=== PATIENT | female | born 1950 | race Caucasian/White ===

== ENCOUNTER → 2016-06-30 | Outpatient (CLI) | payer MEDICARE, BC ==
--- NOTE | 2016-06-30 09:07 | CT ---
EXAMINATION TYPE: CT sinus wo con DATE OF EXAM: 06/30/2016 8:16 AM COMPARISON: NONE HISTORY: 66-year-old female chronic sinusitis, sinus surgery 5 months ago, complaining of unusual sen sation and air passage. CT DLP: 536 mGycm Automated exposure control for dose reduction was used. TECHNIQUE: Noncontrast axial views of the paranasal sinuses were obtained. Coronal reconstructions pe rformed. FINDINGS: Moderate lobulated mucosal thickening along the floors of the maxillary sinuses. There is reactive ne o osteogenesis of the maxillary sinus pal compatible with long-standing sinusitis. Interval FESS with medial maxillary antrectomies and resection extending up into the ethmoid air cell s. Mild mucosal thickening left sphenoid sinus. Frontal sinuses are clear. No air-fluid levels or osseous destruction of the sinus pal. Similar mild right-sided nasal septal deviation. The osteomeatal complexes are widely patent. The hard palate appears intact. Mild degenerative changes at the TMJs. Prior cataract surgery on the right. Otherwise, the imaged brain and orbits are normal in appearance. Mastoid air cells and middle ear cavities are well pneumatized. Cerumen within the left external wendy tory canal. IMPRESSION: 1. Interval FESS. Bony thickening of the maxillary sinus pal compatible with long-standing sinusiti s. 2. Currently, there is moderate lobulated mucosal thickening along the floors of both maxillary sinus es and minimal mucosal thickening in the left sphenoid sinus.
== END | disposition home or self-care (01) ==
LOC: RADCTMAIN 07:58
PROVIDERS: ATTEND Otolaryngology
DX: J32.0 Chronic maxillary sinusitis (principal); J32.3 Chronic sphenoidal sinusitis
CPT/HCPCS: 70486

== ENCOUNTER → 2017-09-22 | Outpatient (CLI) | payer MEDICARE ==
[2017-09-22 10:47] LABS: HCT 42.6 % (34.0-46.0); HGB 13.7 gm/dL (11.4-16.0); MCH 28.7 pg (25.0-35.0); MCHC 32.2 g/dL (31.0-37.0); MCV 89.1 fL (80.0-100.0); Mean Platelet Volume 6.6; Platelet Count 286 k/uL (150-450); RBC 4.78 m/uL (3.80-5.40); RDW 14.2 % (11.5-15.5); WBC 5.3 k/uL (3.8-10.6)
[2017-09-22 11:06] LABS: Potassium 4.6 mmol/L (3.5-5.1)
== END ==
LOC: LABPAT 09:28
PROVIDERS: ATTEND Internal Medicine Interventional Cardiology
DX: Z01.812 Encounter for preprocedural laboratory examination (principal); R07.9 Chest pain, unspecified
CPT/HCPCS: 36415; 80051; 82565; 84520; 85027

== ENCOUNTER 2017-09-28 06:11 | Day surgery (SDC) | payer MEDICARE ==
[2017-09-28] MEDS ORDERED: ATORVASTATIN 80 MG TAB PO STA (06:31)
[2017-09-28] MEDS ORDERED: SODIUM CHLORIDE 0.9% 1,000 ML in EMPTY BAG 1 BAG IV ONE (06:31)
[2017-09-28] MEDS ORDERED: ASPIRIN 325 MG TAB PO STA (06:31)
[2017-09-28] MEDS ORDERED: ALPRAZolam 0.25 MG TAB PO PRN (06:31)
[2017-09-28] MEDS ORDERED: NITROGLYCERIN SL TABS 0.4 MG TAB SUBLINGUAL PRN ×2 (06:31→09:44)
[2017-09-28] MEDS ORDERED: ALPRAZolam 0.5 MG TAB PO PRN (06:31)
[2017-09-28] MEDS ORDERED: LIDOCAINE 2% INJ 20 MG/ML (20 ML MDV) ONE (07:20)
[2017-09-28] MEDS ORDERED: VERAPAMIL 2.5 MG/ML 2 ML AMP ONE (07:21)
[2017-09-28] MEDS ORDERED: MIDAZOLAM 2 MG/2 ML VIAL ONE ×2 (07:47→09:20)
[2017-09-28] MEDS: MIDAZOLAM 2 MG/2 ML VIAL IV ONE ×2 (07:55→08:05)
[2017-09-28] MEDS ORDERED: LIDOCAINE 2% INJ 20 MG/ML SQ ONE (07:56)
[2017-09-28] MEDS: VERAPAMIL SYRINGE (5 MG/10 ML) IVP ONE ×2 (07:57→09:34)
[2017-09-28] MEDS ORDERED: HEPARIN SODIUM 1,000 UN/ML (10ML VL) ONE (07:58)
[2017-09-28] MEDS ORDERED: HEPARIN SODIUM 1,000 UN/ML (10ML VL) IV ONE (07:59)
[2017-09-28] MEDS ORDERED: niCARdipine 25 MG/10 ML VIAL ONE (08:16)
[2017-09-28] MEDS ORDERED: BIVALIRUDIN BOLUS 250 MG/50 ML IV ONE (08:20)
[2017-09-28] MEDS ORDERED: NITROGLYCERIN 1000MCG/10ML SYRINGE INTRACORON ONE ×2 (08:21→09:29)
[2017-09-28] MEDS ORDERED: BIVALIRUDIN 250 MG in SODIUM CHLORIDE 0.9% 50 ML IV ONE ×2 (08:22→08:56)
[2017-09-28] MEDS ORDERED: fentaNYL (PF) 50 MCG/ML 2 ML AMP ONE (08:24)
[2017-09-28] MEDS: fentaNYL (PF) 50 MCG/ML 2 ML AMP IVP ONE ×2 (08:26→08:38)
[2017-09-28] MEDS ORDERED: IOPAMIDOL-370 125ML BTL INJ ONE (08:45)
[2017-09-28] MEDS: NITROGLYCERIN 1000MCG/10ML SYRINGE INTRACORON ONE ×3 (08:57→09:15)
[2017-09-28] MEDS ORDERED: MIDAZOLAM 2 MG/2 ML VIAL IVP ONE (09:24)
[2017-09-28] MEDS ORDERED: CLOPIDOGREL 75 MG TAB ONE (09:28)
[2017-09-28] MEDS ORDERED: CLOPIDOGREL 75 MG TAB PO ONE (09:34)
[2017-09-28] MEDS ORDERED: IOPAMIDOL-300 100ML BTL INJ ONE (09:40)
[2017-09-28] MEDS ORDERED: MAG HYDROX/AL HYDROX/SIMETH 30 ML CUP PO PRN (09:44)
[2017-09-28] MEDS ORDERED: IBUPROFEN 200 MG TAB PO PRN (09:44)
[2017-09-28] MEDS ORDERED: ALBUTEROL NEBULIZED 2.5 MG/3 ML INHALATION PRN (09:44)
[2017-09-28] MEDS ORDERED: RX INFO: IV CONTRAST WAS GIVEN 1 EACH MISC MISCELLANE PRN (09:44)
[2017-09-28] MEDS ORDERED: ATROPINE SULFATE 0.1 MG/ML 10ML SYRINGE IV PRN (09:44)
[2017-09-28] MEDS ORDERED: ZOLPIDEM 5 MG TAB PO PRN (09:44)
[2017-09-28] MEDS ORDERED: SODIUM CHLORIDE 0.9% 1,000 ML IV SCH (09:45)
--- NOTE | 2017-09-28 10:52 | CC ---
CARDIAC CATHETERIZATION REPORT DATE OF SERVICE: 09/28/2017 PERFORMING PHYSICIAN: Adi Toussaint MD, soil field technician. PROCEDURE PERFORMED: 1. Selective right and left coronary angiogram. 2. Left heart catheterization. 3. x 16 and 2.25 x 12 mm Promus Premier drug-eluting stent with good angiographic results. 4. Successful stenting of the mid RCA using 3.0 x 12 mm Xience MADELIN with good angiographic results. INDICATION: This is a very pleasant 67-year-old female patient with dyslipidemia and obesity, was experiencing exertional dyspnea concerning for angina. She was seen by elevator attendant, Dr. Jara, who ruled out any lung etiology for her shortness of breath. The EKG showed sinus rhythm with poor R-wave progression and left anterior fascicular block. The patient was concerned about severe underlying coronary artery disease. I recommended proceeding with a stress test, but she would like to proceed with a heart catheterization and for that reason, she was brought today to undergo the procedure. APPROACH: Right radial artery. COMPLICATION: None. LEVEL OF SEDATION: Moderate with sedation length of 95 minutes. PROCEDURE DESCRIPTION: After obtaining an informed consent, the patient was brought to cardiac oil field laborer. The right radial artery was cannulated using micropuncture technique, and the micropuncture wire passed easily then I placed a 6-Nigerien sheath in the right radial artery and gave the patient 2 mg of verapamil IA and 10,000 units of heparin IV. I did selective right and left coronary angiogram using JR4 and JL3.5 catheters. Left heart catheterization was performed using the JR4 catheter which flipped into the LV then I did pullback across aortic valve. The procedure was completed without any complication. I did after that intervene on the RCA, please see a separate paragraph for that. SELECTIVE CORONARY ANGIOGRAM: 1. The right coronary artery is a large caliber vessel and it is a dominant vessel. It is a heavily calcified vessel as well. The distal RCA has eccentric lesion appeared to be in the range of 80% to 90%. It bifurcates into PDA and PLV branches both are angiographically normal. 2. The left main is angiographically normal. It bifurcates into left circumflex and left anterior descending artery. 3. The left circumflex is a large caliber vessel. It is a nondominant vessel. The proximal circ has mild disease only. The mid circ has mild disease only and gives rise into an OM branch which seems to be angiographically normal. The mid circ also gives rise into a second OM branch which is a medium caliber vessel with intermediate disease in the proximal portion. The circumflex continues after that as a small caliber vessel in the AV groove. 4. The LAD; the LAD is a medium caliber vessel and it is a heavily calcified and tortuous vessel. It does have mild disease only. It gives rise into the first and second diagonal branches both are angiographically normal. HEMODYNAMICS: The left ventricular end-diastolic pressure was 12 mmHg and no gradient was identified across the aortic valve. PCI OF THE RCA: Anticoagulation was initiated using Angiomax because I checked ACT before I started and it was subtherapeutic. After that, I started anticoagulation with Angiomax. I engaged the RCA using a JR4 guiding catheter. I wired the RCA using a whisper wire. I attempted advancing 2.0 x 12 mm balloon over the whisper, but the balloon will not cross the lesion in the distal RCA and at that point, I did advance 1.5 mm x 12 mm balloon and I did PTCA ballooning of the distal RCA. After that I was able to advance the 2.0 x 12 mm balloon. After balloon angioplasty using 2.0 x 12 mm balloon, I did double wire the RCA using a miky wire with a run-through wire because I knew that advancing the stent will be challenging and crossing the proximal and mid RCA will be challenging in view of the tortuosity and calcifications. I did wire the RCA using a run-through wire. I attempted advancing the stent but the stent will not cross. At this point, I did pull the miky wire out and I tried using adjunctive Godzilla and in spite of that, I was unable to advance the stent. At that point, I decided to wire the RCA with a miky wire and this time using a Mailman wire. With that, I was able to stent the RCA distally using 2 stents, 2.5 x 16 and 2.25 x 12 mm. Both the stents were positioned under fluoroscopy guidance and both were deployed under their nominal pressure for 20 seconds. After I pulled the balloon stent out, I took a picture and there was a lesion in the mid RCA. It seems to be hazy and quite concerning for dissection, so I decided to cover that lesion as well, so I did deploy 3.0 x 12 mm Xience MADELIN as well. The third stent was positioned under fluoroscopy guidance and deployed under its nominal pressure as well. The following angiogram showed good angiographic results and the procedure was completed without any complication. CONCLUSION: 1. Exertional dyspnea and exertional chest discomfort in this 67-year-old female patient. 2. Heavily calcified right and left coronary system. 3. Critical disease involving the distal right coronary artery which was stented as described above. 4. Intermediate disease involving the left circumflex. 5. Mild disease involving the left anterior descending artery. POSTPROCEDURE MANAGEMENT: Maximize medical treatment and follow up with the patient. MMODL / IJN: [id number] /
[2017-09-28] MEDS ORDERED: ACETAMINOPHEN TAB 325 MG TAB ONE (13:55)
[2017-09-28 15:59] VITALS: BMI 48.0
[2017-09-28] MEDS: METOPROLOL TARTRATE 25 MG TAB PO SCH (20:39)
[2017-09-28] MEDS ORDERED: ATORVASTATIN 80 MG TAB PO SCH (21:00)
[2017-09-28] MEDS: BRIMONIDINE TARTRATE 0.2% DROPS 5 ML BTL LEFT EYE SCH (21:28)
[2017-09-28] MEDS: DORZOLAMIDE HCL 2% DROPS 10 ML BTL LEFT EYE SCH (21:28)
[2017-09-28] MEDS: ALBUTEROL NEBULIZED 2.5 MG/3 ML INHALATION PRN (21:43)
[2017-09-28] MEDS: BUDESONIDE 1 MG/2 ML NEBU INHALATION SCH (21:43)
[2017-09-29 00:42] VITALS: RESP 16
[2017-09-29 06:30] LABS: Basophils % (A) 0 %; Eosinophils # (A) 0.2 k/uL (0-0.7); Eosinophils % (A) 3 %; HCT 39.3 % (34.0-46.0); HGB 12.9 gm/dL (11.4-16.0); Lymphocytes # (A) 1.2 k/uL (1.0-4.8); Lymphocytes % (A) 25 %; MCHC 32.7 g/dL (31.0-37.0); MCV 88.6 fL (80.0-100.0); Mean Platelet Volume 6.4; Monocytes # (A) 0.4 k/uL (0-1.0); Monocytes % (A) 9 %; Neutrophils # (A) 2.9 k/uL (1.3-7.7); Neutrophils % (A) 61 %; Platelet Count 303 k/uL (150-450); RBC 4.44 m/uL (3.80-5.40); RDW 14.2 % (11.5-15.5); WBC 4.8 k/uL (3.8-10.6)
[2017-09-29 06:40] LABS: Calcium 9.1 mg/dL (8.4-10.2); Potassium 4.4 mmol/L (3.5-5.1)
[2017-09-29] MEDS: ALBUTEROL NEBULIZED 2.5 MG/3 ML INHALATION PRN (07:23)
[2017-09-29] MEDS: BUDESONIDE 1 MG/2 ML NEBU INHALATION SCH (07:23)
[2017-09-29 07:58] VITALS: BP 125/74; TEMP 98
[2017-09-29] MEDS: DORZOLAMIDE HCL 2% DROPS 10 ML BTL LEFT EYE SCH (08:01)
[2017-09-29] MEDS: BRIMONIDINE TARTRATE 0.2% DROPS 5 ML BTL LEFT EYE SCH (08:01)
[2017-09-29] MEDS: METOPROLOL TARTRATE 25 MG TAB PO SCH (08:02)
[2017-09-29 08:03] VITALS: PULSE 77
[2017-09-29] MEDS ORDERED: ASPIRIN 325 MG TAB PO SCH (09:00)
[2017-09-29] MEDS ORDERED: CLOPIDOGREL 75 MG TAB PO SCH (09:00)
--- NOTE | 2017-09-30 06:41 | DS ---
DISCHARGE SUMMARY ADMISSION DATE: 09/28/2017. DISCHARGE DATE: 09/29/2017 BRIEF HISTORY: This is a pleasant 67-year-old female patient who was experiencing exertional dyspnea concerning for angina. She underwent heart catheterization and stenting of distal RCA with good angiographic results. The patient is going to be discharged home today on dual anti-platelet therapy and I will follow up with the patient in the office as an outpatient. MMCASSIE / WILMERN: [id number] /
== END 2017-09-29 08:40 | disposition home or self-care (01) ==
LOC: CATHCVL 06:11 → 6SEL 09:20 → CATHCVL 09-29 08:40
PROVIDERS: ATTEND Internal Medicine Interventional Cardiology
DX: I25.110 Atherosclerotic heart disease of native coronary artery with unstable angina pectoris (principal); I25.84 Coronary atherosclerosis due to calcified coronary lesion; I10 Essential (primary) hypertension; Z87.891 Personal history of nicotine dependence; I77.1 Stricture of artery; E78.00 Pure hypercholesterolemia, unspecified; E78.5 Hyperlipidemia, unspecified; Z79.51 Long term (current) use of inhaled steroids; Z79.899 Other long term (current) drug therapy; Z88.2 Allergy status to sulfonamides
CPT/HCPCS: 94640 ×2; 93458; 80048; 85025; C9600; C1769 ×5; C1887 ×2; C1725 ×3; C1874 ×2; C1894; J2001; J2250; J3010; J1644; J0583; Q9967 ×2

== ENCOUNTER → 2017-11-17 | Outpatient (CLI) | payer MEDICARE, BC ==
--- NOTE | 2017-11-18 07:41 | CT ---
EXAMINATION TYPE: CT brain wo con DATE OF EXAM: 11/17/2017 HISTORY: Headaches for 1-[address] DLP: 1054.2 mGycm. Automated Exposure Control for Dose Reduction was Utilized. TECHNIQUE: CT scan of the head is performed without contrast. COMPARISON: None. FINDINGS: There is no acute intracranial hemorrhage or midline shift identified. There is diffuse v entricular and sulcal prominence consistent with diffuse age-related cerebral atrophy. Marc-white mat ter differentiation is preserved. Vascular calcification distal internal carotid arteries bilaterally is present. There is evidence of prior surgery at level of ostiomeatal complexes with mild to modera te right greater than left mucosal thickening involving maxillary sinuses and mild mucosal thickening involving the left sphenoid sinus. There is asymmetric thinning of right lens. IMPRESSION: No acute intracranial hemorrhage or midline shift. There is mild diffuse age-related ce rebral atrophy noted.
== END ==
LOC: RADCTMAIN 16:29
PROVIDERS: ATTEND Family Medicine
DX: G31.1 Senile degeneration of brain, not elsewhere classified (principal)
CPT/HCPCS: 70450

== ENCOUNTER → 2017-12-09 | Outpatient (CLI) | payer MEDICARE, BC ==
[2017-12-09 08:02] LABS: Cholesterol 189 mg/dL (<200); HDL Cholesterol 53 mg/dL (40-60); LDL Cholesterol,Calculated 118 mg/dL (0-99); Triglycerides 91 mg/dL (<150)
== END | disposition home or self-care (01) ==
LOC: LABWHC1 07:29
PROVIDERS: ATTEND Nurse Practitioner Adult Health
DX: E78.5 Hyperlipidemia, unspecified (principal)
CPT/HCPCS: 36415; 80061

== ENCOUNTER 2018-05-04 10:52 | Emergency (ER) | payer MEDICARE, BC ==
[2018-05-04 11:10] VITALS: RESP 18
[2018-05-04] MEDS ORDERED: SODIUM CHLORIDE 0.9% 1,000 ML IV STA ×2 (11:29)
[2018-05-04] MEDS ORDERED: MORPHINE SULFATE 4 MG/ML SYRINGE IV STA (11:29)
--- NOTE | 2018-05-04 11:41 | ED ---
Abdominal Pain HPI - General Chief Complaint: Abdominal Pain Stated Complaint: POSS KIDNEY STONE Time Seen by Provider: 05/04/18 11:28 Source: patient, RN notes reviewed, old records reviewed Mode of arrival: wheelchair Limitations: no limitations - History of Present Illness Initial Comments: This is a 60-year-old female the ER for evaluation. Presents today for evaluation regarding to abdominal pain flank pain. Patient is recent travel history no known sick contacts. No recent fevers. No nausea vomiting, no significant diarrhea no blood in the vomit or stool. No prior history of similar complaint. Recently treated for urinary tract infection to resolution MD Complaint: abdominal pain, flank pain (Back pain) -: days(s) Location: R flank Radiation: none Migration to: no migration Severity: mild Severity scale (1-10): 3 Quality: aching Improves With: nothing Worsens With: nothing Associated Symptoms: denies other symptoms - Related Data Home Medications Medication Instructions Recorded Confirmed Albuterol Inhaler [Ventolin Hfa 2 puff INHALATION RT-Q6H PRN 02/11/16 05/04/18 Inhaler] Beclomethasone Dip 80 Mcg/Puff 2 puff INHALATION RT-BID 02/11/16 05/04/18 [Qvar 80 mcg] Albuterol Nebulized [Ventolin 2.5 mg INHALATION RT-Q6H PRN 05/04/18 05/04/18 Nebulized] Aspirin EC [Ecotrin Low Dose] 81 mg PO DAILY 05/04/18 05/04/18 Atorvastatin [Lipitor] 80 mg PO DAILY 05/04/18 05/04/18 Cholecalciferol [Vitamin D3] 1,000 unit PO HS 05/04/18 05/04/18 Magnesium 200 mg PO HS 05/04/18 05/04/18 Multivitamins, Thera [Multivitamin 1 tab PO HS 05/04/18 05/04/18 (formulary)] Potassium Gluconate 99 mg PO HS 05/04/18 05/04/18 Previous Rx's Medication Instructions Recorded Clopidogrel [Plavix] 75 mg PO DAILY #90 tab 09/29/17 Metoprolol Tartrate [Lopressor] 12.5 mg PO BID #60 dose 09/29/17 Ciprofloxacin HCl [Cipro] 500 mg PO Q12HR #14 tablet 05/04/18 Ondansetron Odt [Zofran ODT] 4 mg PO Q8HR PRN #10 tab 05/04/18 metroNIDAZOLE [Flagyl] 500 mg PO TID #21 tab 05/04/18 Allergies Allergy/AdvReac Type Severity Reaction Status Date / Time Sulfa (Sulfonamide Allergy Nausea & Verified 05/04/18 11:24 Antibiotics) Vomiting Review of Systems ROS Statement: Those systems with pertinent positive or pertinent negative responses have been documented in the HPI. ROS Other: All systems not noted in ROS Statement are negative. Past Medical History Past Medical History: Asthma, GERD/Reflux, Osteoarthritis (OA) Additional Past Medical History / Comment(s): lupus History of Any Multi-Drug Resistant Organisms: None Reported Past Surgical History: Breast Surgery, Heart Catheterization With Stent, Hysterectomy Additional Past Surgical History / Comment(s): NASAL SURGERY,TUMOR IN NECK, LEFT EYE SURGERY, CARPAL TUNNEL RIGHT WRIST, Lumpectomy right breast Past Anesthesia/Blood Transfusion Reactions: No Reported Reaction Past Psychological History: No Psychological Hx Reported Smoking Status: Former smoker Past Alcohol Use History: None Reported Past Drug Use History: None Reported - Past Family History Mother Family Medical History: Cancer Additional Family Medical History / Comment(s): OVARIAN CANCER General Exam Limitations: no limitations General appearance: alert, in no apparent distress Head exam: Present: atraumatic, normocephalic, normal inspection Eye exam: Present: normal appearance, PERRL, EOMI. Absent: scleral icterus, conjunctival injection, periorbital swelling ENT exam: Present: normal exam, mucous membranes moist Neck exam: Present: normal inspection. Absent: tenderness, meningismus, lymphadenopathy Respiratory exam: Present: normal lung sounds bilaterally. Absent: respiratory distress, wheezes, rales, rhonchi, stridor Cardiovascular Exam: Present: regular rate, normal rhythm, normal heart sounds. Absent: systolic murmur, diastolic murmur, rubs, gallop, clicks GI/Abdominal exam: Present: soft, normal bowel sounds. Absent: distended, tenderness, guarding, rebound, rigid Extremities exam: Present: normal inspection, full ROM, normal capillary refill. Absent: tenderness, pedal edema, joint swelling, calf tenderness Back exam: Present: normal inspection Neurological exam: Present: alert, oriented X3, CN II-XII intact Psychiatric exam: Present: normal affect, normal mood Skin exam: Present: warm, dry, intact, normal color. Absent: rash Course Vital Signs 05/04/18 05/04/18 11:08 13:17 Temperature 97.8 F 98.7 F Pulse Rate 85 87 Respiratory 18 18 Rate Blood Pressure 115/69 125/87 O2 Sat by Pulse 96 98 Oximetry - Reevaluation(s) Reevaluation #1: discussed with patient options findings, patient will try on outpatient treatment Medical Decision Making - Medical Decision Making 60 female the ER for evaluation. She presents today for evaluation of abdominal pain. Patient has positive colitis, patient will be discharged home on antibiotics and dietary changes. - Lab Data Result diagrams: 05/04/18 11:47 05/04/18 11:47 Lab Results 05/04/18 05/04/18 05/04/18 Range/Units 11:20 11:47 11:47 WBC 6.0 (3.8-10.6) k/uL RBC 4.66 (3.80-5.40) m/uL Hgb 12.6 (11.4-16.0) gm/dL Hct 40.2 (34.0-46.0) % MCV 86.3 (80.0-100.0) fL MCH 27.0 (25.0-35.0) pg MCHC 31.3 (31.0-37.0) g/dL RDW 15.7 H (11.5-15.5) % Plt Count 295 (150-450) k/uL Neutrophils % 65 % Lymphocytes % 24 % Monocytes % 6 % Eosinophils % 2 % Basophils % 0 % Neutrophils # 3.9 (1.3-7.7) k/uL Lymphocytes # 1.5 (1.0-4.8) k/uL Monocytes # 0.4 (0-1.0) k/uL Eosinophils # 0.1 (0-0.7) k/uL Basophils # 0.0 (0-0.2) k/uL Sodium 138 (137-145) mmol/L Potassium 5.0 (3.5-5.1) mmol/L Chloride 111 H (98-107) mmol/L Carbon Dioxide 22 (22-30) mmol/L Anion Gap 5 mmol/L BUN 21 H (7-17) mg/dL Creatinine 0.77 (0.52-1.04) mg/dL Est GFR (CKD-EPI)AfAm >90 (>60 ml/min/1.73 sqM) Est GFR (CKD-EPI)NonAf 80 (>60 ml/min/1.73 sqM) Glucose 95 (74-99) mg/dL Calcium 9.3 (8.4-10.2) mg/dL Total Bilirubin 0.8 (0.2-1.3) mg/dL AST 54 H (14-36) U/L ALT 45 (9-52) U/L Alkaline Phosphatase 84 (38-126) U/L Total Protein 7.3 (6.3-8.2) g/dL Albumin 3.6 (3.5-5.0) g/dL Amylase 66 (30-110) U/L Lipase 230 (23-300) U/L Urine Color Light Yellow Urine Appearance Cloudy H (Clear) Urine pH 7.0 (5.0-8.0) Ur Specific Arnold 1.006 (1.001-1.035) Urine Protein Negative (Negative) Urine Glucose (UA) Negative (Negative) Urine Ketones Negative (Negative) Urine Blood Small H (Negative) Urine Nitrite Negative (Negative) Urine Bilirubin Negative (Negative) Urine Urobilinogen <2.0 (<2.0) mg/dL Ur Leukocyte Esterase Large H (Negative) Urine RBC 22 H (0-5) /hpf Urine WBC 29 H (0-5) /hpf Ur Squamous Epith Cells 4 (0-4) /hpf Urine Bacteria Occasional H (None) /hpf Urine Mucus Rare H (None) /hpf - Radiology Data Radiology results: report reviewed (CT of pelvis positive for diverticulitis), image reviewed Disposition Clinical Impression: Abdominal pain, Diverticulitis Disposition: HOME SELF-CARE Condition: Good Instructions: Diverticulitis (ED), Diverticulitis Diet (ED) Prescriptions: Ciprofloxacin HCl [Cipro] 500 mg PO Q12HR #14 tablet metroNIDAZOLE [Flagyl] 500 mg PO TID #21 tab Ondansetron Odt [Zofran ODT] 4 mg PO Q8HR PRN #10 tab PRN Reason: nausea/vomiting Is patient prescribed a controlled substance at d/c from ED?: No Referrals: John Moss MD [Primary Care Provider] - 1-2 days
[2018-05-04 11:55] LABS: Appearance,Urine Cloudy (Clear); Bacteria,Urine Occasional /hpf; Bilirubin,Urine Negative (Negative); Blood,Urine Small (Negative); Color,Urine Light Yellow; Glucose,Urine (UA) Negative (Negative); Ketones,Urine Negative (Negative); Leukocyte Esterase,Urine Large (Negative); Mucus,Urine Rare /hpf; Nitrite,Urine Negative (Negative); Protein,Urine Negative (Negative); RBC,Urine 22 /hpf (0-5); Specific Gravity,Urine 1.006 (1.001-1.035); Squamous Epithelial Cell,Urine 4 /hpf (0-4); Urobilinogen,Urine <2.0 mg/dL (<2.0); WBC,Urine 29 /hpf (0-5)
[2018-05-04 12:08] LABS: Basophils % (A) 0 %; Eosinophils # (A) 0.1 k/uL (0-0.7); Eosinophils % (A) 2 %; HCT 40.2 % (34.0-46.0); HGB 12.6 gm/dL (11.4-16.0); Lymphocytes # (A) 1.5 k/uL (1.0-4.8); Lymphocytes % (A) 24 %; MCHC 31.3 g/dL (31.0-37.0); MCV 86.3 fL (80.0-100.0); Mean Platelet Volume 6.3; Monocytes # (A) 0.4 k/uL (0-1.0); Monocytes % (A) 6 %; Neutrophils # (A) 3.9 k/uL (1.3-7.7); Neutrophils % (A) 65 %; Platelet Count 295 k/uL (150-450); RBC 4.66 m/uL (3.80-5.40); RDW 15.7 % (11.5-15.5)
--- NOTE | 2018-05-04 12:17 | CT ---
EXAMINATION TYPE: CT abdomen pelvis wo con DATE OF EXAM: 05/04/2018 COMPARISON: None HISTORY: Right sided flank pain CT DLP: 1281 mGycm Examination of the solid and hollow viscera is limited given the lack of contrast. FINDINGS: LUNG BASES: No evidence for nodule. No evidence for infiltrate. LIVER/GB: There is evidence of calcified cholelithiasis. No space-occupying hepatic lesion. PANCREAS: No pancreatic mass identified. No inflammatory process seen. SPLEEN: No evidence for splenomegaly. No intrasplenic lesions seen. ADRENALS: No adrenal nodules identified. No evidence for thickening. KIDNEYS: No evidence for renal mass. Renal vascular calcifications noted bilaterally. No nephrolithia sis. No hydronephrosis. BOWEL: Appendix has a normal appearance. No evidence of bowel obstruction. There is minimal stranding noted adjacent to the proximal sigmoid colon at the site of diverticulosis which may reflect mild di verticulitis. No perforation or abscess seen. Lymph nodes: No evidence for adenopathy greater than 1 cm. Abdominal aorta: Atheromatous changes seen. No evidence for aneurysm. Genital organs: No significant abnormality. Other: No significant abnormality. IMPRESSION: 1. Correlate for mild uncomplicated sigmoid diverticulitis. 2. Renal vascular calcifications. No hydronephrosis or nephrolithiasis appreciated.
[2018-05-04 12:23] LABS: Albumin 3.6 g/dL (3.5-5.0); Amylase 66 U/L (30-110); Anion Gap 5 mmol/L; Blood Urea Nitrogen 21 mg/dL (7-17); Calcium 9.3 mg/dL (8.4-10.2); Carbon Dioxide 22 mmol/L (22-30); Chloride 111 mmol/L (98-107); Glucose 95 mg/dL (74-99); Lipase 230 U/L (23-300); Sodium 138 mmol/L (137-145); Total Bilirubin 0.8 mg/dL (0.2-1.3); Total Protein 7.3 g/dL (6.3-8.2)
[2018-05-04 12:35] LABS: ALT 45 U/L (9-52); AST 54 U/L (14-36)
[2018-05-04 12:36] LABS: Alkaline Phosphatase 84 U/L (38-126)
[2018-05-04] MEDS ORDERED: CIPROFLOXACIN HCL 500 MG TAB PO STA (12:55)
[2018-05-04] MEDS ORDERED: metroNIDAZOLE 500 MG TAB PO STA (12:55)
[2018-05-04] MEDS ORDERED: ONDANSETRON 4 MG/2 ML VIAL IVP STA (12:55)
[2018-05-04 13:20] VITALS: BP 125/87; PULSE 87; TEMP 98.7
== END 2018-05-04 13:20 | disposition home or self-care (01) ==
LOC: EC 10:52
DX: K57.32 Diverticulitis of large intestine without perforation or abscess without bleeding (principal); K52.9 Noninfective gastroenteritis and colitis, unspecified; J45.909 Unspecified asthma, uncomplicated; M19.90 Unspecified osteoarthritis, unspecified site; Z87.891 Personal history of nicotine dependence; Z88.2 Allergy status to sulfonamides; Z79.51 Long term (current) use of inhaled steroids; Z79.82 Long term (current) use of aspirin; Z79.899 Other long term (current) drug therapy
CPT/HCPCS: 99284; 96374; 96375; 96361 ×2; 36415; 80053; 82150; 83690; 85025; 81001; 87086; 87077; 87186; 74176; J2270; J2405

== ENCOUNTER → 2018-07-07 | Outpatient (CLI) | payer MEDICARE, BC ==
--- NOTE | 2018-07-07 19:37 | CONS ---
CONSULTATION DATE OF SERVICE: 07/07/2018 This patient is a 68-year-old lady who has been evaluated in [facility] for possible obstructive sleep apnea-hypopnea syndrome. HISTORY OF PRESENT ILLNESS/SLEEP-WAKE EVALUATION: Patient's usual sleep schedule is from around 10 p.m. until 5 a.m. Usually no problems with falling asleep. No TV in bedroom. Patient sleeps on the side position only with snoring and awakenings from sleep multiple times, around 8 times, usually without nocturia. She has episodes of awakenings from sleep with choking, grinding teeth, panic attacks, palpitations, heartburn, gasping for air, episodes of restless legs. In the morning the patient wakes up tired, falling asleep during the day, having episodes of irritability, depression, anxiety, claustrophobia. [place] Sleepiness Scale is increased to 11. PAST MEDICAL HISTORY: Positive for: 1. Coronary artery disease. 2. Hyperlipidemia. 3. Asthma. 4. Sinus problems. PAST SURGICAL HISTORY: 1. Right breast 2 surgeries with benign diagnoses. 2. Status post left eye surgery. 3. Status post nasal surgery. MEDICATIONS: 1. Metoprolol. 2. Baby aspirin. 3. Clopidogrel. 4. Atorvastatin. 5. Vitamins. 6. Magnesium. 7. Ventolin, Qvar and albuterol inhalers. SOCIAL HISTORY: Positive for smoking about 25 pack/years; quit about 14 years ago. Alcohol consumption very rarely. REVIEW OF SYSTEMS: Multiple awakenings from sleep, sleepiness during the day, swelling of the legs. FAMILY HISTORY: Heart problems, hyperlipidemia, arthritis, asthma, sinus problems, snoring, cancer, headaches, acid reflux, nasal polyps, restless legs. PHYSICAL EXAMINATION: GENERAL: A pleasant lady without distress. VITAL SIGNS: BP 118/42, HR around 110, RR 24, height 4 feet 10 inches, weight 250 pounds. Body mass index 52.2, temperature 97.6. Oxygen saturation on room air 94%. HEENT: PERRLA, EOMI. Evaluation of oropharynx showed tongue protrudes midline. Low position of soft palate. Mallampati III. NECK: Supple. No JVD. Thyroid is not palpable. Wide pillars. Wide neck: 19 inches in circumference. LUNGS: Clear to percussion and to auscultation. Good air exchange. No wheezing or rhonchi. HEART: Tachycardia. ABDOMEN: Obese. EXTREMITIES: One plus bilateral ankle edema. IMPRESSION: 1. Snoring, multiple awakenings from sleep, including episodes of awakenings with gasping for air, small oropharyngeal air space, wide neck, sleepiness; obstructive sleep apnea-hypopnea syndrome. 2. Obesity; body mass index 52.2. 3. Asthma. 4. History of 25 pack/years of smoking. 5. Coronary artery disease, status post 2 stent insertions. 6. Hyperlipidemia. 7. Status post 2 right breast surgeries; not any tumor. 8. Status post partial hysterectomy. 9. Status post left eye surgery. 10.Status post nasal surgery for sinus problems. 11.History of sinusitis. PLAN: 1. Polysomnography for evaluation of patient's breathing during sleep. 2. CPAP/BiPAP titration if sleep study confirms obstructive sleep apnea-hypopnea syndrome. 3. Preferable position during sleep on the side. 4. No driving if patient feels any sleepiness. 5. I will see patient for follow up visit to explain results of testing and following plan. Thank you very much for referring this patient for consultation. Sincerely, Chino Banks MD, PhD, FAASM Diplomat of [employer]ur[employer] Assistant of [facility] [place] MMODL / IJN: [id number] /
== END ==
LOC: SLEEP 13:23
PROVIDERS: ATTEND Internal Medicine
DX: G47.33 Obstructive sleep apnea (adult) (pediatric) (principal); E66.9 Obesity, unspecified; J45.909 Unspecified asthma, uncomplicated; I25.10 Atherosclerotic heart disease of native coronary artery without angina pectoris; J32.9 Chronic sinusitis, unspecified; E78.5 Hyperlipidemia, unspecified; Z68.43 Body mass index [BMI] 50.0-59.9, adult; Z87.891 Personal history of nicotine dependence; Z90.711 Acquired absence of uterus with remaining cervical stump; Z98.890 Other specified postprocedural states; Z99.89 Dependence on other enabling machines and devices; Z95.5 Presence of coronary angioplasty implant and graft; Z79.899 Other long term (current) drug therapy; Z79.82 Long term (current) use of aspirin
CPT/HCPCS: 99211

== ENCOUNTER 2018-09-07 08:27 | Emergency (ER) | payer MEDICARE, BC ==
[2018-09-07 08:34] VITALS: RESP 18; TEMP 98.2
[2018-09-07] MEDS ORDERED: SODIUM CHLORIDE 0.9% 500 ML 500 ML IV STA (08:56)
--- NOTE | 2018-09-07 08:59 | ED ---
General Adult HPI - General Chief complaint: Shortness of Breath Stated complaint: SOB, strange feeling in arms Time Seen by Provider: 09/07/18 08:27 Source: patient, RN notes reviewed Mode of arrival: wheelchair Limitations: no limitations - History of Present Illness Initial comments: This is a 68-year-old female has past medical history significant for coronary artery stent placement. Patient states she also has history of asthma. Patient states every morning she gets up she has a little bit of shortness of breath secondary to asthma she got up this morning and had the same symptoms as normal. Patient states she then started getting a cold chill in her back and down both arms. Patient states there was no pain there was no chest pain there's no palpitations in her shortness of breath resolved as it normally does. Patient states this lasted for a couple of hours and on her way to the emergency department with a cold chill was gone. Patient denies any fever patient denies any cough. Patient denies any symptoms at all currently. Patient denies any abdominal pain patient denies nausea vomiting diarrhea. Recent denies any numbness or weakness. Patient denies any headache patient denies any lightheadedness dizziness or near-syncopal episode. - Related Data Home Medications Medication Instructions Recorded Confirmed Aspirin EC [Ecotrin Low Dose] 81 mg PO DAILY 05/04/18 09/07/18 Cholecalciferol [Vitamin D3] 1,000 unit PO HS 05/04/18 09/07/18 Magnesium 400 mg PO HS 05/04/18 09/07/18 Multivitamins, Thera [Multivitamin 1 tab PO HS 05/04/18 09/07/18 (formulary)] Potassium Gluconate 99 mg PO HS 05/04/18 09/07/18 Atorvastatin [Lipitor] 40 mg PO DAILY 09/07/18 09/07/18 Furosemide [Lasix] 20 mg PO DAILY 09/07/18 09/07/18 Metoprolol Tartrate [Lopressor] 25 mg PO BID 09/07/18 09/07/18 [place]-3 Fatty Acids [[place]-3] 1,000 mg PO DAILY 09/07/18 09/07/18 Previous Rx's Medication Instructions Recorded Clopidogrel [Plavix] 75 mg PO DAILY #90 tab 09/29/17 Allergies Allergy/AdvReac Type Severity Reaction Status Date / Time Sulfa (Sulfonamide Allergy Nausea & Verified 09/07/18 09:11 Antibiotics) Vomiting Review of Systems ROS Statement: Those systems with pertinent positive or pertinent negative responses have been documented in the HPI. ROS Other: All systems not noted in ROS Statement are negative. Past Medical History Past Medical History: Asthma, Coronary Artery Disease (CAD), GERD/Reflux, Osteoarthritis (OA) Additional Past Medical History / Comment(s): lupus History of Any Multi-Drug Resistant Organisms: None Reported Past Surgical History: Breast Surgery, Heart Catheterization With Stent, Hysterectomy Additional Past Surgical History / Comment(s): NASAL SURGERY,TUMOR IN NECK, LEFT EYE SURGERY, CARPAL TUNNEL RIGHT WRIST, Lumpectomy right breast Past Anesthesia/Blood Transfusion Reactions: No Reported Reaction Past Psychological History: No Psychological Hx Reported Smoking Status: Former smoker Past Alcohol Use History: None Reported Past Drug Use History: None Reported - Past Family History Mother Family Medical History: Cancer Additional Family Medical History / Comment(s): OVARIAN CANCER General Exam - General Exam Comments Initial Comments: GENERAL: Patient is well-developed and well-nourished. Patient is nontoxic and well- hydrated and is in no acute distress. ENT: Neck is soft and supple. No significant lymphadenopathy is noted. Oropharynx is clear. Moist mucous membranes. Neck has full range of motion without eliciting any pain. EYES: The sclera were anicteric and conjunctiva were pink and moist. Extraocular movements were intact and pupils were equal round and reactive to light. Eyelids were unremarkable. PULMONARY: Unlabored respirations. Good breath sounds bilaterally. No audible rales rhonchi or wheezing was noted. CARDIOVASCULAR: There is a regular rate and rhythm without any murmurs gallops or rubs. ABDOMEN: Soft and nontender with normal bowel sounds. No palpable organomegaly was noted. There is no palpable pulsatile mass. SKIN: Skin is clear with no lesions or rashes and otherwise unremarkable. NEUROLOGIC: Patient is alert and oriented x3. Cranial nerves II through XII are grossly intact. Motor and sensory are also intact. Normal speech, volume and content. Symmetrical smile. MUSCULOSKELETAL: Normal extremities with adequate strength and full range of motion. No lower extremity swelling or edema. No calf tenderness. LYMPHATICS: No significant lymphadenopathy is noted PSYCHIATRIC: Normal psychiatric evaluation. Limitations: no limitations Course Vital Signs 09/07/18 08:30 Temperature 98.2 F Pulse Rate 83 Respiratory 18 Rate Blood Pressure 129/69 O2 Sat by Pulse 98 Oximetry Medical Decision Making - Medical Decision Making EKG shows normal sinus rhythm at 84 bpm NE interval 280 QRS is 96 QT interval 384 QTC is 453 per patient's EKG shows no ST segment elevation or depression or T wave abnormalities are noted. Initial chest x-ray shows no acute abnormality. Patient's had no symptoms while in the emergency department. At no time was the patient short of breath or having any chest pain. - Lab Data Result diagrams: 09/07/18 08:52 09/07/18 08:52 Lab Results 09/07/18 09/07/18 09/07/18 Range/Units 08:52 08:52 08:52 WBC 4.9 (3.8-10.6) k/uL RBC 4.40 (3.80-5.40) m/uL Hgb 11.0 L (11.4-16.0) gm/dL Hct 35.4 (34.0-46.0) % MCV 80.6 (80.0-100.0) fL MCH 25.1 (25.0-35.0) pg MCHC 31.2 (31.0-37.0) g/dL RDW 15.9 H (11.5-15.5) % Plt Count 358 (150-450) k/uL Neutrophils % 64 % Lymphocytes % 24 % Monocytes % 7 % Eosinophils % 2 % Basophils % 0 % Neutrophils # 3.1 (1.3-7.7) k/uL Lymphocytes # 1.1 (1.0-4.8) k/uL Monocytes # 0.3 (0-1.0) k/uL Eosinophils # 0.1 (0-0.7) k/uL Basophils # 0.0 (0-0.2) k/uL Hypochromasia Marked Poikilocytosis Slight PT 10.1 (9.0-12.0) sec INR 0.9 (<1.2) APTT 21.2 L (22.0-30.0) sec Sodium 141 (137-145) mmol/L Potassium 4.1 (3.5-5.1) mmol/L Chloride 107 (98-107) mmol/L Carbon Dioxide 25 (22-30) mmol/L Anion Gap 9 mmol/L BUN 20 H (7-17) mg/dL Creatinine 0.72 (0.52-1.04) mg/dL Est GFR (CKD-EPI)AfAm >90 (>60 ml/min/1.73 sqM) Est GFR (CKD-EPI)NonAf 87 (>60 ml/min/1.73 sqM) Glucose 135 H (74-99) mg/dL Calcium 9.1 (8.4-10.2) mg/dL Magnesium 1.9 (1.6-2.3) mg/dL Total Bilirubin 0.7 (0.2-1.3) mg/dL AST 54 H (14-36) U/L ALT 46 (9-52) U/L Alkaline Phosphatase 110 (38-126) U/L Troponin I (0.000-0.034) ng/mL Total Protein 7.3 (6.3-8.2) g/dL Albumin 3.7 (3.5-5.0) g/dL 09/07/18 Range/Units 08:52 WBC (3.8-10.6) k/uL RBC (3.80-5.40) m/uL Hgb (11.4-16.0) gm/dL Hct (34.0-46.0) % MCV (80.0-100.0) fL MCH (25.0-35.0) pg MCHC (31.0-37.0) g/dL RDW (11.5-15.5) % Plt Count (150-450) k/uL Neutrophils % % Lymphocytes % % Monocytes % % Eosinophils % % Basophils % % Neutrophils # (1.3-7.7) k/uL Lymphocytes # (1.0-4.8) k/uL Monocytes # (0-1.0) k/uL Eosinophils # (0-0.7) k/uL Basophils # (0-0.2) k/uL Hypochromasia Poikilocytosis PT (9.0-12.0) sec INR (<1.2) APTT (22.0-30.0) sec Sodium (137-145) mmol/L Potassium (3.5-5.1) mmol/L Chloride (98-107) mmol/L Carbon Dioxide (22-30) mmol/L Anion Gap mmol/L BUN (7-17) mg/dL Creatinine (0.52-1.04) mg/dL Est GFR (CKD-EPI)AfAm (>60 ml/min/1.73 sqM) Est GFR (CKD-EPI)NonAf (>60 ml/min/1.73 sqM) Glucose (74-99) mg/dL Calcium (8.4-10.2) mg/dL Magnesium (1.6-2.3) mg/dL Total Bilirubin (0.2-1.3) mg/dL AST (14-36) U/L ALT (9-52) U/L Alkaline Phosphatase (38-126) U/L Troponin I <0.012 (0.000-0.034) ng/mL Total Protein (6.3-8.2) g/dL Albumin (3.5-5.0) g/dL Disposition Clinical Impression: Paresthesia Disposition: HOME SELF-CARE Condition: Good Instructions (If sedation given, give patient instructions): Paresthesia (ED) Is patient prescribed a controlled substance at d/c from ED?: No Referrals: John Moss MD [Primary Care Provider] - 1-2 days Time of Disposition: 10:04
--- NOTE | 2018-09-07 09:09 | XR ---
EXAMINATION TYPE: XR chest 2V DATE OF EXAM: 09/07/2018 COMPARISON: NONE HISTORY: Shortness of breath TECHNIQUE: Frontal and lateral views of the chest are obtained. FINDINGS: Scattered senescent parenchymal changes noted. Hyperinflation compatible with COPD. No evidence for infiltrate. No evidence for atelectasis. Heart size is stable. Mediastinal structures are stable and grossly unremarkable. No evidence for hilar prominence. Degenerative changes dorsal spine. IMPRESSION: 1. No evidence for acute pulmonary disease.
[2018-09-07 09:19] LABS: Basophils % (A) 0 %; Eosinophils # (A) 0.1 k/uL (0-0.7); Eosinophils % (A) 2 %; HCT 35.4 % (34.0-46.0); Hypochromasia Marked; Lymphocytes # (A) 1.1 k/uL (1.0-4.8); Lymphocytes % (A) 24 %; MCH 25.1 pg (25.0-35.0); MCHC 31.2 g/dL (31.0-37.0); MCV 80.6 fL (80.0-100.0); Mean Platelet Volume 7.2; Monocytes # (A) 0.3 k/uL (0-1.0); Monocytes % (A) 7 %; Neutrophils # (A) 3.1 k/uL (1.3-7.7); Neutrophils % (A) 64 %; Platelet Count 358 k/uL (150-450); Poikilocytosis Slight; RDW 15.9 % (11.5-15.5); WBC 4.9 k/uL (3.8-10.6)
[2018-09-07 09:26] LABS: ALT 46 U/L (9-52); AST 54 U/L (14-36); Albumin 3.7 g/dL (3.5-5.0); Alkaline Phosphatase 110 U/L (38-126); Anion Gap 9 mmol/L; Blood Urea Nitrogen 20 mg/dL (7-17); Calcium 9.1 mg/dL (8.4-10.2); Carbon Dioxide 25 mmol/L (22-30); Chloride 107 mmol/L (98-107); Glucose 135 mg/dL (74-99); Magnesium 1.9 mg/dL (1.6-2.3); Potassium 4.1 mmol/L (3.5-5.1); Sodium 141 mmol/L (137-145); Total Bilirubin 0.7 mg/dL (0.2-1.3); Total Protein 7.3 g/dL (6.3-8.2)
[2018-09-07 09:31] LABS: INR 0.9 (<1.2); Partial Thromboplastin Time 21.2 sec (22.0-30.0); Prothrombin Time 10.1 sec (9.0-12.0)
[2018-09-07 10:35] VITALS: BP 129/61; PULSE 87
== END 2018-09-07 10:35 | disposition home or self-care (01) ==
LOC: EC 08:27
DX: R20.2 Paresthesia of skin (principal); J45.909 Unspecified asthma, uncomplicated; I25.10 Atherosclerotic heart disease of native coronary artery without angina pectoris; M19.90 Unspecified osteoarthritis, unspecified site; Z87.891 Personal history of nicotine dependence; Z88.2 Allergy status to sulfonamides; Z79.82 Long term (current) use of aspirin; Z79.899 Other long term (current) drug therapy; Z95.5 Presence of coronary angioplasty implant and graft
CPT/HCPCS: 36415; 71046; 80053; 83735; 84484; 85025; 85610; 85730; 93005; 99285

== ENCOUNTER → 2018-09-27 | Outpatient (CLI) | payer MEDICARE, BC ==
--- NOTE | 2018-09-27 15:55 | XR ---
EXAMINATION TYPE: XR chest 2V DATE OF EXAM: 09/27/2018 COMPARISON: 09/07/2018 HISTORY: Difficulty breathing TECHNIQUE: Frontal and lateral views of the chest are obtained. FINDINGS: There is minimal left basilar subsegmental atelectasis, chronic as seen on the prior of 09/07/2018. There is no focal air space opacity, pleural effusion, or pneumothorax seen. The cardiac yang houette size is within normal limits. Flattening of the diaphragms on the lateral view suggests under lying COPD. The osseous structures are intact. IMPRESSION: Minimal chronic left basilar subsegmental atelectasis otherwise no acute cardiopulmonary process. Findings suggesting underlying COPD.
== END ==
LOC: RADXRMAIN 15:18
PROVIDERS: ATTEND Family Medicine
DX: R06.02 Shortness of breath (principal)
CPT/HCPCS: 71046

== ENCOUNTER 2018-10-04 15:49 | Observation (INO) | payer MEDICARE, BC ==
[2018-10-04 17:24] LABS: Albumin 3.9 g/dL (3.5-5.0); Calcium 9.4 mg/dL (8.4-10.2); Total Bilirubin 0.5 mg/dL (0.2-1.3); Total Protein 7.3 g/dL (6.3-8.2)
[2018-10-04 17:32] LABS: Anisocytosis Slight; Basophils % (A) 0 %; Eosinophils # (A) 0.1 k/uL (0-0.7); Eosinophils % (A) 1 %; HGB 11.8 gm/dL (11.4-16.0); Hypochromasia Marked; Lymphocytes # (A) 1.1 k/uL (1.0-4.8); Lymphocytes % (A) 18 %; MCH 24.7 pg (25.0-35.0); MCHC 31.2 g/dL (31.0-37.0); MCV 79.2 fL (80.0-100.0); Mean Platelet Volume 6.8; Microcytosis Slight; Monocytes # (A) 0.4 k/uL (0-1.0); Monocytes % (A) 7 %; Neutrophils # (A) 4.6 k/uL (1.3-7.7); Neutrophils % (A) 73 %; Platelet Count 348 k/uL (150-450); RDW 17.2 % (11.5-15.5); WBC 6.3 k/uL (3.8-10.6)
[2018-10-04] MEDS ORDERED: cefTRIAXone IN SWFI 1,000 MG/10 ML SYRINGE IVP STA (20:17)
[2018-10-04] MEDS ORDERED: AZITHROMYCIN 500 MG in SODIUM CHLORIDE 0.9% 250 ML IVPB STA (20:17)
[2018-10-04] MEDS ORDERED: IPRATROPIUM-ALBUTEROL 3 ML NEB INHALATION STA (20:17)
[2018-10-04] MEDS ORDERED: ALBUTEROL NEBULIZED 2.5 MG/3 ML INHALATION STA (20:17)
[2018-10-04] MEDS ORDERED: DEXAMETHASONE SOD PHOSPHATE 10 MG/ML 1 ML VIAL IV STA (20:17)
--- NOTE | 2018-10-04 20:47 | XR ---
EXAMINATION: XR chest 2V DATE AND TIME: 10/04/2018 7:28 PM CLINICAL INDICATION: PHH; shortness of breath TECHNIQUE: Departmental protocol COMPARISON: 09/27/2018 FINDINGS: The lungs are clear. The pleural spaces are negative. The cardiac silhouette is not enlarged. The remainder of the mediastinal silhouette is unremarkable. The skeletal structures and soft tissues are negative for acute findings. IMPRESSION: NO ACUTE PROCESS.
[2018-10-04] MEDS ORDERED: IPRATROPIUM-ALBUTEROL 3 ML NEB INHALATION PRN (21:05)
[2018-10-04] MEDS ORDERED: ALBUTEROL NEBULIZED 2.5 MG/3 ML INHALATION PRN (21:09)
--- NOTE | 2018-10-04 21:13 | ED ---
General Adult HPI - General Chief complaint: Shortness of Breath Stated complaint: Sob Time Seen by Provider: 10/04/18 19:58 Source: patient, RN notes reviewed, old records reviewed Mode of arrival: wheelchair Limitations: no limitations - History of Present Illness Initial comments: 68 -year-old female presenting with cough and dyspnea. Cough is nonproductive. She has had symptoms for approximately one week. She was seen by her primary care physician, prescribed antibiotics, steroids and albuterol. She's had minimal improvement in symptoms. She continues to have cough and dyspnea. No central chest pain. She does report lower extremity edema however she states this is chronic. She denies fever or chills. Denies abdominal pain nausea vom iting. - Related Data Home Medications Medication Instructions Recorded Confirmed Aspirin EC [Ecotrin Low Dose] 81 mg PO DAILY 05/04/18 10/04/18 Cholecalciferol [Vitamin D3] 1,000 unit PO HS 05/04/18 10/04/18 Magnesium 400 mg PO HS 05/04/18 10/04/18 Multivitamins, Thera [Multivitamin 1 tab PO HS 05/04/18 10/04/18 (formulary)] Potassium Gluconate 99 mg PO HS 05/04/18 10/04/18 Atorvastatin [Lipitor] 40 mg PO DAILY 09/07/18 10/04/18 Furosemide [Lasix] 20 mg PO DAILY 09/07/18 10/04/18 Metoprolol Tartrate [Lopressor] 25 mg PO BID 09/07/18 10/04/18 [place]-3 Fatty Acids [[place]-3] 1,000 mg PO DAILY 09/07/18 10/04/18 Albuterol Inhaler [Ventolin Hfa 1 puff INHALATION RT-Q6H PRN 10/04/18 10/04/18 Inhaler] Albuterol Nebulized [Ventolin 2.5 mg INHALATION RT-Q6H PRN 10/04/18 10/04/18 Nebulized] Budesonide [Pulmicort] 0.5 mg INHALATION RT-BID 10/04/18 10/04/18 Clindamycin HCl 300 mg PO TID 10/04/18 10/04/18 methylPREDNISolone [Medrol Dose See Taper PO DIRECTED 10/04/18 10/04/18 Pack] Previous Rx's Medication Instructions Recorded Clopidogrel [Plavix] 75 mg PO DAILY #90 tab 09/29/17 Allergies Allergy/AdvReac Type Severity Reaction Status Date / Time Sulfa (Sulfonamide Allergy Nausea & Verified 10/04/18 20:22 Antibiotics) Vomiting Review of Systems ROS Statement: Those systems with pertinent positive or pertinent negative responses have been documented in the HPI. ROS Other: All systems not noted in ROS Statement are negative. Past Medical History Past Medical History: Asthma, Coronary Artery Disease (CAD), COPD, GERD/Reflux, Osteoarthritis (OA) Additional Past Medical History / Comment(s): lupus History of Any Multi-Drug Resistant Organisms: None Reported Past Surgical History: Breast Surgery, Heart Catheterization With Stent, Hysterectomy Additional Past Surgical History / Comment(s): NASAL SURGERY,TUMOR IN NECK, LEFT EYE SURGERY, CARPAL TUNNEL RIGHT WRIST, Lumpectomy right breast Past Anesthesia/Blood Transfusion Reactions: No Reported Reaction Past Psychological History: No Psychological Hx Reported Smoking Status: Former smoker Past Alcohol Use History: None Reported Past Drug Use History: None Reported - Past Family History Mother Family Medical History: Cancer Additional Family Medical History / Comment(s): OVARIAN CANCER General Exam Limitations: no limitations General appearance: alert, in no apparent distress Head exam: Present: atraumatic, normocephalic Eye exam: Present: normal appearance, PERRL ENT exam: Present: normal exam Neck exam: Present: normal inspection. Absent: tenderness, meningismus Respiratory exam: Present: wheezes, decreased breath sounds, prolonged expiratory Cardiovascular Exam: Present: regular rate, normal rhythm GI/Abdominal exam: Present: soft. Absent: distended, tenderness Extremities exam: Present: normal capillary refill, pedal edema Neurological exam: Present: alert, oriented X3, CN II-XII intact. Absent: motor sensory deficit Psychiatric exam: Present: normal affect, normal mood Skin exam: Present: warm, dry, intact. Absent: cyanosis, diaphoretic Course Vital Signs 10/04/18 10/04/18 16:45 20:41 Temperature 97.8 F 98.0 F Pulse Rate 85 87 Respiratory 18 18 Rate Blood Pressure 117/72 124/64 O2 Sat by Pulse 95 96 Oximetry EKG Findings - EKG Comments: EKG Findings:: EKG: Normal sinus rhythm, rate of 78, DC interval 172, QRS duration 94, QTC 446, no ST segment elevation. Medical Decision Making - Medical Decision Making 68-year-old female with cough and dyspnea. Chest x-ray negative for focal pneumonia. She has normal white blood cell count, stable hemoglobin, negative d-dimer, negative troponin, negative BNP. EKG is sinus rhythm with no ischemic changes. She has been on antibiotics and steroids with minimal improvement. She will be admitted for further treatment of COPD exacerbation. Case is discussed with the admitting physician Dr. Moss. - Lab Data Result diagrams: 10/04/18 17:05 10/04/18 17:05 Lab Results 10/04/18 10/04/18 10/04/18 Range/Units 17:05 17:05 17:05 WBC 6.3 (3.8-10.6) k/uL RBC 4.80 (3.80-5.40) m/uL Hgb 11.8 (11.4-16.0) gm/dL Hct 38.0 (34.0-46.0) % MCV 79.2 L (80.0-100.0) fL MCH 24.7 L (25.0-35.0) pg MCHC 31.2 (31.0-37.0) g/dL RDW 17.2 H (11.5-15.5) % Plt Count 348 (150-450) k/uL Neutrophils % 73 % Lymphocytes % 18 % Monocytes % 7 % Eosinophils % 1 % Basophils % 0 % Neutrophils # 4.6 (1.3-7.7) k/uL Lymphocytes # 1.1 (1.0-4.8) k/uL Monocytes # 0.4 (0-1.0) k/uL Eosinophils # 0.1 (0-0.7) k/uL Basophils # 0.0 (0-0.2) k/uL Hypochromasia Marked Anisocytosis Slight Microcytosis Slight D-Dimer (<0.60) mg/L FEU Sodium 139 (137-145) mmol/L Potassium 4.0 (3.5-5.1) mmol/L Chloride 106 (98-107) mmol/L Carbon Dioxide 25 (22-30) mmol/L Anion Gap 8 mmol/L BUN 20 H (7-17) mg/dL Creatinine 0.86 (0.52-1.04) mg/dL Est GFR (CKD-EPI)AfAm 81 (>60 ml/min/1.73 sqM) Est GFR (CKD-EPI)NonAf 70 (>60 ml/min/1.73 sqM) Glucose 106 H (74-99) mg/dL Plasma Lactic Acid Henry 1.2 (0.7-2.0) mmol/L Calcium 9.4 (8.4-10.2) mg/dL Total Bilirubin 0.5 (0.2-1.3) mg/dL AST 65 H (14-36) U/L ALT 56 H (9-52) U/L Alkaline Phosphatase 95 (38-126) U/L Troponin I (0.000-0.034) ng/mL NT-Pro-B Natriuret Pep pg/mL Total Protein 7.3 (6.3-8.2) g/dL Albumin 3.9 (3.5-5.0) g/dL 10/04/18 10/04/18 10/04/18 Range/Units 17:05 17:50 17:50 WBC (3.8-10.6) k/uL RBC (3.80-5.40) m/uL Hgb (11.4-16.0) gm/dL Hct (34.0-46.0) % MCV (80.0-100.0) fL MCH (25.0-35.0) pg MCHC (31.0-37.0) g/dL RDW (11.5-15.5) % Plt Count (150-450) k/uL Neutrophils % % Lymphocytes % % Monocytes % % Eosinophils % % Basophils % % Neutrophils # (1.3-7.7) k/uL Lymphocytes # (1.0-4.8) k/uL Monocytes # (0-1.0) k/uL Eosinophils # (0-0.7) k/uL Basophils # (0-0.2) k/uL Hypochromasia Anisocytosis Microcytosis D-Dimer 0.57 (<0.60) mg/L FEU Sodium (137-145) mmol/L Potassium (3.5-5.1) mmol/L Chloride (98-107) mmol/L Carbon Dioxide (22-30) mmol/L Anion Gap mmol/L BUN (7-17) mg/dL Creatinine (0.52-1.04) mg/dL Est GFR (CKD-EPI)AfAm (>60 ml/min/1.73 sqM) Est GFR (CKD-EPI)NonAf (>60 ml/min/1.73 sqM) Glucose (74-99) mg/dL Plasma Lactic Acid Henry (0.7-2.0) mmol/L Calcium (8.4-10.2) mg/dL Total Bilirubin (0.2-1.3) mg/dL AST (14-36) U/L ALT (9-52) U/L Alkaline Phosphatase (38-126) U/L Troponin I <0.012 (0.000-0.034) ng/mL NT-Pro-B Natriuret Pep 41 pg/mL Total Protein (6.3-8.2) g/dL Albumin (3.5-5.0) g/dL Disposition Clinical Impression: Acute exacerbation of chronic obstructive airways disease Disposition: ADMITTED IP TO THIS HOSP Condition: Stable Is patient prescribed a controlled substance at d/c from ED?: No Referrals: John Moss MD [Primary Care Provider] - 1-2 days Decision to Admit Reason: Admit from EC Decision Date: 10/04/18 Decision Time: 21:13
[2018-10-05] MEDS: methylPREDNISolone SOD SUCCI 125 MG/2 ML VIAL IV SCH ×5 (00:50→23:27)
[2018-10-05] MEDS: ACETAMINOPHEN TAB 325 MG TAB PO PRN (02:39)
[2018-10-05 07:02] LABS: Glucose,Whole Blood 163 mg/dL (75-99)
[2018-10-05] MEDS: METOPROLOL TARTRATE 25 MG TAB PO SCH ×2 (07:31→20:48)
[2018-10-05] MEDS: CLOPIDOGREL 75 MG TAB PO SCH (07:31)
[2018-10-05] MEDS: FUROSEMIDE 20 MG TAB PO SCH (07:31)
--- NOTE | 2018-10-05 07:47 | P.HPIM ---
History of Present Illness H&P Date: 10/05/18 Chief Complaint: Worsening RANDHAWA/SOB this is a history and physical an 60-year-old white female essentially admitted for failure on trach treatment for COPD exacerbation. She is a [id number] smoker. The patient's was given appropriate outpatient treatment with steroids and antibiotic focus. After 3 days she failed outpatient treatment and is now admitted for appropriate exacerbation. No overt anginal chest pain. No voiding difficulties. Significant dyspnea with activity is stated. However, after being treated in the emergency room she feels improvement. No voiding difficulties. Review of Systems Constitutional: Reports fatigue, Reports weakness Eyes: denies blurred vision, denies pain Ears, nose, mouth and throat: Denies headache, Denies sore throat Cardiovascular: Denies chest pain, Denies shortness of breath Respiratory: Reports cough, Reports dyspnea, Reports pleurisy Gastrointestinal: Denies abdominal pain, Denies diarrhea, Denies nausea, Denies vomiting Genitourinary: Denies dysuria, Denies hematuria Musculoskeletal: Denies myalgias Integumentary: Denies pruritus, Denies rash Neurological: Denies numbness, Denies weakness Psychiatric: Denies anxiety, Denies depression Past Medical History Past Medical History: Asthma, Coronary Artery Disease (CAD), COPD, GERD/Reflux, Osteoarthritis (OA) Additional Past Medical History / Comment(s): lupus History of Any Multi-Drug Resistant Organisms: None Reported Past Surgical History: Breast Surgery, Heart Catheterization With Stent, Hysterectomy Additional Past Surgical History / Comment(s): NASAL SURGERY,TUMOR IN NECK, LEFT EYE SURGERY, CARPAL TUNNEL RIGHT WRIST, Lumpectomy right breast x 2. partial hysterectomy Past Anesthesia/Blood Transfusion Reactions: No Reported Reaction Date of Last Stent Placement:: 2015 Past Psychological History: No Psychological Hx Reported Smoking Status: Former smoker Past Alcohol Use History: None Reported Additional Past Alcohol Use History / Comment(s): STARTED SMOKING AT AGE 16 QUIT IN 2006 SMOKED 1PPD Past Drug Use History: None Reported - Past Family History Mother Family Medical History: Cancer Additional Family Medical History / Comment(s): OVARIAN CANCER Medications and Allergies Home Medications Medication Instructions Recorded Confirmed Type Clopidogrel [Plavix] 75 mg PO DAILY #90 tab 09/29/17 10/04/18 Rx Aspirin EC [Ecotrin Low Dose] 81 mg PO DAILY 05/04/18 10/04/18 History Cholecalciferol [Vitamin D3] 1,000 unit PO HS 05/04/18 10/04/18 History Magnesium 400 mg PO HS 05/04/18 10/04/18 History Multivitamins, Thera [Multivitamin 1 tab PO HS 05/04/18 10/04/18 History (formulary)] Potassium Gluconate 99 mg PO HS 05/04/18 10/04/18 History Atorvastatin [Lipitor] 40 mg PO DAILY 09/07/18 10/04/18 History Furosemide [Lasix] 20 mg PO DAILY 09/07/18 10/04/18 History Metoprolol Tartrate [Lopressor] 25 mg PO BID 09/07/18 10/04/18 History [place]-3 Fatty Acids [[place]-3] 1,000 mg PO DAILY 09/07/18 10/04/18 History Albuterol Inhaler [Ventolin Hfa 1 puff INHALATION RT-Q6H PRN 10/04/18 10/05/18 History Inhaler] Albuterol Nebulized [Ventolin 2.5 mg INHALATION RT-Q6H PRN 10/04/18 10/05/18 History Nebulized] Budesonide [Pulmicort] 0.5 mg INHALATION RT-BID 10/04/18 10/04/18 History Clindamycin HCl 300 mg PO TID 10/04/18 10/04/18 History methylPREDNISolone [Medrol Dose See Taper PO DIRECTED 10/04/18 10/04/18 History Pack] Allergies Allergy/AdvReac Type Severity Reaction Status Date / Time Sulfa (Sulfonamide Allergy Nausea & Verified 10/04/18 20:22 Antibiotics) Vomiting Physical Exam Vitals: Vital Signs Temp Pulse Pulse Resp BP BP Pulse Ox 10/05/18 05:48 97.9 F 87 18 121/72 95 10/05/18 00:53 98.1 F 94 18 112/73 92 L 10/05/18 00:02 98 F 77 16 117/73 96 10/04/18 23:21 87 16 119/59 97 10/04/18 22:29 87 16 116/69 94 L 10/04/18 21:33 75 16 116/70 98 10/04/18 21:20 72 10/04/18 20:41 98.0 F 87 18 124/64 96 10/04/18 19:00 16 10/04/18 16:45 97.8 F 85 18 117/72 95 Intake and Output 10/04/18 10/05/18 10/05/18 22:59 06:59 14:59 Intake Total 300 Balance 300 Intake: Oral 300 Other: Voiding Method Toilet Toilet # Voids 2 Weight 102.965 kg - Constitutional General appearance: morbidly obese - EENT Eyes: EOMI - Neck Neck: no lymphadenopathy - Respiratory Respiratory: bilateral: diminished - Cardiovascular Rhythm: regular Heart sounds: normal: S1, S2 Abnormal Heart Sounds: no S3 Gallop - Gastrointestinal General gastrointestinal: soft, no tenderness - Integumentary Integumentary: no cyanotic, no jaundiced - Neurologic Neurologic: CNII-XII intact - Psychiatric Psychiatric: A&O x's 3, appropriate affect, intact judgment & insight Results CBC & Chem 7: 10/04/18 17:05 10/04/18 17:05 Labs: Abnormal Lab Results - Last 24 Hours (Table) 10/04/18 10/04/18 10/05/18 Range/Units 17:05 17:05 06:54 MCV 79.2 L (80.0-100.0) fL MCH 24.7 L (25.0-35.0) pg RDW 17.2 H (11.5-15.5) % BUN 20 H (7-17) mg/dL Glucose 106 H (74-99) mg/dL POC Glucose (mg/dL) 163 H (75-99) mg/dL AST 65 H (14-36) U/L ALT 56 H (9-52) U/L Thrombosis Risk Factor Assmnt - Choose All That Apply Any of the Below Risk Factors Present?: Yes Each Factor Represents 1 point: Abnormal pulmonary function (COPD) Other Risk Factors: Yes Each Risk Factor Represents 2 Points: Age 61-74 years Other congenital or acquired thrombophilia - If yes, enter type in comment: No Thrombosis Risk Factor Assessment Total Risk Factor Score: 3 Thrombosis Risk Factor Assessment Level: Moderate Risk Assessment and Plan (1) Acute exacerbation of chronic obstructive airways disease Current Visit: Yes Status: Acute Code(s): J44.1 - CHRONIC OBSTRUCTIVE PULMONARY DISEASE W (ACUTE) EXACERBATION SNOMED Code(s): 147577893 Plan: appropriate COPD protocol followed. Consult pulmonology. Check CBC and CMP in a.m. DVT and GI prophylaxis as per protocol. Reconcile home medications. Prognosis is somewhat guarded today. Otherwise, the patient is a full code Time with Patient: Greater than 30
[2018-10-05] MEDS ORDERED: ALBUTEROL INHALER 60 PUFF/8 GM INHALER INHALATION PRN (07:48)
[2018-10-05] MEDS: BUDESONIDE 0.5 MG/2 ML NEBU INHALATION SCH ×2 (08:05→20:22)
[2018-10-05] MEDS: IPRATROPIUM-ALBUTEROL 3 ML NEB INHALATION SCH ×4 (08:08→20:22)
[2018-10-05] MEDS: ASPIRIN 81 MG PO SCH (08:16)
[2018-10-05] MEDS: NON-FORMULARY DRUG (Omega-3 Fatty Acids [Omega-3] 1,000 MG) PO SCH (08:16)
[2018-10-05] MEDS: ATORVASTATIN 40 MG TAB PO SCH (08:22)
[2018-10-05] MEDS ORDERED: ASPIRIN 81 MG PO SCH (09:00)
[2018-10-05 12:24] LABS: Glucose,Whole Blood 148 mg/dL (75-99)
[2018-10-05] MEDS ORDERED: RX INFO: IV CONTRAST WAS GIVEN 1 EACH MISC MISCELLANE PRN (15:22)
[2018-10-05] MEDS: PANTOPRAZOLE 40 MG TABLET PO SCH (17:02)
[2018-10-05 17:12] LABS: Glucose,Whole Blood 156 mg/dL (75-99)
--- NOTE | 2018-10-05 17:28 | P.CNPUL ---
History of Present Illness Consult date: 10/05/18 Requesting physician: John Moss Reason for consult: dyspnea, asthma Chief complaint: Shortness of breath History of present illness: With history of mild intermittent asthma, documented and confirmed on previous PFT which showed very minimal degree of obstruction on spirometry with 11% improvement post bronchodilator treatment, history of relatively normal lung volumes, and normal DLCO, clearly consistent with asthma although the patient had a [id number] smoking history. Patient was last seen in my office in January of 2018, and she was mentating mostly on a steroid inhaler, and alb uterol 2 puffs 4 times a day when necessary. However since her last visit her bronchodilators were changed by her primary care physician, and the patient has been doing fairly well. Patient presented this time to the ER with 3 days history of shortness of breath on any exertion. Minimal cough, no wheezing, no fever, no chills, no hemoptysis. Patient was admitted with the impression of acute asthma exacerbation, however she is not improving in spite of being maximized on treatment, her main symptoms seem to be related to shortness of breath with any activity. Again no classic symptoms of asthma exacerbation on this presentation, and her clinical findings were normal with relatively clear breath sounds bilaterally. Patient had a normal d-dimer, normal BNP level, and a relatively normal chest x-ray. Considering her dyspnea on exertion and her profound symptoms I did recommend a CT of the chest with contrast, I also recommended a cardiac evaluation as the patient has been describing intermittent episodes of some vague chest discomfort. She normally sees Dr. Coronel and she had a previous stenting of the RCA. When she saw him last, he was infiltrating the possibility of repeating her cardiac catheterization. But this was never done. CT of the chest is pending. Cardiology consultation is pending, in the meantime I have recommended that we continue the same asthma medications, and from my perspective her symptoms are not explained by her underlying asthma. 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 She does have occasional dysphonia. She has occasional symptoms of GERD, and I recommended adding Protonix. Review of Systems Constitutional: Negative, no weight loss, no fever, no chills. Eyes: No blurred vision, no diplopia. Ears, nose, mouth and throat: No sore throat, no earache, no nasal discharge, does have symptoms of dysphonia intermittently. Cardiovascular: History of underlying coronary artery disease, she does have dyspnea on exertion and occasional episodes of vague chest pain. Respiratory: As noted in HPI. Gastrointestinal: Denies nausea vomiting abdominal pain, but she does have symptoms of GERD. Genitourinary: No dysuria frequency urgency hematuria or incontinence. Musculoskeletal: Denies arthralgia or myalgia. Integumentary: Denies any rashes, denies any itching. Neurological: No headache blurred vision or dizziness. Psychiatric: Denies any symptoms of active depression. Past Medical History Past Medical History: Asthma, Coronary Artery Disease (CAD), COPD, GERD/Reflux, Osteoarthritis (OA) Additional Past Medical History / Comment(s): lupus History of Any Multi-Drug Resistant Organisms: None Reported Past Surgical History: Breast Surgery, Heart Catheterization With Stent, Hysterectomy Additional Past Surgical History / Comment(s): NASAL SURGERY,TUMOR IN NECK, LEFT EYE SURGERY, CARPAL TUNNEL RIGHT WRIST, Lumpectomy right breast x 2. partial hysterectomy Past Anesthesia/Blood Transfusion Reactions: No Reported Reaction Date of Last Stent Placement:: 2015 Past Psychological History: No Psychological Hx Reported Smoking Status: Former smoker Past Alcohol Use History: None Reported Additional Past Alcohol Use History / Comment(s): STARTED SMOKING AT AGE 16 QUIT IN 2006 SMOKED 1PPD Past Drug Use History: None Reported - Past Family History Mother Family Medical History: Cancer Additional Family Medical History / Comment(s): OVARIAN CANCER Medications and Allergies Home Medications Medication Instructions Recorded Confirmed Type Clopidogrel [Plavix] 75 mg PO DAILY #90 tab 09/29/17 10/04/18 Rx Aspirin EC [Ecotrin Low Dose] 81 mg PO DAILY 05/04/18 10/04/18 History Cholecalciferol [Vitamin D3] 1,000 unit PO HS 05/04/18 10/04/18 History Magnesium 400 mg PO HS 05/04/18 10/04/18 History Multivitamins, Thera [Multivitamin 1 tab PO HS 05/04/18 10/04/18 History (formulary)] Potassium Gluconate 99 mg PO HS 05/04/18 10/04/18 History Atorvastatin [Lipitor] 40 mg PO DAILY 09/07/18 10/04/18 History Furosemide [Lasix] 20 mg PO DAILY 09/07/18 10/04/18 History Metoprolol Tartrate [Lopressor] 25 mg PO BID 09/07/18 10/04/18 History [place]-3 Fatty Acids [[place]-3] 1,000 mg PO DAILY 09/07/18 10/04/18 History Albuterol Inhaler [Ventolin Hfa 1 puff INHALATION RT-Q6H PRN 10/04/18 10/05/18 History Inhaler] Albuterol Nebulized [Ventolin 2.5 mg INHALATION RT-Q6H PRN 10/04/18 10/05/18 History Nebulized] Budesonide [Pulmicort] 0.5 mg INHALATION RT-BID 10/04/18 10/04/18 History Clindamycin HCl 300 mg PO TID 10/04/18 10/04/18 History methylPREDNISolone [Medrol Dose See Taper PO DIRECTED 10/04/18 10/04/18 History Pack] Allergies Allergy/AdvReac Type Severity Reaction Status Date / Time Sulfa (Sulfonamide Allergy Nausea & Verified 10/04/18 20:22 Antibiotics) Vomiting Physical Exam Vitals: Vital Signs Temp Pulse Pulse Resp BP BP Pulse Ox 10/05/18 16:18 90 10/05/18 16:09 88 10/05/18 15:01 115 H 24 132/73 97 10/05/18 13:30 84 10/05/18 13:19 88 10/05/18 13:11 98.3 F 89 20 99/62 94 L 10/05/18 08:22 76 10/05/18 08:11 80 10/05/18 05:48 97.9 F 87 18 121/72 95 10/05/18 00:53 98.1 F 94 18 112/73 92 L 10/05/18 00:02 98 F 77 16 117/73 96 10/04/18 23:21 87 16 119/59 97 10/04/18 22:29 87 16 116/69 94 L 10/04/18 21:33 75 16 116/70 98 10/04/18 21:20 72 10/04/18 20:41 98.0 F 87 18 124/64 96 10/04/18 19:00 16 Intake and Output 10/05/18 10/05/18 10/05/18 06:59 14:59 22:59 Intake Total 300 Balance 300 Intake: Oral 300 Other: Voiding Method Toilet Toilet Toilet # Voids 2 2 Physical Exam: Revealed a 68-year-old female in no distress. Slightly anxious. Head: Atraumatic, normocephalic. HEENT:[Neck is supple.] [No neck masses.] [No thyromegaly.] [No JVD.] PERRLA, EOMI, no icterus, moist mucous membranes. Chest: [Clear throughout, no crackles, no rhonchi, no wheezes.] Symmetrical chest expansion, no chest wall tenderness. Cardiac Exam: [Normal S1 and S2, no S3 gallop, no murmur.] Abdomen: Obese, [Soft, nontender, no megaly, no rebound, no guarding, normal bowel sounds.] Extremities: [No clubbing, no edema, no cyanosis.], Good pulses bilaterally. Neurological Exam: Alert and oriented 3, no gross focal neurologic deficit. Psychiatric: Normal mood affect and mental status examination. Lymphatics: No lymphadenopathy. Skin: No rashes. Results - Laboratory Findings CBC and BMP: 10/04/18 17:05 10/04/18 17:05 PT/INR, D-dimer D-Dimer 0.57 mg/L FEU (<0.60) 10/04/18 17:50 Abnormal lab findings: Abnormal Labs 10/04/18 10/04/18 10/05/18 17:05 17:05 06:54 MCV 79.2 L MCH 24.7 L RDW 17.2 H BUN 20 H Glucose 106 H POC Glucose (mg/dL) 163 H AST 65 H ALT 56 H 10/05/18 10/05/18 12:20 17:02 MCV MCH RDW BUN Glucose POC Glucose (mg/dL) 148 H 156 H AST ALT - Diagnostic Findings Chest x-ray: image reviewed (Chest x-ray is normal.) Assessment and Plan Assessment: Impression: Dyspnea on exertion, exact etiology is yet to be determined, Morbid obesity which may be a contributing factor to her shortness of breath, but the patient denies any significant weight gain in the last 6 months. History of coronary artery disease and previous stent placement patient had RCA stenting done by Dr. Coronel. GERD without esophagitis may be contributing to her symptoms of dysphonia and occasional cough. Hence Protonix was added. History of vocal cords polyp, patient did not have further follow-up as recommended by Dr. Reinoso in the past, hence I recommended ENT evaluation . Strongly doubt vocal cord polyp causing shortness of breath. Patient does not have any clinical findings of stridor but she does have dysphonia. Recommendation: Shortness of breath, exact etiology is not clear, clearly not explained by her underlying mild asthma which seems to be relatively stable, and based on her PFT, her asthma has been stable all along, and maintained on proper medications for her mild intermittent asthma. Again her shortness of breath is not explained by the clinical findings hence I recommended CT angiogram of the chest, cardiac evaluation, ENT evaluation, in the meantime continue her asthma meds, added Singulair, continue updrafts, May have to consider further cardiac workup including echocardiography, and possibly cardiac catheterization. Hence I went ahead and consulted Dr. Coronel to evaluate. We'll continue to follow. Time with Patient: Greater than 30
[2018-10-05 20:20] LABS: Glucose,Whole Blood 233 mg/dL (75-99)
[2018-10-05] MEDS: NON-FORMULARY DRUG (Potassium Gluconate [Potassium Gluconate] 99 MG) PO SCH (20:47)
[2018-10-05] MEDS: MAGNESIUM OXIDE 400 MG TAB PO SCH (20:48)
[2018-10-05] MEDS: MULTIVITAMINS, THERA 1 EACH TAB PO SCH (20:48)
[2018-10-05] MEDS: CHOLECALCIFEROL 1,000 UNIT TAB PO SCH (20:48)
[2018-10-05] MEDS: MONTELUKAST 10 MG TAB PO SCH (20:49)
--- NOTE | 2018-10-05 22:59 | CT ---
EXAMINATION TYPE: CT chest w con DATE OF EXAM: 10/05/2018 COMPARISON: None HISTORY: SOB. hx of COPD CT DLP: 855 mGycm Automated exposure control for dose reduction was used. CONTRAST: CT scan of the chest is performed with IV Contrast, patient injected with 100 mL of Isovue 300. FINDINGS: LUNGS: The lungs are grossly clear, there is no concerning parenchymal mass or nodule identified. The re is no pleural effusion or pneumothorax seen. The tracheobronchial tree is patent. MEDIASTINUM: There are no greater than 1 cm hilar or mediastinal lymph nodes.There is no cardiomegaly or pericardial effusion, but prominent left and right coronary calcifications are present. No acute pulmonary arterial or aortic findings. OTHER: Cholelithiasis is noted. IMPRESSION: No acute process.
[2018-10-06] MEDS ORDERED: SODIUM CHLORIDE 0.65% NASAL SPRAY 44 ML BTL NASAL PRN (01:00)
[2018-10-06] MEDS: methylPREDNISolone SOD SUCCI 125 MG/2 ML VIAL IV SCH (05:50)
[2018-10-06 07:08] LABS: Glucose,Whole Blood 169 mg/dL (75-99)
[2018-10-06] MEDS: IPRATROPIUM-ALBUTEROL 3 ML NEB INHALATION SCH ×4 (07:19→19:25)
[2018-10-06] MEDS: BUDESONIDE 0.5 MG/2 ML NEBU INHALATION SCH ×2 (07:19→19:25)
[2018-10-06] MEDS ORDERED: MAGNESIUM HYDROXIDE 2,400 MG/10 ML CUP PO PRN (07:48)
--- NOTE | 2018-10-06 07:48 | P.PN ---
Subjective Principal diagnosis: Dyspnea on exertion This is a 68-year-old white female essentially admitted for dyspnea on exertion. Element of COPD exacerbation. Appreciate pulmonology input. Cardiology is now consulted for dyspnea. She does feel much better today. She states constipation. We will start some milk of magnesia today. No sniffing nausea, vomiting or diarrhea stated. Objective - Vital Signs Vital signs: Vital Signs Temp 97.9 F 10/06/18 05:43 Pulse 92 10/06/18 07:32 Resp 16 10/06/18 05:43 BP 104/61 10/06/18 05:43 Pulse Ox 97 10/06/18 05:43 Intake & Output 10/05/18 10/06/18 10/06/18 18:59 06:59 18:59 Other: Voiding Method Toilet Toilet # Voids 2 1 - EENT Eyes: Absent: abnormal pupil - Neck Neck: Absent: lymphadenopathy - Respiratory Respiratory: bilateral: diminished - Cardiovascular Rhythm: regular Heart sounds: normal: S1, S2 Abnormal Heart Sounds: Absent: S3 Gallop - Gastrointestinal General gastrointestinal: Present: soft. Absent: tenderness - Neurologic Neurologic: Present: CNII-XII intact - Labs CBC & Chem 7: 10/04/18 17:05 10/04/18 17:05 Labs: Abnormal Lab Results - Last 24 Hours (Table) 10/05/18 10/05/18 10/05/18 Range/Units 12:20 17:02 20:19 POC Glucose (mg/dL) 148 H 156 H 233 H (75-99) mg/dL 10/06/18 Range/Units 07:06 POC Glucose (mg/dL) 169 H (75-99) mg/dL Microbiology - Last 24 Hours (Table) 10/04/18 20:40 Blood Culture - Preliminary Blood No Growth after 24 hours Assessment and Plan (1) Acute exacerbation of chronic obstructive airways disease Current Visit: Yes Status: Acute Code(s): J44.1 - CHRONIC OBSTRUCTIVE PULMONARY DISEASE W (ACUTE) EXACERBATION SNOMED Code(s): 092717735 (2) Constipation Current Visit: Yes Status: Acute Code(s): K59.00 - CONSTIPATION, UNSPECIFIED SNOMED Code(s): 86217198 Plan: Milk of magnesia to be given today. Await cardiology input. Despite discharge in next 24-48 hours. Decrease on Medrol dosing today.
[2018-10-06] MEDS: NON-FORMULARY DRUG (Omega-3 Fatty Acids [Omega-3] 1,000 MG) PO SCH (08:05)
[2018-10-06] MEDS: PANTOPRAZOLE 40 MG TABLET PO SCH ×2 (08:06→16:13)
[2018-10-06] MEDS: INSULIN ASPART (NovoLOG) 100 UNIT/ML VIAL SQ SCH ×4 (08:06→21:00)
[2018-10-06] MEDS: FUROSEMIDE 20 MG TAB PO SCH (08:06)
[2018-10-06] MEDS: ASPIRIN 81 MG PO SCH (08:06)
[2018-10-06] MEDS: CLOPIDOGREL 75 MG TAB PO SCH (08:06)
[2018-10-06] MEDS: METOPROLOL TARTRATE 25 MG TAB PO SCH ×2 (08:06→21:00)
[2018-10-06] MEDS: ATORVASTATIN 40 MG TAB PO SCH (08:06)
[2018-10-06 11:13] LABS: Anisocytosis Slight; HCT 36.6 % (34.0-46.0); HGB 11.4 gm/dL (11.4-16.0); Hypochromasia Marked; MCH 24.9 pg (25.0-35.0); MCHC 31.2 g/dL (31.0-37.0); MCV 79.9 fL (80.0-100.0); Mean Platelet Volume 6.7; Platelet Count 374 k/uL (150-450); RBC 4.58 m/uL (3.80-5.40); RDW 16.9 % (11.5-15.5); WBC 6.3 k/uL (3.8-10.6)
[2018-10-06 11:34] LABS: Albumin 3.8 g/dL (3.5-5.0); Calcium 9.4 mg/dL (8.4-10.2); Potassium 4.7 mmol/L (3.5-5.1); Total Bilirubin 0.5 mg/dL (0.2-1.3)
[2018-10-06 12:08] LABS: Glucose,Whole Blood 151 mg/dL (75-99)
--- NOTE | 2018-10-06 12:39 | P.PN ---
Subjective Progress Note Date: 10/06/18 Principal diagnosis: Dyspnea of unclear etiology With history of mild intermittent asthma, documented and confirmed on previous PFT which showed very minimal degree of obstruction on spirometry with 11% improvement post bronchodilator treatment, history of relatively normal lung volumes, and normal DLCO, clearly consistent with asthma although the patient had a [id number] smoking history. Patient was last seen in my office in January of 2018, and she was mentating mostly on a steroid inhaler, and albuterol 2 puffs 4 times a day when necessary. However since her last visit her bronchodilators were changed by her primary care physician, and the patient has been doing fairly well. Patient presented this time to the ER with 3 days history of shortness of breath on any exertion. Minimal cough, no wheezing, no fever, no chills, no hemoptysis. Patient was admitted with the impression of acute asthma exacerbation, however she is not improving in spite of being max imized on treatment, her main symptoms seem to be related to shortness of breath with any activity. Again no classic symptoms of asthma exacerbation on this presentation, and her clinical findings were normal with relatively clear breath sounds bilaterally. Patient had a normal d-dimer, normal BNP level, and a relatively normal chest x-ray. Considering her dyspnea on exertion and her profound symptoms I did recommend a CT of the chest with contrast, I also recommended a cardiac evaluation as the patient has been describing intermittent episodes of some vague chest discomfort. She normally sees Dr. Coronel and she had a previous stenting of the RCA. When she saw him last, he was infiltrating the possibility of repeating her cardiac catheterization. But this was never done. CT of the chest is pending. Cardiology consultation is pending, in the meantime I have recommended that we continue the same asthma medications, and from my perspective her symptoms are not explained by her underlying asthma. 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 She does have occasional dysphonia. She has o ccasional symptoms of GERD, and I recommended adding Protonix. The patient is seen today in 10/06/2018 in follow-up on the regular medical floor. She is awake and alert in no acute distress. Currently sitting up at the bedside. Maintaining good O2 saturations in the 90s on room air. No worsening shortness of breath. No cough or congestion. Computed tomography scan of the chest revealed no acute process. Blood culture reveals no growth. White count 6.3. Hemoglobin 11.4. Creatinine 0.97. Bicarb 19. Currently maintained on DuoNeb inhalations, Pulmicort inhalations, IV Solu-Medrol and Singulair. Objective - Vital Signs Vital signs: Vital Signs Temp 97.9 F 10/06/18 05:43 Pulse 92 10/06/18 11:20 Resp 16 10/06/18 05:43 BP 104/61 10/06/18 05:43 Pulse Ox 97 10/06/18 05:43 Intake & Output 10/05/18 10/06/18 10/06/18 18:59 06:59 18:59 Other: Voiding Method Toilet Toilet # Voids 2 1 - Exam GENERAL EXAM: Morbidly obese. Alert, active, comfortable in no apparent distress. On room air. HEAD: Normocephalic. EYES: Normal reaction of pupils, equal size. NOSE: Clear with pink turbinates. THROAT: No erythema or exudates. NECK: No masses, no JVD. CHEST: No chest wall deformity. LUNGS: Equal air entry with no crackles, wheeze, rhonchi or dullness. CVS: S1 and S2 normal with no audible murmur, regular rhythm. ABDOMEN: No hepatosplenomegaly, normal bowel sounds, no guarding or rigidity. SPINE: No scoliosis or deformity SKIN: No rashes CENTRAL NERVOUS SYSTEM: No focal deficits, tone is normal in all 4 extremities. EXTREMITIES: There is no peripheral edema. No clubbing, no cyanosis. Peripheral pulses are intact. - Labs CBC & Chem 7: 10/06/18 10:34 10/06/18 10:34 Labs: Abnormal Lab Results - Last 24 Hours (Table) 10/05/18 10/05/18 10/06/18 Range/Units 17:02 20:19 07:06 MCV (80.0-100.0) fL MCH (25.0-35.0) pg RDW (11.5-15.5) % Chloride (98-107) mmol/L Carbon Dioxide (22-30) mmol/L BUN (7-17) mg/dL Glucose (74-99) mg/dL POC Glucose (mg/dL) 156 H 233 H 169 H (75-99) mg/dL AST (14-36) U/L 10/06/18 10/06/18 10/06/18 Range/Units 10:34 10:34 12:07 MCV 79.9 L (80.0-100.0) fL MCH 24.9 L (25.0-35.0) pg RDW 16.9 H (11.5-15.5) % Chloride 108 H (98-107) mmol/L Carbon Dioxide 19 L (22-30) mmol/L BUN 24 H (7-17) mg/dL Glucose 183 H (74-99) mg/dL POC Glucose (mg/dL) 151 H (75-99) mg/dL AST 46 H (14-36) U/L Microbiology - Last 24 Hours (Table) 10/04/18 20:40 Blood Culture - Preliminary Blood No Growth after 24 hours Assessment and Plan Assessment: Impression: #1 Dyspnea of unclear etiology. Computed tomography scan of chest reveals no a cute pulmonary process. #2 Morbid obesity possibly contributing factor. #3 History of mild intermittent chronic bronchial asthma. Currently inactive and stable. #4 Coronary artery disease with previous stent placement to the RCA. #5 Gastroesophageal reflux disease. #6 History of vocal cord polyps. Plan: The patient was seen and evaluated by Dr. Jara. No acute pulmonary process. We'll continue with the current treatment plan. Increase her activity as tolerated. Probable discharge in the a.m. I, the cosigning physician, performed a history & physical examination of the patient. Lungs sounds are clear. Maintaining good O2 saturations in the 90s on room air. I discussed the assessment and plan of care with my nurse practitioner, Symone Valenzuela. I attest to the above note as dictated by her.
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
[2018-10-06] MEDS: methylPREDNISolone SOD SUCCI 40 MG/ML 1 ML VIAL IV SCH (16:14)
[2018-10-06 16:57] LABS: Glucose,Whole Blood 140 mg/dL (75-99)
[2018-10-06 20:45] LABS: Glucose,Whole Blood 271 mg/dL (75-99)
[2018-10-06] MEDS: MONTELUKAST 10 MG TAB PO SCH (21:00)
[2018-10-06] MEDS: MAGNESIUM OXIDE 400 MG TAB PO SCH (21:00)
[2018-10-06] MEDS: MULTIVITAMINS, THERA 1 EACH TAB PO SCH (21:00)
[2018-10-06] MEDS: CHOLECALCIFEROL 1,000 UNIT TAB PO SCH (21:00)
[2018-10-06 21:09] VITALS: RESP 18
[2018-10-06] MEDS: NON-FORMULARY DRUG (Potassium Gluconate [Potassium Gluconate] 99 MG) PO SCH (23:14)
[2018-10-07] MEDS: methylPREDNISolone SOD SUCCI 40 MG/ML 1 ML VIAL IV SCH ×2 (00:14→07:33)
[2018-10-07 05:05] VITALS: BP 108/61; TEMP 98.3
[2018-10-07 07:02] LABS: Glucose,Whole Blood 164 mg/dL (75-99)
[2018-10-07] MEDS: BUDESONIDE 0.5 MG/2 ML NEBU INHALATION SCH (07:09)
[2018-10-07] MEDS: IPRATROPIUM-ALBUTEROL 3 ML NEB INHALATION SCH ×2 (07:09→11:00)
[2018-10-07] MEDS: NON-FORMULARY DRUG (Omega-3 Fatty Acids [Omega-3] 1,000 MG) PO SCH (07:25)
[2018-10-07] MEDS: FUROSEMIDE 20 MG TAB PO SCH (07:33)
[2018-10-07] MEDS: METOPROLOL TARTRATE 25 MG TAB PO SCH (07:33)
[2018-10-07] MEDS: ASPIRIN 81 MG PO SCH (07:33)
[2018-10-07] MEDS: CLOPIDOGREL 75 MG TAB PO SCH (07:33)
[2018-10-07] MEDS: PANTOPRAZOLE 40 MG TABLET PO SCH (07:33)
[2018-10-07] MEDS: ATORVASTATIN 40 MG TAB PO SCH (07:33)
[2018-10-07] MEDS: INSULIN ASPART (NovoLOG) 100 UNIT/ML VIAL SQ SCH ×2 (07:34→12:07)
[2018-10-07 11:12] VITALS: PULSE 96
[2018-10-07] MEDS: ACETAMINOPHEN TAB 325 MG TAB PO PRN (12:08)
[2018-10-07 12:15] LABS: Glucose,Whole Blood 118 mg/dL (75-99)
--- NOTE | 2018-10-07 13:45 | ECHOF ---
Referral Reason:sob MEASUREMENTS -------- HEIGHT: 147.3 cm WEIGHT: 103.0 kg BP: 104/61 RVIDd: 3.1 cm (< 3.3) IVSd: 1.3 cm (0.6 - 1.1) LVIDd: 3.9 cm (3.9 - 5.3) LVPWd: 1.1 cm (0.6 - 1.1) IVSs: 1.6 cm LVIDs: 2.6 cm LVPWs: 1.3 cm LA Diam: 3.3 cm (2.7 - 3.8) LAESV Index (A-L): 19.88 ml/m Ao Diam: 3.1 cm (2.0 - 3.7) AV Cusp: 1.3 cm (1.5 - 2.6) MV EXCURSION: 13.991 mm (> 18.000) MV EF SLOPE: 66 mm/s (70 - 150) EPSS: 0.6 cm MV E Maurizio: 1.01 m/s MV DecT: 229 ms MV A Maurizio: 1.12 m/s MV E/A Ratio: 0.90 AV maxP.11 mmHg AV meanP.56 mmHg RAP: 5.00 mmHg RVSP: 24.39 mmHg FINDINGS -------- Sinus rhythm. This was a technically adequate study. The left ventricular size is normal. There is mild concentric left ventricular hypertrophy. Overa ll left ventricular systolic function is normal with, an EF between 60 - 65 %. The right ventricle is normal in size. Normal LA size by volume 22+/-6 ml/m2. The right atrium is normal in size. Interatrial and interventricular septum intact. There is mild to moderate aortic valve sclerosis. There is mild aortic stenosis present. Peak/esteban n gradient across the Aortic Valve is 13.11mmHg / 6.56mmHg. The mitral valve leaflets are mildly thickened. Mild mitral annular calcification present. There is trace to mild mitral regurgitation. Mild tricuspid regurgitation present. Right ventricular systolic pressure is normal at < 35 mmHg. The pulmonic valve was not well visualized. The aortic root size is normal. Normal inferior vena cava with normal inspiratory collapse consistent with estimated right atrial pre ssure of 5 mmHg. There is no pericardial effusion. CONCLUSIONS -------- 1. Sinus rhythm. 2. This was a technically adequate study. 3. The left ventricular size is normal. 4. There is mild concentric left ventricular hypertrophy. 5. Overall left ventricular systolic function is normal with, an EF between 60 - 65 %. 6. The right ventricle is normal in size. 7. Normal LA size by volume 22+/-6 ml/m2. 8. The right atrium is normal in size. 9. Interatrial and interventricular septum intact. 10. There is mild to moderate aortic valve sclerosis. 11. There is mild aortic stenosis present. 12. Peak/mean gradient across the Aortic Valve is 13.11mmHg / 6.56mmHg. 13. The mitral valve leaflets are mildly thickened. 14. Mild mitral annular calcification present. 15. There is trace to mild mitral regurgitation. 16. Mild tricuspid regurgitation present. 17. Right ventricular systolic pressure is normal at < 35 mmHg. 18. The pulmonic valve was not well visualized. 19. The aortic root size is normal. 20. Normal inferior vena cava with normal inspiratory collapse consistent with estimated right atrial pressure of 5 mmHg. 21. There is no pericardial effusion. P[employer] INSURANCE AGENT: Joselin Chacko RDCS
--- NOTE | 2018-10-07 14:44 | P.PN ---
Subjective Progress Note Date: 10/07/18 Principal diagnosis: Dyspnea of unclear etiology With history of mild intermittent asthma, documented and confirmed on previous PFT which showed very minimal degree of obstruction on spirometry with 11% improvement post bronchodilator treatment, history of relatively normal lung volumes, and normal DLCO, clearly consistent with asthma although the patient had a [id number] smoking history. Patient was last seen in my office in January of 2018, and she was mentating mostly on a steroid inhaler, and albuterol 2 puffs 4 times a day when necessary. However since her last visit her bronchodilators were changed by her primary care physician, and the patient has been doing fairly well. Patient presented this time to the ER with 3 days history of shortness of breath on any exertion. Minimal cough, no wheezing, no fever, no chills, no hemoptysis. Patient was admitted with the impression of acute asthma exacerbation, however she is not improving in spite of being max imized on treatment, her main symptoms seem to be related to shortness of breath with any activity. Again no classic symptoms of asthma exacerbation on this presentation, and her clinical findings were normal with relatively clear breath sounds bilaterally. Patient had a normal d-dimer, normal BNP level, and a relatively normal chest x-ray. Considering her dyspnea on exertion and her profound symptoms I did recommend a CT of the chest with contrast, I also recommended a cardiac evaluation as the patient has been describing intermittent episodes of some vague chest discomfort. She normally sees Dr. Coronel and she had a previous stenting of the RCA. When she saw him last, he was infiltrating the possibility of repeating her cardiac catheterization. But this was never done. CT of the chest is pending. Cardiology consultation is pending, in the meantime I have recommended that we continue the same asthma medications, and from my perspective her symptoms are not explained by her underlying asthma. 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 She does have occasional dysphonia. She has o ccasional symptoms of GERD, and I recommended adding Protonix. The patient is seen today in 10/06/2018 in follow-up on the regular medical floor. She is awake and alert in no acute distress. Currently sitting up at the bedside. Maintaining good O2 saturations in the 90s on room air. No worsening shortness of breath. No cough or congestion. Computed tomography scan of the chest revealed no acute process. Blood culture reveals no growth. White count 6.3. Hemoglobin 11.4. Creatinine 0.97. Bicarb 19. Currently maintained on DuoNeb inhalations, Pulmicort inhalations, IV Solu-Medrol and Singulair. Patient is seen today 10/07/2017 in follow-up on the regular medical floor. She is currently sitting up at the bedside. Awake and alert in no acute distress. She denies any worsening shortness of breath, cough or congestion. Maintaining good O2 saturations in the 90s on room air. No chest pain or palpitations. Echocardiogram revealed preserved left ventricular systolic function with ejection fraction 60-65%. Blood culture revealed no growth. Objective - Vital Signs Vital signs: Vital Signs Temp 98.3 F 10/07/18 05:04 Pulse 96 10/07/18 11:12 Resp 18 10/07/18 05:04 BP 108/61 10/07/18 05:04 Pulse Ox 96 10/07/18 07:12 Intake & Output 10/06/18 10/07/18 10/07/18 18:59 06:59 18:59 Other: Voiding Method Toilet # Voids 2 # Bowel Movements 1 - Exam GENERAL EXAM: Morbidly obese. Alert, active, comfortable in no apparent dis tress. On room air. HEAD: Normocephalic. EYES: Normal reaction of pupils, equal size. NOSE: Clear with pink turbinates. THROAT: No erythema or exudates. NECK: No masses, no JVD. CHEST: No chest wall deformity. LUNGS: Equal air entry with no crackles, wheeze, rhonchi or dullness. CVS: S1 and S2 normal with no audible murmur, regular rhythm. ABDOMEN: No hepatosplenomegaly, normal bowel sounds, no guarding or rigidity. SPINE: No scoliosis or deformity SKIN: No rashes CENTRAL NERVOUS SYSTEM: No focal deficits, tone is normal in all 4 extremities. EXTREMITIES: There is no peripheral edema. No clubbing, no cyanosis. Peripheral pulses are intact. - Labs CBC & Chem 7: 10/06/18 10:34 10/06/18 10:34 Labs: Abnormal Lab Results - Last 24 Hours (Table) 10/06/18 10/06/18 10/07/18 Range/Units 16:53 20:44 06:59 POC Glucose (mg/dL) 140 H 271 H 164 H (75-99) mg/dL 10/07/18 Range/Units 12:03 POC Glucose (mg/dL) 118 H (75-99) mg/dL Microbiology - Last 24 Hours (Table) 10/04/18 20:40 Blood Culture - Preliminary Blood No Growth after 48 hours Assessment and Plan Assessment: Impression: #1 Dyspnea of unclear etiology. Computed tomography scan of chest reveals no acute pulmonary process. #2 Morbid obesity possibly contributing factor. #3 History of mild intermittent chronic bronchial asthma. Currently inactive a nd stable. #4 Coronary artery disease with previous stent placement to the RCA. #5 Gastroesophageal reflux disease. #6 History of vocal cord polyps. Plan: The patient was seen and evaluated by Dr. Jara. She is cleared for discharge from the pulmonary standpoint. I, the cosigning physician, performed a history & physical examination of the patient. Lungs sounds are clear. Maintaining good O2 saturations in the 90s on room air. I discussed the assessment and plan of care with my nurse practitioner, Symone Valenzuela. I attest to the above note as dictated by her.
== END 2018-10-07 14:02 | disposition home or self-care (01) ==
LOC: EC 15:49 → 4MS4W 21:05
PROVIDERS: ADMIT Family Medicine; ATTEND Family Medicine
DX: R06.09 Other forms of dyspnea (principal); J45.20 Mild intermittent asthma, uncomplicated; J44.9 Chronic obstructive pulmonary disease, unspecified; K21.9 Gastro-esophageal reflux disease without esophagitis; I25.10 Atherosclerotic heart disease of native coronary artery without angina pectoris; M19.90 Unspecified osteoarthritis, unspecified site; M32.9 Systemic lupus erythematosus, unspecified; E66.01 Morbid (severe) obesity due to excess calories; Z68.42 Body mass index [BMI] 45.0-49.9, adult; J38.1 Polyp of vocal cord and larynx; R49.0 Dysphonia; Z79.899 Other long term (current) drug therapy; K59.00 Constipation, unspecified; I10 Essential (primary) hypertension; E78.5 Hyperlipidemia, unspecified; G47.33 Obstructive sleep apnea (adult) (pediatric); Z99.89 Dependence on other enabling machines and devices; Z79.82 Long term (current) use of aspirin; Z79.51 Long term (current) use of inhaled steroids; Z79.02 Long term (current) use of antithrombotics/antiplatelets; Z79.52 Long term (current) use of systemic steroids; Z88.2 Allergy status to sulfonamides; Z90.711 Acquired absence of uterus with remaining cervical stump; Z95.5 Presence of coronary angioplasty implant and graft; Z80.41 Family history of malignant neoplasm of ovary; Z87.891 Personal history of nicotine dependence
CPT/HCPCS: 96376 ×3; 96375 ×2; 96365; 96366; 99285; 36415; 94640 ×7; 94760; 93005; 93306; 85379; 83880; 80053 ×2; 83605; 84484; 85025; 85027; 87040; 71046; 71260; G0378 ×4; J1100; J2920 ×2; J2930 ×2; J0456; J0696; Q9967

== ENCOUNTER 2018-10-27 06:01 | Day surgery (SDC) | payer MEDICARE, BC ==
[2018-10-24 13:47] VITALS: BMI 47.0
[~2018-10-27 06:01] MED LIST: DEXAMETHASONE SOD PHOSPHATE 10 MG/ML 1 ML VIAL IV ONE; HEPARIN SODIUM,PORCINE 5,000 UNIT/ML 1 ML VIAL SQ ONE; LACTATED RINGERS 1,000 ML IV SCH; LIDOCAINE 1% 20 ML VIAL (10MG/ML) FOR IV START INTRADERMA PRN; MIDAZOLAM 2 MG/2 ML VIAL IV PRN; ONDANSETRON 4 MG/2 ML VIAL IVP ONE; SCOPOLAMINE 1.5MG/72HR PATCH TRANSDERM ONE; ceFAZolin IN SWFI 2 GM/20 ML SYRINGE IVP ONE
[2018-10-27] MEDS ORDERED: GLYCOPYRROLATE 0.2 MG/ML 2 ML VIAL ONE (07:44)
[2018-10-27] MEDS ORDERED: fentaNYL (PF) 50 MCG/ML 2 ML AMP ONE (07:44)
[2018-10-27] MEDS ORDERED: ROCURONIUM BROMIDE 10 MG/ML 10 ML VIAL IV ONE (07:44)
[2018-10-27] MEDS ORDERED: MIDAZOLAM 2 MG/2 ML VIAL ONE (07:44)
[2018-10-27] MEDS ORDERED: LIDOCAINE 1% INJ 10MG/ML (20 ML MDV) ONE (07:44)
[2018-10-27] MEDS ORDERED: PHENYLEPHRINE-0.9% NACL SYG 1 MG/10 ML SYRINGE ONE (07:44)
[2018-10-27] MEDS ORDERED: SUCCINYLCHOLINE CHLORIDE 100 MG/5 ML SYR IV ONE (07:44)
[2018-10-27] MEDS ORDERED: PROPOFOL 10 MG/ML 20 ML VIAL IV ONE (07:44)
[2018-10-27] MEDS ORDERED: NEOSTIGMINE 1 MG/ML 10 ML VIAL ONE (07:44)
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
--- NOTE | 2018-10-27 08:08 | P.OP ---
Date of Procedure: 10/27/18 Preoperative Diagnosis: Screening colonoscopy Postoperative Diagnosis: Mild diverticulosis Procedure(s) Performed: Colonoscopy Anesthesia: MAC Surgeon: Deejay Smith Pathology: none sent Condition: stable Disposition: PACU Description of Procedure: The patient's placed on the endoscopy table in the lateral position. She received IV sedation. Digital rectal exam was performed and this revealed no abnormalities. Flexible colonoscope was then placed patient anus and passed with colon. The colon was quite tortuous. The ileocecal valve was not visualized. Secondary to tortuosity valve. The scope was withdrawn the remainder the ascending colon and transverse colon appeared normal. In the descending and sigmoid colon a few scattered diverticula. There were no polyps seen. The scope was then brought back the rectum and this appeared normal. Scope was withdrawn for patient.
[2018-10-27] MEDS ORDERED: BUPIVACAINE (PF) 0.25% 30 ML VIAL SQ ONE (08:20)
[2018-10-27 09:06] VITALS: TEMP 96.8
--- NOTE | 2018-10-27 09:08 | P.OP ---
Date of Procedure: 10/27/18 Preoperative Diagnosis: Cholecystitis Cholelithiasis Postoperative Diagnosis: Cholecystitis Cholelithiasis Adhesions cirrhosis of liver Procedure(s) Performed: Lap Cholecystectomy Anesthesia: BERNABE Surgeon: Deejay Smith Estimated Blood Loss (ml): 5 Pathology: other (Gallbladder) Condition: stable Disposition: PACU Description of Procedure: Patient's placed the operative table in supine position. She received general anesthesia. Her abdomen was prepped and draped usual sterile fashion. The patient is morbidly obese with BMI 47. The Veress needles placed a left upper quadrant through a small stab incision. The abdomen was insufflated. Next a 5 mm trochars placed in the supraumbilical position. The laparoscope placed into the peritoneal cavity there were adhesions noted. At this point a fibrillar trocar is placed at the Veress needle site and another fibrillar trocar is placed in the left lateral position. The adhesions were lysed using sharp dissection. Following this an 8 mm trochars placed in the epigastric position and then a fibrillar trocar is placed in the right lateral and right midabdomen position. The patient's placed in reverse Trendelenburg right side up position. . The gallbladder was grasped in the fundus and infundibulum. Traction on the gallbladder was placed in the lateral and the cephalad positions. The triangle of Calot was visualized.. The cystic duct was bluntly dissected until the union of the cystic duct and common bile duct was seen. A critical view of safety was achieved. Cystic duct was dissected and then a 2-0 Ethibond placed around the cystic duct. This was secured and tied off device. The cystic duct was then divided and sealed with the Harmonic scissors. The cystic artery divided and sealed with the Harmonic scissors. The gallbladder was then removed from the liver bed using Harmonic scissors. The gallbladder was then extracted through the epigastric port site. Operative field was checked for any bleeding spots and Harmonic scissors was used to coagulate the liver bed. The liver was noted to be cirrhotic. The abdomen was irrigated. The trocars were removed. The skin was closed using interrupted 3-0 Vicryl suture. Dermabond dressing were applied. The patient tolerated the procedure well.
[2018-10-27] MEDS: HYDROmorphone 0.5 MG/0.5 ML SYRINGE IVP PRN ×2 (09:17→09:52)
[2018-10-27 10:31] VITALS: RESP 16
[2018-10-27] MEDS ORDERED: HYDROcodone/APAP 5-325MG 1 EACH TAB PO ONE (10:41)
[2018-10-27 11:53] VITALS: BP 141/79; PULSE 89
== END 2018-10-27 13:28 | disposition home or self-care (01) ==
LOC: OR 06:01
PROVIDERS: ATTEND Surgery
DX: K80.12 Calculus of gallbladder with acute and chronic cholecystitis without obstruction (principal); K74.60 Unspecified cirrhosis of liver; M19.90 Unspecified osteoarthritis, unspecified site; M32.9 Systemic lupus erythematosus, unspecified; Z87.891 Personal history of nicotine dependence; Z88.2 Allergy status to sulfonamides; Z90.49 Acquired absence of other specified parts of digestive tract; Z95.5 Presence of coronary angioplasty implant and graft; E78.5 Hyperlipidemia, unspecified; G47.33 Obstructive sleep apnea (adult) (pediatric); K21.9 Gastro-esophageal reflux disease without esophagitis; Z98.42 Cataract extraction status, left eye; J44.9 Chronic obstructive pulmonary disease, unspecified; I25.2 Old myocardial infarction; Z79.51 Long term (current) use of inhaled steroids; Z79.899 Other long term (current) drug therapy; Z79.82 Long term (current) use of aspirin
CPT/HCPCS: 88304; 47562; J2250; J1644; J1100; J2710; J2405; J2001; J3010; J2370; J0330; J2704; J1170; J0690

== ENCOUNTER → 2019-10-24 | Outpatient (CLI) | payer MEDICARE, BC ==
--- NOTE | 2019-10-24 17:27 | CT ---
CT CHEST FOR PULMONARY EMBOLISM. EXAMINATION TYPE: CT angio chest DATE OF EXAM: 10/24/2019 INDICATION: Elevated d-dimer. Shortness of breath. CT DLP: 632 mGycm, Automated exposure control for dose reduction was used. CONTRAST: Patient injected with 100 mL of Isovue 370. COMPARISON: 10/05/2018 TECHNIQUE: CT of the chest is performed on a spiral scan at 2 mm thick sections. Study is performed with intravenous contrast timed for evaluation for pulmonary embolism. This will limit additional po rtions of the evaluation. 3-D MIP images reconstructed by the technologist are reviewed on the compu ter in the coronal and sagittal planes. FINDINGS: No persistent filling defects are evident to suggest an acute pulmonary embolism. No mediastinal or hilar adenopathy enlarged by CT criteria is evident. The ascending aorta diameter at the level of the main pulmonary artery is 3.0 cm. The main pulmonary artery diameter at the bifur cation is 2.6 cm. Mild compressive atelectasis is at the right lung base. Limited CT section through the upper abdomen are unremarkable. IMPRESSIONS: 1. No acute pulmonary embolism.
== END | disposition home or self-care (01) ==
LOC: RADCTMAIN 16:18
PROVIDERS: ATTEND Family Medicine
DX: R79.9 Abnormal finding of blood chemistry, unspecified (principal)
CPT/HCPCS: 71275; Q9967

== ENCOUNTER → 2021-04-21 | Day surgery (SDC) | payer MEDICARE, BC ==
[2021-04-17 13:24] VITALS: BMI 41.3
[~2021-04-21] MED LIST changes: +ALPRAZolam 0.25 MG TAB PO PRN; +ALPRAZolam 0.5 MG TAB PO PRN; +ASPIRIN 325 MG TAB PO ONE; +ATORVASTATIN 80 MG TAB PO ONE; -DEXAMETHASONE SOD PHOSPHATE 10 MG/ML 1 ML VIAL IV ONE; +HEPARIN SODIUM 1,000 UN/ML (10ML VL) IV ONE; +HEPARIN SODIUM 1,000 UN/ML (10ML VL) ONE; -HEPARIN SODIUM,PORCINE 5,000 UNIT/ML 1 ML VIAL SQ ONE; +IOPAMIDOL-370 125ML BTL INJ ONE; -LACTATED RINGERS 1,000 ML IV SCH; -LIDOCAINE 1% 20 ML VIAL (10MG/ML) FOR IV START INTRADERMA PRN; +LIDOCAINE 1% INJ 10MG/ML (20 ML MDV) ONE; +LIDOCAINE 1% INJ 10MG/ML (20 ML MDV) SQ ONE; +MIDAZOLAM 2 MG/2 ML VIAL IV ONE; -MIDAZOLAM 2 MG/2 ML VIAL IV PRN; +NITROGLYCERIN SL TABS 0.4 MG TAB SUBLINGUAL PRN; -ONDANSETRON 4 MG/2 ML VIAL IVP ONE; +RX INFO: IV CONTRAST WAS GIVEN 1 EACH MISC MISCELLANE PRN; -SCOPOLAMINE 1.5MG/72HR PATCH TRANSDERM ONE; +SODIUM CHLORIDE 0.9% 1,000 ML IV ONE; +SODIUM CHLORIDE 0.9% 1,000 ML IV SCH; +SODIUM CHLORIDE 0.9% 1,000 ML in EMPTY BAG 1 BAG IV SCH; +VERAPAMIL 2.5 MG/ML 2 ML AMP ONE; -ceFAZolin IN SWFI 2 GM/20 ML SYRINGE IVP ONE
[2021-04-21 06:35] VITALS: RESP 16; TEMP 99.4
[2021-04-21 07:03] LABS: Calcium 9.2 mg/dL (8.4-10.2)
[2021-04-21] MEDS: VERAPAMIL SYRINGE (5 MG/10 ML) INTRAARTER ONE ×2 (08:18→08:43)
--- NOTE | 2021-04-21 12:44 | CC ---
CARDIAC CATHETERIZATION REPORT DATE OF SERVICE: April 21, 2021. PERFORMING PHYSICIAN: Adi Toussaint MD. PROCEDURE PERFORMED: 1. Selective right and left coronary angiogram. 2. Left heart catheterization. INDICATION: This is a 71-year-old female patient with coronary artery disease and prior stenting of the RCA who was experiencing symptoms of chest discomfort and she underwent myocardial perfusion imaging stress test that showed reversibility. In light of that, a heart catheterization was advised. APPROACH: Right radial artery. COMPLICATION: None. LEVEL OF SEDATION: Moderate with sedation length of 26 minutes. PROCEDURE DESCRIPTION: After obtaining an informed consent, the patient was brought to the cardiac concrete mixing plant laborer. The right radial artery was cannulated using micropuncture technique, the micropuncture wire passed easily. Then I placed a 6-[place] Citizen sheath at the right radial artery. After that I did give the patient 2 mg of verapamil IA and 8000 units of heparin IV. Selective right and left coronary angiogram performed using JR4 and JL3.5 catheters. Left heart catheterization was performed using the JR4 catheter which crossed the aortic valve, then I did pullback across the valve. The procedure was completed without any complication. SELECTIVE CORONARY ANGIOGRAM: 1. The right coronary artery is a large-caliber vessel and is a dominant vessel. The RCA is extremely calcified. The distal RCA is stented and the stents are patent. 2. The left main is calcified with mild disease only. It bifurcates into LCX and LAD. 3. The LCX is a large caliber vessel. It is a nondominant vessel. The proximal left circumflex after the bifurcation from the left main has a tight lesion appeared to be in the range of 80% to 90% and seems to be eccentric and calcified. Definitely gets worse compared to before. The proximal circ after that gives rise into the first obtuse marginal branch which has mild disease only. The distal circ appeared to have mild disease only. 4. LAD: The proximal LAD appeared to have mild disease only. The mid LAD has also mild disease and distal LAD appeared to have mild disease as well. The LAD gives rise into the first and second diagonal branches. Both appeared to have mild disease only. HEMODYNAMICS: The LVEDP was about 10 to 12 mmHg without significant gradient across aortic valve. CONCLUSION: 1. Extremely calcified right and left coronary system. 2. Patent stent in the distal right coronary artery. 3. Critical disease involving the proximal left circumflex with calcified and eccentric lesion. POSTPROCEDURE MANAGEMENT: Given the support needed to fix the lesion in the left circumflex and given the calcified lesion, I advised going from the groin with extra backup support guide and adjunctive use of atherectomy for the procedure to be done in the next few days. DESIREE / DEE: [id number] /
[2021-04-21 18:54] VITALS: BP 142/78; PULSE 89
== END ==
LOC: CATHCVL 05:44
PROVIDERS: ATTEND Internal Medicine Interventional Cardiology
DX: I25.10 Atherosclerotic heart disease of native coronary artery without angina pectoris (principal); I10 Essential (primary) hypertension; I25.84 Coronary atherosclerosis due to calcified coronary lesion; E66.9 Obesity, unspecified; Z20.822 Contact with and (suspected) exposure to COVID-19; Z68.42 Body mass index [BMI] 45.0-49.9, adult; Z95.5 Presence of coronary angioplasty implant and graft
CPT/HCPCS: 93458; 80048; 87635; C1894; J2250; J2001; J1644; Q9967

== ENCOUNTER 2021-05-06 13:55 | Emergency (ER) | payer MEDICARE, BC ==
[2021-05-06 14:42] VITALS: TEMP 98.6
[2021-05-06] MEDS ORDERED: KETOROLAC 15 MG/ML 1 ML VIAL IM STA (16:29)
[2021-05-06] MEDS ORDERED: MORPHINE SULFATE 4 MG/ML SYRINGE IM STA (16:29)
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
[2021-05-06 17:07] VITALS: BP 140/70; PULSE 80; RESP 18
[2021-05-06 17:31] LABS: Appearance,Urine Clear (Clear); Bacteria,Urine Many /hpf; Bilirubin,Urine Negative (Negative); Blood,Urine Small (Negative); Color,Urine Light Yellow; Glucose,Urine (UA) Negative (Negative); Ketones,Urine Negative (Negative); Leukocyte Esterase,Urine Large (Negative); Nitrite,Urine Positive (Negative); Protein,Urine Negative (Negative); RBC,Urine 4 /hpf (0-5); Specific Gravity,Urine 1.006 (1.001-1.035); Squamous Epithelial Cell,Urine 1 /hpf (0-4); Urobilinogen,Urine <2.0 mg/dL (<2.0); WBC,Urine 24 /hpf (0-5)
--- NOTE | 2021-05-06 17:40 | CT ---
EXAMINATION TYPE: CT pelvis wo con CT DLP: 878.5 mGycm, Automated exposure control for dose reduction was used. DATE OF EXAM: 05/06/2021 5:24 PM COMPARISON: CT pelvis 05/04/2018. CLINICAL INDICATION:Female, 71 years old with history of right hip pain; radiculopathy; TECHNIQUE: Standard CT of the pelvis without IV or oral contrast. Lack of IV or oral contrast limit s evaluation of solid and hollow organ viscera. Coronal and sagittal reformats were performed. FINDINGS: LIVER: Visualized portion is unremarkable. KIDNEYS AND URETERS: Visualized portion is unremarkable. BLADDER: Unremarkable REPRODUCTIVE: uterus is surgically absent or atrophic. ABDOMEN & PELVIS STOMACH AND BOWEL: Scattered diverticula are noted throughout the colon. No evidence of bowel obstruc tion. PERITONEUM: No evidence of pneumoperitoneum or free fluid. VASCULATURE: Mild atherosclerotic calcifications are present throughout the abdominal aorta and its b ranches. MUSCULOSKELETAL: Moderate disc degeneration changes are present throughout the visualized spine. Hip joints demonstrate mild degenerative changes with osteophyte formation. LYMPH NODES: No gross evidence for lymphadenopathy. SOFT TISSUE/ABDOMINAL WALL: Unremarkable IMPRESSION: 1. No evidence for acute process fracture. 2. Mild degenerative changes of the hips and moderate degenerative disc disease changes of the visual ized spine. 3. Colonic diverticulosis.
--- NOTE | 2021-05-06 17:49 | CT ---
EXAMINATION TYPE: CT lumbar spine wo con DATE OF EXAM: 05/06/2021 5:24 PM COMPARISON: CT abdomen and pelvis 05/04/2018 HISTORY: right hip pain; radiculopathy CT DLP: 1388 mGycm Automated exposure control for dose reduction was used. TECHNIQUE: Unenhanced CT of the lumbar spine was performed. Bone and soft tissue window settings are submitted as well as coronal and sagittal reconstructions. FINDINGS: L1-L2: Normal disc space height. No disc herniation protrusion or central stenosis. No facet joint arthropathy. No evidence for foraminal encroachment. L2-L3: Mild spinal canal narrowing secondary to combination facet joint arthropathy and disc bulge. T he neural foramen are grossly patent. L3-L4: Moderate spinal canal narrowing secondary to combination facet joint arthropathy and disc bulg e. The neural foramen are grossly patent. L4-L5: Moderate to severe spinal canal narrowing secondary to combination facet joint arthropathy and disc bulge. The neural foramen are grossly patent. L5-S1: Normal disc space height. No disc herniation protrusion or central stenosis. No facet joint arthropathy. No evidence for foraminal encroachment. Other: Right S1 and S2 perineural cyst. IMPRESSION: Multilevel spinal canal narrowing worst at L4-L5 with moderate to severe spinal canal stenosis second smith to disc bulging and facet joint arthropathy. Findings are grossly similar to 2018. Consider MRI o f the lumbar spine for further evaluation.
[2021-05-06] MEDS ORDERED: NITROFURANTOIN MONOHYD/M-CRYST 100 MG CAP PO STA (18:02)
[2021-05-06] MEDS ORDERED: ACET/COD 300 MG/30 MG STARTER PACK 6 TAB BTL PO STA (18:06)
[2021-05-06] MEDS ORDERED: CYCLOBENZAPRINE 10MG STARTER 3 TAB BTL PO STA (18:06)
== END 2021-05-06 18:20 | disposition home or self-care (01) ==
LOC: EC 13:55
DX: M51.26 Other intervertebral disc displacement, lumbar region (principal); M54.16 Radiculopathy, lumbar region; N39.0 Urinary tract infection, site not specified; J45.909 Unspecified asthma, uncomplicated; I25.10 Atherosclerotic heart disease of native coronary artery without angina pectoris; E78.5 Hyperlipidemia, unspecified; M19.90 Unspecified osteoarthritis, unspecified site; F41.9 Anxiety disorder, unspecified; Z79.82 Long term (current) use of aspirin; Z88.2 Allergy status to sulfonamides; Z90.49 Acquired absence of other specified parts of digestive tract; Z90.710 Acquired absence of both cervix and uterus; Z87.891 Personal history of nicotine dependence
CPT/HCPCS: 99284; 96372 ×2; 81001; 87086; 72192; 72131; J2270; J1885; 87077; 87186

== ENCOUNTER 2021-05-20 09:58 | Day surgery (SDC) | payer MEDICARE, BC ==
[~2021-05-20 09:58] MED LIST changes: -ASPIRIN 325 MG TAB PO ONE; +ASPIRIN 325 MG TAB PO STA; -ATORVASTATIN 80 MG TAB PO ONE; +ATORVASTATIN 80 MG TAB PO STA; -HEPARIN SODIUM 1,000 UN/ML (10ML VL) IV ONE; -HEPARIN SODIUM 1,000 UN/ML (10ML VL) ONE; -IOPAMIDOL-370 125ML BTL INJ ONE; -LIDOCAINE 1% INJ 10MG/ML (20 ML MDV) ONE; -LIDOCAINE 1% INJ 10MG/ML (20 ML MDV) SQ ONE; -MIDAZOLAM 2 MG/2 ML VIAL IV ONE; -RX INFO: IV CONTRAST WAS GIVEN 1 EACH MISC MISCELLANE PRN; -SODIUM CHLORIDE 0.9% 1,000 ML IV ONE; -SODIUM CHLORIDE 0.9% 1,000 ML IV SCH; -SODIUM CHLORIDE 0.9% 1,000 ML in EMPTY BAG 1 BAG IV SCH; -VERAPAMIL 2.5 MG/ML 2 ML AMP ONE
[2021-05-20] MEDS ORDERED: SODIUM CHLORIDE 0.9% 1,000 ML IV ONE (10:08)
[2021-05-20] MEDS: SODIUM CHLORIDE 0.9% 1,000 ML in EMPTY BAG 1 BAG IV SCH ×2 (10:15→17:36)
[2021-05-20 10:49] LABS: Basophils % (A) 0 %; Eosinophils # (A) 0.2 k/uL (0-0.7); Eosinophils % (A) 3 %; HCT 43.6 % (34.0-46.0); HGB 14.1 gm/dL (11.4-16.0); Lymphocytes # (A) 1.4 k/uL (1.0-4.8); Lymphocytes % (A) 21 %; MCH 31.3 pg (25.0-35.0); MCHC 32.4 g/dL (31.0-37.0); MCV 96.7 fL (80.0-100.0); Mean Platelet Volume 6.9; Monocytes # (A) 0.4 k/uL (0-1.0); Monocytes % (A) 5 %; Neutrophils # (A) 4.7 k/uL (1.3-7.7); Neutrophils % (A) 69 %; Platelet Count 288 k/uL (150-450); RBC 4.51 m/uL (3.80-5.40); RDW 14.2 % (11.5-15.5); WBC 6.7 k/uL (3.8-10.6)
[2021-05-20 10:54] LABS: Calcium 9.5 mg/dL (8.4-10.2)
[2021-05-20 11:01] LABS: Potassium 5.4 mmol/L (3.5-5.1)
[2021-05-20] MEDS ORDERED: LIDOCAINE 1% INJ 10MG/ML (20 ML MDV) ONE (12:24)
[2021-05-20] MEDS ORDERED: HEPARIN SODIUM 1,000 UN/ML (10ML VL) ONE (12:24)
[2021-05-20] MEDS ORDERED: MIDAZOLAM 2 MG/2 ML VIAL IVP ONE ×2 (12:31→12:55)
[2021-05-20] MEDS ORDERED: LIDOCAINE 1% INJ 10MG/ML (20 ML MDV) SQ ONE (12:32)
[2021-05-20] MEDS: HEPARIN SODIUM 1,000 UN/ML (10ML VL) IV ONE ×3 (12:41→14:07)
[2021-05-20] MEDS ORDERED: fentaNYL (PF) 50 MCG/ML 2 ML AMP ONE (12:43)
[2021-05-20] MEDS ORDERED: fentaNYL (PF) 50 MCG/ML 2 ML AMP IVP ONE ×2 (12:48)
[2021-05-20] MEDS ORDERED: MORPHINE SULFATE 4 MG/ML SYRINGE ONE (13:15)
[2021-05-20] MEDS ORDERED: MORPHINE SULFATE 4 MG/ML SYRINGE IVP ONE ×2 (13:19)
[2021-05-20] MEDS ORDERED: niCARdipine 25 MG/10 ML VIAL ONE (13:19)
[2021-05-20] MEDS ORDERED: IOPAMIDOL-370 100ML BTL INJ ONE ×2 (13:26→13:52)
[2021-05-20] MEDS ORDERED: MAG HYDROX/AL HYDROX/SIMETH 30 ML CUP PO PRN (13:41)
[2021-05-20] MEDS ORDERED: RX INFO: IV CONTRAST WAS GIVEN 1 EACH MISC MISCELLANE PRN (13:41)
[2021-05-20] MEDS ORDERED: ZOLPIDEM 5 MG TAB PO PRN (13:41)
[2021-05-20] MEDS ORDERED: ATROPINE SULFATE 0.1 MG/ML 10ML SYRINGE IV PRN (13:41)
[2021-05-20] MEDS ORDERED: SODIUM CHLORIDE 0.9% 1,000 ML in EMPTY BAG 1 BAG IV SCH (13:45)
[2021-05-20] MEDS ORDERED: NITROGLYCERIN 1000MCG/10ML SYRINGE INTRACORON ONE (13:50)
[2021-05-20] MEDS ORDERED: niCARdipine Syringe (1,000 mcg/10 mL) INTRACORON ONE (13:50)
[2021-05-20] MEDS ORDERED: TICAGRELOR 90 MG TAB ONE (14:00)
[2021-05-20] MEDS ORDERED: TICAGRELOR 90 MG TAB PO ONE (14:00)
[2021-05-20] MEDS ORDERED: Acetaminophen-Codeine 300-30mg TAB PO PRN (14:10)
[2021-05-20] MEDS ORDERED: ALBUTEROL NEBULIZED 2.5 MG/3 ML INHALATION PRN (14:10)
--- NOTE | 2021-05-20 15:08 | PTCA ---
PERCUTANEOUSTRANS CORORONARY ANGIOGRAPHY DATE OF SERVICE: May 20, 2021. PERFORMING PHYSICIAN: Adi Toussaint MD. PROCEDURE PERFORMED: 1. Successful atherectomy of the left circumflex using the orbital atherectomy device from [facility]. 2. Successful stenting of the proximal left circumflex using 2.75 x 15 mm Xience drug- eluting stent with an excellent angiographic results. INDICATION: This is a 71-year-old female patient with coronary artery disease who was experiencing symptoms of chest discomfort concerning for angina. She underwent a heart catheterization recently and that revealed critical disease involving the proximal left circumflex with extremely calcified and tortuous lesion. She was brought today to undergo an atherectomy. APPROACH: Right common femoral artery. COMPLICATIONS: None. LEVEL OF SEDATION: Moderate, with sedation length of 82 minutes. PROCEDURE DESCRIPTION.: After obtaining an informed consent, the patient was brought to the cardiac labor economics teacher. The right common femoral artery was cannulated using micropuncture technique and a micropuncture wire passed easily then I placed a 6-Italian sheath 11 cm at the right common femoral artery. Subsequently I did engage the left main using an EBU guiding catheter. I did wire the left circumflex using a Whisper wire with the backup support of 90 degree super Cross catheter. Subsequently, I tried to advance the catheter, but I was unable and at that point I used Teleport catheter and with that I was able to advance the catheter over the wire and changed my wire into a ViperWire preparing for atherectomy. Under low speed, I did 2 runs of atherectomy of the proximal left circumflex. Subsequently, I did balloon angioplasty using 2.0 mm balloon and subsequently 2.5 mm balloon. Attempting advancing a 2.75 x 15 mm stent was unsuccessful. Finally, I was able to change my wire into a Mailman and with that I was able to advance the stent to the left circumflex where the stent was positioned under fluoroscopic guidance and deployed under its nominal pressure. The following angiogram showed excellent angiographic results and the procedure was completed without any complication. POSTPROCEDURE MANAGEMENT: 1. Dual anti-platelet therapy. 2. Aggressive cholesterol control. 3. Risk factor modifications. 4. Follow up with the patient. MMODL / IJN: [id number] /
[2021-05-20] MEDS ORDERED: ACETAMINOPHEN TAB 325 MG TAB ONE (16:00)
[2021-05-20] MEDS: CYCLOBENZAPRINE 10 MG TAB PO SCH ×2 (17:35→21:08)
[2021-05-20] MEDS: TICAGRELOR 90 MG TAB PO SCH (21:08)
[2021-05-20] MEDS: METOPROLOL TARTRATE 25 MG TAB PO SCH (21:08)
[2021-05-20] MEDS: BUDESONIDE 0.5 MG/2 ML NEBU INHALATION SCH (21:29)
[2021-05-20 21:42] LABS: Glucose,Whole Blood 92 mg/dL (75-99)
[2021-05-21] MEDS: SODIUM CHLORIDE 0.9% 1,000 ML in EMPTY BAG 1 BAG IV SCH (02:41)
[2021-05-21 06:15] LABS: Basophils % (A) 0 %; Eosinophils # (A) 0.2 k/uL (0-0.7); Eosinophils % (A) 3 %; HCT 40.6 % (34.0-46.0); Lymphocytes # (A) 1.5 k/uL (1.0-4.8); Lymphocytes % (A) 24 %; MCHC 32.1 g/dL (31.0-37.0); MCV 96.5 fL (80.0-100.0); Mean Platelet Volume 7.2; Monocytes # (A) 0.4 k/uL (0-1.0); Monocytes % (A) 7 %; Neutrophils # (A) 3.9 k/uL (1.3-7.7); Neutrophils % (A) 63 %; Platelet Count 256 k/uL (150-450); RBC 4.21 m/uL (3.80-5.40); RDW 13.8 % (11.5-15.5); WBC 6.3 k/uL (3.8-10.6)
[2021-05-21 06:31] LABS: African American GFR (CKD) 69 (>60 ml/min/1.73 sqM); Anion Gap 3 mmol/L; Blood Urea Nitrogen 19 mg/dL (7-17); Calcium 9.1 mg/dL (8.4-10.2); Carbon Dioxide 27 mmol/L (22-30); Chloride 108 mmol/L (98-107); Glucose 100 mg/dL (74-99); Non-African American GFR(CKD) 60 (>60 ml/min/1.73 sqM); Potassium 5.2 mmol/L (3.5-5.1); Sodium 138 mmol/L (137-145)
[2021-05-21 07:33] VITALS: BP 136/77; PULSE 90; RESP 18; TEMP 98.4
[2021-05-21] MEDS: BUDESONIDE 0.5 MG/2 ML NEBU INHALATION SCH (08:04)
[2021-05-21] MEDS: CYCLOBENZAPRINE 10 MG TAB PO SCH (08:22)
[2021-05-21] MEDS: METOPROLOL TARTRATE 25 MG TAB PO SCH (08:22)
[2021-05-21] MEDS: TICAGRELOR 90 MG TAB PO SCH (08:23)
[2021-05-21] MEDS ORDERED: NON FORMULARY DRUG (Aspirin Ec 81 MG Tablet.Dr) PO SCH (09:00)
[2021-05-21] MEDS ORDERED: ATORVASTATIN 40 MG TAB PO SCH (09:00)
[2021-05-21] MEDS ORDERED: FUROSEMIDE 20 MG TAB PO SCH (09:00)
[2021-05-21] MEDS ORDERED: ASPIRIN 81 MG PO SCH (09:00)
[2021-05-21] MEDS ORDERED: LORATADINE 10 MG TAB PO SCH (09:00)
[2021-05-21 14:24] VITALS: BMI 45.8
== END 2021-05-21 11:30 | disposition home or self-care (01) ==
LOC: CATHCVL 09:58 → 6NMEDSUR 13:53 → 1SOBS 13:53 → CATHCVL 05-21 11:30
PROVIDERS: ATTEND Internal Medicine Interventional Cardiology
DX: I25.10 Atherosclerotic heart disease of native coronary artery without angina pectoris (principal); I25.84 Coronary atherosclerosis due to calcified coronary lesion; E66.9 Obesity, unspecified; Z68.42 Body mass index [BMI] 45.0-49.9, adult; I10 Essential (primary) hypertension; Z20.822 Contact with and (suspected) exposure to COVID-19; Z72.0 Tobacco use; Z88.2 Allergy status to sulfonamides; Z79.82 Long term (current) use of aspirin; Z79.51 Long term (current) use of inhaled steroids; Z79.899 Other long term (current) drug therapy
CPT/HCPCS: 80048 ×2; 85025 ×2; 87635; C9602; C1769 ×7; C1887 ×4; C1725 ×2; C1894; C1724; C1874 ×2; J2250; J2270; J2001; J3010; J1644; Q9967

== ENCOUNTER → 2022-01-30 | Outpatient (CLI) | payer MEDICARE, BC ==
--- NOTE | 2022-01-30 11:25 | US ---
EXAMINATION TYPE: US carotid duplex BILAT DATE OF EXAM: 01/30/2022 COMPARISON: NONE CLINICAL HISTORY: R42.0 DIZZINESS. Dizziness TECHNIQUE: Carotid duplex ultrasound examination. Indirect Doppler criteria was utilized. FINDINGS: EXAM MEASUREMENTS: RIGHT: Peak Systolic Velocity (PSV) cm/sec ----- Right CCA: 96.9 ----- Right ICA: 74.2 ----- Right ECA: 145.2 ICA/CCA ratio: 0.8 RIGHT: End Diastole cm/sec ----- Right CCA: 31.5 ----- Right ICA: 27.5 ----- Right ECA: 34.5 LEFT: Peak Systolic Velocity (PSV) cm/sec ----- Left CCA: 95.2 ----- Left ICA: 143.4 ----- Left ECA: 183.4 ICA/CCA ratio: 1.5 LEFT: End Diastole cm/sec ----- Left CCA: 21.8 ----- Left ICA: 30.8 ----- Left ECA: 18.9 VERTEBRALS (direction of flow): Right Vertebral: Antegrade Left Vertebral: Antegrade Rhythm: Normal Elevated velocities - right proximal ECA, left proximal ICA and left proximal ECA No significant stenosis Right neck 2.9 x 1.4 x 2.4cm palpable vascular mass seen during scan . This is well-circumscribed. IMPRESSION: 1. No stenosis of the right internal carotid artery. 2. Less than 50% stenosis of the left internal carotid artery. Next line 3. Mild stenosis of the bilateral external carotid arteries. 4. Indeterminate right neck 2.9 cm vascular mass. Further evaluation with CT neck with IV contrast is recommended. Criteria for Assigning % of Stenosis / Diameter reduction (Estimation based on the indirect measurements of the internal carotid artery velocities (ICA PSV). 1. Normal (no stenosis)=ICA PSV < 125 cm/s: ratio < 2.0: ICA EDV<40 cm/s. 2. Less than 50% stenosis=ICA PSV < 125 cm/s: ratio < 2.0: ICA EDV<40 cm/s. 3. 50 to 69% stenosis=ICA PSV of 125 to 230 cm/s: ration 2.0 ? 4.0: ICA EDV 40-100 cm/s. 4. Greater than 70% stenosis to near occlusion= ICA PSV > 230 cm/s: ratio > 4.0: ICA EDV > 100 cm/s. 5. Near occlusion= ICA PSV velocities may be low or undetectable: variable ratio and ICA EDV. 6. Total occlusion=unable to detect flow.
== END | disposition home or self-care (01) ==
LOC: RADUSWWP 10:40
PROVIDERS: ATTEND Family Medicine
DX: I65.23 Occlusion and stenosis of bilateral carotid arteries (principal)
CPT/HCPCS: 93880

== ENCOUNTER → 2022-02-05 | Outpatient (CLI) | payer MEDICARE, BC ==
--- NOTE | 2022-02-05 15:04 | CT ---
EXAMINATION TYPE: CT brain wo con DATE OF EXAM: 02/05/2022 COMPARISON: 11/17/2017 HISTORY: TIA; DIZZINESS AND GIDDINESS CT DLP: [address] of the brain was performed. The ventricles, basal cisterns and sulci overlying the cerebral convexities demonstrate mild enlargem ent. There is no evidence for intracranial hemorrhage or sulcal effacement. There is decreased attenuation about the periventricular white matter and deep white matter of both c erebral hemispheres, compatible with chronic small vessel ischemia. Differential diagnosis does inclu de demyelination. No mass effects are seen.No midline shift. Osseous calvarium is intact. If symptoms persist consider MRI. IMPRESSION: 1. Age related atrophic and chronic small vessel ischemic change without acute intracranial process s een at this time.
== END | disposition home or self-care (01) ==
LOC: RADCTMAIN 14:29
PROVIDERS: ATTEND Family Medicine
DX: I67.82 Cerebral ischemia (principal); G31.9 Degenerative disease of nervous system, unspecified
CPT/HCPCS: 70450

== ENCOUNTER → 2022-03-04 | Outpatient (CLI) | payer MEDICARE, BC ==
--- NOTE | 2022-03-05 21:41 | CA ---
Transthoracic Echo Report Name: Maritza Vargas Age: 71 Gender: F : 1950 Exam Date: 03/04/2022 14:23 Exam Location: [facility] Ht (in): 52 Wt (lb): 196 Ordering Physician: John Moss MD Attending/Referring Phys: [employer] Sherie Oconnor RDCS Procedure CPT: Indications: R42 dizziness, G45.9 TIA Cardiac Hx: Technical Quality: Contrast 1: Total Dose (mL): Contrast 2: Total Dose (mL): MEASUREMENTS (Male / Female) Normal Values 2D ECHO LV Diastolic Diameter PLAX 4.7 cm 4.2 - 5.9 / 3.9 - 5.3 cm LV Systolic Diameter PLAX 2.4 cm IVS Diastolic Thickness 0.8 cm 0.6 - 1.0 / 0.6 - 0.9 cm LVPW Diastolic Thickness 1.5 cm 0.6 - 1.0 / 0.6 - 0.9 cm LV Relative Wall Thickness 0.5 RV Internal Dim ED PLAX 2.7 cm LA Systolic Diameter LX 3.6 cm 3.0 - 4.0 / 2.7 - 3.8 cm LA Volume 43.5 cm??? 18 - 58 / 22 - 52 cm??? M-MODE Aortic Root Diameter MM 2.9 cm LA Systolic Diameter MM 4.4 cm LA Ao Ratio MM 1.5 MV E Point Septal Separation 0.7 cm AV Cusp Separation MM 1.0 cm DOPPLER AV Peak Velocity 173.1 cm/s AV Peak Gradient 12.0 mmHg MV E' Velocity 5.8 cm/s FINDINGS Left Ventricle Left ventricular ejection fraction is estimated at 50-55 %. Mildly increased left ventricular wall thickness. Right Ventricle The right ventricle is normal in size and function. Right ventricular systolic pressure within normal limits. Right Atrium The right atrium is normal in size. Left Atrium The left atrium is normal in size. Mitral Valve Structurally normal mitral valve without significant stenosis or prolapse. There is mild mitral regurgitation. Aortic Valve Structurally normal aortic valve without significant sclerosis or stenosis. There is no aortic regurgitation. Tricuspid Valve Structurally normal tricuspid valve without significant stenosis. Pulmonary artery systolic pressure is normal. Pulmonic Valve Structurally normal pulmonic valve without significant stenosis. There is no pulmonic regurgitation. Pericardium Normal pericardium without effusion. Aorta Normal aortic root dimension. CONCLUSIONS Normal LV size and systolic function Mild LVH Previewed by: Dr. Ulises Henry MD (Electronically Signed) Final Date: 05 March 2022 21:40
== END | disposition home or self-care (01) ==
LOC: RADECHMAIN 13:57
PROVIDERS: ATTEND Family Medicine
DX: I50.1 Left ventricular failure, unspecified (principal); G45.9 Transient cerebral ischemic attack, unspecified
CPT/HCPCS: 93306

== ENCOUNTER → 2022-09-03 | Outpatient (CLI) | payer MEDICARE, BC ==
--- NOTE | 2022-09-03 18:16 | XR ---
EXAMINATION TYPE: XR chest 2V DATE OF EXAM: 09/03/2022 COMPARISON: 09/26/2018 HISTORY: 72-year-old female R05.9 TECHNIQUE: Frontal and lateral views FINDINGS: The cardiomediastinal silhouette, aorta, and pulmonary vasculature are within normal limits. Lungs an d pleural spaces are clear. IMPRESSION: No acute cardiopulmonary process.
== END | disposition home or self-care (01) ==
LOC: RADXRMAIN 13:45
PROVIDERS: ATTEND Emergency Medicine
DX: R05.9 Cough, unspecified (principal)
CPT/HCPCS: 71046

== ENCOUNTER → 2022-09-23 | Outpatient (CLI) | payer MEDICARE, BC ==
--- NOTE | 2022-09-23 14:17 | XR ---
EXAMINATION TYPE: XR chest 2V DATE OF EXAM: 09/23/2022 1:16 PM COMPARISON: Chest radiographs from 09/03/2022 TECHNIQUE: XR chest 2V Frontal and lateral views of the chest. CLINICAL INDICATION:Female, 72 years old with history of R06.4 Difficulty breathing; FINDINGS: Lungs/Pleura: There is no evidence of pleural effusion, focal consolidation, or pneumothorax. Pulmonary vascularity: Unremarkable. Heart/mediastinum: Cardiomediastinal silhouette is unremarkable. Musculoskeletal: No acute osseous pathology. IMPRESSION: No acute cardiopulmonary disease/process.
== END | disposition home or self-care (01) ==
LOC: RADXRMAIN 13:04
PROVIDERS: ATTEND Family Medicine
DX: R06.4 Hyperventilation (principal)
CPT/HCPCS: 71046

== ENCOUNTER 2022-12-12 14:49 | Emergency (ER) | payer MEDICARE, BC ==
[2022-12-12] MEDS ORDERED: KETOROLAC 15 MG/ML 1 ML VIAL IVP STA (15:38)
[2022-12-12] MEDS ORDERED: SODIUM CHLORIDE 0.9% 1,000 ML IV STA (15:38)
[2022-12-12] MEDS ORDERED: MORPHINE SULFATE 2 MG/ML SYRINGE IVP STA (15:38)
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
[2022-12-12 16:23] LABS: Basophils % (A) 0 %; Eosinophils # (A) 0.1 k/uL (0-0.7); Eosinophils % (A) 3 %; HCT 40.6 % (34.0-46.0); HGB 13.8 gm/dL (11.4-16.0); Lymphocytes # (A) 1.3 k/uL (1.0-4.8); Lymphocytes % (A) 25 %; MCV 94.1 fL (80.0-100.0); Mean Platelet Volume 7.3; Monocytes # (A) 0.3 k/uL (0-1.0); Monocytes % (A) 6 %; Neutrophils # (A) 3.3 k/uL (1.3-7.7); Neutrophils % (A) 64 %; Platelet Count 212 k/uL (150-450); RBC 4.31 m/uL (3.80-5.40); RDW 13.4 % (11.5-15.5); WBC 5.1 k/uL (3.8-10.6)
[2022-12-12 16:33] LABS: ALT 36 U/L (4-34); AST 59 U/L (14-36); African American GFR (CKD) 73 (>60 ml/min/1.73 sqM); Albumin 3.4 g/dL (3.5-5.0); Alkaline Phosphatase 94 U/L (38-126); Amylase 57 U/L (30-110); Anion Gap 10 mmol/L; Blood Urea Nitrogen 24 mg/dL (7-17); Calcium 8.9 mg/dL (8.4-10.2); Carbon Dioxide 24 mmol/L (22-30); Chloride 105 mmol/L (98-107); Glucose 153 mg/dL (74-99); Lipase 266 U/L (23-300); Non-African American GFR(CKD) 63 (>60 ml/min/1.73 sqM); Potassium 4.1 mmol/L (3.5-5.1); Sodium 139 mmol/L (137-145); Total Bilirubin 0.6 mg/dL (0.2-1.3); Total Protein 7.2 g/dL (6.3-8.2)
[2022-12-12 16:37] LABS: Appearance,Urine Cloudy (Clear); Bacteria,Urine Moderate /hpf; Bilirubin,Urine Negative (Negative); Blood,Urine Trace (Negative); Color,Urine Light Yellow; Glucose,Urine (UA) 4+ (Negative); Ketones,Urine Negative (Negative); Leukocyte Esterase,Urine Large (Negative); Mucus,Urine Rare /hpf; Nitrite,Urine Negative (Negative); PH, Urine 5.5 (5.0-8.0); Protein,Urine Negative (Negative); RBC,Urine 34 /hpf (0-5); Specific Gravity,Urine 1.025 (1.001-1.035); Squamous Epithelial Cell,Urine 4 /hpf (0-4); Urobilinogen,Urine <2.0 mg/dL (<2.0); WBC,Urine 62 /hpf (0-5)
--- NOTE | 2022-12-12 19:45 | CT ---
CT CHEST FOR PULMONARY EMBOLISM. EXAMINATION TYPE: CT chest angio for PE DATE OF EXAM: 12/12/2022 INDICATION: ARLEEN, Elevated D-dimer. CT DLP: Combined DLP of 2267.4 mGycm, Automated exposure control for dose reduction was used. CONTRAST: Patient injected with 100 ml mL of Isovue 370. COMPARISON: None TECHNIQUE: CT of the chest is performed on a spiral scan at 2 mm thick sections. Study is performed with intravenous contrast timed for evaluation for pulmonary embolism. This will limit additional po rtions of the evaluation. 3-D MIP images reconstructed by the technologist are reviewed on the compu ter in the coronal and sagittal planes. FINDINGS: No persistent filling defects are evident to suggest an acute pulmonary embolism. No mediastinal or hilar adenopathy enlarged by CT criteria is evident. The ascending aorta diameter at the level of the main pulmonary artery is 2.9 cm. The main pulmonary artery diameter at the bifur cation is 2.3 cm. There is a 0.6 cm nodule posterior right lung. Series 406 image 45. Tiny cavitation may be present. Limited CT section through the upper abdomen. Some splenic varices may be present. IMPRESSIONS: 1. No acute pulmonary embolism. 2. 0.6 cm nodule posterior right lung. Follow-up exam in 6 months is recommended.
--- NOTE | 2022-12-12 19:49 | CT ---
EXAMINATION TYPE: CT abdomen pelvis w con DATE OF EXAM: 12/12/2022 COMPARISON: 05/06/2021 INDICATION: RUQ abdominal pain. DLP: Combined DLP of 2267.4 mGycm, Automated exposure control for dose reduction was used. CONTRAST: 100 ml mL of Isovue 370. Study performed without Oral Contrast TECHNIQUE: Axial images were obtained from above the diaphragm to the pubic rami in the axial plane a t 5 mm thick sections. Reconstructed images are reviewed on the computer in the coronal plane. FINDINGS: Limited CT sections are obtained the lung bases. The lung bases are clear. CT ABDOMEN: Liver: Normal Spleen: Splenic varices appear to be present. Pancreas: Atrophic Adrenal glands: The adrenal glands are normal. Gallbladder: Not identified. Correlate With the surgical history. Couple of punctate calcifications or surgical clips may be at the gallbladder fossa. Kidneys: No masses are evident. No hydronephrosis is present. No cysts are present. Delayed images were obtained through the kidneys, which remain unremarkable. Aorta: Vascular calcification is within the aorta. Inferior vena cava: Normal. CT PELVIS: Loops of bowel within the abdomen and pelvis are normal. Multiple diverticula within the sigmoid col on. Study is without oral contrast limiting bowel evaluation. Appendix: Normal as visualized. Urinary bladder: Normal. Genitourinary structures: Uterus and ovaries are not identified. Osseous structures: No suspicious lytic or sclerotic lesions. IMPRESSIONS: 1. No acute abnormality. 2. Splenic varices. Additional workup can be performed.
[2022-12-12] MEDS ORDERED: CIPROFLOXACIN HCL 500 MG TAB PO STA (20:18)
[2022-12-12 20:46] VITALS: BP 127/79; PULSE 88; RESP 18; TEMP 97.5
== END 2022-12-12 21:05 | disposition home or self-care (01) ==
LOC: EC 14:49
DX: N39.0 Urinary tract infection, site not specified (principal); R91.1 Solitary pulmonary nodule; I86.8 Varicose veins of other specified sites; I25.10 Atherosclerotic heart disease of native coronary artery without angina pectoris; J44.9 Chronic obstructive pulmonary disease, unspecified; G47.30 Sleep apnea, unspecified; M19.90 Unspecified osteoarthritis, unspecified site; F41.9 Anxiety disorder, unspecified; E78.5 Hyperlipidemia, unspecified; Z79.02 Long term (current) use of antithrombotics/antiplatelets; Z79.51 Long term (current) use of inhaled steroids; Z79.82 Long term (current) use of aspirin; Z79.899 Other long term (current) drug therapy; Z87.891 Personal history of nicotine dependence; Z88.2 Allergy status to sulfonamides; Z90.49 Acquired absence of other specified parts of digestive tract
CPT/HCPCS: 36415; 93005; 85379; 80053; 82150; 83605; 83690; 84484; 85025; 81001; 71275; 74177; 99284; 96374; 96375; 96361; J2270; J1885; Q9967

== ENCOUNTER 2023-09-18 15:16 | Emergency (ER) | payer MEDICARE, BC ==
[2023-09-18 15:58] VITALS: BP 147/54; PULSE 81; RESP 20; TEMP 98.1
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
--- NOTE | 2023-09-18 16:49 | XR ---
EXAMINATION TYPE: XR thoracic spine complete DATE OF EXAM: 09/18/2023 4:26 PM CLINICAL INDICATION:Female, 73 years old with history of left sided thoracic back pain; [facility] COMPARISON: None TECHNIQUE: XR thoracic spine complete views of the spine in Frontal and lateral projections. FINDINGS: No evidence of acute fracture. There is no evidence of disk space narrowing or loss of vertebral bod y height. There is scoliotic alignment of the spine with multilevel degeneration changes with osteoph yte formation disc space narrowing and facet joint arthropathy IMPRESSION: 1. No acute osseous pathology. 2. Moderate multilevel degeneration changes throughout the thoracic spine.
[2023-09-18] MEDS: HYDROmorphone 1 MG/ML 1 ML SYRINGE IM STA (16:57)
[2023-09-18] MEDS: LIDOCAINE 4% PATCH TOPICAL ONE (17:46)
== END 2023-09-18 18:05 | disposition home or self-care (01) ==
LOC: EC 15:16
DX: M54.6 Pain in thoracic spine (principal); M62.830 Muscle spasm of back; Z88.2 Allergy status to sulfonamides
CPT/HCPCS: 72072; 99283; 96372; J1170

== ENCOUNTER 2023-10-11 13:13 | Inpatient (IN) | payer MEDICARE, BC ==
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
[2023-10-11] MEDS ORDERED: ONDANSETRON 4 MG/2 ML VIAL IVP PRN (15:14)
[2023-10-11] MEDS ORDERED: NALOXONE 0.4 MG/ML 1 ML VIAL IV PRN (15:14)
[2023-10-11] MEDS: IPRATROPIUM-ALBUTEROL 3 ML NEB INHALATION STA ×2 (15:25→18:17)
--- NOTE | 2023-10-11 15:35 | XR ---
EXAMINATION TYPE: XR chest 1V portable DATE OF EXAM: 10/11/2023 Comparison: 09/23/2022 Clinical History: 73-year-old female sob Findings: Heart normal size. Aorta and pulmonary vasculature within normal limits. Peribronchial cuffing and in terstitial densities mid and lower lungs have increased. No pleural effusion. Impression: Increasing interstitial opacities mid and lower lungs. Consider possibilities such as atypical pneumo nias or interstitial pneumonitis.
[2023-10-11] MEDS: SODIUM CHLORIDE 0.9% 500 ML 500 ML IV STA (17:53)
[2023-10-11] MEDS: methylPREDNISolone SOD SUCCI 125 MG/2 ML VIAL IV STA (17:55)
[2023-10-11] MEDS: MORPHINE SULFATE 4 MG/ML SYRINGE IV PRN (17:56)
[2023-10-11] MEDS: methylPREDNISolone SOD SUCCI 125 MG/2 ML VIAL IV SCH (18:16)
[2023-10-11 18:52] LABS: HCT 37.9 % (34.0-46.0); HGB 12.3 gm/dL (11.4-16.0); MCH 32.1 pg (25.0-35.0); MCHC 32.5 g/dL (31.0-37.0); MCV 98.6 fL (80.0-100.0); Macrocytosis Slight; Mean Platelet Volume 8.9; Poikilocytosis Slight; RBC 3.85 m/uL (3.80-5.40); RDW 15.8 % (11.5-15.5)
[2023-10-11] MEDS: AZITHROMYCIN 500 MG in SODIUM CHLORIDE 0.9% 250 ML IVPB STA (18:59)
[2023-10-11] MEDS: SODIUM CHLORIDE 0.9% 1,000 ML IV SCH (19:01)
[2023-10-11 19:34] LABS: Band Neutrophils % 1 %; Neutrophils % (M) 92 %; Nucleated Red Blood Cells 2 /100 WBC (0-0); Total Cells Counted 100
[2023-10-11 19:38] LABS: Platelet Count 80 k/uL (150-450); Polychromasia Present
[2023-10-11 21:59] LABS: INR 1.3 (<1.2); Prothrombin Time 14.1 sec (10.0-12.5)
[2023-10-11 22:02] LABS: Partial Thromboplastin Time 20.1 sec (22.0-30.0)
[2023-10-11 22:04] LABS: ALT 32 U/L (4-34); AST 100 U/L (14-36); African American GFR (CKD) 21 (>60 ml/min/1.73 sqM); Alkaline Phosphatase 201 U/L (38-126); Anion Gap 8 mmol/L; Blood Urea Nitrogen 55 mg/dL (7-17); Carbon Dioxide 26 mmol/L (22-30); Chloride 104 mmol/L (98-107); Glucose 107 mg/dL (74-99); Magnesium 1.9 mg/dL (1.6-2.3); Non-African American GFR(CKD) 18 (>60 ml/min/1.73 sqM); Potassium 3.2 mmol/L (3.5-5.1); Sodium 138 mmol/L (137-145); Total Bilirubin 1.6 mg/dL (0.2-1.3); Total Protein 6.3 g/dL (6.3-8.2)
[2023-10-11 22:11] LABS: NT-Pro-B-Type Natriuretic Pept 1020 pg/mL
[2023-10-11] MEDS ORDERED: ZOLEDRONIC ACID 4 MG in SODIUM CHLORIDE 0.9% 100 ML IV STA (23:50)
[2023-10-11] MEDS ORDERED: Potassium Replacement Protocol 1 EACH MISC MISCELLANE PRN (23:55)
[2023-10-12] MEDS: ZOLEDRONIC ACID 2 MG in SODIUM CHLORIDE 0.9% 100 ML IV STA (00:35)
[2023-10-12 03:43] LABS: ABG HCO3 27 mmol/L (21-25); ABG Oxygen Saturation 93.3 % (94-97); ABG PCO2 44 mmHg (35-45); ABG PH 7.39 (7.35-7.45); ABG PO2 68 mmHg (83-108); ABG TCO2 28 mmol/L (19-24); Allen Test Performed? Yes
[2023-10-12 03:45] LABS: ABG Base Excess 1.2 mmol/L
[2023-10-12 05:34] LABS: Glucose,Whole Blood 138 mg/dL (70-110)
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
[2023-10-12 06:38] LABS: Appearance,Urine Clear (Clear); Bilirubin,Urine Negative (Negative); Blood,Urine Negative (Negative); Color,Urine Yellow; Glucose,Urine (UA) Trace (Negative); Ketones,Urine Negative (Negative); Leukocyte Esterase,Urine Negative (Negative); Nitrite,Urine Negative (Negative); Protein,Urine Negative (Negative); Specific Gravity,Urine 1.014 (1.001-1.035); Urobilinogen,Urine <2.0 mg/dL (<2.0)
[2023-10-12 06:57] LABS: Basophils % (A) 0 %; Eosinophils % (A) 0 %; HCT 40.4 % (34.0-46.0); HGB 13.1 gm/dL (11.4-16.0); Lymphocytes # (A) 1.9 k/uL (1.0-4.8); Lymphocytes % (A) 17 %; MCH 32.1 pg (25.0-35.0); MCHC 32.4 g/dL (31.0-37.0); MCV 99.2 fL (80.0-100.0); Macrocytosis Slight; Mean Platelet Volume 8.1; Monocytes # (A) 0.4 k/uL (0-1.0); Monocytes % (A) 4 %; Neutrophils # (A) 8.5 k/uL (1.3-7.7); Neutrophils % (A) 78 %; RBC 4.07 m/uL (3.80-5.40); RDW 15.4 % (11.5-15.5); WBC 10.9 k/uL (3.8-10.6)
[2023-10-12 07:18] LABS: Platelet Count 95 k/uL (150-450)
[2023-10-12 07:24] LABS: ALT 34 U/L (4-34); AST 104 U/L (14-36); African American GFR (CKD) 21 (>60 ml/min/1.73 sqM); Albumin 3.2 g/dL (3.5-5.0); Alkaline Phosphatase 207 U/L (38-126); Anion Gap 8 mmol/L; Blood Urea Nitrogen 59 mg/dL (7-17); Carbon Dioxide 27 mmol/L (22-30); Chloride 106 mmol/L (98-107); Creatine Kinase 127 U/L (30-135); Glucose 148 mg/dL (74-99); Lipase 178 U/L (23-300); Magnesium 1.9 mg/dL (1.6-2.3); Non-African American GFR(CKD) 18 (>60 ml/min/1.73 sqM); Phosphorus 4.8 mg/dL (2.5-4.5); Potassium 3.6 mmol/L (3.5-5.1); Sodium 141 mmol/L (137-145); Total Bilirubin 1.3 mg/dL (0.2-1.3); Total Protein 6.7 g/dL (6.3-8.2)
[2023-10-12 07:47] LABS: Calcium 16.4 mg/dL (8.4-10.2)
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
[2023-10-12] MEDS: FORMOTEROL FUMARATE 20 MCG/2 ML NEBU INHALATION SCH (08:50)
[2023-10-12] MEDS: BUDESONIDE 1 MG/2 ML NEBU INHALATION SCH (08:50)
[2023-10-12] MEDS: IPRATROPIUM-ALBUTEROL 3 ML NEB INHALATION SCH (08:50)
[2023-10-12] MEDS: FUROSEMIDE 10 MG/ML 2 ML VIAL IV ONE (09:13)
[2023-10-12] MEDS: CALCITONIN INJ 200 UNIT/ML (MDV) VIAL SQ ONE ×2 (09:15→19:32)
[2023-10-12] MEDS: BRIMONIDINE TARTRATE 0.2% DROPS 5 ML BTL LEFT EYE SCH (09:16)
[2023-10-12] MEDS: SODIUM CHLORIDE 0.9% 1,000 ML IV SCH (09:16)
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
--- NOTE | 2023-10-12 11:01 | CT ---
EXAMINATION TYPE: CT brain wo con CT DLP: 1095.4 mGycm, Automated exposure control for dose reduction was used. DATE OF EXAM: 10/12/2023 10:35 AM COMPARISON: 02/05/2022. CLINICAL INDICATION:Female, 73 years old with history of Altered mental status, Altered mental status TECHNIQUE: Brain: Axial CT images of the brain were obtained with coronal and sagittal reformats created and rev iewed. Contrast used: None. Oral contrast used: None. FINDINGS: Brain: Extra-axial spaces: No abnormal extra-axial fluid collections. Ventricular system: Dilatation in proportion to cerebral atrophy. Cerebral parenchyma: Cerebral atrophy. No acute intraparenchymal hemorrhage or mass effect. The carrasco -white junction is well differentiated. Scattered hypoattenuating areas are seen within the white mat ter. Cerebellum: Unremarkable. Mass effect: No evidence of midline shift. Intracranial vasculature: unremarkable Soft tissues: Normal. Calvarium/osseous structures: No depressed skull fracture. Paranasal sinuses and mastoid air cells: Mild scattered paranasal sinus disease. Visualized orbits: Right aphakia IMPRESSION: 1. No acute intracranial process. 2. Nonspecific white matter changes, likely secondary to chronic small vessel ischemic disease.
[2023-10-12] MEDS: AZITHROMYCIN 500 MG in SODIUM CHLORIDE 0.9% 250 ML IVPB SCH (11:29)
[2023-10-12] MEDS: ATORVASTATIN 40 MG TAB PO SCH (11:32)
[2023-10-12] MEDS: METOPROLOL TARTRATE 50 MG TAB PO SCH (11:32)
[2023-10-12] MEDS: LORATADINE 10 MG TAB PO SCH (11:32)
[2023-10-12] MEDS: INSULIN ASPART (NovoLOG) 100 UNIT/ML VIAL SQ SCH (13:36)
[2023-10-12] MEDS: POTASSIUM CHLORIDE 20 MEQ in WATER FOR INJECTION 1 100ML.BAG IVPB STA (13:37)
[2023-10-12 13:45] LABS: Glucose,Whole Blood 157 mg/dL (70-110)
--- NOTE | 2023-10-12 14:29 | US ---
EXAMINATION TYPE: US kidneys/renal and bladder DATE OF EXAM: 10/12/2023 COMPARISON: None CLINICAL INDICATION: Female, 73 years old with history of ANAMIKA; AMS. 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 Bilateral Jets not seen Incidental finding: trace/small amount of ascites seen IMPRESSION: 1. No hydronephrosis on either side. 2. Limited parenchymal assessment of the lower pole of the right kidney due to bowel gas. 3. Incidental trace ascites fluid. Clinical correlation recommended.
[2023-10-12 15:41] LABS: African American GFR (CKD) 21 (>60 ml/min/1.73 sqM); Anion Gap 9 mmol/L; Blood Urea Nitrogen 61 mg/dL (7-17); Carbon Dioxide 24 mmol/L (22-30); Chloride 108 mmol/L (98-107); Glucose 157 mg/dL (74-99); Non-African American GFR(CKD) 18 (>60 ml/min/1.73 sqM); Potassium 3.4 mmol/L (3.5-5.1); Sodium 141 mmol/L (137-145)
[2023-10-12 16:54] LABS: Glucose,Whole Blood 146 mg/dL (70-110)
[2023-10-12] MEDS ORDERED: Potassium Replacement Protocol 1 EACH MISC MISCELLANE PRN (18:09)
[2023-10-12] MEDS: POTASSIUM CHLORIDE 20 MEQ in WATER FOR INJECTION 1 100ML.BAG IVPB SCH (19:31)
[2023-10-12] MEDS: MONTELUKAST 10 MG TAB PO SCH (21:42)
[2023-10-12] MEDS: METOPROLOL TARTRATE 5 MG/5 ML VIAL IVP STA (22:34)
[2023-10-13 06:03] LABS: Glucose,Whole Blood 124 mg/dL (70-110)
--- NOTE | 2023-10-13 08:21 | P.PN ---
Subjective Progress Note Date: 10/13/23 Principal diagnosis: Hypercalcemia altered mental status The patient is a 70-year-old white female with known history of asthma. Came in with altered mental status. Significant hypercalcemia is noted. Zometa and Miacalcin have been given. Appreciate nephrology input. She does not seem as lucid today. Echocardiogram is pending. Objective - Vital Signs Vital signs: Vital Signs Temp 97.7 F 10/13/23 03:20 Pulse 105 H 10/13/23 03:20 Resp 18 10/13/23 03:20 BP 165/82 10/13/23 03:20 Pulse Ox 96 10/13/23 03:20 FiO2 Intake & Output 10/12/23 10/13/23 10/13/23 18:59 06:59 18:59 Intake Total 260 Output Total 1200 Balance -940 Weight 58.967 kg Intake: Intake, IV Titration 260 Amount Sodium Chloride 0.9% 1, 260 000 ml @ 130 mls/hr IV . Q7H42M [facility] Rx#:[id number] Output: Urine 1200 Uretheral ([place]) 600 Other: Voiding Method External Catheter Indwelling Catheter - Constitutional General appearance: Present: no acute distress, obese - Neck Neck: Absent: lymphadenopathy - Respiratory Respiratory: bilateral: diminished - Cardiovascular Rhythm: regular Heart sounds: normal: S1, S2 Abnormal Heart Sounds: Absent: S3 Gallop - Gastrointestinal General gastrointestinal: Present: soft. Absent: tenderness - Psychiatric Psychiatric: Absent: A&O x's 3, appropriate affect - Labs CBC & Chem 7: 10/12/23 06:42 10/12/23 15:14 Labs: Abnormal Lab Results - Last 24 Hours (Table) 10/12/23 10/12/23 10/12/23 Range/Units 00:32 06:42 11:01 Potassium (3.5-5.1) mmol/L Chloride (98-107) mmol/L BUN (7-17) mg/dL Creatinine (0.52-1.04) mg/dL Glucose (74-99) mg/dL POC Glucose (mg/dL) (70-110) mg/dL Calcium (8.4-10.2) mg/dL Vitamin D 25-Hydroxy 126.0 H (30.0-100.0) ng/mL Procalcitonin 0.74 H (0.02-0.09) ng/mL PTH Intact 11.4 L (14.0-72.0) pg/mL 10/12/23 10/12/23 10/12/23 Range/Units 13:41 15:14 16:52 Potassium 3.4 L (3.5-5.1) mmol/L Chloride 108 H (98-107) mmol/L BUN 61 H (7-17) mg/dL Creatinine 2.51 H (0.52-1.04) mg/dL Glucose 157 H (74-99) mg/dL POC Glucose (mg/dL) 157 H 146 H (70-110) mg/dL Calcium 15.0 H* (8.4-10.2) mg/dL Vitamin D 25-Hydroxy (30.0-100.0) ng/mL Procalcitonin (0.02-0.09) ng/mL PTH Intact (14.0-72.0) pg/mL 10/13/23 Range/Units 06:00 Potassium (3.5-5.1) mmol/L Chloride (98-107) mmol/L BUN (7-17) mg/dL Creatinine (0.52-1.04) mg/dL Glucose (74-99) mg/dL POC Glucose (mg/dL) 124 H (70-110) mg/dL Calcium (8.4-10.2) mg/dL Vitamin D 25-Hydroxy (30.0-100.0) ng/mL Procalcitonin (0.02-0.09) ng/mL PTH Intact (14.0-72.0) pg/mL Microbiology - Last 24 Hours (Table) 10/11/23 20:41 Blood Culture - Preliminary Blood 10/11/23 17:15 Blood Culture - Preliminary Blood Assessment and Plan (1) Community acquired pneumonia Current Visit: Yes Status: Acute Code(s): J18.9 - PNEUMONIA, UNSPECIFIED ORGANISM SNOMED Code(s): 185457710 (2) Diabetes mellitus Current Visit: Yes Status: Acute Code(s): E11.9 - TYPE 2 DIABETES MELLITUS WITHOUT COMPLICATIONS SNOMED Code(s): 91563867 (3) Hypercalcemia Current Visit: Yes Status: Acute Code(s): E83.52 - HYPERCALCEMIA SNOMED Code(s): 05561915 Plan: Continue current regimen of treatment. Check calcium/CMP in the a.m. Continue heart monitor. Appreciate nephrology and cardiology input. Prognosis is guarded. See orders otherwise
[2023-10-13 09:13] LABS: Protein, Total 6.8 g/dL (6.2-8.2)
--- NOTE | 2023-10-13 10:06 | CA ---
Transthoracic Echo Report Name: Maritza Vargas Age: 73 Gender: F : 1950 Exam Date: 10/13/2023 08:04 Exam Location: [facility] Ht (in): 58 Wt (lb): 130 Ordering Physician: Belen Gaytan Attending/Referring Phys: [id number], Lukas [employer] Building Designer Fawn Irwin RDCS Procedure CPT: Indications: LVF Cardiac Hx: Technical Quality: Poor Contrast 1: Total Dose (mL): Contrast 2: Total Dose (mL): MEASUREMENTS (Male / Female) Normal Values 2D ECHO LV Diastolic Diameter PLAX 3.0 cm 4.2 - 5.9 / 3.9 - 5.3 cm LV Systolic Diameter PLAX 2.1 cm IVS Diastolic Thickness 0.9 cm 0.6 - 1.0 / 0.6 - 0.9 cm LVPW Diastolic Thickness 0.8 cm 0.6 - 1.0 / 0.6 - 0.9 cm LV Relative Wall Thickness 0.6 RV Internal Dim ED PLAX 3.2 cm LVOT Diameter 2.1 cm Ascending Aorta Diameter 3.1 cm DOPPLER MV Peak Velocity 161.0 cm/s MV Peak Gradient 10.4 mmHg MV Mean Velocity 105.6 cm/s MV Mean Gradient 5.0 mmHg MV Velocity Time Integral 22.5 cm PV Peak Velocity 128.6 cm/s PV Peak Gradient 6.6 mmHg FINDINGS Left Ventricle Left ventricular ejection fraction is estimated at 55 %. Left ventricular cavity size normal. Left ventricular wall thickness normal. Unble to accurately visualize all well segments to determine RWMA. Right Ventricle Right ventricle not well visualized. Unable to estimate the right ventricular systolic pressure. Right Atrium Right atrium not well visualized. Left Atrium Normal left atrial size by visual. Mitral Valve Mitral valve thickened. Mitral annular calcification. No evidence for mitral valve prolapse. Moderate mitral stenosis. Trace mitral regurgitation. Aortic Valve Trileaflet aortic valve. No aortic valve stenosis or regurgitation. Tricuspid Valve Structurally normal tricuspid valve. No tricuspid stenosis. Trace tricuspid regurgitation. Pulmonic Valve Pulmonic valve not well visualized. No pulmonic stenosis. Trace pulmonic regurgitation. Pericardium No pericardial effusion. Aorta Normal size aortic root and proximal ascending aorta. CONCLUSIONS Technically suboptimal study secondary to non-cooperative patient Left ventricular systolic function is normal difficult to evaluate wall motion Aortic valve leaflets appear thickened and there is an echo dense lesion attached to the ventricular surface of the aortic leaflets Consider transesophageal echo if clinically indicated for further evaluation of the same Mitral annular calcification with restricted mobility of the mitral leaflets with mitral stenosis Previewed by: Dr. Mohan Mccormick MD (Electronically Signed) Final Date: 13 October 2023 10:05
--- NOTE | 2023-10-13 11:24 | P.PN ---
Subjective Patient is seen in follow-up for acute kidney injury and hypercalcemia. Currently on normal saline. Has [place] catheter. Nonoliguric. Quite lethargic. Oral intake poor. Has to be fed. Vital signs are stable. General: No acute distress. HEENT: Head exam is unremarkable. LUNGS: No audible rhonchi or wheezes. HEART: Rate and Rhythm are regular. ABDOMEN: Nontender. EXTREMITITES: No edema. Objective - Vital Signs Vital signs: Vital Signs Temp 97.7 F 10/13/23 03:20 Pulse 96 10/13/23 08:59 Resp 18 10/13/23 03:20 BP 165/82 10/13/23 03:20 Pulse Ox 95 10/13/23 08:39 FiO2 Intake & Output 10/12/23 10/13/23 10/13/23 18:59 06:59 18:59 Intake Total 260 Output Total 1200 Balance -940 Weight 58.967 kg Intake: Intake, IV Titration 260 Amount Sodium Chloride 0.9% 1, 260 000 ml @ 130 mls/hr IV . Q7H42M [facility] Rx#:[id number] Output: Urine 1200 Uretheral ([place]) 600 Other: Voiding Method External Catheter Indwelling Catheter - Labs CBC & Chem 7: 10/12/23 06:42 10/12/23 15:14 Labs: Abnormal Lab Results - Last 24 Hours (Table) 10/12/23 10/12/23 10/12/23 Range/Units 11:01 13:41 15:14 Potassium 3.4 L (3.5-5.1) mmol/L Chloride 108 H (98-107) mmol/L BUN 61 H (7-17) mg/dL Creatinine 2.51 H (0.52-1.04) mg/dL Glucose 157 H (74-99) mg/dL POC Glucose (mg/dL) 157 H (70-110) mg/dL Calcium 15.0 H* (8.4-10.2) mg/dL Vitamin D 25-Hydroxy 126.0 H (30.0-100.0) ng/mL 10/12/23 10/13/23 Range/Units 16:52 06:00 Potassium (3.5-5.1) mmol/L Chloride (98-107) mmol/L BUN (7-17) mg/dL Creatinine (0.52-1.04) mg/dL Glucose (74-99) mg/dL POC Glucose (mg/dL) 146 H 124 H (70-110) mg/dL Calcium (8.4-10.2) mg/dL Vitamin D 25-Hydroxy (30.0-100.0) ng/mL Microbiology - Last 24 Hours (Table) 10/11/23 20:41 Blood Culture - Preliminary Blood 10/11/23 17:15 Blood Culture - Preliminary Blood Assessment and Plan Plan: Assessment: 1. Acute kidney injury secondary to hypercalcemia induced ATN. Creatinine 2.5 yesterday. Creatinine in December 2022 was near 0.9. UA benign. No hydronephrosis noted on kidney ultrasound. 2. Hypercalcemia secondary to volume contraction, calcium and vitamin D supple mentation. PTH appropriately suppressed at 11.4. Vitamin D level elevated at 126. 3. Hypokalemia from poor intake and diuretic use. Improved. 4. Pneumonia on antibiotics. 5. Status post fall. CK level 127. Plan: Maintain IV fluids. 400 units IM calcitonin x 2 doses given October 12, 2023. Status post IV Lasix given October 12, 2023. Status post Zometa given October 12, 2023. Morning labs pending. Follow-up secondary workup for hypercalcemia.
[2023-10-13 11:43] LABS: Glucose,Whole Blood 123 mg/dL (70-110)
[2023-10-13 11:58] LABS: Anisocytosis Slight; HGB 11.7 gm/dL (11.4-16.0); MCH 31.7 pg (25.0-35.0); MCHC 32.5 g/dL (31.0-37.0); MCV 97.7 fL (80.0-100.0); Macrocytosis Slight; Mean Platelet Volume 9.1; Poikilocytosis Slight; RBC 3.68 m/uL (3.80-5.40); RDW 16.3 % (11.5-15.5); WBC 15.3 k/uL (3.8-10.6)
[2023-10-13 12:11] LABS: Platelet Count 81 k/uL (150-450)
[2023-10-13 12:33] LABS: Angiotensin-1 Converting Enz. 78 U/L (8-52)
[2023-10-13 12:52] LABS: ALT 31 U/L (4-34); AST 80 U/L (14-36); African American GFR (CKD) 27 (>60 ml/min/1.73 sqM); Albumin 2.9 g/dL (3.5-5.0); Alkaline Phosphatase 195 U/L (38-126); Anion Gap 9 mmol/L; Blood Urea Nitrogen 61 mg/dL (7-17); Calcium 12.6 mg/dL (8.4-10.2); Carbon Dioxide 22 mmol/L (22-30); Chloride 113 mmol/L (98-107); Glucose 101 mg/dL (74-99); Magnesium 1.7 mg/dL (1.6-2.3); Non-African American GFR(CKD) 23 (>60 ml/min/1.73 sqM); Sodium 144 mmol/L (137-145); Total Protein 6.4 g/dL (6.3-8.2)
[2023-10-13] MEDS ORDERED: Potassium Replacement Protocol 1 EACH MISC MISCELLANE PRN (12:52)
--- NOTE | 2023-10-13 13:49 | P.PN ---
Subjective Progress Note Date: 10/13/23 Principal diagnosis: Altered mental status. Patient is a 73-year-old white female with past medical history significant for asthma, diabetes mellitus, hyperlipidemia, coronary artery disease with previous PCI/stent, obstructive sleep apnea, among other reported comorbidities. Patient is currently altered, and unable to verbally provide any information for HPI. No obvious focal deficits. She does follow simple commands. I am unsure of the patient's baseline mentation. Unable to contact family listed in demographics. Voicemail was left. On review of the ER documentation, patient reportedly sustained a fall earlier or at least found down on the ground. She was noted to be severely dyspneic when evaluated by ER room physician. Patient is currently on a 2 L nasal cannula. Follow-up ABG as a PaO2 of 68, pCO2 of 44, pH of 7.39. Chest x-ray taken on admission shows increasing interstitial opacities in the mid to lower lung trivedi, possible atypical pneumonia or interstitial pneumonitis. Patient has been started on azithromycin and Rocephin in the emergency room. CBC on arrival: WBC count 10, hemoglobin 12.3, hematocrit 37.9, platelets 80,000. BMP on arrival: Sodium 138, potassium 3.2, chloride 104, serum bicarb 26, BUN 55, creatinine 2.56, glucose 107. Patient's calcium was severely elevated at 17. Likely explaining patient's AMS. Parathyroid hormone pending. No documented malignancies. No documented lithium, thiazides, etc. Does take vitamin D. Patient was given a dose of Zometa. LFTs mildly elevated. Troponins elevated at 0.289 and 0.257 respectively. NT proBNP 1020. EKG on arrival shows sinus tachycardia, Q waves noted in leads I and aVL, and ST depressions in V1 and V2. Afebrile. Hemodynamics are currently stable. Progress note dated October 13, 2023. This is a 73-year-old female seen again in room 367. She has a history of chronic bronchial asthma, diabetes, hyperlipidemia, CAD, with previous PCI and stent placement, sleep apnea, among other things. The patient was seen in the emergency department, and could provide no additional history. She had a very altered mental status. She was discovered on laboratory evaluation to have a calcium that was 17. She was seen by nephrology. She was given calcitonin, Zometa, Lasix, and IV saline administration. Currently, she is on 2 L of oxygen. Her most recent calcium is 15. She is getting saline at 150 cc an hour. Current labs include a white count 15.3, hemoglobin 11.7, hematocrit 36, and a platelet count of 81,000. Sodium 144, potassium 4, chlorides 113, CO2 22, anion gap 9, BUN 61, creatinine 2.07. Glucose is 123. Calcium is down to 12.6. AST is 80. Albumin is 2.9. Blood cultures are currently negative or pending. Brain CT is negative for anything acute. Ultrasound of the abdomen, shows no evidence of hydronephrosis. Objective - Vital Signs Vital signs: Vital Signs Temp 98.5 F 10/13/23 09:45 Pulse 78 10/13/23 11:49 Resp 18 10/13/23 09:45 BP 124/45 10/13/23 09:45 Pulse Ox 95 10/13/23 09:45 FiO2 Intake & Output 10/12/23 10/13/23 10/13/23 18:59 06:59 18:59 Intake Total 260 Output Total 1200 Balance -940 Weight 58.967 kg Intake: Intake, IV Titration 260 Amount Sodium Chloride 0.9% 1, 260 000 ml @ 130 mls/hr IV . Q7H42M [facility] Rx#:[id number] Output: Urine 1200 Uretheral ([place]) 600 Other: Voiding Method External Catheter Indwelling Catheter Indwelling Catheter - Exam No acute distress, confused, not able to give much of the history. HEENT examination is grossly unremarkable. Mucous membranes are moist. No oral lesions. Neck supple. Full range of motion. No adenopathy thyromegaly or neck vein distention. Cardiovascular examination reveals regular rhythm rate. S1-S2 normal. No S3 or S4. No discernible murmur noted. Heart rate 78 bpm. Lungs reveal clear breath sounds. Breath sounds are equal bilaterally. No adventitious lung sounds including wheezes rhonchi or crackles. Abdomen soft bowel sounds are heard. No masses or tenderness. Extremities are intact. No cyanosis clubbing or edema. Skin is without rash or lesion. Neurologic examination is brief but nonfocal. - Labs CBC & Chem 7: 10/13/23 10:06 10/13/23 10:06 Labs: Abnormal Lab Results - Last 24 Hours (Table) 10/12/23 10/12/23 10/12/23 Range/Units 11:01 11:01 13:41 WBC (3.8-10.6) k/uL RBC (3.80-5.40) m/uL RDW (11.5-15.5) % Plt Count (150-450) k/uL Potassium (3.5-5.1) mmol/L Chloride (98-107) mmol/L BUN (7-17) mg/dL Creatinine (0.52-1.04) mg/dL Glucose (74-99) mg/dL POC Glucose (mg/dL) 157 H (70-110) mg/dL Calcium (8.4-10.2) mg/dL AST (14-36) U/L Alkaline Phosphatase (38-126) U/L Albumin (3.5-5.0) g/dL Angiotensin Convert Enz 78 H (8-52) U/L Vitamin D 25-Hydroxy 126.0 H (30.0-100.0) ng/mL 10/12/23 10/12/23 10/13/23 Range/Units 15:14 16:52 06:00 WBC (3.8-10.6) k/uL RBC (3.80-5.40) m/uL RDW (11.5-15.5) % Plt Count (150-450) k/uL Potassium 3.4 L (3.5-5.1) mmol/L Chloride 108 H (98-107) mmol/L BUN 61 H (7-17) mg/dL Creatinine 2.51 H (0.52-1.04) mg/dL Glucose 157 H (74-99) mg/dL POC Glucose (mg/dL) 146 H 124 H (70-110) mg/dL Calcium 15.0 H* (8.4-10.2) mg/dL AST (14-36) U/L Alkaline Phosphatase (38-126) U/L Albumin (3.5-5.0) g/dL Angiotensin Convert Enz (8-52) U/L Vitamin D 25-Hydroxy (30.0-100.0) ng/mL 10/13/23 10/13/23 10/13/23 Range/Units 10:06 10:06 11:42 WBC 15.3 H (3.8-10.6) k/uL RBC 3.68 L (3.80-5.40) m/uL RDW 16.3 H (11.5-15.5) % Plt Count 81 L (150-450) k/uL Potassium (3.5-5.1) mmol/L Chloride 113 H (98-107) mmol/L BUN 61 H (7-17) mg/dL Creatinine 2.07 H (0.52-1.04) mg/dL Glucose 101 H (74-99) mg/dL POC Glucose (mg/dL) 123 H (70-110) mg/dL Calcium 12.6 H (8.4-10.2) mg/dL AST 80 H (14-36) U/L Alkaline Phosphatase 195 H (38-126) U/L Albumin 2.9 L (3.5-5.0) g/dL Angiotensin Convert Enz (8-52) U/L Vitamin D 25-Hydroxy (30.0-100.0) ng/mL Microbiology - Last 24 Hours (Table) 10/11/23 20:41 Blood Culture - Preliminary Blood 10/11/23 17:15 Blood Culture - Preliminary Blood Assessment and Plan Assessment: Acute hypoxemic respiratory failure, with possible mild asthma exacerbation. Severe hypercalcemia, likely causing patient's mental status changes. History of recent fall. Elevated troponins. Acute kidney injury. Thrombocytopenia. Type 2 diabetes mellitus. Essential hypertension. Hyperlipidemia. CAD with previous stent placement. History of obstructive sleep apnea syndrome, not on CPAP. History of previous tobacco use. Plan: Plan dated October 13, 2023. The patient's calcium has come down nicely to 12.6, the patient's mental status is a bit improved. Labs, x-rays, and medications are reviewed. Patient's procalcitonin level is elevated at 0.74. Labs, x-rays, and medications are reviewed. Patient continues on albuterol, ipratropium bromide, Pulmicort, formoterol, and Solu-Medrol. She also continues on Singulair. She has not admitted to any respiratory distress or difficulty. She does not have any conversational dyspnea or use of accessory muscles. We will continue to follow make recommendations along the way. Prognosis is guarded. Time with Patient: Less than 30
--- NOTE | 2023-10-13 14:30 | P.PN ---
Subjective Progress Note Date: 10/13/23 Reason for Consult (text): Elevated troponins History of present illness: This is a 73-year-old female patient of Dr. Toussaint with past medical history of co ronary artery disease with prior stenting of the RCA and circumflex, hypertension, dyslipidemia, valvular heart disease with aortic stenosis and carotid atherosclerosis, history of PFO. We have been asked to evaluate the patient for elevated troponins. Patient is seen today in the emergency center waiting for bed on the cardiac stepdown unit. Patient is very confused and not near her baseline. She is unable to give any reasonable history. She does deny chest pain. According to the records, patient apparently had a fall unknown details. CTA and CT of the brain are pending. EKG sinus tachycardia at 124 bpm, Q waves in V1, V2, V3 Chest x-ray: Increased interstitial opacities mid and lower lungs. Correlate for atypical pneumonias or interstitial pneumonitis. Laboratory studies: WBC 10.9, hemoglobin 13.1, platelet count 95. INR 1.3. D- dimer 6.87. Initial potassium 3.2 and now 3.6. BUN 59, creatinine 2.51. Calcium 16.4, ionized calcium 8.7. Phosphorus 4.8, AST 104, alkaline ph osphatase 207. Troponins 0.289 and 0.257. proBNP 1020. Influenza A, influenza B, RSV, COVID-19 not detected. Urinalysis negative for infection. Parathyroid hormone intact 11.4. Home cardiac medications: Aspirin 81 mg daily, atorvastatin 40 mg daily, Jardiance 25 mg daily, Lasix 20 mg twice daily, magnesium 400 mg daily, Lopressor 50 mg twice daily, Brilinta 90 mg twice daily. Cardiac catheterization performed 04/21/2021 revealed 80% proximal circumflex stenosis and patent stent in the RCA. PCI history 05/20/2021, stent in the proximal circumflex PCI 09/29/2017 stent in the distal RCA Echocardiogram performed in the office on 01/28/2023 revealed EF 55%. Mild aortic stenosis. Mild mitral regurgitation. Mild tricuspid regurgitation. PASP 30 mmHg. Lexiscan Cardiolite stress test performed in the office on 01/14/2023 revealed nondiagnostic electrocardiographic stress testing and response to Lexiscan. Abnormal myocardial perfusion imaging with evidence of fixed defect of a large size and severe intensity involving the mid inferior and distal inferior and inferior lateral segment of the left ventricle. No evidence of any stress- induced ischemia. Normal left ventricular systolic function. 6/ Patient has failed a swallow exam but she is able to take medications with pudding. Echocardiogram was limited due to patient's tremors. Left ventricular systolic function normal. There is an echodense lesion attached to the ventricular surface of the aortic leaflets. Consider YUE if indicated. Mitral annular calcification with restricted mobility of the mitral leaflets with katarzyna l stenosis. Blood pressure 124/45, heart rate 105, pulse ox 95% on 2 L nasal cannula. WBC 15.3, hemoglobin 11.7. Renal function is improving with BUN 61 and creatinine 2.07. Calcium is improved at 12.6. Physical examination: Gen: This is a 73-year-old female appears to be in no acute respiratory distress VS: reviewed HEENT: Head is atraumatic, normocephalic. Pupils equal, round. Sclerae is a nicteric. NECK: Supple. No JVD. LUNGS: Clear to auscultation. No wheezes or rhonchi. No intercostal retractions. HEART: Regular rate and rhythm. Systolic murmur at the right and left upper sternal border. ABDOMEN: Soft No tenderness. EXTREMITIES: No pedal edema. No calf tenderness. NEUROLOGICAL: Patient is awake, but confused. Assessment: Elevated troponins of unclear significant, rule out acute coronary syndrome, could be related to acute kidney injury and metabolic abnormalities Acute hypoxic respiratory failure with possible asthma exacerbation, possible pneumonia Acute kidney injury Severe hypercalcemia Thrombocytopenia Elevated liver function test Metabolic encephalopathy Coronary artery disease with stenting of the RCA and circumflex Hypertension Dyslipidemia Aortic stenosis Carotid atherosclerosis History of PFO Plan: Continue patient's home cardiac medications Plan is for medical management of elevated troponin due to multiple comorbid conditions. She is not a good candidate for aggressive ischemic cardiac workup. Further recommendations to follow based upon clinical course Nurse practitioner note has been reviewed, I agree with documented findings and plan of care. Patient was seen and examined. Objective - Vital Signs Vital signs: Vital Signs Temp 97.7 F 10/13/23 03:20 Pulse 96 10/13/23 08:59 Resp 18 10/13/23 03:20 BP 165/82 10/13/23 03:20 Pulse Ox 95 10/13/23 08:39 FiO2 Intake & Output 10/12/23 10/13/23 10/13/23 18:59 06:59 18:59 Intake Total 260 Output Total 1200 Balance -940 Weight 58.967 kg Intake: Intake, IV Titration 260 Amount Sodium Chloride 0.9% 1, 260 000 ml @ 130 mls/hr IV . Q7H42M [facility] Rx#:[id number] Output: Urine 1200 Uretheral ([place]) 600 Other: Voiding Method External Catheter Indwelling Catheter - Labs CBC & Chem 7: 10/13/23 10:06 10/13/23 10:06 Labs: Abnormal Lab Results - Last 24 Hours (Table) 10/12/23 10/12/23 10/12/23 Range/Units 11:01 13:41 15:14 Potassium 3.4 L (3.5-5.1) mmol/L Chloride 108 H (98-107) mmol/L BUN 61 H (7-17) mg/dL Creatinine 2.51 H (0.52-1.04) mg/dL Glucose 157 H (74-99) mg/dL POC Glucose (mg/dL) 157 H (70-110) mg/dL Calcium 15.0 H* (8.4-10.2) mg/dL Vitamin D 25-Hydroxy 126.0 H (30.0-100.0) ng/mL 10/12/23 10/13/23 Range/Units 16:52 06:00 Potassium (3.5-5.1) mmol/L Chloride (98-107) mmol/L BUN (7-17) mg/dL Creatinine (0.52-1.04) mg/dL Glucose (74-99) mg/dL POC Glucose (mg/dL) 146 H 124 H (70-110) mg/dL Calcium (8.4-10.2) mg/dL Vitamin D 25-Hydroxy (30.0-100.0) ng/mL Microbiology - Last 24 Hours (Table) 10/11/23 20:41 Blood Culture - Preliminary Blood 10/11/23 17:15 Blood Culture - Preliminary Blood
[2023-10-13] MEDS: POTASSIUM CHLORIDE ER 20 MEQ TAB.ER PO SCH (16:20)
[2023-10-13 16:52] LABS: Glucose,Whole Blood 112 mg/dL (70-110)
[2023-10-13 19:19] LABS: Vitamin D, 1, 25-Dihydroxy 34 pg/mL (20 - 79)
[2023-10-13 19:55] LABS: Glucose,Whole Blood 110 mg/dL (70-110)
[2023-10-14 06:20] LABS: Glucose,Whole Blood 116 mg/dL (70-110)
[2023-10-14 08:10] LABS: African American GFR (CKD) 35 (>60 ml/min/1.73 sqM); Anion Gap 8 mmol/L; Blood Urea Nitrogen 55 mg/dL (7-17); Carbon Dioxide 18 mmol/L (22-30); Chloride 123 mmol/L (98-107); Glucose 110 mg/dL (74-99); Magnesium 1.7 mg/dL (1.6-2.3); Non-African American GFR(CKD) 30 (>60 ml/min/1.73 sqM); Potassium 4.2 mmol/L (3.5-5.1); Sodium 149 mmol/L (137-145)
--- NOTE | 2023-10-14 08:49 | P.PN ---
Subjective Progress Note Date: 10/14/23 This is a 73-year-old female who originally presented to the emergency department with complaints of shortness of breath and possible recent fall. Chest x-ray on admission showed possible atypical pneumonia or interstitial pneumonitis. Patient remains on azithromycin and Rocephin. Patient's calcium level severely elevated on admission at 17. Repeat calcium for this morning is 11. Patient is more arousable today, she is able to follow simple commands. Objective - Vital Signs Vital signs: Vital Signs Temp 97.0 F L 10/14/23 08:00 Pulse 90 10/14/23 08:43 Resp 17 10/14/23 08:00 BP 154/72 10/14/23 08:00 Pulse Ox 94 L 10/14/23 08:00 FiO2 Intake & Output 10/13/23 10/14/23 10/14/23 18:59 06:59 18:59 Intake Total 0 Output Total 750 600 Balance -750 -600 Intake: Oral 0 Output: Urine 750 600 Other: Voiding Method Indwelling Catheter Indwelling Catheter Indwelling Catheter - Constitutional General appearance: Present: no acute distress - EENT Eyes: Present: PERRLA - Neck Neck: Present: normal ROM. Absent: lymphadenopathy, rigidity - Respiratory Respiratory: bilateral: diminished - Cardiovascular Rhythm: regular Heart sounds: normal: S1, S2 - Gastrointestinal General gastrointestinal: Present: soft. Absent: tenderness - Musculoskeletal Musculoskeletal: Present: generalized weakness - Psychiatric Psychiatric Comment(s): Patient is able to follow simple commands. - Labs CBC & Chem 7: 10/13/23 10:06 10/14/23 07:41 Labs: Abnormal Lab Results - Last 24 Hours (Table) 10/12/23 10/13/23 10/13/23 Range/Units 11:01 10:06 10:06 WBC 15.3 H (3.8-10.6) k/uL RBC 3.68 L (3.80-5.40) m/uL RDW 16.3 H (11.5-15.5) % Plt Count 81 L (150-450) k/uL Sodium (137-145) mmol/L Chloride 113 H (98-107) mmol/L Carbon Dioxide (22-30) mmol/L BUN 61 H (7-17) mg/dL Creatinine 2.07 H (0.52-1.04) mg/dL Glucose 101 H (74-99) mg/dL POC Glucose (mg/dL) (70-110) mg/dL Calcium 12.6 H (8.4-10.2) mg/dL AST 80 H (14-36) U/L Alkaline Phosphatase 195 H (38-126) U/L Albumin 2.9 L (3.5-5.0) g/dL Angiotensin Convert Enz 78 H (8-52) U/L 10/13/23 10/13/23 10/14/23 Range/Units 11:42 16:51 06:19 WBC (3.8-10.6) k/uL RBC (3.80-5.40) m/uL RDW (11.5-15.5) % Plt Count (150-450) k/uL Sodium (137-145) mmol/L Chloride (98-107) mmol/L Carbon Dioxide (22-30) mmol/L BUN (7-17) mg/dL Creatinine (0.52-1.04) mg/dL Glucose (74-99) mg/dL POC Glucose (mg/dL) 123 H 112 H 116 H (70-110) mg/dL Calcium (8.4-10.2) mg/dL AST (14-36) U/L Alkaline Phosphatase (38-126) U/L Albumin (3.5-5.0) g/dL Angiotensin Convert Enz (8-52) U/L 10/14/23 Range/Units 07:41 WBC (3.8-10.6) k/uL RBC (3.80-5.40) m/uL RDW (11.5-15.5) % Plt Count (150-450) k/uL Sodium 149 H (137-145) mmol/L Chloride 123 H (98-107) mmol/L Carbon Dioxide 18 L (22-30) mmol/L BUN 55 H (7-17) mg/dL Creatinine 1.66 H (0.52-1.04) mg/dL Glucose 110 H (74-99) mg/dL POC Glucose (mg/dL) (70-110) mg/dL Calcium 11.0 H (8.4-10.2) mg/dL AST (14-36) U/L Alkaline Phosphatase (38-126) U/L Albumin (3.5-5.0) g/dL Angiotensin Convert Enz (8-52) U/L Microbiology - Last 24 Hours (Table) 10/11/23 20:41 Blood Culture - Preliminary Blood 10/11/23 17:15 Blood Culture - Preliminary Blood Assessment and Plan (1) Hypoxia Current Visit: Yes Status: Acute Code(s): R09.02 - HYPOXEMIA SNOMED Code(s): 994531570 (2) Hypercalcemia Current Visit: Yes Status: Acute Code(s): E83.52 - HYPERCALCEMIA SNOMED Code(s): 96097681 (3) Diabetes mellitus Current Visit: Yes Status: Acute Code(s): E11.9 - TYPE 2 DIABETES MELLITUS WITHOUT COMPLICATIONS SNOMED Code(s): 44901455 (4) Elevated troponin Current Visit: Yes Status: Acute Code(s): R79.89 - OTHER SPECIFIED ABNORMAL FINDINGS OF BLOOD CHEMISTRY SNOMED Code(s): 540327954 (5) Community acquired pneumonia Current Visit: Yes Status: Acute Code(s): J18.9 - PNEUMONIA, UNSPECIFIED ORGANISM SNOMED Code(s): 380180534 (6) Hypertension Current Visit: Yes Status: Acute Code(s): I10 - ESSENTIAL (PRIMARY) HYPERTENSION SNOMED Code(s): 23766879 (7) Hyperlipidemia Current Visit: Yes Status: Acute Code(s): E78.5 - HYPERLIPIDEMIA, UNSPECIFIED SNOMED Code(s): 70929741 (8) CAD (coronary artery disease) Current Visit: Yes Status: Acute Code(s): I25.10 - ATHSCL HEART DISEASE OF [place] CORONARY ARTERY W/O ANG PCTRS SNOMED Code(s): 62149222 (9) Acute exacerbation of chronic obstructive airways disease Current Visit: Yes Status: Acute Code(s): J44.1 - CHRONIC OBSTRUCTIVE PULMONARY DISEASE W (ACUTE) EXACERBATION SNOMED Code(s): 604223137 (10) Altered mental status Current Visit: Yes Status: Acute Code(s): R41.82 - ALTERED MENTAL STATUS, UNSPECIFIED SNOMED Code(s): 900682652 (11) History of fall Current Visit: Yes Status: Acute Code(s): Z91.81 - HISTORY OF FALLING SNOM ED Code(s): 438936785 Plan: Appreciate multiple consultants. Repeat CMP and CBC in the morning. Calcium level continues to improve. Patient seen and evaluated by nurse practitioner, physician in agreement with plan
--- NOTE | 2023-10-14 11:12 | P.PN ---
Subjective Patient is seen in follow-up for acute kidney injury and hypercalcemia. Currently on normal saline. Has [place] catheter. Nonoliguric. Quite lethargic. Oral intake poor. Has to be fed. Renal function improving. Calcium level trending down. Family present at bedside. Vital signs are stable. General: No acute distress. Lethargic. HEENT: Head exam is unremarkable. LUNGS: No audible rhonchi or wheezes. HEART: Rate and Rhythm are regular. ABDOMEN: Nontender. EXTREMITITES: No edema. Objective - Vital Signs Vital signs: Vital Signs Temp 97.0 F L 10/14/23 08:00 Pulse 88 10/14/23 08:54 Resp 17 10/14/23 08:00 BP 154/72 10/14/23 08:00 Pulse Ox 94 L 10/14/23 08:00 FiO2 Intake & Output 10/13/23 10/14/23 10/14/23 18:59 06:59 18:59 Intake Total 0 Output Total 750 600 Balance -750 -600 Intake: Oral 0 Output: Urine 750 600 Other: Voiding Method Indwelling Catheter Indwelling Catheter Indwelling Catheter - Labs CBC & Chem 7: 10/13/23 10:06 10/14/23 07:41 Labs: Abnormal Lab Results - Last 24 Hours (Table) 10/12/23 10/13/23 10/13/23 Range/Units 11:01 10:06 10:06 WBC 15.3 H (3.8-10.6) k/uL RBC 3.68 L (3.80-5.40) m/uL RDW 16.3 H (11.5-15.5) % Plt Count 81 L (150-450) k/uL Sodium (137-145) mmol/L Chloride 113 H (98-107) mmol/L Carbon Dioxide (22-30) mmol/L BUN 61 H (7-17) mg/dL Creatinine 2.07 H (0.52-1.04) mg/dL Glucose 101 H (74-99) mg/dL POC Glucose (mg/dL) (70-110) mg/dL Calcium 12.6 H (8.4-10.2) mg/dL AST 80 H (14-36) U/L Alkaline Phosphatase 195 H (38-126) U/L Albumin 2.9 L (3.5-5.0) g/dL Angiotensin Convert Enz 78 H (8-52) U/L 10/13/23 10/13/23 10/14/23 Range/Units 11:42 16:51 06:19 WBC (3.8-10.6) k/uL RBC (3.80-5.40) m/uL RDW (11.5-15.5) % Plt Count (150-450) k/uL Sodium (137-145) mmol/L Chloride (98-107) mmol/L Carbon Dioxide (22-30) mmol/L BUN (7-17) mg/dL Creatinine (0.52-1.04) mg/dL Glucose (74-99) mg/dL POC Glucose (mg/dL) 123 H 112 H 116 H (70-110) mg/dL Calcium (8.4-10.2) mg/dL AST (14-36) U/L Alkaline Phosphatase (38-126) U/L Albumin (3.5-5.0) g/dL Angiotensin Convert Enz (8-52) U/L 10/14/23 Range/Units 07:41 WBC (3.8-10.6) k/uL RBC (3.80-5.40) m/uL RDW (11.5-15.5) % Plt Count (150-450) k/uL Sodium 149 H (137-145) mmol/L Chloride 123 H (98-107) mmol/L Carbon Dioxide 18 L (22-30) mmol/L BUN 55 H (7-17) mg/dL Creatinine 1.66 H (0.52-1.04) mg/dL Glucose 110 H (74-99) mg/dL POC Glucose (mg/dL) (70-110) mg/dL Calcium 11.0 H (8.4-10.2) mg/dL AST (14-36) U/L Alkaline Phosphatase (38-126) U/L Albumin (3.5-5.0) g/dL Angiotensin Convert Enz (8-52) U/L Microbiology - Last 24 Hours (Table) 10/11/23 20:41 Blood Culture - Preliminary Blood 10/11/23 17:15 Blood Culture - Preliminary Blood Assessment and Plan Plan: Assessment: 1. Acute kidney injury secondary to hypercalcemia induced ATN. Renal function improving. Creatinine 1.66 today. Creatinine in December 2022 was near 0.9. UA benign. No hydronephrosis noted on kidney ultrasound. 2. Hypercalcemia secondary to volume contraction, calcium and vitamin D supplementation. PTH appropriately suppressed at 11.4. Vitamin D level elevated at 126. Calcitriol level 34. SUZI level 78. 3. Hypokalemia from poor intake and diuretic use. Improved. 4. Pneumonia on antibiotics. 5. Status post fall. CK level 127. 6. Hypernatremia from lack of oral water intake. 7. Metabolic acidosis secondary to acute kidney injury and IV fluids. Plan: Change IV fluids to half-normal saline to be run at 150 cc an hour. 400 units IM calcitonin x 2 doses given October 12, 2023. Status post IV Lasix given October 12, 2023. Status post Zometa given October 12, 2023. Follow-up secondary workup for hypercalcemia.
[2023-10-14] MEDS: SODIUM CHLORIDE 0.45% 1,000 ML IV SCH (11:33)
[2023-10-14 12:25] LABS: Glucose,Whole Blood 104 mg/dL (70-110)
--- NOTE | 2023-10-14 13:21 | P.PN ---
Subjective Progress Note Date: 10/14/23 Reason for Consult (text): Elevated troponins History of present illness: This is a 73-year-old female patient of Dr. Toussaint with past medical history of co ronary artery disease with prior stenting of the RCA and circumflex, hypertension, dyslipidemia, valvular heart disease with aortic stenosis and carotid atherosclerosis, history of PFO. We have been asked to evaluate the patient for elevated troponins. Patient is seen today in the emergency center waiting for bed on the cardiac stepdown unit. Patient is very confused and not near her baseline. She is unable to give any reasonable history. She does deny chest pain. According to the records, patient apparently had a fall unknown details. CTA and CT of the brain are pending. EKG sinus tachycardia at 124 bpm, Q waves in V1, V2, V3 Chest x-ray: Increased interstitial opacities mid and lower lungs. Correlate for atypical pneumonias or interstitial pneumonitis. Laboratory studies: WBC 10.9, hemoglobin 13.1, platelet count 95. INR 1.3. D- dimer 6.87. Initial potassium 3.2 and now 3.6. BUN 59, creatinine 2.51. Calcium 16.4, ionized calcium 8.7. Phosphorus 4.8, AST 104, alkaline ph osphatase 207. Troponins 0.289 and 0.257. proBNP 1020. Influenza A, influenza B, RSV, COVID-19 not detected. Urinalysis negative for infection. Parathyroid hormone intact 11.4. Home cardiac medications: Aspirin 81 mg daily, atorvastatin 40 mg daily, Jardiance 25 mg daily, Lasix 20 mg twice daily, magnesium 400 mg daily, Lopressor 50 mg twice daily, Brilinta 90 mg twice daily. Cardiac catheterization performed 04/21/2021 revealed 80% proximal circumflex stenosis and patent stent in the RCA. PCI history 05/20/2021, stent in the proximal circumflex PCI 09/29/2017 stent in the distal RCA Echocardiogram performed in the office on 01/28/2023 revealed EF 55%. Mild aortic stenosis. Mild mitral regurgitation. Mild tricuspid regurgitation. PASP 30 mmHg. Lexiscan Cardiolite stress test performed in the office on 01/14/2023 revealed nondiagnostic electrocardiographic stress testing and response to Lexiscan. Abnormal myocardial perfusion imaging with evidence of fixed defect of a large size and severe intensity involving the mid inferior and distal inferior and inferior lateral segment of the left ventricle. No evidence of any stress- induced ischemia. Normal left ventricular systolic function. 10/12 Patient has failed a swallow exam but she is able to take medications with pudding. Echocardiogram was limited due to patient's tremors. Left ventricular systolic function normal. There is an echodense lesion attached to the ventricular surface of the aortic leaflets. Consider YUE if indicated. Mitral annular calcification with restricted mobility of the mitral leaflets with katarzyna l stenosis. Blood pressure 124/45, heart rate 105, pulse ox 95% on 2 L nasal cannula. WBC 15.3, hemoglobin 11.7. Renal function is improving with BUN 61 and creatinine 2.07. Calcium is improved at 12.6. 10/13 Patient continues to have confusion not to her baseline at all. Blood pressure 129/78, heart rate is in the 80s, pulse ox 98% on 2 L nasal cannula. Repeat blood work reveals sodium 149, potassium 4.2, chloride 123, CO2 18, BUN 55 creatinine 1.66. Calcium elevated. Magnesium 1.7. She is currently on IV fluids half-normal saline at 150 cc/h managed by nephrology. Physical examination: Gen: This is a 73-year-old female appears to be in no acute respiratory distress VS: reviewed HEENT: Head is atraumatic, normocephalic. Pupils equal, round. Sclerae is anicteric. NECK: Supple. No JVD. LUNGS: Clear to auscultation. No wheezes or rhonchi. No intercostal retractions. HEART: Regular rate and rhythm. Systolic murmur at the right and left upper sternal border. ABDOMEN: Soft No tenderness. EXTREMITIES: No pedal edema. No calf tenderness. NEUROLOGICAL: Patient is lethargic. Assessment: Elevated troponins of unclear significant, possible acute coronary syndrome, could be related to acute kidney injury and metabolic abnormalities Acute hypoxic respiratory failure with possible asthma exacerbation, possible pneumonia Acute kidney injury Severe hypercalcemia Thrombocytopenia Elevated liver function test Metabolic encephalopathy Coronary artery disease with stenting of the RCA and circumflex Hypertension Dyslipidemia Aortic stenosis Carotid atherosclerosis History of PFO Electrolyte abnormalities including hypernatremia, hyperkalemia Plan: Continue patient's home cardiac medications Plan is for medical management of elevated troponin due to multiple comorbid conditions. She is not a good candidate for aggressive ischemic cardiac workup at this time due to multiple acute comorbidities and mental status changes. Further recommendations to follow based upon clinical course Nurse practitioner note has been reviewed, I agree with documented findings and plan of care. Patient was seen and examined. Objective - Vital Signs Vital signs: Vital Signs Temp 97.0 F L 10/14/23 08:00 Pulse 90 10/14/23 08:43 Resp 17 10/14/23 08:00 BP 154/72 10/14/23 08:00 Pulse Ox 94 L 10/14/23 08:00 FiO2 Intake & Output 10/13/23 10/14/23 10/14/23 18:59 06:59 18:59 Intake Total 0 Output Total 750 600 Balance -750 -600 Intake: Oral 0 Output: Urine 750 600 Other: Voiding Method Indwelling Catheter Indwelling Catheter Indwelling Catheter - Labs CBC & Chem 7: 10/13/23 10:06 10/14/23 07:41 Labs: Abnormal Lab Results - Last 24 Hours (Table) 10/12/23 10/13/23 10/13/23 Range/Units 11:01 10:06 10:06 WBC 15.3 H (3.8-10.6) k/uL RBC 3.68 L (3.80-5.40) m/uL RDW 16.3 H (11.5-15.5) % Plt Count 81 L (150-450) k/uL Sodium (137-145) mmol/L Chloride 113 H (98-107) mmol/L Carbon Dioxide (22-30) mmol/L BUN 61 H (7-17) mg/dL Creatinine 2.07 H (0.52-1.04) mg/dL Glucose 101 H (74-99) mg/dL POC Glucose (mg/dL) (70-110) mg/dL Calcium 12.6 H (8.4-10.2) mg/dL AST 80 H (14-36) U/L Alkaline Phosphatase 195 H (38-126) U/L Albumin 2.9 L (3.5-5.0) g/dL Angiotensin Convert Enz 78 H (8-52) U/L 10/13/23 10/13/23 10/14/23 Range/Units 11:42 16:51 06:19 WBC (3.8-10.6) k/uL RBC (3.80-5.40) m/uL RDW (11.5-15.5) % Plt Count (150-450) k/uL Sodium (137-145) mmol/L Chloride (98-107) mmol/L Carbon Dioxide (22-30) mmol/L BUN (7-17) mg/dL Creatinine (0.52-1.04) mg/dL Glucose (74-99) mg/dL POC Glucose (mg/dL) 123 H 112 H 116 H (70-110) mg/dL Calcium (8.4-10.2) mg/dL AST (14-36) U/L Alkaline Phosphatase (38-126) U/L Albumin (3.5-5.0) g/dL Angiotensin Convert Enz (8-52) U/L 10/14/23 Range/Units 07:41 WBC (3.8-10.6) k/uL RBC (3.80-5.40) m/uL RDW (11.5-15.5) % Plt Count (150-450) k/uL Sodium 149 H (137-145) mmol/L Chloride 123 H (98-107) mmol/L Carbon Dioxide 18 L (22-30) mmol/L BUN 55 H (7-17) mg/dL Creatinine 1.66 H (0.52-1.04) mg/dL Glucose 110 H (74-99) mg/dL POC Glucose (mg/dL) (70-110) mg/dL Calcium 11.0 H (8.4-10.2) mg/dL AST (14-36) U/L Alkaline Phosphatase (38-126) U/L Albumin (3.5-5.0) g/dL Angiotensin Convert Enz (8-52) U/L Microbiology - Last 24 Hours (Table) 10/11/23 20:41 Blood Culture - Preliminary Blood 10/11/23 17:15 Blood Culture - Preliminary Blood
--- NOTE | 2023-10-14 13:26 | P.PN ---
Subjective Progress Note Date: 10/14/23 Principal diagnosis: Altered mental status. Patient is a 73-year-old white female with past medical history significant for asthma, diabetes mellitus, hyperlipidemia, coronary artery disease with previous PCI/stent, obstructive sleep apnea, among other reported comorbidities. Patient is currently altered, and unable to verbally provide any information for HPI. No obvious focal deficits. She does follow simple commands. I am unsure of the patient's baseline mentation. Unable to contact family listed in demographics. Voicemail was left. On review of the ER documentation, patient reportedly sustained a fall earlier or at least found down on the ground. She was noted to be severely dyspneic when evaluated by ER room physician. Patient is currently on a 2 L nasal cannula. Follow-up ABG as a PaO2 of 68, pCO2 of 44, pH of 7.39. Chest x-ray taken on admission shows increasing interstitial opacities in the mid to lower lung trivedi, possible atypical pneumonia or interstitial pneumonitis. Patient has been started on azithromycin and Rocephin in the emergency room. CBC on arrival: WBC count 10, hemoglobin 12.3, hematocrit 37.9, platelets 80,000. BMP on arrival: Sodium 138, potassium 3.2, chloride 104, serum bicarb 26, BUN 55, creatinine 2.56, glucose 107. Patient's calcium was severely elevated at 17. Likely explaining patient's AMS. Parathyroid hormone pending. No documented malignancies. No documented lithium, thiazides, etc. Does take vitamin D. Patient was given a dose of Zometa. LFTs mildly elevated. Troponins elevated at 0.289 and 0.257 respectively. NT proBNP 1020. EKG on arrival shows sinus tachycardia, Q waves noted in leads I and aVL, and ST depressions in V1 and V2. Afebrile. Hemodynamics are currently stable. Progress note dated October 13, 2023. This is a 73-year-old female seen again in room 367. She has a history of chronic bronchial asthma, diabetes, hyperlipidemia, CAD, with previous PCI and stent placement, sleep apnea, among other things. The patient was seen in the emergency department, and could provide no additional history. She had a very altered mental status. She was discovered on laboratory evaluation to have a calcium that was 17. She was seen by nephrology. She was given calcitonin, Zometa, Lasix, and IV saline administration. Currently, she is on 2 L of oxygen. Her most recent calcium is 15. She is getting saline at 150 cc an hour. Current labs include a white count 15.3, hemoglobin 11.7, hematocrit 36, and a platelet count of 81,000. Sodium 144, potassium 4, chlorides 113, CO2 22, anion gap 9, BUN 61, creatinine 2.07. Glucose is 123. Calcium is down to 12.6. AST is 80. Albumin is 2.9. Blood cultures are currently negative or pending. Brain CT is negative for anything acute. Ultrasound of the abdomen, shows no evidence of hydronephrosis. Progress note dated October 14, 2023. This is a 73-year-old female who is seen today in room 367. The patient was admitted with a diagnosis of asthma, diabetes, hyperlipidemia, CAD, previous PCI and stent placement, sleep apnea. The patient was admitted with mental status changes, was found to have quite an elevated calcium. Today's calcium is down to 11. She is on 2 L of oxygen. She continues on saline, at 150 cc an hour. She previously received Zometa, calcitonin, and Lasix. Sodium 149, potassium 4.2, chlorides 123, CO2 18, BUN 55, creatinine 1.66, glucose 104, calcium 11, magnesium 1.7. Blood cultures are currently negative. Objective - Vital Signs Vital signs: Vital Signs Temp 97.0 F L 10/14/23 08:00 Pulse 84 10/14/23 11:55 Resp 19 10/14/23 11:24 BP 129/78 10/14/23 11:24 Pulse Ox 98 10/14/23 11:24 FiO2 Intake & Output 10/13/23 10/14/23 10/14/23 18:59 06:59 18:59 Intake Total 0 Output Total 750 600 Balance -750 -600 Intake: Oral 0 Output: Urine 750 600 Other: Voiding Method Indwelling Catheter Indwelling Catheter Indwelling Catheter - Exam No acute distress, confused, not able to give much of the history. HEENT examination is grossly unremarkable. Mucous membranes are moist. No oral lesions. Neck supple. Full range of motion. No adenopathy thyromegaly or neck vein distention. Cardiovascular examination reveals regular rhythm rate. S1-S2 normal. No S3 or S4. No discernible murmur noted. Heart rate 84 bpm. Lungs reveal clear breath sounds. Breath sounds are equal bilaterally. No adventitious lung sounds including wheezes rhonchi or crackles. 2 L saturation is 98%. Abdomen soft bowel sounds are heard. No masses or tenderness. Extremities are intact. No cyanosis clubbing or edema. Skin is without rash or lesion. Neurologic examination is brief but nonfocal. - Labs CBC & Chem 7: 10/13/23 10:06 10/14/23 07:41 Labs: Abnormal Lab Results - Last 24 Hours (Table) 10/13/23 10/14/23 10/14/23 Range/Units 16:51 06:19 07:41 Sodium 149 H (137-145) mmol/L Chloride 123 H (98-107) mmol/L Carbon Dioxide 18 L (22-30) mmol/L BUN 55 H (7-17) mg/dL Creatinine 1.66 H (0.52-1.04) mg/dL Glucose 110 H (74-99) mg/dL POC Glucose (mg/dL) 112 H 116 H (70-110) mg/dL Calcium 11.0 H (8.4-10.2) mg/dL Microbiology - Last 24 Hours (Table) 10/11/23 20:41 Blood Culture - Preliminary Blood 10/11/23 17:15 Blood Culture - Preliminary Blood Assessment and Plan Assessment: Acute hypoxemic respiratory failure, with possible mild asthma exacerbation. Severe hypercalcemia, likely causing patient's mental status changes. Hypernatremia and hyperchloremia, secondary to continued infusion of saline IV. History of recent fall. Elevated troponins. Acute kidney injury. Thrombocytopenia. Type 2 diabetes mellitus. Essential hypertension. Hyperlipidemia. CAD with previous stent placement. History of obstructive sleep apnea syndrome, not on CPAP. History of previous tobacco use. Plan: Plan dated October 13, 2023. The patient's calcium has come down nicely to 12.6, the patient's mental status is a bit improved. Labs, x-rays, and medications are reviewed. Patient's procalcitonin level is elevated at 0.74. Labs, x-rays, and medications are reviewed. Patient continues on albuterol, ipratropium bromide, Pulmicort, formoterol, and Solu-Medrol. She also continues on Singulair. She has not admitted to any respiratory distress or difficulty. She does not have any conversational dyspnea or use of accessory muscles. We will continue to follow make recommendations along the way. Prognosis is guarded. Plan dated October 14, 2023. The patient's calcium is down to 11, and she continues on oxygen at 2 L, and saline at 150 cc an hour. Her electrolyte profile shows hypernatremia And hyperchloremia, secondary to ongoing infusion of saline. The IV should be changed by the primary service, or nephrology. Labs, x-rays, and medications are reviewed. We will continue to follow make recommendations along the way. Prognosis is guarded. Time with Patient: Less than 30
[2023-10-14 16:35] LABS: Glucose,Whole Blood 113 mg/dL (70-110)
[2023-10-14 20:17] LABS: Glucose,Whole Blood 111 mg/dL (70-110)
[2023-10-15 06:27] LABS: Glucose,Whole Blood 95 mg/dL (70-110)
--- NOTE | 2023-10-15 08:27 | P.PN ---
Subjective Principal diagnosis: Hypercalcemia altered mental status The patient is a 73-year-old white female with known history of asthma. Came in with altered mental status. Significant hypercalcemia is noted-this is improving. She seems more lucid.. Zometa and Miacalcin have been given. Appreciate nephrology input. Echocardiogram is nominal Objective - Vital Signs Vital signs: Vital Signs Temp 97.9 F 10/15/23 04:40 Pulse 76 10/15/23 08:22 Resp 22 10/15/23 04:40 BP 137/67 10/15/23 04:40 Pulse Ox 93 L 10/15/23 08:22 FiO2 Intake & Output 10/14/23 10/15/23 10/15/23 18:59 06:59 18:59 Output Total 600 550 Balance -600 -550 Output: Urine 600 550 Other: Voiding Method Indwelling Catheter Indwelling Catheter # Bowel Movements 0 - Constitutional General appearance: Present: average body habitus, no acute distress, obese - EENT Eyes: Absent: abnormal pupil - Neck Neck: Absent: lymphadenopathy - Respiratory Respiratory: bilateral: diminished - Cardiovascular Rhythm: regular Heart sounds: normal: S1, S2 Abnormal Heart Sounds: Absent: S3 Gallop - Gastrointestinal General gastrointestinal: Present: soft. Absent: tenderness - Labs CBC & Chem 7: 10/13/23 10:06 10/14/23 07:41 Labs: Abnormal Lab Results - Last 24 Hours (Table) 10/14/23 10/14/23 Range/Units 16:34 20:15 POC Glucose (mg/dL) 113 H 111 H (70-110) mg/dL Microbiology - Last 24 Hours (Table) 10/11/23 20:41 Blood Culture - Preliminary Blood 10/11/23 17:15 Blood Culture - Preliminary Blood Assessment and Plan (1) Community acquired pneumonia Current Visit: Yes Status: Acute Code(s): J18.9 - PNEUMONIA, UNSPECIFIED ORGANISM SNOMED Code(s): 873895924 (2) Diabetes mellitus Current Visit: Yes Status: Acute Code(s): E11.9 - TYPE 2 DIABETES MELLITUS WITHOUT COMPLICATIONS SNOMED Code(s): 45168569 (3) Hypercalcemia Current Visit: Yes Status: Acute Code(s): E83.52 - HYPERCALCEMIA SNOMED Code(s): 20055037 Plan: Continue current regimen of treatment. Check calcium/CMP in the a.m. Continue heart monitor. Appreciate nephrology and cardiology input. She seems to be slowly improving. Encourage dietary intake today.
[2023-10-15] MEDS: ACETAMINOPHEN TAB 325 MG TAB PO PRN (09:39)
--- NOTE | 2023-10-15 11:07 | P.PN ---
Subjective Patient is seen in follow-up for acute kidney injury and hypercalcemia. Currently on half-normal saline. Has May[place]a catheter. Nonoliguric. Remains lethargic but mentation improved compared to yesterday. Oral intake better. Renal function improving. Calcium level trending down. Vital signs are stable. General: No acute distress. Lethargic. HEENT: Head exam is unremarkable. LUNGS: No audible rhonchi or wheezes. HEART: Rate and Rhythm are regular. ABDOMEN: Nontender. EXTREMITITES: No edema. Objective - Vital Signs Vital signs: Vital Signs Temp 97.5 F L 10/15/23 08:51 Pulse 88 10/15/23 08:51 Resp 16 10/15/23 08:51 BP 137/78 10/15/23 08:51 Pulse Ox 94 L 10/15/23 08:51 FiO2 Intake & Output 10/14/23 10/15/23 10/15/23 18:59 06:59 18:59 Output Total 600 550 Balance -600 -550 Output: Urine 600 550 Other: Voiding Method Indwelling Catheter Indwelling Catheter Indwelling Catheter # Bowel Movements 0 - Labs CBC & Chem 7: 10/13/23 10:06 10/14/23 07:41 Labs: Abnormal Lab Results - Last 24 Hours (Table) 10/14/23 10/14/23 Range/Units 16:34 20:15 POC Glucose (mg/dL) 113 H 111 H (70-110) mg/dL Microbiology - Last 24 Hours (Table) 10/11/23 20:41 Blood Culture - Preliminary Blood 10/11/23 17:15 Blood Culture - Preliminary Blood Assessment and Plan Plan: Assessment: 1. Acute kidney injury secondary to hypercalcemia induced ATN. Renal function improving. Creatinine 1.66 yesterday. creatinine in December 2022 was near 0.9. UA benign. No hydronephrosis noted on kidney ultrasound. 2. Hypercalcemia secondary to volume contraction, calcium and vitamin D supplementation. Calcium level trending down. PTH appropriately suppressed at 11.4. Vitamin D level elevated at 126. Calcitriol level 34. SUZI level 78. 3. Hypokalemia from poor intake and diuretic use. Improved. 4. Pneumonia on antibiotics. 5. Status post fall. CK level 127. 6. Hypernatremia from lack of oral water intake. 7. Metabolic acidosis secondary to acute kidney injury and IV fluids. Plan: Maintain half-normal saline. 400 units IM calcitonin x 2 doses given October 12, 2023. Status post IV Lasix given October 12, 2023. Status post Zometa given October 12, 2023. Follow-up secondary workup for hypercalcemia. Morning labs pending.
[2023-10-15 11:29] LABS: Glucose,Whole Blood 81 mg/dL (70-110)
[2023-10-15 12:20] LABS: ALT 33 U/L (4-34); AST 83 U/L (14-36); African American GFR (CKD) 40 (>60 ml/min/1.73 sqM); Albumin 2.6 g/dL (3.5-5.0); Alkaline Phosphatase 165 U/L (38-126); Anion Gap 5 mmol/L; Blood Urea Nitrogen 54 mg/dL (7-17); Carbon Dioxide 17 mmol/L (22-30); Chloride 123 mmol/L (98-107); Glucose 84 mg/dL (74-99); Magnesium 1.8 mg/dL (1.6-2.3); Non-African American GFR(CKD) 34 (>60 ml/min/1.73 sqM); Potassium 4.1 mmol/L (3.5-5.1); Sodium 145 mmol/L (137-145); Total Protein 5.7 g/dL (6.3-8.2)
[2023-10-15 12:50] LABS: Anisocytosis Slight; HCT 36.1 % (34.0-46.0); HGB 11.7 gm/dL (11.4-16.0); MCH 32.1 pg (25.0-35.0); MCHC 32.5 g/dL (31.0-37.0); MCV 98.6 fL (80.0-100.0); Macrocytosis Slight; Mean Platelet Volume 8.7; Poikilocytosis Slight; RBC 3.67 m/uL (3.80-5.40); RDW 16.6 % (11.5-15.5); WBC 14.6 k/uL (3.8-10.6)
[2023-10-15 12:52] LABS: Platelet Count 63 k/uL (150-450)
[2023-10-15 13:09] LABS: Free Kappa Lt Chain Qnt, Serum 5.85 mg/dL (0.33-1.94); Free Lambda Lt Chain Qnt, Seru 2.47 mg/dL (0.57-2.63)
--- NOTE | 2023-10-15 13:28 | P.PN ---
Subjective Progress Note Date: 10/15/23 Reason for Consult (text): Elevated troponins History of present illness: This is a 73-year-old female patient of Dr. Toussaint with past medical history of co ronary artery disease with prior stenting of the RCA and circumflex, hypertension, dyslipidemia, valvular heart disease with aortic stenosis and carotid atherosclerosis, history of PFO. We have been asked to evaluate the patient for elevated troponins. Patient is seen today in the emergency center waiting for bed on the cardiac stepdown unit. Patient is very confused and not near her baseline. She is unable to give any reasonable history. She does deny chest pain. According to the records, patient apparently had a fall unknown details. CTA and CT of the brain are pending. EKG sinus tachycardia at 124 bpm, Q waves in V1, V2, V3 Chest x-ray: Increased interstitial opacities mid and lower lungs. Correlate for atypical pneumonias or interstitial pneumonitis. Laboratory studies: WBC 10.9, hemoglobin 13.1, platelet count 95. INR 1.3. D- dimer 6.87. Initial potassium 3.2 and now 3.6. BUN 59, creatinine 2.51. Calcium 16.4, ionized calcium 8.7. Phosphorus 4.8, AST 104, alkaline ph osphatase 207. Troponins 0.289 and 0.257. proBNP 1020. Influenza A, influenza B, RSV, COVID-19 not detected. Urinalysis negative for infection. Parathyroid hormone intact 11.4. Home cardiac medications: Aspirin 81 mg daily, atorvastatin 40 mg daily, Jardiance 25 mg daily, Lasix 20 mg twice daily, magnesium 400 mg daily, Lopressor 50 mg twice daily, Brilinta 90 mg twice daily. Cardiac catheterization performed 04/21/2021 revealed 80% proximal circumflex stenosis and patent stent in the RCA. PCI history 05/20/2021, stent in the proximal circumflex PCI 09/29/2017 stent in the distal RCA Echocardiogram performed in the office on 01/28/2023 revealed EF 55%. Mild aortic stenosis. Mild mitral regurgitation. Mild tricuspid regurgitation. PASP 30 mmHg. Lexiscan Cardiolite stress test performed in the office on 01/14/2023 revealed nondiagnostic electrocardiographic stress testing and response to Lexiscan. Abnormal myocardial perfusion imaging with evidence of fixed defect of a large size and severe intensity involving the mid inferior and distal inferior and inferior lateral segment of the left ventricle. No evidence of any stress- induced ischemia. Normal left ventricular systolic function. 10/12 Patient has failed a swallow exam but she is able to take medications with pudding. Echocardiogram was limited due to patient's tremors. Left ventricular systolic function normal. There is an echodense lesion attached to the ventricular surface of the aortic leaflets. Consider YUE if indicated. Mitral annular calcification with restricted mobility of the mitral leaflets with katarzyna l stenosis. Blood pressure 124/45, heart rate 105, pulse ox 95% on 2 L nasal cannula. WBC 15.3, hemoglobin 11.7. Renal function is improving with BUN 61 and creatinine 2.07. Calcium is improved at 12.6. 10/13 Patient continues to have confusion not to her baseline at all. Blood pressure 129/78, heart rate is in the 80s, pulse ox 98% on 2 L nasal cannula. Repeat blood work reveals sodium 149, potassium 4.2, chloride 123, CO2 18, BUN 55 creatinine 1.66. Calcium elevated. Magnesium 1.7. She is currently on IV fluids half-normal saline at 150 cc/h managed by nephrology. 10/14 Patient is seen today in follow-up. Patient's mental status is slowly improving today. As well, patient's renal function is improving with BUN of 54 and creatinine down to 1.5. Other lab work reveals sodium 145, potassium 4.1, chloride 123, CO2 17. WBC 14.6 and hemoglobin 11.7, platelet count 63. Blood pressure 103/51, pulse ox 93% on room air, heart rate in the 60s to 80s. Physical examination: Gen: This is a 73-year-old female appears to be in no acute respiratory distress VS: reviewed HEENT: Head is atraumatic, normocephalic. Pupils equal, round. Sclerae is anicteric. NECK: Supple. No JVD. LUNGS: Clear to auscultation. No wheezes or rhonchi. No intercostal retractions. HEART: Regular rate and rhythm. Systolic murmur at the right and left upper sternal border. ABDOMEN: Soft No tenderness. EXTREMITIES: No pedal edema. No calf tenderness. NEUROLOGICAL: Patient is opening eyes to verbal stimuli and answers brief questions. Assessment: Elevated troponins of unclear significant, possible acute coronary syndrome, could be related to acute kidney injury and metabolic abnormalities Acute hypoxic respiratory failure with possible asthma exacerbation, possible pneumonia Acute kidney injury Severe hypercalcemia Thrombocytopenia Elevated liver function test Metabolic encephalopathy Coronary artery disease with stenting of the RCA and circumflex Hypertension Dyslipidemia Aortic stenosis Carotid atherosclerosis History of PFO Electrolyte abnormalities including hypernatremia, hyperkalemia Plan: Continue patient's home cardiac medications Plan is for medical management of elevated troponin due to multiple comorbid conditions. She is not a good candidate for aggressive ischemic cardiac workup at this time due to multiple acute comorbidities and mental status changes. Further recommendations to follow based upon clinical course Nurse practitioner note has been reviewed, I agree with documented findings and plan of care. Patient was seen and examined. Objective - Vital Signs Vital signs: Vital Signs Temp 97.9 F 10/15/23 04:40 Pulse 76 10/15/23 08:22 Resp 22 10/15/23 04:40 BP 137/67 10/15/23 04:40 Pulse Ox 93 L 10/15/23 08:22 FiO2 Intake & Output 10/14/23 10/15/23 10/15/23 18:59 06:59 18:59 Output Total 600 550 Balance -600 -550 Output: Urine 600 550 Other: Voiding Method Indwelling Catheter Indwelling Catheter # Bowel Movements 0 - Labs CBC & Chem 7: 10/15/23 11:34 10/15/23 11:34 Labs: Abnormal Lab Results - Last 24 Hours (Table) 10/14/23 10/14/23 Range/Units 16:34 20:15 POC Glucose (mg/dL) 113 H 111 H (70-110) mg/dL Microbiology - Last 24 Hours (Table) 10/11/23 20:41 Blood Culture - Preliminary Blood 10/11/23 17:15 Blood Culture - Preliminary Blood
--- NOTE | 2023-10-15 13:33 | P.PN ---
Subjective Progress Note Date: 10/15/23 Principal diagnosis: Altered mental status. Patient is a 73-year-old white female with past medical history significant for asthma, diabetes mellitus, hyperlipidemia, coronary artery disease with previous PCI/stent, obstructive sleep apnea, among other reported comorbidities. Patient is currently altered, and unable to verbally provide any information for HPI. No obvious focal deficits. She does follow simple commands. I am unsure of the patient's baseline mentation. Unable to contact family listed in demographics. Voicemail was left. On review of the ER documentation, patient reportedly sustained a fall earlier or at least found down on the ground. She was noted to be severely dyspneic when evaluated by ER room physician. Patient is currently on a 2 L nasal cannula. Follow-up ABG as a PaO2 of 68, pCO2 of 44, pH of 7.39. Chest x-ray taken on admission shows increasing interstitial opacities in the mid to lower lung trivedi, possible atypical pneumonia or interstitial pneumonitis. Patient has been started on azithromycin and Rocephin in the emergency room. CBC on arrival: WBC count 10, hemoglobin 12.3, hematocrit 37.9, platelets 80,000. BMP on arrival: Sodium 138, potassium 3.2, chloride 104, serum bicarb 26, BUN 55, creatinine 2.56, glucose 107. Patient's calcium was severely elevated at 17. Likely explaining patient's AMS. Parathyroid hormone pending. No documented malignancies. No documented lithium, thiazides, etc. Does take vitamin D. Patient was given a dose of Zometa. LFTs mildly elevated. Troponins elevated at 0.289 and 0.257 respectively. NT proBNP 1020. EKG on arrival shows sinus tachycardia, Q waves noted in leads I and aVL, and ST depressions in V1 and V2. Afebrile. Hemodynamics are currently stable. Progress note dated October 13, 2023. This is a 73-year-old female seen again in room 367. She has a history of chronic bronchial asthma, diabetes, hyperlipidemia, CAD, with previous PCI and stent placement, sleep apnea, among other things. The patient was seen in the emergency department, and could provide no additional history. She had a very altered mental status. She was discovered on laboratory evaluation to have a calcium that was 17. She was seen by nephrology. She was given calcitonin, Zometa, Lasix, and IV saline administration. Currently, she is on 2 L of oxygen. Her most recent calcium is 15. She is getting saline at 150 cc an hour. Current labs include a white count 15.3, hemoglobin 11.7, hematocrit 36, and a platelet count of 81,000. Sodium 144, potassium 4, chlorides 113, CO2 22, anion gap 9, BUN 61, creatinine 2.07. Glucose is 123. Calcium is down to 12.6. AST is 80. Albumin is 2.9. Blood cultures are currently negative or pending. Brain CT is negative for anything acute. Ultrasound of the abdomen, shows no evidence of hydronephrosis. Progress note dated October 14, 2023. This is a 73-year-old female who is seen today in room 367. The patient was admitted with a diagnosis of asthma, diabetes, hyperlipidemia, CAD, previous PCI and stent placement, sleep apnea. The patient was admitted with mental status changes, was found to have quite an elevated calcium. Today's calcium is down to 11. She is on 2 L of oxygen. She continues on saline, at 150 cc an hour. She previously received Zometa, calcitonin, and Lasix. Sodium 149, potassium 4.2, chlorides 123, CO2 18, BUN 55, creatinine 1.66, glucose 104, calcium 11, magnesium 1.7. Blood cultures are currently negative. Progress note dated October 15, 2023. 73-year-old female seen today in room 367. The patient was admitted with a diagnosis of asthma, diabetes, hyperlipidemia, CAD, previous PCI, and stent placement, as well as sleep apnea syndrome. The patient was noted to have an altered mental status, and had a very elevated calcium on admission. The patient is still very confused. She is receiving half-normal saline at 150 cc an hour. She is on room air. Yesterday's calcium was 11. Today's calcium is 10. White count 14.6, hemoglobin 9.7, macro 36.1, and platelet count 63,000. Sodium 145, potassium 4.1, chlorides 123, CO2 17, anion gap 5, BUN 54, and creatinine 1.50. Blood cultures are negative. Objective - Vital Signs Vital signs: Vital Signs Temp 97.5 F L 10/15/23 08:51 Pulse 80 10/15/23 11:45 Resp 17 10/15/23 11:35 BP 103/51 10/15/23 11:35 Pulse Ox 93 L 10/15/23 11:35 FiO2 Intake & Output 10/14/23 10/15/23 10/15/23 18:59 06:59 18:59 Output Total 600 550 Balance -600 -550 Output: Urine 600 550 Other: Voiding Method Indwelling Catheter Indwelling Catheter Indwelling Catheter # Bowel Movements 0 - Exam No acute distress, confused, not able to give much of the history. HEENT examination is grossly unremarkable. Mucous membranes are moist. No oral lesions. Neck supple. Full range of motion. No adenopathy thyromegaly or neck vein distention. Cardiovascular examination reveals regular rhythm rate. S1-S2 normal. No S3 or S4. No discernible murmur noted. Heart rate 80 bpm. Lungs reveal clear breath sounds. Breath sounds are equal bilaterally. No adventitious lung sounds including wheezes rhonchi or crackles. Room air saturation is 93%. Abdomen soft bowel sounds are heard. No masses or tenderness. Extremities are intact. No cyanosis clubbing or edema. Skin is without rash or lesion. Neurologic examination is brief but nonfocal. - Labs CBC & Chem 7: 10/15/23 11:34 10/15/23 11:34 Labs: Abnormal Lab Results - Last 24 Hours (Table) 10/14/23 10/14/23 10/14/23 Range/Units 07:41 16:34 20:15 WBC (3.8-10.6) k/uL RBC (3.80-5.40) m/uL RDW (11.5-15.5) % Plt Count (150-450) k/uL Chloride (98-107) mmol/L Carbon Dioxide (22-30) mmol/L BUN (7-17) mg/dL Creatinine (0.52-1.04) mg/dL POC Glucose (mg/dL) 113 H 111 H (70-110) mg/dL AST (14-36) U/L Alkaline Phosphatase (38-126) U/L Total Protein (6.3-8.2) g/dL Albumin (3.5-5.0) g/dL Free [place] LC, Quant 5.85 H (0.33-1.94) mg/dL 10/15/23 10/15/23 Range/Units 11:34 11:34 WBC 14.6 H (3.8-10.6) k/uL RBC 3.67 L (3.80-5.40) m/uL RDW 16.6 H (11.5-15.5) % Plt Count 63 L (150-450) k/uL Chloride 123 H (98-107) mmol/L Carbon Dioxide 17 L (22-30) mmol/L BUN 54 H (7-17) mg/dL Creatinine 1.50 H (0.52-1.04) mg/dL POC Glucose (mg/dL) (70-110) mg/dL AST 83 H (14-36) U/L Alkaline Phosphatase 165 H (38-126) U/L Total Protein 5.7 L (6.3-8.2) g/dL Albumin 2.6 L (3.5-5.0) g/dL Free [place] LC, Quant (0.33-1.94) mg/dL Microbiology - Last 24 Hours (Table) 10/11/23 20:41 Blood Culture - Preliminary Blood 10/11/23 17:15 Blood Culture - Preliminary Blood Assessment and Plan Assessment: Acute hypoxemic respiratory failure, with possible mild asthma exacerbation. Severe hypercalcemia, likely causing patient's mental status changes. Hypernatremia and hyperchloremia, secondary to continued infusion of saline IV. History of recent fall. Elevated troponins. Acute kidney injury. Thrombocytopenia. Type 2 diabetes mellitus. Essential hypertension. Hyperlipidemia. CAD with previous stent placement. History of obstructive sleep apnea syndrome, not on CPAP. History of previous tobacco use. Plan: Plan dated October 13, 2023. The patient's calcium has come down nicely to 12.6, the patient's mental status is a bit improved. Labs, x-rays, and medications are reviewed. Patient's procalcitonin level is elevated at 0.74. Labs, x-rays, and medications are reviewed. Patient continues on albuterol, ipratropium bromide, Pulmicort, formoterol, and Solu-Medrol. She also continues on Singulair. She has not admitted to any respiratory distress or difficulty. She does not have any conversational dyspnea or use of accessory muscles. We will continue to follow make recommendations along the way. Prognosis is guarded. Plan dated October 14, 2023. The patient's calcium is down to 11, and she continues on oxygen at 2 L, and saline at 150 cc an hour. Her electrolyte profile shows hypernatremia And hyperchloremia, secondary to ongoing infusion of saline. The IV should be changed by the primary service, or nephrology. Labs, x-rays, and medications are reviewed. We will continue to follow make recommendations along the way. Prognosis is guarded. Plan dated October 15, 2023. Today's calcium is 10. The patient is still very confused. She does not know where she is at. Labs, x-rays, and medications are reviewed. She is on room air. She is getting half-normal saline at 150 cc an hour. We will continue to follow make recommendations. Prognosis is guarded. Her asthma seems to be under excellent control. Time with Patient: Less than 30
[2023-10-15 16:15] LABS: Glucose,Whole Blood 86 mg/dL (70-110)
[2023-10-15] MEDS: SODIUM BICARB 8.4% 50 ML SYR (1 MEQ/ML) IV STA ×2 (16:21→16:33)
[2023-10-15] MEDS: SODIUM BICARBONATE TAB 650 MG TAB PO SCH (19:49)
[2023-10-15 21:46] LABS: Glucose,Whole Blood 108 mg/dL (70-110)
[2023-10-16 00:10] LABS: Albumin 2.82 g/dL (3.80-4.90); Gamma Globulin 1.46 g/dL (0.70-1.50)
[2023-10-16 06:37] LABS: Glucose,Whole Blood 103 mg/dL (70-110)
--- NOTE | 2023-10-16 09:23 | P.PN ---
Subjective Progress Note Date: 10/16/23 Principal diagnosis: Change in mental status The patient is a pleasant 73-year-old female patient with a past medical history significant for coronary artery disease with prior PCI as well as overweight and hypertension and dyslipidemia and multiple comorbid conditions was admitted to the hospital with a change in mental status and she was in renal failure and also was found to have abnormal cardiac enzymes with abnormal troponin. We advised medical treatment only. She has improved in terms of mentation significantly over the last few days. The echo showed normal LV systolic function but the study was technically very difficult with possible echodensity on the ventricular surface of the aortic valve October 16, 2023 The patient was seen and evaluated this morning which she continues to be confused but she is doing slightly better from that standpoint of view. No ind ication of any chest pain or chest discomfort. The creatinine has been improving as well. We felt that the change in mental status is likely secondary to metabolic encephalopathy secondary to renal failure. The echo as described above. With that being said she might benefit from transesophageal echocardiogram once her mentation improved better. Meanwhile I am going to obtain a blood culture. The examination is remarkable for stable vital signs with a soft systolic murmur and clear breathing sounds bilaterally and no edema was noted Assessment Change in mental status Acute renal failure Possible metabolic encephalopathy Evidence of myocardial injury with no ischemia Abnormal echocardiogram as described above Multiple comorbid conditions Plan Continue the current medical regimen Obtain a blood culture to rule out endocarditis Transesophageal echocardiogram once her mentation improve Follow-up with the patient Objective - Vital Signs Vital signs: Vital Signs Temp 97.2 F L 10/16/23 04:00 Pulse 84 10/16/23 08:45 Resp 22 10/16/23 04:00 BP 151/79 10/16/23 04:00 Pulse Ox 97 10/16/23 04:00 FiO2 Intake & Output 10/15/23 10/16/23 10/16/23 18:59 06:59 18:59 Output Total 1140 Balance -1140 Output: Urine 1140 Other: Voiding Method Indwelling Catheter Indwelling Catheter - Labs CBC & Chem 7: 10/15/23 11:34 10/15/23 11:34 Labs: Abnormal Lab Results - Last 24 Hours (Table) 10/12/23 10/14/23 10/15/23 Range/Units 11:01 07:41 11:34 WBC 14.6 H (3.8-10.6) k/uL RBC 3.67 L (3.80-5.40) m/uL RDW 16.6 H (11.5-15.5) % Plt Count 63 L (150-450) k/uL Chloride (98-107) mmol/L Carbon Dioxide (22-30) mmol/L BUN (7-17) mg/dL Creatinine (0.52-1.04) mg/dL AST (14-36) U/L Alkaline Phosphatase (38-126) U/L Total Protein (6.3-8.2) g/dL Albumin (3.5-5.0) g/dL Albumin (PEP) 2.82 L (3.80-4.90) g/dL [id number] 0.46 H (0.10-0.40) g/dL Free [place] LC, Quant 5.85 H (0.33-1.94) mg/dL 10/15/23 Range/Units 11:34 WBC (3.8-10.6) k/uL RBC (3.80-5.40) m/uL RDW (11.5-15.5) % Plt Count (150-450) k/uL Chloride 123 H (98-107) mmol/L Carbon Dioxide 17 L (22-30) mmol/L BUN 54 H (7-17) mg/dL Creatinine 1.50 H (0.52-1.04) mg/dL AST 83 H (14-36) U/L Alkaline Phosphatase 165 H (38-126) U/L Total Protein 5.7 L (6.3-8.2) g/dL Albumin 2.6 L (3.5-5.0) g/dL Albumin (PEP) (3.80-4.90) g/dL [id number] (0.10-0.40) g/dL Free [place] LC, Quant (0.33-1.94) mg/dL
[2023-10-16 09:54] LABS: Anisocytosis Slight; HCT 35.9 % (34.0-46.0); HGB 11.9 gm/dL (11.4-16.0); MCH 33.1 pg (25.0-35.0); MCV 100.2 fL (80.0-100.0); Macrocytosis Slight; Mean Platelet Volume 9.1; Poikilocytosis Slight; RBC 3.58 m/uL (3.80-5.40); RDW 16.4 % (11.5-15.5); WBC 12.3 k/uL (3.8-10.6)
[2023-10-16 10:00] LABS: Platelet Count 40 k/uL (150-450)
[2023-10-16] MEDS ORDERED: ALBUTEROL NEBULIZED 2.5 MG/3 ML INHALATION PRN (10:16)
[2023-10-16 10:20] LABS: ALT 41 U/L (4-34); AST 105 U/L (14-36); African American GFR (CKD) 45 (>60 ml/min/1.73 sqM); Albumin 2.6 g/dL (3.5-5.0); Alkaline Phosphatase 175 U/L (38-126); Anion Gap 6 mmol/L; Blood Urea Nitrogen 48 mg/dL (7-17); Calcium 9.7 mg/dL (8.4-10.2); Carbon Dioxide 17 mmol/L (22-30); Chloride 120 mmol/L (98-107); Glucose 74 mg/dL (74-99); Magnesium 1.7 mg/dL (1.6-2.3); Non-African American GFR(CKD) 39 (>60 ml/min/1.73 sqM); Potassium 3.9 mmol/L (3.5-5.1); Sodium 143 mmol/L (137-145); Total Bilirubin 1.3 mg/dL (0.2-1.3); Total Protein 5.7 g/dL (6.3-8.2)
--- NOTE | 2023-10-16 10:52 | P.PN ---
Subjective Patient is seen in follow-up for acute kidney injury and hypercalcemia. Currently on half-normal saline. Has [place] catheter. Nonoliguric. Renal function improving. Calcium level normal. Mentation improved. Calcium level trending down. Vital signs are stable. General: No acute distress. HEENT: Head exam is unremarkable. LUNGS: No audible rhonchi or wheezes. HEART: Rate and Rhythm are regular. ABDOMEN: Nontender. EXTREMITITES: No edema. Objective - Vital Signs Vital signs: Vital Signs Temp 97.2 F L 10/16/23 04:00 Pulse 84 10/16/23 08:45 Resp 22 10/16/23 04:00 BP 151/79 10/16/23 04:00 Pulse Ox 97 10/16/23 04:00 FiO2 Intake & Output 10/15/23 10/16/23 10/16/23 18:59 06:59 18:59 Output Total 1140 Balance -1140 Output: Urine 1140 Other: Voiding Method Indwelling Catheter Indwelling Catheter - Labs CBC & Chem 7: 10/16/23 09:29 10/16/23 09:29 Labs: Abnormal Lab Results - Last 24 Hours (Table) 10/12/23 10/14/23 10/15/23 Range/Units 11:01 07:41 11:34 WBC 14.6 H (3.8-10.6) k/uL RBC 3.67 L (3.80-5.40) m/uL MCV (80.0-100.0) fL RDW 16.6 H (11.5-15.5) % Plt Count 63 L (150-450) k/uL Chloride (98-107) mmol/L Carbon Dioxide (22-30) mmol/L BUN (7-17) mg/dL Creatinine (0.52-1.04) mg/dL AST (14-36) U/L ALT (4-34) U/L Alkaline Phosphatase (38-126) U/L Total Protein (6.3-8.2) g/dL Albumin (3.5-5.0) g/dL Albumin (PEP) 2.82 L (3.80-4.90) g/dL [id number] 0.46 H (0.10-0.40) g/dL Free [place] LC, Quant 5.85 H (0.33-1.94) mg/dL 10/15/23 10/16/23 10/16/23 Range/Units 11:34 09:29 09:29 WBC 12.3 H (3.8-10.6) k/uL RBC 3.58 L (3.80-5.40) m/uL MCV 100.2 H (80.0-100.0) fL RDW 16.4 H (11.5-15.5) % Plt Count 40 L (150-450) k/uL Chloride 123 H 120 H (98-107) mmol/L Carbon Dioxide 17 L 17 L (22-30) mmol/L BUN 54 H 48 H (7-17) mg/dL Creatinine 1.50 H 1.35 H (0.52-1.04) mg/dL AST 83 H 105 H (14-36) U/L ALT 41 H (4-34) U/L Alkaline Phosphatase 165 H 175 H (38-126) U/L Total Protein 5.7 L 5.7 L (6.3-8.2) g/dL Albumin 2.6 L 2.6 L (3.5-5.0) g/dL Albumin (PEP) (3.80-4.90) g/dL Snxay-0-[id number] (0.10-0.40) g/dL Free [place] LC, Quant (0.33-1.94) mg/dL Assessment and Plan Plan: Assessment: 1. Acute kidney injury secondary to hypercalcemia induced ATN. Renal function improving. Creatinine 1.35 today. creatinine in December 2022 was near 0.9. UA benign. No hydronephrosis noted on kidney ultrasound. 2. Hypercalcemia secondary to volume contraction, calcium and vitamin D supplementation. Calcium level trending down. PTH appropriately suppressed at 11.4. Vitamin D level elevated at 126. Calcitriol level 34. SUZI level 78. No monoclonality noted on serum immunofixation. 3. Hypokalemia from poor intake and diuretic use. Improved. 4. Pneumonia on antibiotics. 5. Status post fall. CK level 127. 6. Hypernatremia from lack of oral water intake. Improved. 7. Metabolic acidosis secondary to acute kidney injury and IV fluids. On oral bicarb. Plan: Maintain half-normal saline. Decrease rate to 100 cc an hour. 400 units IM calcitonin x 2 doses given October 12, 2023. Status post IV Lasix given October 12, 2023. Status post Zometa given October 12, 2023. Encouraged oral intake. Avoid nephrotoxins. Continue to monitor renal function and urine output. 2 g sodium bicarb IV push today.
[2023-10-16 11:46] LABS: Glucose,Whole Blood 78 mg/dL (70-110)
[2023-10-16] MEDS: SODIUM BICARB 8.4% 50 ML SYR (1 MEQ/ML) IV STA (12:29)
--- NOTE | 2023-10-16 13:29 | P.PN ---
Subjective Progress Note Date: 10/16/23 Principal diagnosis: Altered mental status. Patient is a 73-year-old white female with past medical history significant for asthma, diabetes mellitus, hyperlipidemia, coronary artery disease with previous PCI/stent, obstructive sleep apnea, among other reported comorbidities. Patient is currently altered, and unable to verbally provide any information for HPI. No obvious focal deficits. She does follow simple commands. I am unsure of the patient's baseline mentation. Unable to contact family listed in demographics. Voicemail was left. On review of the ER documentation, patient reportedly sustained a fall earlier or at least found down on the ground. She was noted to be severely dyspneic when evaluated by ER room physician. Patient is currently on a 2 L nasal cannula. Follow-up ABG as a PaO2 of 68, pCO2 of 44, pH of 7.39. Chest x-ray taken on admission shows increasing interstitial opacities in the mid to lower lung trivedi, possible atypical pneumonia or interstitial pneumonitis. Patient has been started on azithromycin and Rocephin in the emergency room. CBC on arrival: WBC count 10, hemoglobin 12.3, hematocrit 37.9, platelets 80,000. BMP on arrival: Sodium 138, potassium 3.2, chloride 104, serum bicarb 26, BUN 55, creatinine 2.56, glucose 107. Patient's calcium was severely elevated at 17. Likely explaining patient's AMS. Parathyroid hormone pending. No documented malignancies. No documented lithium, thiazides, etc. Does take vitamin D. Patient was given a dose of Zometa. LFTs mildly elevated. Troponins elevated at 0.289 and 0.257 respectively. NT proBNP 1020. EKG on arrival shows sinus tachycardia, Q waves noted in leads I and aVL, and ST depressions in V1 and V2. Afebrile. Hemodynamics are currently stable. Progress note dated October 13, 2023. This is a 73-year-old female seen again in room 367. She has a history of chronic bronchial asthma, diabetes, hyperlipidemia, CAD, with previous PCI and stent placement, sleep apnea, among other things. The patient was seen in the emergency department, and could provide no additional history. She had a very altered mental status. She was discovered on laboratory evaluation to have a calcium that was 17. She was seen by nephrology. She was given calcitonin, Zometa, Lasix, and IV saline administration. Currently, she is on 2 L of oxygen. Her most recent calcium is 15. She is getting saline at 150 cc an hour. Current labs include a white count 15.3, hemoglobin 11.7, hematocrit 36, and a platelet count of 81,000. Sodium 144, potassium 4, chlorides 113, CO2 22, anion gap 9, BUN 61, creatinine 2.07. Glucose is 123. Calcium is down to 12.6. AST is 80. Albumin is 2.9. Blood cultures are currently negative or pending. Brain CT is negative for anything acute. Ultrasound of the abdomen, shows no evidence of hydronephrosis. Progress note dated October 14, 2023. This is a 73-year-old female who is seen today in room 367. The patient was admitted with a diagnosis of asthma, diabetes, hyperlipidemia, CAD, previous PCI and stent placement, sleep apnea. The patient was admitted with mental status changes, was found to have quite an elevated calcium. Today's calcium is down to 11. She is on 2 L of oxygen. She continues on saline, at 150 cc an hour. She previously received Zometa, calcitonin, and Lasix. Sodium 149, potassium 4.2, chlorides 123, CO2 18, BUN 55, creatinine 1.66, glucose 104, calcium 11, magnesium 1.7. Blood cultures are currently negative. Progress note dated October 15, 2023. 73-year-old female seen today in room 367. The patient was admitted with a diagnosis of asthma, diabetes, hyperlipidemia, CAD, previous PCI, and stent placement, as well as sleep apnea syndrome. The patient was noted to have an altered mental status, and had a very elevated calcium on admission. The patient is still very confused. She is receiving half-normal saline at 150 cc an hour. She is on room air. Yesterday's calcium was 11. Today's calcium is 10. White count 14.6, hemoglobin 9.7, macro 36.1, and platelet count 63,000. Sodium 145, potassium 4.1, chlorides 123, CO2 17, anion gap 5, BUN 54, and creatinine 1.50. Blood cultures are negative. Progress note dated October 16, 2023. 73-year-old female seen today in room 367. The patient is on room air. Blood cultures are negative. She is on half-normal saline at 150 cc an hour. The patient's budesonide and formoterol, are switched to Symbicort, and are updrafts, given on a scheduled basis, can be given as needed. Her respiratory status is very stable. Current labs include a white count 12.3, hemoglobin 11.9, hematocrit 35.9, and a platelet count of 40,000. Sodium 143, potassium 3.9, chlorides 120, CO2 17, BUN 48, creatinine 1.35. The patient's calcium is 9.7, down from 10. Her overall mental status is improved. Objective - Vital Signs Vital signs: Vital Signs Temp 97.2 F L 10/16/23 11:53 Pulse 82 10/16/23 11:53 Resp 20 10/16/23 11:53 BP 109/65 10/16/23 11:53 Pulse Ox 95 10/16/23 11:53 FiO2 Intake & Output 10/15/23 10/16/23 10/16/23 18:59 06:59 18:59 Output Total 1140 Balance -1140 Output: Urine 1140 Other: Voiding Method Indwelling Catheter Indwelling Catheter Indwelling Catheter - Exam No acute distress, confused, not able to give much of the history. HEENT examination is grossly unremarkable. Mucous membranes are moist. No oral lesions. Neck supple. Full range of motion. No adenopathy thyromegaly or neck vein distention. Cardiovascular examination reveals regular rhythm rate. S1-S2 normal. No S3 or S4. No discernible murmur noted. Heart rate 1 bpm. Lungs reveal clear breath sounds. Breath sounds are equal bilaterally. No adventitious lung sounds including wheezes rhonchi or crackles. Room air saturation is 94 %. Abdomen soft bowel sounds are heard. No masses or tenderness. Extremities are intact. No cyanosis clubbing or edema. Skin is without rash or lesion. Neurologic examination is brief but nonfocal. - Labs CBC & Chem 7: 10/16/23 09:29 10/16/23 09:29 Labs: Abnormal Lab Results - Last 24 Hours (Table) 10/12/23 10/16/23 10/16/23 Range/Units 11:01 09: 09:29 WBC 12.3 H (3.8-10.6) k/uL RBC 3.58 L (3.80-5.40) m/uL MCV 100.2 H (80.0-100.0) fL RDW 16.4 H (11.5-15.5) % Plt Count 40 L (150-450) k/uL Chloride 120 H (98-107) mmol/L Carbon Dioxide 17 L (22-30) mmol/L BUN 48 H (7-17) mg/dL Creatinine 1.35 H (0.52-1.04) mg/dL AST 105 H (14-36) U/L ALT 41 H (4-34) U/L Alkaline Phosphatase 175 H (38-126) U/L Total Protein 5.7 L (6.3-8.2) g/dL Albumin 2.6 L (3.5-5.0) g/dL Albumin (PEP) 2.82 L (3.80-4.90) g/dL [id number] 0.46 H (0.10-0.40) g/dL Assessment and Plan Assessment: Acute hypoxemic respiratory failure, with possible mild asthma exacerbation. Severe hypercalcemia, likely causing patient's mental status changes. Hypernatremia and hyperchloremia, secondary to continued infusion of saline IV. History of recent fall. Elevated troponins. Acute kidney injury. Thrombocytopenia. Type 2 diabetes mellitus. Essential hypertension. Hyperlipidemia. CAD with previous stent placement. History of obstructive sleep apnea syndrome, not on CPAP. History of previous tobacco use. Plan: Plan dated October 13, 2023. The patient's calcium has come down nicely to 12.6, the patient's mental status is a bit improved. Labs, x-rays, and medications are reviewed. Patient's procalcitonin level is elevated at 0.74. Labs, x-rays, and medications are reviewed. Patient continues on albuterol, ipratropium bromide, Pulmicort, formoterol, and Solu-Medrol. She also continues on Singulair. She has not admitted to any respiratory distress or difficulty. She does not have any conversational dyspnea or use of accessory muscles. We will continue to follow make recommendations along the way. Prognosis is guarded. Plan dated October 14, 2023. The patient's calcium is down to 11, and she continues on oxygen at 2 L, and saline at 150 cc an hour. Her electrolyte profile shows hypernatremia And hyperchloremia, secondary to ongoing infusion of saline. The IV should be changed by the primary service, or nephrology. Labs, x-rays, and medications are reviewed. We will continue to follow make recommendations along the way. Prognosis is guarded. Plan dated October 15, 2023. Today's calcium is 10. The patient is still very confused. She does not know where she is at. Labs, x-rays, and medications are reviewed. She is on room air. She is getting half-normal saline at 150 cc an hour. We will continue to follow make recommendations. Prognosis is guarded. Her asthma seems to be under excellent control. Plan dated October 16, 2023. The patient's calcium is down to 9.7. Her level of confusion has improved. The patient has no specific complaints especially as it relates to her respiratory status. She denies any shortness of breath, cough, wheezing, chest tightness, or phlegm production. Labs, x-rays, and medications are reviewed. We will continue to follow the patient, make recommendations along the way. Her budesonide and formoterol are converted to Symbicort. In addition, her updrafts, are made primarily as needed. Time with Patient: Less than 30
[2023-10-16 16:35] LABS: Glucose,Whole Blood 104 mg/dL (70-110)
[2023-10-16 19:44] LABS: Glucose,Whole Blood 115 mg/dL (70-110)
--- NOTE | 2023-10-16 20:29 | P.PN ---
Subjective Progress Note Date: 10/16/23 Care is assumed today from the patients primary physician. Patient is continued on IV rocephin with concerns for an asthma exacerbation and procalcitonin level was mildly elevated at 0.74. Not complaining of shortness of breath today. Mentation seems slightly improved. Renal function is improving with creatinine down to 1.50 today and calcium has normalized down to 9.7. Magnesium is 1.7 today. LFTs are increasing. Review of Systems Constitutional: Denied any fatigue denied any fever. Cardio vascular: denied any chest pain, palpitations Gastrointestinal: denied any nausea, vomiting, diarrhea Pulmonary: Denied any shortness of breath cough Neurologic denied any new focal deficits All inpatient medications were reviewed and appropriate changes in these medications as dictated in the interval history and assessment and plan. PHYSICAL EXAMINATION: GENERAL: The patient is alert and oriented x3, not in any acute distress. Well developed, well nourished. HEENT: Pupils are round and equally reacting to light. EOMI. No scleral icterus. No conjunctival pallor. Normocephalic, atraumatic. No pharyngeal erythema. No thyromegaly. CARDIOVASCULAR: S1 and S2 present. No murmurs, rubs, or gallops. PULMONARY: Chest is clear to auscultation, no wheezing or crackles. ABDOMEN: Soft, nontender, nondistended, normoactive bowel sounds. No palpable organomegaly. MUSCULOSKELETAL: No joint swelling or deformity. EXTREMITIES: No cyanosis, clubbing, or pedal edema. NEUROLOGICAL: Gross neurological examination did not reveal any focal deficits. SKIN: No rashes. Assessment and Plan Acute asthma exacerbation on IV rocephin can be discontinued after 5 day course, maintained on symbicort and albuterol as needed Acute hypoxemic respiratory failure secondary to above Altered mental status acute metabolic encephalopathy due to the renal impairment and hypercalcemia Hypercalcemia induced ATN/acute kidney injury improving nephrology following Hyperchloremia and metabolic acidosis from ANAMIKA and IV fluids patient has received a dose of sodium bicarbonate today and continues on 0.45 normal saline. Continues on oral sodium bicarbonate. Creatinine down to 1.35. Hypercalcemia from calcium and vit D supplementation and volume contraction. Patient has received calcitonin, and zometa. Also IV lasix. Calcium level has normalized. Diabetes Mellitus type 2 Hypertension Hx of coronary artery disease with prior PCI Hx of obstructive sleep apnea does not use a CPAP. GI prophylaxis DVT prophylaxis Full Code Repeat blood work in the AM. Continue indwelling saini catheter. PT/OT consultation. Monitor LFTs repeat CMP in the AM. The impression and plan of care has been dictated by Shamika Lorenz, Nurse Practitioner as directed. Dr. Alexa MD I have performed a history and physical examination and medical decision making of this patient, discussed the same with the dictator, and agree with the dictators assessment and plan as written, documented as a scribe. Based on total visit time, I have performed more than 50% of this visit. Objective - Vital Signs Vital signs: Vital Signs Temp 97.6 F 10/16/23 16:00 Pulse 79 10/16/23 16:00 Resp 20 10/16/23 16:00 BP 118/86 10/16/23 16:00 Pulse Ox 94 L 10/16/23 16:00 FiO2 Intake & Output 10/16/23 10/16/23 10/17/23 06:59 18:59 06:59 Intake Total 1340 Output Total 1140 500 Balance -1140 840 Intake: Intake, IV Titration 1250 Amount Sodium Chloride 0.45% 1, 1200 000 ml @ 100 mls/hr IV . Q10H [facility] Rx#:[id number] cefTRIAXone 2 gm In 50 Sodium Chloride 0.9% 50 ml @ 100 mls/hr IVPB Q24HR [facility] Rx#:[id number] Oral 90 Output: Urine 1140 500 Other: Voiding Method Indwelling Catheter Indwelling Catheter - Labs CBC & Chem 7: 10/16/23 09:29 10/16/23 09:29 Labs: Abnormal Lab Results - Last 24 Hours (Table) 10/12/23 10/16/23 10/16/23 Range/Units 11:01 09:29 09:29 WBC 12.3 H (3.8-10.6) k/uL RBC 3.58 L (3.80-5.40) m/uL MCV 100.2 H (80.0-100.0) fL RDW 16.4 H (11.5-15.5) % Plt Count 40 L (150-450) k/uL Chloride 120 H (98-107) mmol/L Carbon Dioxide 17 L (22-30) mmol/L BUN 48 H (7-17) mg/dL Creatinine 1.35 H (0.52-1.04) mg/dL POC Glucose (mg/dL) (70-110) mg/dL AST 105 H (14-36) U/L ALT 41 H (4-34) U/L Alkaline Phosphatase 175 H (38-126) U/L Total Protein 5.7 L (6.3-8.2) g/dL Albumin 2.6 L (3.5-5.0) g/dL Albumin (PEP) 2.82 L (3.80-4.90) g/dL [id number] 0.46 H (0.10-0.40) g/dL 10/16/23 Range/Units 19:43 WBC (3.8-10.6) k/uL RBC (3.80-5.40) m/uL MCV (80.0-100.0) fL RDW (11.5-15.5) % Plt Count (150-450) k/uL Chloride (98-107) mmol/L Carbon Dioxide (22-30) mmol/L BUN (7-17) mg/dL Creatinine (0.52-1.04) mg/dL POC Glucose (mg/dL) 115 H (70-110) mg/dL AST (14-36) U/L ALT (4-34) U/L Alkaline Phosphatase (38-126) U/L Total Protein (6.3-8.2) g/dL Albumin (3.5-5.0) g/dL Albumin (PEP) (3.80-4.90) g/dL [id number] (0.10-0.40) g/dL Assessment and Plan Time with Patient: Less than 30
[2023-10-16] MEDS: HEPARIN SODIUM,PORCINE 5,000 UNIT/ML 1 ML VIAL SQ SCH (20:48)
[2023-10-16] MEDS: SYMBICORT 160-4.5 MCG INHALER INHALATION SCH (21:32)
[2023-10-17 06:18] LABS: Glucose,Whole Blood 72 mg/dL (70-110)
--- NOTE | 2023-10-17 09:13 | P.PN ---
Subjective Progress Note Date: 10/17/23 Principal diagnosis: Change in mental status The patient is a pleasant 73-year-old female patient with a past medical history significant for coronary artery disease with prior PCI as well as overweight and hypertension and dyslipidemia and multiple comorbid conditions was admitted to the hospital with a change in mental status and she was in renal failure and also was found to have abnormal cardiac enzymes with abnormal troponin. We advised medical treatment only. She has improved in terms of mentation significantly over the last few days. The echo showed normal LV systolic function but the study was technically very difficult with possible echodensity on the ventricular surface of the aortic valve October 16, 2023 The patient was seen and evaluated this morning which she continues to be confused but she is doing slightly better from that standpoint of view. No ind ication of any chest pain or chest discomfort. The creatinine has been improving as well. We felt that the change in mental status is likely secondary to metabolic encephalopathy secondary to renal failure. The echo as described above. With that being said she might benefit from transesophageal echocardiogram once her mentation improved better. Meanwhile I am going to obtain a blood culture. The examination is remarkable for stable vital signs with a soft systolic murmur and clear breathing sounds bilaterally and no edema was noted October 17, 2023 The patient was seen and evaluated this morning. She continues to be confused but her confusion and mental status has improved overall through her hospital stay. Kidney function remains stable. No symptoms of chest pain or chest discomfort. She is euvolemic. The echo showed an echodensity on the aortic valve and she need to undergo transesophageal echocardiogram once her mentation improving. Blood culture was ordered yesterday to rule out endocarditis. The examination is remarkable for stable vital signs with regular rate and rhythm and soft systolic murmur and clear breathing sounds bilaterally and no edema was noted Assessment Change in mental status Acute renal failure Possible metabolic encephalopathy Evidence of myocardial injury with no ischemia Abnormal echocardiogram as described above Multiple comorbid conditions Plan Continue the current medical regimen Follow-up on the blood culture Possible transesophageal echocardiogram if there is any concern about endocarditis Objective - Vital Signs Vital signs: Vital Signs Temp 97.5 F L 10/17/23 04:00 Pulse 76 10/17/23 04:00 Resp 18 10/17/23 04:00 BP 105/63 10/17/23 04:00 Pulse Ox 94 L 10/17/23 04:00 FiO2 Intake & Output 10/16/23 10/17/23 10/17/23 18:59 06:59 18:59 Intake Total 1340 Output Total 500 375 Balance 840 -375 Intake: Intake, IV Titration 1250 Amount Sodium Chloride 0.45% 1, 1200 000 ml @ 100 mls/hr IV . Q10H [facility] Rx#:[id number] cefTRIAXone 2 gm In 50 Sodium Chloride 0.9% 50 ml @ 100 mls/hr IVPB Q24HR [facility] Rx#:[id number] Oral 90 Output: Urine 500 375 Other: Voiding Method Indwelling Catheter Indwelling Catheter - Labs CBC & Chem 7: 10/16/23 09:29 10/16/23 09:29 Labs: Abnormal Lab Results - Last 24 Hours (Table) 10/16/23 10/16/23 10/16/23 Range/Units 09:29 09:29 19:43 WBC 12.3 H (3.8-10.6) k/uL RBC 3.58 L (3.80-5.40) m/uL MCV 100.2 H (80.0-100.0) fL RDW 16.4 H (11.5-15.5) % Plt Count 40 L (150-450) k/uL Chloride 120 H (98-107) mmol/L Carbon Dioxide 17 L (22-30) mmol/L BUN 48 H (7-17) mg/dL Creatinine 1.35 H (0.52-1.04) mg/dL POC Glucose (mg/dL) 115 H (70-110) mg/dL AST 105 H (14-36) U/L ALT 41 H (4-34) U/L Alkaline Phosphatase 175 H (38-126) U/L Total Protein 5.7 L (6.3-8.2) g/dL Albumin 2.6 L (3.5-5.0) g/dL Microbiology - Last 24 Hours (Table) 10/11/23 20:41 Blood Culture - Final Blood 10/11/23 17:15 Blood Culture - Final Blood
[2023-10-17 09:19] LABS: ALT 43 U/L (4-34); AST 123 U/L (14-36); African American GFR (CKD) 49 (>60 ml/min/1.73 sqM); Albumin 2.6 g/dL (3.5-5.0); Alkaline Phosphatase 194 U/L (38-126); Anion Gap 5 mmol/L; Blood Urea Nitrogen 46 mg/dL (7-17); Calcium 9.1 mg/dL (8.4-10.2); Carbon Dioxide 21 mmol/L (22-30); Chloride 118 mmol/L (98-107); Glucose 73 mg/dL (74-99); Magnesium 1.6 mg/dL (1.6-2.3); Non-African American GFR(CKD) 42 (>60 ml/min/1.73 sqM); Potassium 3.9 mmol/L (3.5-5.1); Sodium 144 mmol/L (137-145); Total Bilirubin 1.5 mg/dL (0.2-1.3); Total Protein 5.6 g/dL (6.3-8.2)
[2023-10-17 09:54] LABS: Anisocytosis Slight; HCT 35.6 % (34.0-46.0); HGB 11.5 gm/dL (11.4-16.0); MCH 31.8 pg (25.0-35.0); MCHC 32.3 g/dL (31.0-37.0); MCV 98.2 fL (80.0-100.0); Macrocytosis Slight; Mean Platelet Volume 9.9; Poikilocytosis Slight; RBC 3.63 m/uL (3.80-5.40); RDW 16.2 % (11.5-15.5)
[2023-10-17 09:55] LABS: Platelet Count 46 k/uL (150-450)
--- NOTE | 2023-10-17 10:42 | P.PN ---
Subjective Patient is seen in follow-up for acute kidney injury and hypercalcemia. Currently on half-normal saline. Has [place]a catheter. Nonoliguric. Renal function improving. Calcium level now normal. Vital signs are stable. General: No acute distress. HEENT: Head exam is unremarkable. LUNGS: No audible rhonchi or wheezes. HEART: Rate and Rhythm are regular. ABDOMEN: Nontender. EXTREMITITES: No edema. Objective - Vital Signs Vital signs: Vital Signs Temp 97.5 F L 10/17/23 04:00 Pulse 76 10/17/23 04:00 Resp 18 10/17/23 04:00 BP 105/63 10/17/23 04:00 Pulse Ox 94 L 10/17/23 04:00 FiO2 Intake & Output 10/16/23 10/17/23 10/17/23 18:59 06:59 18:59 Intake Total 1340 Output Total 500 375 Balance 840 -375 Intake: Intake, IV Titration 1250 Amount Sodium Chloride 0.45% 1, 1200 000 ml @ 100 mls/hr IV . Q10H [facility] Rx#:[id number] cefTRIAXone 2 gm In 50 Sodium Chloride 0.9% 50 ml @ 100 mls/hr IVPB Q24HR [facility] Rx#:[id number] Oral 90 Output: Urine 500 375 Other: Voiding Method Indwelling Catheter Indwelling Catheter - Labs CBC & Chem 7: 10/17/23 07:51 10/17/23 07:51 Labs: Abnormal Lab Results - Last 24 Hours (Table) 10/16/23 10/17/23 10/17/23 Range/Units 19:43 07:51 07:51 WBC 12.3 H (3.8-10.6) k/uL RBC 3.63 L (3.80-5.40) m/uL RDW 16.2 H (11.5-15.5) % Neutrophils # 8.6 H (1.3-7.7) k/uL Chloride 118 H (98-107) mmol/L Carbon Dioxide 21 L (22-30) mmol/L BUN 46 H (7-17) mg/dL Creatinine 1.26 H (0.52-1.04) mg/dL Glucose 73 L (74-99) mg/dL POC Glucose (mg/dL) 115 H (70-110) mg/dL Total Bilirubin 1.5 H (0.2-1.3) mg/dL AST 123 H (14-36) U/L ALT 43 H (4-34) U/L Alkaline Phosphatase 194 H (38-126) U/L Total Protein 5.6 L (6.3-8.2) g/dL Albumin 2.6 L (3.5-5.0) g/dL Microbiology - Last 24 Hours (Table) 10/11/23 20:41 Blood Culture - Final Blood 10/11/23 17:15 Blood Culture - Final Blood Assessment and Plan Plan: Assessment: 1. Acute kidney injury secondary to hypercalcemia induced ATN. Renal function improving. Creatinine 1.26 today. creatinine in December 2022 was near 0.9. UA benign. No hydronephrosis noted on kidney ultrasound. 2. Hypercalcemia secondary to volume contraction, calcium and vitamin D supplementation. Calcium level trending down. PTH appropriately suppressed at 11.4. Vitamin D level elevated at 126. Calcitriol level 34. SUZI level 78. No monoclonality noted on serum immunofixation. 3. Hypokalemia from poor intake and diuretic use. Improved. 4. Pneumonia on antibiotics. 5. Status post fall. CK level 127. 6. Hypernatremia from lack of oral water intake. Improved. 7. Metabolic acidosis secondary to acute kidney injury and IV fluids. On oral bicarb. Better. Plan: Maintain half-normal saline. 400 units IM calcitonin x 2 doses given October 12, 2023. Status post IV Lasix given October 12, 2023. Status post Zometa given October 12, 2023. Encouraged oral intake. Avoid nephrotoxins. Continue to monitor renal function and urine output.
[2023-10-17 11:28] LABS: Glucose,Whole Blood 87 mg/dL (70-110)
[2023-10-17] MEDS: MAGNESIUM SULFATE-D5W PMX 1 GM in DEXTROSE/WATER 1 100ML.BAG IVPB SCH (12:03)
[2023-10-17 12:50] LABS: Band Neutrophils % 3 %; Eosinophils # (M) 0.12 k/uL (0-0.7); Lymphocytes # (M) 0.94 k/uL (1.0-4.8); Metamyelocytes # (M) 0.12 k/uL (0); Metamyelocytes % 1 %; Monocytes # (M) 0.35 k/uL (0-1.0); Myelocytes # (M) 0.12 k/uL (0); Myelocytes % 1 %; Neutrophils % (M) 85 %; Nucleated Red Blood Cells 5 /100 WBC (0-0); Total Cells Counted 200; WBC 11.7 k/uL (3.8-10.6)
--- NOTE | 2023-10-17 12:57 | P.PN ---
Subjective Progress Note Date: 10/17/23 Principal diagnosis: Altered mental status. Patient is a 73-year-old white female with past medical history significant for asthma, diabetes mellitus, hyperlipidemia, coronary artery disease with previous PCI/stent, obstructive sleep apnea, among other reported comorbidities. Patient is currently altered, and unable to verbally provide any information for HPI. No obvious focal deficits. She does follow simple commands. I am unsure of the patient's baseline mentation. Unable to contact family listed in demographics. Voicemail was left. On review of the ER documentation, patient reportedly sustained a fall earlier or at least found down on the ground. She was noted to be severely dyspneic when evaluated by ER room physician. Patient is currently on a 2 L nasal cannula. Follow-up ABG as a PaO2 of 68, pCO2 of 44, pH of 7.39. Chest x-ray taken on admission shows increasing interstitial opacities in the mid to lower lung trivedi, possible atypical pneumonia or interstitial pneumonitis. Patient has been started on azithromycin and Rocephin in the emergency room. CBC on arrival: WBC count 10, hemoglobin 12.3, hematocrit 37.9, platelets 80,000. BMP on arrival: Sodium 138, potassium 3.2, chloride 104, serum bicarb 26, BUN 55, creatinine 2.56, glucose 107. Patient's calcium was severely elevated at 17. Likely explaining patient's AMS. Parathyroid hormone pending. No documented malignancies. No documented lithium, thiazides, etc. Does take vitamin D. Patient was given a dose of Zometa. LFTs mildly elevated. Troponins elevated at 0.289 and 0.257 respectively. NT proBNP 1020. EKG on arrival shows sinus tachycardia, Q waves noted in leads I and aVL, and ST depressions in V1 and V2. Afebrile. Hemodynamics are currently stable. Progress note dated October 13, 2023. This is a 73-year-old female seen again in room 367. She has a history of chronic bronchial asthma, diabetes, hyperlipidemia, CAD, with previous PCI and stent placement, sleep apnea, among other things. The patient was seen in the emergency department, and could provide no additional history. She had a very altered mental status. She was discovered on laboratory evaluation to have a calcium that was 17. She was seen by nephrology. She was given calcitonin, Zometa, Lasix, and IV saline administration. Currently, she is on 2 L of oxygen. Her most recent calcium is 15. She is getting saline at 150 cc an hour. Current labs include a white count 15.3, hemoglobin 11.7, hematocrit 36, and a platelet count of 81,000. Sodium 144, potassium 4, chlorides 113, CO2 22, anion gap 9, BUN 61, creatinine 2.07. Glucose is 123. Calcium is down to 12.6. AST is 80. Albumin is 2.9. Blood cultures are currently negative or pending. Brain CT is negative for anything acute. Ultrasound of the abdomen, shows no evidence of hydronephrosis. Progress note dated October 14, 2023. This is a 73-year-old female who is seen today in room 367. The patient was admitted with a diagnosis of asthma, diabetes, hyperlipidemia, CAD, previous PCI and stent placement, sleep apnea. The patient was admitted with mental status changes, was found to have quite an elevated calcium. Today's calcium is down to 11. She is on 2 L of oxygen. She continues on saline, at 150 cc an hour. She previously received Zometa, calcitonin, and Lasix. Sodium 149, potassium 4.2, chlorides 123, CO2 18, BUN 55, creatinine 1.66, glucose 104, calcium 11, magnesium 1.7. Blood cultures are currently negative. Progress note dated October 15, 2023. 73-year-old female seen today in room 367. The patient was admitted with a diagnosis of asthma, diabetes, hyperlipidemia, CAD, previous PCI, and stent placement, as well as sleep apnea syndrome. The patient was noted to have an altered mental status, and had a very elevated calcium on admission. The patient is still very confused. She is receiving half-normal saline at 150 cc an hour. She is on room air. Yesterday's calcium was 11. Today's calcium is 10. White count 14.6, hemoglobin 9.7, macro 36.1, and platelet count 63,000. Sodium 145, potassium 4.1, chlorides 123, CO2 17, anion gap 5, BUN 54, and creatinine 1.50. Blood cultures are negative. Progress note dated October 16, 2023. 73-year-old female seen today in room 367. The patient is on room air. Blood cultures are negative. She is on half-normal saline at 150 cc an hour. The patient's budesonide and formoterol, are switched to Symbicort, and are updrafts, given on a scheduled basis, can be given as needed. Her respiratory status is very stable. Current labs include a white count 12.3, hemoglobin 11.9, hematocrit 35.9, and a platelet count of 40,000. Sodium 143, potassium 3.9, chlorides 120, CO2 17, BUN 48, creatinine 1.35. The patient's calcium is 9.7, down from 10. Her overall mental status is improved. Progress note dated October 17, 2023. 73-year-old female who was seen in room 367. The patient is currently on room air. She continues with half-normal saline at 100 cc an hour. Her calcium today was 9.1. The rest of her labs include a white count 11.7, hemoglobin 11.5, hematocrit 35.6, and a platelet count of 46,000. Sodium 144, potassium 3.9, chlorides 118, CO2 21, BUN 46, and creatinine 1.26. Glucose is 87. Calcium 9.1. Albumin was 2.6. The patient is cheerfully demented. She is quite confused, although, her mental status has improved somewhat since her calcium has come down. Objective - Vital Signs Vital signs: Vital Signs Temp 97.4 F L 10/17/23 11:36 Pulse 82 10/17/23 11:36 Resp 20 10/17/23 11:36 BP 109/58 10/17/23 11:36 Pulse Ox 94 L 10/17/23 11:36 FiO2 Intake & Output 10/16/23 10/17/23 10/17/23 18:59 06:59 18:59 Intake Total 1340 118 Output Total 500 375 725 Balance 945 -230 -256 Intake: Intake, IV Titration 1250 Amount Sodium Chloride 0.45% 1, 1200 000 ml @ 100 mls/hr IV . Q10H [facility] Rx#:[id number] cefTRIAXone 2 gm In 50 Sodium Chloride 0.9% 50 ml @ 100 mls/hr IVPB Q24HR [facility] Rx#:[id number] Oral 90 118 Output: Urine 500 375 725 Other: Voiding Method Indwelling Catheter Indwelling Catheter Indwelling Catheter - Exam No acute distress, confused, not able to give much of the history. Patient is on room air. HEENT examination is grossly unremarkable. Mucous membranes are moist. No oral lesions. Neck supple. Full range of motion. No adenopathy thyromegaly or neck vein distention. Cardiovascular examination reveals regular rhythm rate. S1-S2 normal. No S3 or S4. No discernible murmur noted. Heart rate 82 bpm. Lungs reveal clear breath sounds. Breath sounds are equal bilaterally. No adventitious lung sounds including wheezes rhonchi or crackles. Room air s aturation is 94 %. Abdomen soft bowel sounds are heard. No masses or tenderness. Extremities are intact. No cyanosis clubbing or edema. Skin is without rash or lesion. Neurologic examination is brief but nonfocal. - Labs CBC & Chem 7: 10/17/23 07:51 10/17/23 07:51 Labs: Abnormal Lab Results - Last 24 Hours (Table) 10/16/23 10/17/23 10/17/23 Range/Units 19:43 07:51 07:51 WBC 11.7 H (3.8-10.6) k/uL RBC 3.63 L (3.80-5.40) m/uL RDW 16.2 H (11.5-15.5) % Plt Count 46 L (150-450) k/uL Neutrophils # (Manual) 10.20 H (1.3-7.7) k/uL Lymphocytes # (Manual) 0.94 L (1.0-4.8) k/uL Metamyelocytes # (Man) 0.12 H (0) k/uL Myelocytes # (Manual) 0.12 H (0) k/uL Nucleated RBCs 5 H (0-0) /100 WBC Chloride 118 H (98-107) mmol/L Carbon Dioxide 21 L (22-30) mmol/L BUN 46 H (7-17) mg/dL Creatinine 1.26 H (0.52-1.04) mg/dL Glucose 73 L (74-99) mg/dL POC Glucose (mg/dL) 115 H (70-110) mg/dL Total Bilirubin 1.5 H (0.2-1.3) mg/dL AST 123 H (14-36) U/L ALT 43 H (4-34) U/L Alkaline Phosphatase 194 H (38-126) U/L Total Protein 5.6 L (6.3-8.2) g/dL Albumin 2.6 L (3.5-5.0) g/dL Microbiology - Last 24 Hours (Table) 10/11/23 20:41 Blood Culture - Final Blood 10/11/23 17:15 Blood Culture - Final Blood Assessment and Plan Assessment: Acute hypoxemic respiratory failure, with possible mild asthma exacerbation, improved. Severe hypercalcemia, likely causing patient's mental status changes. Hypernatremia and hyperchloremia, secondary to continued infusion of saline IV. History of recent fall. Elevated troponins. Acute kidney injury. Thrombocytopenia. Type 2 diabetes mellitus. Essential hypertension. Hyperlipidemia. CAD with previous stent placement. History of obstructive sleep apnea syndrome, not on CPAP. History of previous tobacco use. Plan: Plan dated October 13, 2023. The patient's calcium has come down nicely to 12.6, the patient's mental status is a bit improved. Labs, x-rays, and medications are reviewed. Patient's procalcitonin level is elevated at 0.74. Labs, x-rays, and medications are reviewed. Patient continues on albuterol, ipratropium bromide, Pulmicort, formoterol, and Solu-Medrol. She also continues on Singulair. She has not admitted to any respiratory distress or difficulty. She does not have any conversational dyspnea or use of accessory muscles. We will continue to follow make recommendations along the way. Prognosis is guarded. Plan dated October 14, 2023. The patient's calcium is down to 11, and she continues on oxygen at 2 L, and saline at 150 cc an hour. Her electrolyte profile shows hypernatremia And hyperchloremia, secondary to ongoing infusion of saline. The IV should be changed by the primary service, or nephrology. Labs, x-rays, and medications are reviewed. We will continue to follow make recommendations along the way. Prognosis is guarded. Plan dated October 15, 2023. Today's calcium is 10. The patient is still very confused. She does not know where she is at. Labs, x-rays, and medications are reviewed. She is on room air. She is getting half-normal saline at 150 cc an hour. We will continue to follow make recommendations. Prognosis is guarded. Her asthma seems to be u nder excellent control. Plan dated October 16, 2023. The patient's calcium is down to 9.7. Her level of confusion has improved. The patient has no specific complaints especially as it relates to her respiratory status. She denies any shortness of breath, cough, wheezing, chest tightness, or phlegm production. Labs, x-rays, and medications are reviewed. We will continue to follow the patient, make recommendations along the way. Her budesonide and formoterol are converted to Symbicort. In addition, her updrafts, are made primarily as needed. Plan dated October 17, 2023. The patient is still a bit confused, and is happily demented. Labs, x-rays, medications are reviewed. We will continue to follow the patient. Her respiratory status is stable. She has been weaned off of supplemental oxygen. The patient is currently on Symbicort. She is getting updrafts as needed. Prognosis is guarded. Family members are at the bedside. All questions are answered. Time with Patient: Less than 30
[2023-10-17 16:22] LABS: Glucose,Whole Blood 110 mg/dL (70-110)
--- NOTE | 2023-10-17 18:34 | P.PN ---
Subjective Progress Note Date: 10/17/23 Care is assumed today from the patients primary physician. Patient is continued on IV rocephin with concerns for an asthma exacerbation and procalcitonin level was mildly elevated at 0.74. Not complaining of shortness of breath today. Mentation seems slightly improved. Renal function is improving with creatinine down to 1.50 today and calcium has normalized down to 9.7. Magnesium is 1.7 today. LFTs are increasing. 10/17/2023 Patient is evaluated today resting in bed. Patient states her shortness of breath has improved. Currently on room air. Mentation improving. White blood cell count 11.7, platelet count 46. BUN 46, creatinine 1.26. Sodium 144, potassium 3.9, magnesium 1.6. Bilirubin 1.5, AST/ALT elevated. Review of Systems Constitutional: Denied any fatigue denied any fever. Cardio vascular: denied any chest pain, palpitations Gastrointestinal: denied any nausea, vomiting, diarrhea Pulmonary: Denied any shortness of breath cough Neurologic denied any new focal deficits All inpatient medications were reviewed and appropriate changes in these medications as dictated in the interval history and assessment and plan. PHYSICAL EXAMINATION: GENERAL: The patient is alert and oriented x3, not in any acute distress. Well developed, well nourished. HEENT: Pupils are round and equally reacting to light. EOMI. No scleral icterus. No conjunctival pallor. Normocephalic, atraumatic. No pharyngeal erythema. No thyromegaly. CARDIOVASCULAR: S1 and S2 present. No murmurs, rubs, or gallops. PULMONARY: Chest is clear to auscultation, no wheezing or crackles. ABDOMEN: Soft, nontender, nondistended, normoactive bowel sounds. No palpable organomegaly. MUSCULOSKELETAL: No joint swelling or deformity. EXTREMITIES: No cyanosis, clubbing, or pedal edema. NEUROLOGICAL: Gross neurological examination did not reveal any focal deficits. SKIN: No rashes. Assessment and Plan Acute asthma exacerbation on IV rocephin can be discontinued after 5 day course, maintained on symbicort and albuterol as needed Acute hypoxemic respiratory failure secondary to above patient has been weaned to room air. Altered mental status acute metabolic encephalopathy due to the renal impairment and hypercalcemia, mentation improving. Hypercalcemia induced ATN/acute kidney injury improving nephrology following. Calcium has normalized. Hyperchloremia and metabolic acidosis from ANAMIKA and IV fluids patient has received a dose of sodium bicarbonate today and continues on 0.45 normal saline. Continues on oral sodium bicarbonate. Creatinine down to 1.26 Hypercalcemia from calcium and vit D supplementation and volume contraction. Patient has received calcitonin, and zometa. Also IV lasix. Calcium level has normalized. Diabetes Mellitus type 2 Transaminitis and hyperbilirubinemia repeat CMP in the AM. Hypertension Hx of coronary artery disease with prior PCI Hx of obstructive sleep apnea does not use a CPAP. GI prophylaxis DVT prophylaxis Full Code Repeat blood work in the AM. Continue indwelling saini catheter. PT/OT consultation. Monitor LFTs repeat CMP in the AM. The impression and plan of care has been dictated by Shamika Lorenz Nurse Practitioner as directed. Dr. Alexa MD I have performed a history and physical examination and medical decision making of this patient, discussed the same with the dictator, and agree with the dictators assessment and plan as written, documented as a scribe. Based on total visit time, I have performed more than 50% of this visit. Objective - Vital Signs Vital signs: Vital Signs Temp 97.7 F 10/17/23 16:29 Pulse 83 10/17/23 16:29 Resp 20 10/17/23 16:29 BP 114/59 10/17/23 16:29 Pulse Ox 92 L 10/17/23 16:29 FiO2 Intake & Output 10/16/23 10/17/23 10/17/23 18:59 06:59 18:59 Intake Total 1340 1318 Output Total 410 223 4781 Balance 840 -375 268 Intake: Intake, IV Titration 1250 1200 Amount Magnesium Sulfate-D5w Pmx 200 1 gm In Dextrose/Water 1 100ml.bag @ 100 mls/hr IVPB Q1H [facility] Rx#: [id number] Sodium Chloride 0.45% 1, 1200 950 000 ml @ 100 mls/hr IV . Q10H [facility] Rx#:[id number] cefTRIAXone 2 gm In 50 50 Sodium Chloride 0.9% 50 ml @ 100 mls/hr IVPB Q24HR [facility] Rx#:[id number] Oral 90 118 Output: Urine 654 021 2107 Other: Voiding Method Indwelling Catheter Indwelling Catheter Indwelling Catheter - Labs CBC & Chem 7: 10/17/23 07:51 10/17/23 07:51 Labs: Abnormal Lab Results - Last 24 Hours (Table) 10/16/23 10/17/23 10/17/23 Range/Units 19:43 07:51 07:51 WBC 11.7 H (3.8-10.6) k/uL RBC 3.63 L (3.80-5.40) m/uL RDW 16.2 H (11.5-15.5) % Plt Count 46 L (150-450) k/uL Neutrophils # (Manual) 10.20 H (1.3-7.7) k/uL Lymphocytes # (Manual) 0.94 L (1.0-4.8) k/uL Metamyelocytes # (Man) 0.12 H (0) k/uL Myelocytes # (Manual) 0.12 H (0) k/uL Nucleated RBCs 5 H (0-0) /100 WBC Chloride 118 H (98-107) mmol/L Carbon Dioxide 21 L (22-30) mmol/L BUN 46 H (7-17) mg/dL Creatinine 1.26 H (0.52-1.04) mg/dL Glucose 73 L (74-99) mg/dL POC Glucose (mg/dL) 115 H (70-110) mg/dL Total Bilirubin 1.5 H (0.2-1.3) mg/dL AST 123 H (14-36) U/L ALT 43 H (4-34) U/L Alkaline Phosphatase 194 H (38-126) U/L Total Protein 5.6 L (6.3-8.2) g/dL Albumin 2.6 L (3.5-5.0) g/dL Microbiology - Last 24 Hours (Table) 10/11/23 20:41 Blood Culture - Final Blood 10/11/23 17:15 Blood Culture - Final Blood Assessment and Plan Time with Patient: Less than 30
[2023-10-17 20:05] LABS: Glucose,Whole Blood 141 mg/dL (70-110)
[2023-10-18 05:54] LABS: Glucose,Whole Blood 80 mg/dL (70-110)
[2023-10-18 08:18] LABS: ALT 42 U/L (4-34); AST 115 U/L (14-36); African American GFR (CKD) 51 (>60 ml/min/1.73 sqM); Albumin 2.5 g/dL (3.5-5.0); Alkaline Phosphatase 198 U/L (38-126); Anion Gap 5 mmol/L; Blood Urea Nitrogen 41 mg/dL (7-17); Carbon Dioxide 22 mmol/L (22-30); Chloride 115 mmol/L (98-107); Glucose 80 mg/dL (74-99); Magnesium 2.1 mg/dL (1.6-2.3); Non-African American GFR(CKD) 44 (>60 ml/min/1.73 sqM); Potassium 3.8 mmol/L (3.5-5.1); Sodium 142 mmol/L (137-145); Total Bilirubin 1.5 mg/dL (0.2-1.3); Total Protein 5.4 g/dL (6.3-8.2)
--- NOTE | 2023-10-18 08:36 | P.PN ---
Subjective Progress Note Date: 10/18/23 This is a 73-year-old female who originally presented to the emergency department with complaints of shortness of breath and possible recent fall. Chest x-ray on admission showed possible atypical pneumonia or interstitial pneumonitis. Patient remains on azithromycin and Rocephin. Patient's calcium level severely elevated on admission at 17. Repeat calcium for this morning is 11. Patient is more arousable today, she is able to follow simple commands. 10/18/2023 Patient seen and evaluated sitting up in bed this morning. She is more lucid, however still somewhat confused. Calcium level today is 9.0. Liver enzymes are elevated. Patient remains on a pured diet. Mayorga catheter still in place. Vital signs are stable. Objective - Vital Signs Vital signs: Vital Signs Temp 98.1 F 10/17/23 20:00 Pulse 84 10/18/23 04:46 Resp 22 10/18/23 04:46 BP 129/73 10/18/23 04:46 Pulse Ox 95 10/18/23 04:46 FiO2 Intake & Output 10/17/23 10/18/23 10/18/23 18:59 06:59 18:59 Intake Total 1318 Output Total 1050 700 Balance 268 -700 Intake: Intake, IV Titration 1200 Amount Magnesium Sulfate-D5w Pmx 200 1 gm In Dextrose/Water 1 100ml.bag @ 100 mls/hr IVPB Q1H [facility] Rx#: [id number] Sodium Chloride 0.45% 1, 950 000 ml @ 100 mls/hr IV . Q10H [facility] Rx#:[id number] cefTRIAXone 2 gm In 50 Sodium Chloride 0.9% 50 ml @ 100 mls/hr IVPB Q24HR [facility] Rx#:[id number] Oral 118 Output: Urine 1050 700 Other: Voiding Method Indwelling Catheter Indwelling Catheter - Constitutional General appearance: Present: cooperative, no acute distress - EENT Eyes: Present: PERRLA - Neck Neck: Present: normal ROM. Absent: lymphadenopathy, rigidity - Respiratory Respiratory: bilateral: diminished - Cardiovascular Rhythm: regular Heart sounds: normal: S1, S2 - Gastrointestinal General gastrointestinal: Present: soft. Absent: tenderness - Integumentary Integumentary: Present: normal, normal turgor - Psychiatric Psychiatric Comment(s): Alert to person - Labs CBC & Chem 7: 10/17/23 07:51 10/18/23 06:47 Labs: Abnormal Lab Results - Last 24 Hours (Table) 10/17/23 10/17/23 10/17/23 Range/Units 07:51 07:51 20:03 WBC 11.7 H (3.8-10.6) k/uL RBC 3.63 L (3.80-5.40) m/uL RDW 16.2 H (11.5-15.5) % Plt Count 46 L (150-450) k/uL Neutrophils # (Manual) 10.20 H (1.3-7.7) k/uL Lymphocytes # (Manual) 0.94 L (1.0-4.8) k/uL Metamyelocytes # (Man) 0.12 H (0) k/uL Myelocytes # (Manual) 0.12 H (0) k/uL Nucleated RBCs 5 H (0-0) /100 WBC Chloride 118 H (98-107) mmol/L Carbon Dioxide 21 L (22-30) mmol/L BUN 46 H (7-17) mg/dL Creatinine 1.26 H (0.52-1.04) mg/dL Glucose 73 L (74-99) mg/dL POC Glucose (mg/dL) 141 H (70-110) mg/dL Total Bilirubin 1.5 H (0.2-1.3) mg/dL AST 123 H (14-36) U/L ALT 43 H (4-34) U/L Alkaline Phosphatase 194 H (38-126) U/L Total Protein 5.6 L (6.3-8.2) g/dL Albumin 2.6 L (3.5-5.0) g/dL 10/18/23 Range/Units 06:47 WBC (3.8-10.6) k/uL RBC (3.80-5.40) m/uL RDW (11.5-15.5) % Plt Count (150-450) k/uL Neutrophils # (Manual) (1.3-7.7) k/uL Lymphocytes # (Manual) (1.0-4.8) k/uL Metamyelocytes # (Man) (0) k/uL Myelocytes # (Manual) (0) k/uL Nucleated RBCs (0-0) /100 WBC Chloride 115 H (98-107) mmol/L Carbon Dioxide (22-30) mmol/L BUN 41 H (7-17) mg/dL Creatinine 1.23 H (0.52-1.04) mg/dL Glucose (74-99) mg/dL POC Glucose (mg/dL) (70-110) mg/dL Total Bilirubin 1.5 H (0.2-1.3) mg/dL AST 115 H (14-36) U/L ALT 42 H (4-34) U/L Alkaline Phosphatase 198 H (38-126) U/L Total Protein 5.4 L (6.3-8.2) g/dL Albumin 2.5 L (3.5-5.0) g/dL Microbiology - Last 24 Hours (Table) 10/16/23 13:35 Blood Culture - Preliminary Blood 10/11/23 20:41 Blood Culture - Final Blood 10/11/23 17:15 Blood Culture - Final Blood Assessment and Plan (1) Hypoxia Current Visit: Yes Status: Acute Code(s): R09.02 - HYPOXEMIA SNOMED Code(s ): 377830494 (2) Hypercalcemia Current Visit: Yes Status: Acute Code(s): E83.52 - HYPERCALCEMIA SNOMED Code(s): 88929942 (3) Diabetes mellitus Current Visit: Yes Status: Acute Code(s): E11.9 - TYPE 2 DIABETES MELLITUS WITHOUT COMPLICATIONS SNOMED Code(s): 36025598 (4) Elevated troponin Current Visit: Yes Status: Acute Code(s): R79.89 - OTHER SPECIFIED ABNORMAL FINDINGS OF BLOOD CHEMISTRY SNOMED Code(s): 722667441 (5) Community acquired pneumonia Current Visit: Yes Status: Acute Code(s): J18.9 - PNEUMONIA, UNSPECIFIED ORGANISM SNOMED Code(s): 755531866 (6) Hypertension Current Visit: Yes Status: Acute Code(s): I10 - ESSENTIAL (PRIMARY) HYPERTENSION SNOMED Code(s): 56032065 (7) Hyperlipidemia Current Visit: Yes Status: Acute Code(s): E78.5 - HYPERLIPIDEMIA, UNSPE CIFIED SNOMED Code(s): 88581254 (8) CAD (coronary artery disease) Current Visit: Yes Status: Acute Code(s): I25.10 - ATHSCL HEART DISEASE OF [place] CORONARY ARTERY W/O ANG PCTRS SNOMED Code(s): 96085193 (9) Acute exacerbation of chronic obstructive airways disease Current Visit: Yes Status: Acute Code(s): J44.1 - CHRONIC OBSTRUCTIVE PULMONARY DISEASE W (ACUTE) EXACERBATION SNOMED Code(s): 715774128 (10) Altered mental status Current Visit: Yes Status: Acute Code(s): R41.82 - ALTERED MENTAL STATUS, UNSPECIFIED SNOMED Code(s): 217308577 (11) History of fall Current Visit: Yes Status: Acute Code(s): Z91.81 - HISTORY OF FALLING SNOMED Code(s): 044968648 Plan: Appreciate multiple consultants. Recheck CBC and CMP in the morning Recheck liver enzymes tomorrow Patient seen and evaluated by nurse practitioner, physician in agreement with pl an
[2023-10-18 11:47] LABS: Glucose,Whole Blood 96 mg/dL (70-110)
--- NOTE | 2023-10-18 12:03 | P.PN ---
Subjective HISTORY OF PRESENT ILLNESS: The patient is a pleasant 73-year-old female patient with a past medical history significant for coronary artery disease with prior PCI as well as overweight and hypertension and dyslipidemia and multiple comorbid conditions was admitted to the hospital with a change in mental status and she was in renal failure and also was found to have abnormal cardiac enzymes with abnormal troponin. We advised medical treatment only. She has improved in terms of mentation significantly over the last few days. The echo showed normal LV systolic function but the study was technically very difficult with possible echodensity on the ventricular surface of the aortic valve October 16, 2023 The patient was seen and evaluated this morning which she continues to be confused but she is doing slightly better from that standpoint of view. No indication of any chest pain or chest discomfort. The creatinine has been improving as well. We felt that the change in mental status is likely secondary to metabolic encephalopathy secondary to renal failure. The echo as described above. With that being said she might benefit from transesophageal echocardiogram once her mentation improved better. Meanwhile I am going to obtain a blood culture. The examination is remarkable for stable vital signs with a soft systolic murmur and clear breathing sounds bilaterally and no edema was noted October 17, 2023 The patient was seen and evaluated this morning. She continues to be confused but her confusion and mental status has improved overall through her hospital stay. Kidney function remains stable. No symptoms of chest pain or chest discomfort. She is euvolemic. The echo showed an echodensity on the aortic valve and she need to undergo transesophageal echocardiogram once her mentation improving. Blood culture was ordered yesterday to rule out endocarditis. The examination is remarkable for stable vital signs with regular rate and rhythm and soft systolic murmur and clear breathing sounds bilaterally and no edema was noted 10/18/2023 Patient examined this morning at the bedside. Patient is alert and oriented. She currently denies any chest pain or pressure. She denies any shortness of breath. Patient had blood cultures drawn on October 10 and also on October 15 which are both negative. Patient has been afebrile. PHYSICAL EXAM: VITAL SIGNS: Reviewed. GENERAL: Well-developed in no acute distress. NECK: Supple. No JVD or thyromegaly LUNGS: Respirations even and unlabored. Lungs with expiratory wheezing noted. HEART: Regular rate and rhythm. S1 and S2 heard. EXTREMITIES: Normal range of motion. No clubbing or cyanosis. Peripheral pulses intact. No lower extremity edema ASSESSMENT: Altered mental status may be secondary to acute renal failure/metabolic encephalopathy, resolved Acute kidney injury, improving Transaminitis Coronary artery disease with previous PCI Echodensity noted on echocardiogram, blood cultures negative, endocarditis unlikely Hypertension Hyperlipidemia Former nicotine dependence PLAN: Continue current cardiac medications Patient had blood cultures drawn on October 10 and also on October 15 which are both negative. Patient has been afebrile. Endocarditis is very unlikely as patients blood cultures have been negative x 2 No plans for YUE at this time We will sign off. Please reconsult if needed Nurse practitioner note has been reviewed by physician. Signing provider agrees with the documented findings, assessment, and plan of care documented by CUTTER MACHINE TENDER as a scribe. Objective - Vital Signs Vital signs: Vital Signs Temp 97.5 F L 10/18/23 08:42 Pulse 86 10/18/23 08:42 Resp 19 10/18/23 08:42 BP 123/64 10/18/23 08:42 Pulse Ox 100 10/18/23 08:54 FiO2 Intake & Output 10/17/23 10/18/23 10/18/23 18:59 06:59 18:59 Intake Total 1318 Output Total 1050 700 Balance 268 -700 Intake: Intake, IV Titration 1200 Amount Magnesium Sulfate-D5w Pmx 200 1 gm In Dextrose/Water 1 100ml.bag @ 100 mls/hr IVPB Q1H [facility] Rx#: [id number] Sodium Chloride 0.45% 1, 950 000 ml @ 100 mls/hr IV . Q10H [facility] Rx#:[id number] cefTRIAXone 2 gm In 50 Sodium Chloride 0.9% 50 ml @ 100 mls/hr IVPB Q24HR [facility] Rx#:[id number] Oral 118 Output: Urine 1050 700 Other: Voiding Method Indwelling Catheter Indwelling Catheter Indwelling Catheter - Labs CBC & Chem 7: 10/17/23 07:51 10/18/23 06:47 Labs: Abnormal Lab Results - Last 24 Hours (Table) 10/17/23 10/17/23 10/18/23 Range/Units 07:51 20:03 06:47 WBC 11.7 H (3.8-10.6) k/uL Plt Count 46 L (150-450) k/uL Neutrophils # (Manual) 10.20 H (1.3-7.7) k/uL Lymphocytes # (Manual) 0.94 L (1.0-4.8) k/uL Metamyelocytes # (Man) 0.12 H (0) k/uL Myelocytes # (Manual) 0.12 H (0) k/uL Nucleated RBCs 5 H (0-0) /100 WBC Chloride 115 H (98-107) mmol/L BUN 41 H (7-17) mg/dL Creatinine 1.23 H (0.52-1.04) mg/dL POC Glucose (mg/dL) 141 H (70-110) mg/dL Total Bilirubin 1.5 H (0.2-1.3) mg/dL AST 115 H (14-36) U/L ALT 42 H (4-34) U/L Alkaline Phosphatase 198 H (38-126) U/L Total Protein 5.4 L (6.3-8.2) g/dL Albumin 2.5 L (3.5-5.0) g/dL Microbiology - Last 24 Hours (Table) 10/16/23 13:35 Blood Culture - Preliminary Blood
[2023-10-18 12:17] VITALS: BMI 27.1
--- NOTE | 2023-10-18 14:20 | P.PN ---
Subjective patient is seen for follow-up for acute kidney injury and hypercalcemia. Renal function has improved with serum creatinine at 1.2. Calcium has improved to 9.0. No significant complaints. Objective - Vital Signs Vital signs: Vital Signs Temp 98.1 F 10/18/23 12:53 Pulse 77 10/18/23 12:53 Resp 20 10/18/23 12:53 BP 118/76 10/18/23 12:53 Pulse Ox 96 10/18/23 12:53 FiO2 Intake & Output 10/17/23 10/18/23 10/18/23 18:59 06:59 18:59 Intake Total 1318 Output Total 1050 700 375 Balance 268 700 -375 Weight 58.967 kg Intake: Intake, IV Titration 1200 Amount Magnesium Sulfate-D5w Pmx 200 1 gm In Dextrose/Water 1 100ml.bag @ 100 mls/hr IVPB Q1H [facility] Rx#: [id number] Sodium Chloride 0.45% 1, 950 000 ml @ 100 mls/hr IV . Q10H [facility] Rx#:[id number] cefTRIAXone 2 gm In 50 Sodium Chloride 0.9% 50 ml @ 100 mls/hr IVPB Q24HR [facility] Rx#:[id number] Oral 118 Output: Urine 1050 700 375 Other: Voiding Method Indwelling Catheter Indwelling Catheter Indwelling Catheter - Exam patient is awake, comfortable, no acute distress. Examination of the heart S1 and S2 Examination of the lungs bilateral breath sounds are heard Abdomen is soft nontender Examination of lower extremities shows no significant edema AUTOMATIC SPLICING MACHINE OPERATOR exam grossly intact - Labs CBC & Chem 7: 10/17/23 07:51 10/18/23 06:47 Labs: Abnormal Lab Results - Last 24 Hours (Table) 10/17/23 10/18/23 Range/Units 20:03 06:47 Chloride 115 H (98-107) mmol/L BUN 41 H (7-17) mg/dL Creatinine 1.23 H (0.52-1.04) mg/dL POC Glucose (mg/dL) 141 H (70-110) mg/dL Total Bilirubin 1.5 H (0.2-1.3) mg/dL AST 115 H (14-36) U/L ALT 42 H (4-34) U/L Alkaline Phosphatase 198 H (38-126) U/L Total Protein 5.4 L (6.3-8.2) g/dL Albumin 2.5 L (3.5-5.0) g/dL Microbiology - Last 24 Hours (Table) 10/16/23 13:35 Blood Culture - Preliminary Blood Assessment and Plan Assessment: 1. Acute kidney injury secondary to hypercalcemia induced ATN. Renal function improving. Creatinine 1.23 today. creatinine in December 2022 was near 0.9. UA benign. No hydronephrosis noted on kidney ultrasound. 2. Hypercalcemia secondary to volume contraction, calcium and vitamin D supplementation. Calcium level trending down. PTH appropriately suppressed at 11.4. Vitamin D level elevated at 126. Calcitriol level 34. SUZI level 78. No monoclonality noted on serum immunofixation. 3. Hypokalemia from poor intake and diuretic use. Improved. 4. Pneumonia on antibiotics. 5. Status post fall. CK level 127. 6. Hypernatremia from lack of oral water intake. Improved. 7. Metabolic acidosis secondary to acute kidney injury and IV fluids. On oral bicarb. Better. Plan: continue with IV fluids. Continue with sodium bicarb for now. Repeat labs in a.m.
[2023-10-18 16:19] LABS: Glucose,Whole Blood 88 mg/dL (70-110)
--- NOTE | 2023-10-18 17:26 | P.PN ---
Subjective Progress Note Date: 10/18/23 Patient is a 73-year-old white female with past medical history significant for asthma, diabetes mellitus, hyperlipidemia, coronary artery disease with previous PCI/stent, obstructive sleep apnea, among other reported comorbidities. Patient is currently altered, and unable to verbally provide any information for HPI. No obvious focal deficits. She does follow simple commands. I am unsure of the patient's baseline mentation. Unable to contact family listed in demographics. Voicemail was left. On review of the ER documentation, patient reportedly sustained a fall earlier or at least found down on the ground. She was noted to be severely dyspneic when evaluated by ER room physician. Patient is currently on a 2 L nasal cannula. Follow-up ABG as a PaO2 of 68, pCO2 of 44, pH of 7.39. Chest x-ray taken on admission shows increasing interstitial opacities in the mid to lower lung trivedi, possible atypical pneumonia or interstitial pneumonitis. Patient has been started on azithromycin and Rocephin in the emergency room. CBC on arrival: WBC count 10, hemoglobin 12.3, hematocrit 37.9, platelets 80,000. BMP on arrival: Sodium 138, potassium 3.2, chloride 104, serum bicarb 26, BUN 55, creatinine 2.56, glucose 107. Patient's calcium was severely elevated at 17. Likely explaining patient's AMS. Parathyroid hormone pending. No documented malignancies. No documented lithium, thiazides, etc. Does take vitamin D. Patient was given a dose of Zometa. LFTs mildly elevated. Troponins elevated at 0.289 and 0.257 respectively. NT proBNP 1020. EKG on arrival shows sinus tachycardia, Q waves noted in leads I and aVL, and ST depressions in V1 and V2. Afebrile. Hemodynamics are currently stable. Progress note dated October 13, 2023. This is a 73-year-old female seen again in room 367. She has a history of chronic bronchial asthma, diabetes, hyperlipidemia, CAD, with previous PCI and stent placement, sleep apnea, among other things. The patient was seen in the emergency department, and could provide no additional history. She had a very altered mental status. She was discovered on laboratory evaluation to have a calcium that was 17. She was seen by nephrology. She was given calcitonin, Zometa, Lasix, and IV saline administration. Currently, she is on 2 L of oxygen. Her most recent calcium is 15. She is getting saline at 150 cc an hour. Current labs include a white count 15.3, hemoglobin 11.7, hematocrit 36, and a platelet count of 81,000. Sodium 144, potassium 4, chlorides 113, CO2 22, anion gap 9, BUN 61, creatinine 2.07. Glucose is 123. Calcium is down to 12.6. AST is 80. Albumin is 2.9. Blood cultures are currently negative or pending. Brain CT is negative for anything acute. Ultrasound of the abdomen, shows no evidence of hydronephrosis. Progress note dated October 14, 2023. This is a 73-year-old female who is seen today in room 367. The patient was admitted with a diagnosis of asthma, diabetes, hyperlipidemia, CAD, previous PCI and stent placement, sleep apnea. The patient was admitted with mental status changes, was found to have quite an elevated calcium. Today's calcium is down to 11. She is on 2 L of oxygen. She continues on saline, at 150 cc an hour. She previously received Zometa, calcitonin, and Lasix. Sodium 149, potassium 4.2, chlorides 123, CO2 18, BUN 55, creatinine 1.66, glucose 104, calcium 11, magnesium 1.7. Blood cultures are currently negative. Progress note dated October 15, 2023. 73-year-old female seen today in room 367. The patient was admitted with a diagnosis of asthma, diabetes, hyperlipidemia, CAD, previous PCI, and stent placement, as well as sleep apnea syndrome. The patient was noted to have an altered mental status, and had a very elevated calcium on admission. The patient is still very confused. She is receiving half-normal saline at 150 cc an hour. She is on room air. Yesterday's calcium was 11. Today's calcium is 10. White count 14.6, hemoglobin 9.7, macro 36.1, and platelet count 63,000. Sodium 145, potassium 4.1, chlorides 123, CO2 17, anion gap 5, BUN 54, and creatinine 1.50. Blood cultures are negative. Progress note dated October 16, 2023. 73-year-old female seen today in room 367. The patient is on room air. Blood cultures are negative. She is on half-normal saline at 150 cc an hour. The patient's budesonide and formoterol, are switched to Symbicort, and are up drafts, given on a scheduled basis, can be given as needed. Her respiratory status is very stable. Current labs include a white count 12.3, hemoglobin 11.9, hematocrit 35.9, and a platelet count of 40,000. Sodium 143, potassium 3.9, chlorides 120, CO2 17, BUN 48, creatinine 1.35. The patient's calcium is 9.7, down from 10. Her overall mental status is improved. Progress note dated October 17, 2023. 73-year-old female who was seen in room 367. The patient is currently on room air. She continues with half-normal saline at 100 cc an hour. Her calcium today was 9.1. The rest of her labs include a white count 11.7, hemoglobin 11.5, hematocrit 35.6, and a platelet count of 46,000. Sodium 144, potassium 3.9, chlorides 118, CO2 21, BUN 46, and creatinine 1.26. Glucose is 87. Calcium 9.1. Albumin was 2.6. The patient is cheerfully demented. She is quite confused, although, her mental status has improved somewhat since her calcium has come down. 10/18/2023, patient is being seen for a follow-up. Patient is a poor historian. Probably slightly confused. I am seeing her for hypoxic respiratory failure and patient is currently on 2 L of oxygen with a pulse ox of 96 to 100%. Denies having any respiratory difficulties for now. No reported cough or sputum production. Denies having any chest pain. Blood cultures have been negative thus far. Blood work from today shows a sodium level of 142, BUN is 41 with a creatinine 1.23 and a WBC count is 11.7 with a hemoglobin 11.5 and a platelet count of 46. The patient remains on Bentyl nebulized treatments as needed, Symbicort as maintenance 2 puffs twice a day. Rest of the medications remain unchanged. She is known to have coronary disease with previous PCI, she is obese and she has hypertension hyperlipidemia who presented to us initially with some altered mentation. The patient's mental status has been gradually impr oving. Acute kidney injury is also improving. Cultures have been negative. Procalcitonin level at time of admission was 0.74. CAT scan of the brain done at time of admission showed nonspecific white matter changes without any acute intracranial abnormalities of the echocardiogram that was done on 10/13/2023 showed a preserved LV function with an ejection fraction of 55%, there was a questionable echodensity over the aortic valve leaflets and a YUE was recommended by cardiology. Chest x-ray done at the time of admission on 10/14/2023 showed increased interstitial opacities in the mid lower lung trivedi bilaterally otherwise, no other acute abnormalities noted. Objective - Vital Signs Vital signs: Vital Signs Temp 97.5 F L 10/18/23 08:42 Pulse 86 10/18/23 08:42 Resp 19 10/18/23 08:42 BP 123/64 10/18/23 08:42 Pulse Ox 100 10/18/23 08:54 FiO2 Intake & Output 10/17/23 10/18/23 10/18/23 18:59 06:59 18:59 Intake Total 1318 Output Total 1050 700 Balance 268 -700 Intake: Intake, IV Titration 1200 Amount Magnesium Sulfate-D5w Pmx 200 1 gm In Dextrose/Water 1 100ml.bag @ 100 mls/hr IVPB Q1H [facility] Rx#: [id number] Sodium Chloride 0.45% 1, 950 000 ml @ 100 mls/hr IV . Q10H [facility] Rx#:[id number] cefTRIAXone 2 gm In 50 Sodium Chloride 0.9% 50 ml @ 100 mls/hr IVPB Q24HR [facility] Rx#:[id number] Oral 118 Output: Urine 1050 700 Other: Voiding Method Indwelling Catheter Indwelling Catheter Indwelling Catheter - Exam No acute distress, confused, not able to give much of the history. Patient is on 2 L oxygen by nasal cannula HEENT examination is grossly unremarkable. Mucous membranes are moist. No oral lesions. Neck supple. Full range of motion. No adenopathy thyromegaly or neck vein distention. Cardiovascular examination reveals regular rhythm rate. S1-S2 normal. No S3 or S4. No discernible murmur noted. Lungs reveal clear breath sounds. Breath sounds are equal bilaterally. No adventitious lung sounds including wheezes rhonchi or crackles. . Abdomen soft bowel sounds are heard. No masses or tenderness. Extremities are intact. No cyanosis clubbing or edema. Skin is without rash or lesion. Neurologic examination is brief but nonfocal. - Labs CBC & Chem 7: 10/17/23 07:51 10/18/23 06:47 Labs: Abnormal Lab Results - Last 24 Hours (Table) 10/17/23 10/17/23 10/18/23 Range/Units 07:51 20:03 06:47 WBC 11.7 H (3.8-10.6) k/uL Plt Count 46 L (150-450) k/uL Neutrophils # (Manual) 10.20 H (1.3-7.7) k/uL Lymphocytes # (Manual) 0.94 L (1.0-4.8) k/uL Metamyelocytes # (Man) 0.12 H (0) k/uL Myelocytes # (Manual) 0.12 H (0) k/uL Nucleated RBCs 5 H (0-0) /100 WBC Chloride 115 H (98-107) mmol/L BUN 41 H (7-17) mg/dL Creatinine 1.23 H (0.52-1.04) mg/dL POC Glucose (mg/dL) 141 H (70-110) mg/dL Total Bilirubin 1.5 H (0.2-1.3) mg/dL AST 115 H (14-36) U/L ALT 42 H (4-34) U/L Alkaline Phosphatase 198 H (38-126) U/L Total Protein 5.4 L (6.3-8.2) g/dL Albumin 2.5 L (3.5-5.0) g/dL Microbiology - Last 24 Hours (Table) 10/16/23 13:35 Blood Culture - Preliminary Blood Assessment and Plan Plan: Acute hypoxemic respiratory failure, with possible mild asthma exacerbation, improved. Patient is currently on 2 L oxygen nasal cannula and the patient's pulse ox in the order of 98% Severe hypercalcemia, likely causing patient's mental status changes, improved, This is related to be an volume contraction hypercalcemia and the PTH level is suppressed at 11.4 and a vitamin D level was elevated 126. SUZI level is at 78. No evidence of any monoclonal abnormalities on the serum protein electrophor esis. Altered mental status, improving, rule out metabolic encephalopathy Hypernatremia and hyperchloremia, improved History of recent fall. Elevated troponins. Acute kidney injury, improved creatinine is down to 1.2 Thrombocytopenia, likely chronic Type 2 diabetes mellitus. Essential hypertension. Hyperlipidemia. CAD with previous stent placement. History of obstructive sleep apnea syndrome, not on CPAP. History of previous tobacco use. Abnormal echocardiogram with a questionable density about the aortic valve Plan: Obtain a follow-up chest x-ray in the morning Wean FiO2 to maintain saturation above 90%, currently on 2 L Incentive spirometer Monitor electrolytes Monitor mental status Echocardiogram was reviewed by cardiology and it was decided that there is no need for UYE as the patient's cultures are negative and the patient is afebrile and hemodynamically stable Cultures are negative for now Discontinue the subcu heparin and monitor the platelet count We will continue to follow
[2023-10-18 20:07] LABS: Glucose,Whole Blood 109 mg/dL (70-110)
[2023-10-19 06:10] LABS: Glucose,Whole Blood 81 mg/dL (70-110)
--- NOTE | 2023-10-19 07:40 | XR ---
EXAMINATION TYPE: XR chest 1V DATE OF EXAM: 10/19/2023 HISTORY: Shortness of breath. COMPARISON: 10/11/2023 TECHNIQUE: Single view of the chest is submitted. FINDINGS: Demonstrated are scattered senescent parenchymal change. Patchy density right lower lobe may reflect atelectasis and/or infiltrate. Correlate clinically and p rogress studies are recommended. The heart is stable. Hilar and mediastinal structures are within normal limits. Degenerative changes are seen of the dorsal spine. IMPRESSION: 1. Patchy density right lower lobe may reflect atelectasis and/or infiltrate. Correlate clinically a nd progress studies are recommended.
[2023-10-19 07:41] LABS: Anisocytosis Slight; HGB 10.2 gm/dL (11.4-16.0); MCH 33.5 pg (25.0-35.0); MCHC 33.9 g/dL (31.0-37.0); MCV 98.8 fL (80.0-100.0); Macrocytosis Slight; Poikilocytosis Slight; RBC 3.04 m/uL (3.80-5.40); RDW 17.2 % (11.5-15.5); WBC 13.4 k/uL (3.8-10.6)
[2023-10-19 08:04] LABS: Platelet Count 61 k/uL (150-450)
[2023-10-19 08:18] LABS: ALT 39 U/L (4-34); AST 109 U/L (14-36); African American GFR (CKD) 50 (>60 ml/min/1.73 sqM); Albumin 2.3 g/dL (3.5-5.0); Alkaline Phosphatase 199 U/L (38-126); Anion Gap 5 mmol/L; Blood Urea Nitrogen 38 mg/dL (7-17); Calcium 8.9 mg/dL (8.4-10.2); Carbon Dioxide 22 mmol/L (22-30); Chloride 113 mmol/L (98-107); Glucose 79 mg/dL (74-99); Non-African American GFR(CKD) 43 (>60 ml/min/1.73 sqM); Potassium 3.6 mmol/L (3.5-5.1); Sodium 140 mmol/L (137-145); Total Bilirubin 1.4 mg/dL (0.2-1.3); Total Protein 5.2 g/dL (6.3-8.2)
--- NOTE | 2023-10-19 08:39 | P.PN ---
Subjective Progress Note Date: 10/19/23 This is a 73-year-old female who originally presented to the emergency department with complaints of shortness of breath and possible recent fall. Chest x-ray on admission showed possible atypical pneumonia or interstitial pneumonitis. Patient remains on azithromycin and Rocephin. Patient's calcium level severely elevated on admission at 17. Repeat calcium for this morning is 11. Patient is more arousable today, she is able to follow simple commands. 10/18/2023 Patient seen and evaluated sitting up in bed this morning. She is more lucid, however still somewhat confused. Calcium level today is 9.0. Liver enzymes are elevated. Patient remains on a pured diet. Mayorga catheter still in place. Vital signs are stable. 10/19/2023 Patient seen and evaluated laying in bed this morning. She is more alert and oriented than yesterday. Nursing staff reports she pulled out her [place] during the night. Liver enzymes are starting to trend down. Patient is still quite weak, has not been out of bed yet. Objective - Vital Signs Vital signs: Vital Signs Temp 98.0 F 10/19/23 08:27 Pulse 90 10/19/23 08:27 Resp 19 10/19/23 08:27 BP 124/74 10/19/23 08:27 Pulse Ox 97 10/19/23 08:27 FiO2 Intake & Output 10/18/23 10/19/23 10/19/23 18:59 06:59 18:59 Output Total 575 Balance -575 Weight 58.967 kg Output: Urine 575 Other: Voiding Method Indwelling Catheter Indwelling Catheter # Voids 1 # Bowel Movements 1 - Constitutional General appearance: Present: cooperative, no acute distress - EENT Eyes: Present: PERRLA - Neck Neck: Present: normal ROM. Absent: lymphadenopathy, rigidity - Respiratory Respiratory: bilateral: CTA - Cardiovascular Rhythm: regular Heart sounds: normal: S1, S2 - Gastrointestinal General gastrointestinal: Present: soft. Absent: tenderness - Musculoskeletal Musculoskeletal: Present: generalized weakness - Psychiatric Psychiatric Comment(s): Alert and oriented to person and place - Labs CBC & Chem 7: 10/19/23 07:06 10/19/23 07:06 Labs: Abnormal Lab Results - Last 24 Hours (Table) 10/19/23 10/19/23 Range/Units 07:06 07:06 WBC 13.4 H (3.8-10.6) k/uL RBC 3.04 L (3.80-5.40) m/uL Hgb 10.2 L (11.4-16.0) gm/dL Hct 30.0 L (34.0-46.0) % RDW 17.2 H (11.5-15.5) % Plt Count 61 L (150-450) k/uL Chloride 113 H (98-107) mmol/L BUN 38 H (7-17) mg/dL Creatinine 1.25 H (0.52-1.04) mg/dL Total Bilirubin 1.4 H (0.2-1.3) mg/dL AST 109 H (14-36) U/L ALT 39 H (4-34) U/L Alkaline Phosphatase 199 H (38-126) U/L Total Protein 5.2 L (6.3-8.2) g/dL Albumin 2.3 L (3.5-5.0) g/dL Microbiology - Last 24 Hours (Table) 10/16/23 13:35 Blood Culture - Preliminary Blood Assessment and Plan (1) Hypoxia Current Visit: Yes Status: Acute Code(s): R09.02 - HYPOXEMIA SNOMED Code(s): 895579763 (2) Hypercalcemia Current Visit: Yes Status: Acute Code(s): E83.52 - HYPERCALCEMIA SNOMED Code(s): 74588015 (3) Diabetes mellitus Current Visit: Yes Status: Acute Code(s): E11.9 - TYPE 2 DIABETES MELLITUS WITHOUT COMPLICATIONS SNOMED Code(s): 98638940 (4) Elevated troponin Current Visit: Yes Status: Acute Code(s): R79.89 - OTHER SPECIFIED ABNORMAL FINDINGS OF BLOOD CHEMISTRY SNOMED Code(s): 882589198 (5) Community acquired pneumonia Current Visit: Yes Status: Acute Code(s): J18.9 - PNEUMONIA, UNSPECIFIED ORGANISM SNOMED Code(s): 764329132 (6) Hypertension Current Visit: Yes Status: Acute Code(s): I10 - ESSENTIAL (PRIMARY) HYPERTENSION SNOMED Code(s): 59599866 (7) Hyperlipidemia Current Visit: Yes Status: Acute Code(s): E78.5 - HYPERLIPIDEMIA, UNSPECIFIED SNOMED Code(s): 18895406 (8) CAD (coronary artery disease) Current Visit: Yes Status: Acute Code(s): I25.10 - ATHSCL HEART DISEASE OF [place] CORONARY ARTERY W/O ANG PCTRS SNOMED Code(s): 24205564 (9) Acute exacerbation of chronic obstructive airways disease Current Visit: Yes Status: Acute Code(s): J44.1 - CHRONIC OBSTRUCTIVE PULMON CARMELO DISEASE W (ACUTE) EXACERBATION SNOMED Code(s): 137642292 (10) Altered mental status Current Visit: Yes Status: Acute Code(s): R41.82 - ALTERED MENTAL STATUS, UNSPECIFIED SNOMED Code(s): 879310880 (11) History of fall Current Visit: Yes Status: Acute Code(s): Z91.81 - HISTORY OF FALLING SNOMED Code(s): 712178229 Plan: Recheck CBC and CMP in the morning Will attempt to get patient up with physical therapy and evaluate her gait. Patient seen and evaluated by nurse practitioner, physician in agreement with plan
[2023-10-19 11:06] LABS: Glucose,Whole Blood 112 mg/dL (70-110)
--- NOTE | 2023-10-19 12:34 | P.PN ---
Subjective patient is seen for follow-up for acute kidney injury and hypercalcemia. Renal function has improved with serum creatinine at 1.2. Calcium has improved to 8.9 No significant complaints. Objective - Vital Signs Vital signs: Vital Signs Temp 98.0 F 10/19/23 08:27 Pulse 80 10/19/23 11:14 Resp 18 10/19/23 11:14 BP 120/73 10/19/23 11:14 Pulse Ox 97 10/19/23 11:14 FiO2 Intake & Output 10/18/23 10/19/23 10/19/23 18:59 06:59 18:59 Intake Total 306 Output Total 575 Balance -575 306 Weight 58.967 kg Intake: Oral 306 Output: Urine 575 Other: Voiding Method Indwelling Catheter Indwelling Catheter # Voids 1 # Bowel Movements 1 - Exam patient is awake, comfortable, no acute distress. Examination of the heart S1 and S2 Examination of the lungs bilateral breath sounds are heard Abdomen is soft nontender Examination of lower extremities shows no significant edema ASSISTANT MANAGER QUALITY MANAGEMENT exam grossly intact - Labs CBC & Chem 7: 10/19/23 07:06 10/19/23 07:06 Labs: Abnormal Lab Results - Last 24 Hours (Table) 10/19/23 10/19/23 10/19/23 Range/Units 07:06 07:06 11:05 WBC 13.4 H (3.8-10.6) k/uL RBC 3.04 L (3.80-5.40) m/uL Hgb 10.2 L (11.4-16.0) gm/dL Hct 30.0 L (34.0-46.0) % RDW 17.2 H (11.5-15.5) % Plt Count 61 L (150-450) k/uL Chloride 113 H (98-107) mmol/L BUN 38 H (7-17) mg/dL Creatinine 1.25 H (0.52-1.04) mg/dL POC Glucose (mg/dL) 112 H (70-110) mg/dL Total Bilirubin 1.4 H (0.2-1.3) mg/dL AST 109 H (14-36) U/L ALT 39 H (4-34) U/L Alkaline Phosphatase 199 H (38-126) U/L Total Protein 5.2 L (6.3-8.2) g/dL Albumin 2.3 L (3.5-5.0) g/dL Microbiology - Last 24 Hours (Table) 10/16/23 13:35 Blood Culture - Preliminary Blood Assessment and Plan Assessment: 1. Acute kidney injury secondary to hypercalcemia induced ATN. Renal function improving. Creatinine 1.25 today. creatinine in December 2022 was near 0.9. UA benign. No hydronephrosis noted on kidney ultrasound. 2. Hypercalcemia secondary to volume contraction, calcium and vitamin D supplementation. Calcium level trending down. PTH appropriately suppressed at 11.4. Vitamin D level elevated at 126. Calcitriol level 34. SUZI level 78. No monoclonality noted on serum immunofixation. 3. Hypokalemia from poor intake and diuretic use. Improved. 4. Pneumonia on antibiotics. 5. Status post fall. CK level 127. 6. Hypernatremia from lack of oral water intake. Improved. 7. Metabolic acidosis secondary to acute kidney injury and IV fluids. On oral bicarb. Better. Plan: continue with IV fluids. decrease rate. Continue with sodium bicarb for now. Repeat labs in a.m.
--- NOTE | 2023-10-19 12:56 | P.PN ---
Subjective Progress Note Date: 10/19/23 Patient is a 73-year-old white female with past medical history significant for asthma, diabetes mellitus, hyperlipidemia, coronary artery disease with previous PCI/stent, obstructive sleep apnea, among other reported comorbidities. Patient is currently altered, and unable to verbally provide any information for HPI. No obvious focal deficits. She does follow simple commands. I am unsure of the patient's baseline mentation. Unable to contact family listed in demographics. Voicemail was left. On review of the ER documentation, patient reportedly sustained a fall earlier or at least found down on the ground. She was noted to be severely dyspneic when evaluated by ER room physician. Patient is currently on a 2 L nasal cannula. Follow-up ABG as a PaO2 of 68, pCO2 of 44, pH of 7.39. Chest x-ray taken on admission shows increasing interstitial opacities in the mid to lower lung trivedi, possible atypical pneumonia or interstitial pneumonitis. Patient has been started on azithromycin and Rocephin in the emergency room. CBC on arrival: WBC count 10, hemoglobin 12.3, hematocrit 37.9, platelets 80,000. BMP on arrival: Sodium 138, potassium 3.2, chloride 104, serum bicarb 26, BUN 55, creatinine 2.56, glucose 107. Patient's calcium was severely elevated at 17. Likely explaining patient's AMS. Parathyroid hormone pending. No documented malignancies. No documented lithium, thiazides, etc. Does take vitamin D. Patient was given a dose of Zometa. LFTs mildly elevated. Troponins elevated at 0.289 and 0.257 respectively. NT proBNP 1020. EKG on arrival shows sinus tachycardia, Q waves noted in leads I and aVL, and ST depressions in V1 and V2. Afebrile. Hemodynamics are currently stable. Progress note dated October 13, 2023. This is a 73-year-old female seen again in room 367. She has a history of chronic bronchial asthma, diabetes, hyperlipidemia, CAD, with previous PCI and stent placement, sleep apnea, among other things. The patient was seen in the emergency department, and could provide no additional history. She had a very altered mental status. She was discovered on laboratory evaluation to have a calcium that was 17. She was seen by nephrology. She was given calcitonin, Zometa, Lasix, and IV saline administration. Currently, she is on 2 L of oxygen. Her most recent calcium is 15. She is getting saline at 150 cc an hour. Current labs include a white count 15.3, hemoglobin 11.7, hematocrit 36, and a platelet count of 81,000. Sodium 144, potassium 4, chlorides 113, CO2 22, anion gap 9, BUN 61, creatinine 2.07. Glucose is 123. Calcium is down to 12.6. AST is 80. Albumin is 2.9. Blood cultures are currently negative or pending. Brain CT is negative for anything acute. Ultrasound of the abdomen, shows no evidence of hydronephrosis. Progress note dated October 14, 2023. This is a 73-year-old female who is seen today in room 367. The patient was admitted with a diagnosis of asthma, diabetes, hyperlipidemia, CAD, previous PCI and stent placement, sleep apnea. The patient was admitted with mental status changes, was found to have quite an elevated calcium. Today's calcium is down to 11. She is on 2 L of oxygen. She continues on saline, at 150 cc an hour. She previously received Zometa, calcitonin, and Lasix. Sodium 149, potassium 4.2, chlorides 123, CO2 18, BUN 55, creatinine 1.66, glucose 104, calcium 11, magnesium 1.7. Blood cultures are currently negative. Progress note dated October 15, 2023. 73-year-old female seen today in room 367. The patient was admitted with a diagnosis of asthma, diabetes, hyperlipidemia, CAD, previous PCI, and stent placement, as well as sleep apnea syndrome. The patient was noted to have an altered mental status, and had a very elevated calcium on admission. The patient is still very confused. She is receiving half-normal saline at 150 cc an hour. She is on room air. Yesterday's calcium was 11. Today's calcium is 10. White count 14.6, hemoglobin 9.7, macro 36.1, and platelet count 63,000. Sodium 145, potassium 4.1, chlorides 123, CO2 17, anion gap 5, BUN 54, and creatinine 1.50. Blood cultures are negative. Progress note dated October 16, 2023. 73-year-old female seen today in room 367. The patient is on room air. Blood cultures are negative. She is on half-normal saline at 150 cc an hour. The patient's budesonide and formoterol, are switched to Symbicort, and are up drafts, given on a scheduled basis, can be given as needed. Her respiratory status is very stable. Current labs include a white count 12.3, hemoglobin 11.9, hematocrit 35.9, and a platelet count of 40,000. Sodium 143, potassium 3.9, chlorides 120, CO2 17, BUN 48, creatinine 1.35. The patient's calcium is 9.7, down from 10. Her overall mental status is improved. Progress note dated October 17, 2023. 73-year-old female who was seen in room 367. The patient is currently on room air. She continues with half-normal saline at 100 cc an hour. Her calcium today was 9.1. The rest of her labs include a white count 11.7, hemoglobin 11.5, hematocrit 35.6, and a platelet count of 46,000. Sodium 144, potassium 3.9, chlorides 118, CO2 21, BUN 46, and creatinine 1.26. Glucose is 87. Calcium 9.1. Albumin was 2.6. The patient is cheerfully demented. She is quite confused, although, her mental status has improved somewhat since her calcium has come down. 10/18/2023, patient is being seen for a follow-up. Patient is a poor historian. Probably slightly confused. I am seeing her for hypoxic respiratory failure and patient is currently on 2 L of oxygen with a pulse ox of 96 to 100%. Denies having any respiratory difficulties for now. No reported cough or sputum production. Denies having any chest pain. Blood cultures have been negative thus far. Blood work from today shows a sodium level of 142, BUN is 41 with a creatinine 1.23 and a WBC count is 11.7 with a hemoglobin 11.5 and a platelet count of 46. The patient remains on Bentyl nebulized treatments as needed, Symbicort as maintenance 2 puffs twice a day. Rest of the medications remain unchanged. She is known to have coronary disease with previous PCI, she is obese and she has hypertension hyperlipidemia who presented to us initially with some altered mentation. The patient's mental status has been gradually impr oving. Acute kidney injury is also improving. Cultures have been negative. Procalcitonin level at time of admission was 0.74. CAT scan of the brain done at time of admission showed nonspecific white matter changes without any acute intracranial abnormalities of the echocardiogram that was done on 10/13/2023 showed a preserved LV function with an ejection fraction of 55%, there was a questionable echodensity over the aortic valve leaflets and a YUE was recommended by cardiology. Chest x-ray done at the time of admission on 10/14/2023 showed increased interstitial opacities in the mid lower lung trivedi bilaterally otherwise, no other acute abnormalities noted. On 10/19/2023, the patient is being seen for a follow-up. The patient is resting comfortably in bed. No major respiratory difficulties. She is currently on 2 L of oxygen by nasal cannula with a pulse ox of 98%. Blood work is all stable with a white cell count of 16 and hemoglobin of 10 and a platelet count of 61. Noted the platelet count has improved slightly compared to yesterday. BUN is 38 with a creatinine 1.25 and a sodium levels at 140. She remains on Bentyl nebulized treatments 4 times daily and as needed. She is on Symbicort as maintenance. Medications remain unchanged. Nephrology on the case. Calcium level was at 8.9. Chest x-ray was also repeated from today and this was reviewed and it showed some patchy density in the right lower lobe which reflect atelectasis. No other significant abnormalities noted on today's chest x-ray. Objective - Vital Signs Vital signs: Vital Signs Temp 98.0 F 10/19/23 08:27 Pulse 90 10/19/23 08:27 Resp 19 10/19/23 08:27 BP 124/74 10/19/23 08:27 Pulse Ox 97 10/19/23 08:27 FiO2 Intake & Output 10/18/23 10/19/23 10/19/23 18:59 06:59 18:59 Intake Total 306 Output Total 575 Balance -575 306 Weight 58.967 kg Intake: Oral 306 Output: Urine 575 Other: Voiding Method Indwelling Catheter Indwelling Catheter # Voids 1 # Bowel Movements 1 - Exam No acute distress, confused, not able to give much of the history. Patient is on 2 L oxygen by nasal cannula HEENT examination is grossly unremarkable. Mucous membranes are moist. No oral lesions. Neck supple. Full range of motion. No adenopathy thyromegaly or neck vein distention. Cardiovascular examination reveals regular rhythm rate. S1-S2 normal. No S3 or S4. No discernible murmur noted. Lungs reveal clear breath sounds. Breath sounds are equal bilaterally. No adventitious lung sounds including wheezes rhonchi or crackles. . Abdomen soft bowel sounds are heard. No masses or tenderness. Extremities are intact. No cyanosis clubbing or edema. Skin is without rash or lesion. Neurologic examination is brief but nonfocal. - Labs CBC & Chem 7: 10/19/23 07:06 10/19/23 07:06 Labs: Abnormal Lab Results - Last 24 Hours (Table) 10/19/23 10/19/23 Range/Units 07:06 07:06 WBC 13.4 H (3.8-10.6) k/uL RBC 3.04 L (3.80-5.40) m/uL Hgb 10.2 L (11.4-16.0) gm/dL Hct 30.0 L (34.0-46.0) % RDW 17.2 H (11.5-15.5) % Plt Count 61 L (150-450) k/uL Chloride 113 H (98-107) mmol/L BUN 38 H (7-17) mg/dL Creatinine 1.25 H (0.52-1.04) mg/dL Total Bilirubin 1.4 H (0.2-1.3) mg/dL AST 109 H (14-36) U/L ALT 39 H (4-34) U/L Alkaline Phosphatase 199 H (38-126) U/L Total Protein 5.2 L (6.3-8.2) g/dL Albumin 2.3 L (3.5-5.0) g/dL Microbiology - Last 24 Hours (Table) 10/16/23 13:35 Blood Culture - Preliminary Blood Assessment and Plan Plan: Acute hypoxemic respiratory failure, with possible mild asthma exacerbation, improved. Patient is currently on 2 L oxygen nasal cannula and the patient's pulse ox in the order of 98%, atelectatic changes in the lung base bilaterally. Severe hypercalcemia, likely causing patient's mental status changes, improved, This is related to be an volume contraction hypercalcemia and the PTH level is suppressed at 11.4 and a vitamin D level was elevated 126. SUZI level is at 78. No evidence of any monoclonal abnormalities on the serum protein electrophoresis. Calcium level is currently normal. Altered mental status, improving, rule out metabolic encephalopathy Hypernatremia and hyperchloremia, improved History of recent fall. Elevated troponins. Acute kidney injury, improved creatinine Thrombocytopenia, likely chronic Type 2 diabetes mellitus. Essential hypertension. Hyperlipidemia. CAD with previous stent placement. History of obstructive sleep apnea syndrome, not on CPAP. History of previous tobacco use. Abnormal echocardiogram with a questionable density about the aortic valve Plan: Obtain a follow-up chest x-ray in the morning was completed and the patient has some atelectatic changes in lung bases more so on the right. Encourage use of incentive spirometer. Wean FiO2 to maintain saturation above 90%, currently on 2 L Incentive spirometer with aggressive pulmonary toileting Monitor electrolytes, more stable and the calcium level has normalized Monitor mental status Echocardiogram was reviewed by cardiology and it was decided that there is no need for YUE as the patient's cultures are negative and the patient is afebrile and hemodynamically stable Cultures are negative for now Discontinue the subcu heparin and monitor the platelet count, platelet count is improving We will continue to follow
[2023-10-19 16:25] LABS: Glucose,Whole Blood 103 mg/dL (70-110)
[2023-10-19 20:35] LABS: Glucose,Whole Blood 92 mg/dL (70-110)
[2023-10-19 21:09] VITALS: RESP 18
[2023-10-20 06:17] LABS: Glucose,Whole Blood 89 mg/dL (70-110)
[2023-10-20 08:42] LABS: Anisocytosis Slight; HCT 29.8 % (34.0-46.0); HGB 10.4 gm/dL (11.4-16.0); MCH 34.3 pg (25.0-35.0); MCHC 34.7 g/dL (31.0-37.0); MCV 98.8 fL (80.0-100.0); Macrocytosis Slight; Mean Platelet Volume 9.3; Poikilocytosis Slight; RBC 3.02 m/uL (3.80-5.40); RDW 17.1 % (11.5-15.5); WBC 14.7 k/uL (3.8-10.6)
[2023-10-20 08:57] LABS: Platelet Count 66 k/uL (150-450)
[2023-10-20 09:18] LABS: ALT 40 U/L (4-34); AST 116 U/L (14-36); African American GFR (CKD) 42 (>60 ml/min/1.73 sqM); Albumin 2.4 g/dL (3.5-5.0); Alkaline Phosphatase 213 U/L (38-126); Anion Gap 5 mmol/L; Blood Urea Nitrogen 42 mg/dL (7-17); Calcium 8.8 mg/dL (8.4-10.2); Carbon Dioxide 20 mmol/L (22-30); Chloride 109 mmol/L (98-107); Glucose 94 mg/dL (74-99); Non-African American GFR(CKD) 37 (>60 ml/min/1.73 sqM); Potassium 3.5 mmol/L (3.5-5.1); Sodium 134 mmol/L (137-145); Total Bilirubin 1.4 mg/dL (0.2-1.3); Total Protein 5.3 g/dL (6.3-8.2)
--- NOTE | 2023-10-20 10:57 | P.PN ---
Subjective Principal diagnosis: Hypercalcemia altered mental status The patient is a 73-year-old white female with known history of asthma. Came in with altered mental status. Significant hypercalcemia is noted-this is improving. She seems more lucid.. Zometa and Miacalcin have been given. Appreciate nephrology input. Echocardiogram is nominal. She is sitting in a chair. Seems back to baseline. Significantly weak, but seems to be improving Objective - Vital Signs Vital signs: Vital Signs Temp 97.5 F L 10/20/23 08:00 Pulse 78 10/20/23 08:00 Resp 18 10/20/23 08:00 BP 111/68 10/20/23 08:00 Pulse Ox 100 10/20/23 08:00 FiO2 Intake & Output 10/19/23 10/20/23 10/20/23 18:59 06:59 18:59 Intake Total 306 180 Balance 306 180 Intake: Oral 306 180 Other: Voiding Method Indwelling Catheter Toilet Toilet Bedside Commode Bedside Commode # Voids 0 1 1 - Constitutional General appearance: Present: obese - EENT Eyes: Absent: abnormal pupil - Cardiovascular Heart sounds: normal: S1, S2 Abnormal Heart Sounds: Absent: S3 Gallop - Gastrointestinal General gastrointestinal: Present: soft. Absent: splenomegaly, tenderness - Integumentary Integumentary: Absent: cellulitis - Musculoskeletal Musculoskeletal: Present: generalized weakness - Psychiatric Psychiatric: Present: appropriate affect - Labs CBC & Chem 7: 10/20/23 08:05 10/20/23 08:05 Labs: Abnormal Lab Results - Last 24 Hours (Table) 10/19/23 10/20/23 10/20/23 Range/Units 11:05 08:05 08:05 WBC 14.7 H (3.8-10.6) k/uL RBC 3.02 L (3.80-5.40) m/uL Hgb 10.4 L (11.4-16.0) gm/dL Hct 29.8 L (34.0-46.0) % RDW 17.1 H (11.5-15.5) % Plt Count 66 L (150-450) k/uL Sodium 134 L (137-145) mmol/L Chloride 109 H (98-107) mmol/L Carbon Dioxide 20 L (22-30) mmol/L BUN 42 H (7-17) mg/dL Creatinine 1.42 H (0.52-1.04) mg/dL POC Glucose (mg/dL) 112 H (70-110) mg/dL Total Bilirubin 1.4 H (0.2-1.3) mg/dL AST 116 H (14-36) U/L ALT 40 H (4-34) U/L Alkaline Phosphatase 213 H (38-126) U/L Total Protein 5.3 L (6.3-8.2) g/dL Albumin 2.4 L (3.5-5.0) g/dL Microbiology - Last 24 Hours (Table) 10/16/23 13:35 Blood Culture - Preliminary Blood Assessment and Plan (1) Community acquired pneumonia Current Visit: Yes Status: Acute Code(s): J18.9 - PNEUMONIA, UNSPECIFIED ORGANISM SNOMED Code(s): 276930313 (2) Diabetes mellitus Current Visit: Yes Status: Acute Code(s): E11.9 - TYPE 2 DIABETES MELLITUS WITHOUT COMPLICATIONS SNOMED Code(s): 27777672 (3) Hypercalcemia Current Visit: Yes Status: Acute Code(s): E83.52 - HYPERCALCEMIA SNOMED Code(s): 68612333 Plan: Increase activity. Mentation is improving. Check CBC and CMP in AM Discharge planning. Possible rehab. Hypercalcemia is resolved. Time with Patient: Greater than 30
[2023-10-20 11:25] LABS: Glucose,Whole Blood 106 mg/dL (70-110)
[2023-10-20] MEDS: SODIUM CHLORIDE 0.9% 1,000 ML IV SCH (12:00)
--- NOTE | 2023-10-20 12:44 | P.PN ---
Subjective patient is seen for follow-up for acute kidney injury and hypercalcemia. Renal function has improved with serum creatinine at 1.2, increased to 1.4 today Calcium has improved to 8.8 No significant complaints. Objective - Vital Signs Vital signs: Vital Signs Temp 97.5 F L 10/20/23 08:00 Pulse 78 10/20/23 08:00 Resp 18 10/20/23 08:00 BP 111/68 10/20/23 08:00 Pulse Ox 100 10/20/23 08:00 FiO2 Intake & Output 10/19/23 10/20/23 10/20/23 18:59 06:59 18:59 Intake Total 306 180 Balance 306 180 Intake: Oral 306 180 Other: Voiding Method Indwelling Catheter Toilet Toilet Bedside Commode Bedside Commode # Voids 0 1 1 - Exam patient is awake, comfortable, no acute distress. Examination of the heart S1 and S2 Examination of the lungs bilateral breath sounds are heard Abdomen is soft nontender Examination of lower extremities shows no significant edema SPEECH AND LANGUAGE SPECIALIST exam grossly intact - Labs CBC & Chem 7: 10/20/23 08:05 10/20/23 08:05 Labs: Abnormal Lab Results - Last 24 Hours (Table) 10/20/23 10/20/23 Range/Units 08:05 08:05 WBC 14.7 H (3.8-10.6) k/uL RBC 3.02 L (3.80-5.40) m/uL Hgb 10.4 L (11.4-16.0) gm/dL Hct 29.8 L (34.0-46.0) % RDW 17.1 H (11.5-15.5) % Plt Count 66 L (150-450) k/uL Sodium 134 L (137-145) mmol/L Chloride 109 H (98-107) mmol/L Carbon Dioxide 20 L (22-30) mmol/L BUN 42 H (7-17) mg/dL Creatinine 1.42 H (0.52-1.04) mg/dL Total Bilirubin 1.4 H (0.2-1.3) mg/dL AST 116 H (14-36) U/L ALT 40 H (4-34) U/L Alkaline Phosphatase 213 H (38-126) U/L Total Protein 5.3 L (6.3-8.2) g/dL Albumin 2.4 L (3.5-5.0) g/dL Microbiology - Last 24 Hours (Table) 10/16/23 13:35 Blood Culture - Preliminary Blood Assessment and Plan Assessment: 1. Acute kidney injury secondary to hypercalcemia induced ATN. Renal function improving. Creatinine 1.4 today. creatinine in December 2022 was near 0.9. UA benign. No hydronephrosis noted on kidney ultrasound. 2. Hypercalcemia secondary to volume contraction, calcium and vitamin D supplementation. Calcium level trending down. PTH appropriately suppressed at 11.4. Vitamin D level elevated at 126. Calcitriol level 34. SUZI level 78. No monoclonality noted on serum immunofixation. 3. Hypokalemia from poor intake and diuretic use. Improved. 4. Pneumonia on antibiotics. 5. Status post fall. CK level 127. 6. Hypernatremia from lack of oral water intake. Improved. 7. Metabolic acidosis secondary to acute kidney injury and IV fluids. On oral bicarb. Better. Plan: continue with IV fluids, switch to normal saline as sodium is 134 today. Continue with sodium bicarb for now. Repeat labs in a.m.
--- NOTE | 2023-10-20 14:42 | P.PN ---
Subjective Progress Note Date: 10/20/23 Patient is a 73-year-old white female with past medical history significant for asthma, diabetes mellitus, hyperlipidemia, coronary artery disease with previous PCI/stent, obstructive sleep apnea, among other reported comorbidities. Patient is currently altered, and unable to verbally provide any information for HPI. No obvious focal deficits. She does follow simple commands. I am unsure of the patient's baseline mentation. Unable to contact family listed in demographics. Voicemail was left. On review of the ER documentation, patient reportedly sustained a fall earlier or at least found down on the ground. She was noted to be severely dyspneic when evaluated by ER room physician. Patient is currently on a 2 L nasal cannula. Follow-up ABG as a PaO2 of 68, pCO2 of 44, pH of 7.39. Chest x-ray taken on admission shows increasing interstitial opacities in the mid to lower lung trivedi, possible atypical pneumonia or interstitial pneumonitis. Patient has been started on azithromycin and Rocephin in the emergency room. CBC on arrival: WBC count 10, hemoglobin 12.3, hematocrit 37.9, platelets 80,000. BMP on arrival: Sodium 138, potassium 3.2, chloride 104, serum bicarb 26, BUN 55, creatinine 2.56, glucose 107. Patient's calcium was severely elevated at 17. Likely explaining patient's AMS. Parathyroid hormone pending. No documented malignancies. No documented lithium, thiazides, etc. Does take vitamin D. Patient was given a dose of Zometa. LFTs mildly elevated. Troponins elevated at 0.289 and 0.257 respectively. NT proBNP 1020. EKG on arrival shows sinus tachycardia, Q waves noted in leads I and aVL, and ST depressions in V1 and V2. Afebrile. Hemodynamics are currently stable. Progress note dated October 13, 2023. This is a 73-year-old female seen again in room 367. She has a history of chronic bronchial asthma, diabetes, hyperlipidemia, CAD, with previous PCI and stent placement, sleep apnea, among other things. The patient was seen in the emergency department, and could provide no additional history. She had a very altered mental status. She was discovered on laboratory evaluation to have a calcium that was 17. She was seen by nephrology. She was given calcitonin, Zometa, Lasix, and IV saline administration. Currently, she is on 2 L of oxygen. Her most recent calcium is 15. She is getting saline at 150 cc an hour. Current labs include a white count 15.3, hemoglobin 11.7, hematocrit 36, and a platelet count of 81,000. Sodium 144, potassium 4, chlorides 113, CO2 22, anion gap 9, BUN 61, creatinine 2.07. Glucose is 123. Calcium is down to 12.6. AST is 80. Albumin is 2.9. Blood cultures are currently negative or pending. Brain CT is negative for anything acute. Ultrasound of the abdomen, shows no evidence of hydronephrosis. Progress note dated October 14, 2023. This is a 73-year-old female who is seen today in room 367. The patient was admitted with a diagnosis of asthma, diabetes, hyperlipidemia, CAD, previous PCI and stent placement, sleep apnea. The patient was admitted with mental status changes, was found to have quite an elevated calcium. Today's calcium is down to 11. She is on 2 L of oxygen. She continues on saline, at 150 cc an hour. She previously received Zometa, calcitonin, and Lasix. Sodium 149, potassium 4.2, chlorides 123, CO2 18, BUN 55, creatinine 1.66, glucose 104, calcium 11, magnesium 1.7. Blood cultures are currently negative. Progress note dated October 15, 2023. 73-year-old female seen today in room 367. The patient was admitted with a diagnosis of asthma, diabetes, hyperlipidemia, CAD, previous PCI, and stent placement, as well as sleep apnea syndrome. The patient was noted to have an altered mental status, and had a very elevated calcium on admission. The patient is still very confused. She is receiving half-normal saline at 150 cc an hour. She is on room air. Yesterday's calcium was 11. Today's calcium is 10. White count 14.6, hemoglobin 9.7, macro 36.1, and platelet count 63,000. Sodium 145, potassium 4.1, chlorides 123, CO2 17, anion gap 5, BUN 54, and creatinine 1.50. Blood cultures are negative. Progress note dated October 16, 2023. 73-year-old female seen today in room 367. The patient is on room air. Blood cultures are negative. She is on half-normal saline at 150 cc an hour. The patient's budesonide and formoterol, are switched to Symbicort, and are up drafts, given on a scheduled basis, can be given as needed. Her respiratory status is very stable. Current labs include a white count 12.3, hemoglobin 11.9, hematocrit 35.9, and a platelet count of 40,000. Sodium 143, potassium 3.9, chlorides 120, CO2 17, BUN 48, creatinine 1.35. The patient's calcium is 9.7, down from 10. Her overall mental status is improved. Progress note dated October 17, 2023. 73-year-old female who was seen in room 367. The patient is currently on room air. She continues with half-normal saline at 100 cc an hour. Her calcium today was 9.1. The rest of her labs include a white count 11.7, hemoglobin 11.5, hematocrit 35.6, and a platelet count of 46,000. Sodium 144, potassium 3.9, chlorides 118, CO2 21, BUN 46, and creatinine 1.26. Glucose is 87. Calcium 9.1. Albumin was 2.6. The patient is cheerfully demented. She is quite confused, although, her mental status has improved somewhat since her calcium has come down. 10/18/2023, patient is being seen for a follow-up. Patient is a poor historian. Probably slightly confused. I am seeing her for hypoxic respiratory failure and patient is currently on 2 L of oxygen with a pulse ox of 96 to 100%. Denies having any respiratory difficulties for now. No reported cough or sputum production. Denies having any chest pain. Blood cultures have been negative thus far. Blood work from today shows a sodium level of 142, BUN is 41 with a creatinine 1.23 and a WBC count is 11.7 with a hemoglobin 11.5 and a platelet count of 46. The patient remains on Bentyl nebulized treatments as needed, Symbicort as maintenance 2 puffs twice a day. Rest of the medications remain unchanged. She is known to have coronary disease with previous PCI, she is obese and she has hypertension hyperlipidemia who presented to us initially with some altered mentation. The patient's mental status has been gradually impr oving. Acute kidney injury is also improving. Cultures have been negative. Procalcitonin level at time of admission was 0.74. CAT scan of the brain done at time of admission showed nonspecific white matter changes without any acute intracranial abnormalities of the echocardiogram that was done on 10/13/2023 showed a preserved LV function with an ejection fraction of 55%, there was a questionable echodensity over the aortic valve leaflets and a YUE was recommended by cardiology. Chest x-ray done at the time of admission on 10/14/2023 showed increased interstitial opacities in the mid lower lung trivedi bilaterally otherwise, no other acute abnormalities noted. On 10/19/2023, the patient is being seen for a follow-up. The patient is resting comfortably in bed. No major respiratory difficulties. She is currently on 2 L of oxygen by nasal cannula with a pulse ox of 98%. Blood work is all stable with a white cell count of 16 and hemoglobin of 10 and a platelet count of 61. Noted the platelet count has improved slightly compared to yesterday. BUN is 38 with a creatinine 1.25 and a sodium levels at 140. She remains on Bentyl nebulized treatments 4 times daily and as needed. She is on Symbicort as maintenance. Medications remain unchanged. Nephrology on the case. Calcium level was at 8.9. Chest x-ray was also repeated from today and this was reviewed and it showed some patchy density in the right lower lobe which reflect atelectasis. No other significant abnormalities noted on today's chest x-ray. On 10/20/2023, I am seeing the patient for a follow-up. The patient is currently on room air oxygen., Comfortable. No altered mentation. No other significant events overnight. White cell count 14.7 with a hemoglobin 10.4 and the platelet count of 66. BUN 42 with a creatinine of 1.42 and a sodium levels at 134 and a potassium level is at 3.5. Moving all 4 extremities other than the patient. No cough or sputum production or chest tightness or wheezing. Objective - Vital Signs Vital signs: Vital Signs Temp 97.5 F L 10/20/23 08:00 Pulse 78 10/20/23 08:00 Resp 18 10/20/23 08:00 BP 111/68 10/20/23 08:00 Pulse Ox 100 10/20/23 08:00 FiO2 Intake & Output 10/19/23 10/20/23 10/20/23 18:59 06:59 18:59 Intake Total 306 180 Balance 306 180 Intake: Oral 306 180 Other: Voiding Method Indwelling Catheter Toilet Toilet Bedside Commode Bedside Commode # Voids 0 1 1 - Exam No acute distress, confused, not able to give much of the history. Patient is on room air oxygen HEENT examination is grossly unremarkable. Mucous membranes are moist. No oral lesions. Neck supple. Full range of motion. No adenopathy thyromegaly or neck vein distention. Cardiovascular examination reveals regular rhythm rate. S1-S2 normal. No S3 or S4. No discernible murmur noted. Lungs reveal clear breath sounds. Breath sounds are equal bilaterally. No adventitious lung sounds including wheezes rhonchi or crackles. . Abdomen soft bowel sounds are heard. No masses or tenderness. Extremities are intact. No cyanosis clubbing or edema. Skin is without rash or lesion. Neurologic examination is brief but nonfocal. - Labs CBC & Chem 7: 10/20/23 08:05 10/20/23 08:05 Labs: Abnormal Lab Results - Last 24 Hours (Table) 10/19/23 10/20/23 10/20/23 Range/Units 11:05 08:05 08:05 WBC 14.7 H (3.8-10.6) k/uL RBC 3.02 L (3.80-5.40) m/uL Hgb 10.4 L (11.4-16.0) gm/dL Hct 29.8 L (34.0-46.0) % RDW 17.1 H (11.5-15.5) % Plt Count 66 L (150-450) k/uL Sodium 134 L (137-145) mmol/L Chloride 109 H (98-107) mmol/L Carbon Dioxide 20 L (22-30) mmol/L BUN 42 H (7-17) mg/dL Creatinine 1.42 H (0.52-1.04) mg/dL POC Glucose (mg/dL) 112 H (70-110) mg/dL Total Bilirubin 1.4 H (0.2-1.3) mg/dL AST 116 H (14-36) U/L ALT 40 H (4-34) U/L Alkaline Phosphatase 213 H (38-126) U/L Total Protein 5.3 L (6.3-8.2) g/dL Albumin 2.4 L (3.5-5.0) g/dL Microbiology - Last 24 Hours (Table) 10/16/23 13:35 Blood Culture - Preliminary Blood Assessment and Plan Plan: Acute hypoxemic respiratory failure, with possible mild asthma exacerbation, improved. Patient is currently on room air oxygen. Using incentive spirometry. No respiratory difficulties. Severe hypercalcemia, likely causing patient's mental status changes, improved, This is related to be an volume contraction hypercalcemia and the PTH level is suppressed at 11.4 and a vitamin D level was elevated 126. SUZI level is at 78. No evidence of any monoclonal abnormalities on the serum protein electrophoresis. Calcium level is currently normal. Altered mental status, improving, rule out metabolic encephalopathy Hypernatremia and hyperchloremia, improved History of recent fall. Elevated troponins. Acute kidney injury, improved creatinine Thrombocytopenia, likely chronic Type 2 diabetes mellitus. Essential hypertension. Hyperlipidemia. CAD with previous stent placement. History of obstructive sleep apnea syndrome, not on CPAP. History of previous tobacco use. Abnormal echocardiogram with a questionable density about the aortic valve Plan: Clinically stable and respiratory status is stable and the patient is currently on room air oxygen. Incentive spirometer with aggressive pulmonary toileting Monitor electrolytes, more stable and the calcium level has normalized Monitor mental status Echocardiogram was reviewed by cardiology and it was decided that there is no need for YUE as the patient's cultures are negative and the patient is afebrile and hemodynamically stable Cultures are negative for now Discontinue the subcu heparin and monitor the platelet count, platelet count is improving We will continue to follow
[2023-10-20 16:12] LABS: Glucose,Whole Blood 172 mg/dL (70-110)
[2023-10-20 20:07] LABS: Glucose,Whole Blood 101 mg/dL (70-110)
[2023-10-21 04:49] VITALS: TEMP 97.7
[2023-10-21 05:39] LABS: Glucose,Whole Blood 78 mg/dL (70-110)
--- NOTE | 2023-10-21 08:22 | P.DS ---
Providers Date of admission: 10/11/23 15:17 Attending physician: John Moss Consults: 10/11/23 15:14 Consult Physician Routine Consulting Provider: Roderick Alfaro Consult Reason/Comments: copd Do you want consulting provider notified?: Yes 10/11/23 23:57 Consult Physician Routine Consulting Provider: Rowdy Rosario Consult Reason/Comments: ARF with hypercalcemia Do you want consulting provider notified?: Yes Primary care physician: John Moss - Discharge Diagnosis(es) (1) Hypoxia Current Visit: Yes Status: Acute (2) Hypercalcemia Current Visit: Yes Status: Acute (3) Diabetes mellitus Current Visit: Yes Status: Acute (4) Elevated troponin Current Visit: Yes Status: Acute (5) Community acquired pneumonia Current Visit: Yes Status: Acute (6) Hypertension Current Visit: Yes Status: Acute (7) Hyperlipidemia Current Visit: Yes Status: Acute (8) CAD (coronary artery disease) Current Visit: Yes Status: Acute (9) Acute exacerbation of chronic obstructive airways disease Current Visit: Yes Status: Acute (10) Altered mental status Current Visit: Yes Status: Acute (11) History of fall Current Visit: Yes Status: Acute Hospital Course: This is a 73-year-old female who was originally admitted to the emergency department with complaints of shortness of breath and a recent fall. Chest x- ray on admission showed possible atypical pneumonia or interstitial pneumonitis. Patient has completed course of azithromycin and Rocephin during this admission. Patient's calcium level severely elevated on admission at 17. Patient's mentation was off also, and she was not very arousable. As patient's calcium level has come down her mentation has normalized. Calcium yesterday was 8.8. She is now alert and oriented. This morning she is seen sitting up in a chair at bedside eating breakfast. Physical and Occupational Therapy are recommending subacute rehab. Patient may be discharged to subacute rehab. Continuation of sodium and bicarbonate to be decided by nephrology. Patient seen and evaluated by nurse practitioner, physician in agreement with plan Patient Condition at Discharge: Serious Plan - Discharge Summary New Discharge Prescriptions: Continue Aspirin EC [Ecotrin Low Dose] 81 mg PO DAILY Atorvastatin [Lipitor] 40 mg PO DAILY Furosemide [Lasix] 20 mg PO BID Montelukast [Singulair] 10 mg PO HS #30 tab Cetirizine HCl [Zyrtec] 10 mg PO DAILY Ubiquinol [Co-Veratrol] 100 mg PO DAILY Prevagen 1 tab PO DAILY Krill Oil 500 mg PO DAILY Cholecalciferol (Vitamin D3) [Vitamin D3 (125 MCG = 5,000 IU)] 125 mcg PO DAILY Empagliflozin [Jardiance] 25 mg PO DAILY Metoprolol Tartrate [Lopressor] 50 mg PO BID Ferrous Sulfate [Iron (65 MG Elemental)] 325 mg PO DAILY Brimonidine Tartrate [Alphagan P 0.2% Ophth Soln] 1 drop LEFT EYE BID Ticagrelor [Brilinta] 90 mg PO BID Multivit-Min/Iron/Folic/Lutein [Centrum Silver Women Tablet] 1 tab PO DAILY Magnesium 400 mg PO DAILY Albuterol Sulfate [Ventolin HFA] 1 puff INHALATION RT-Q6H PRN PRN Reason: Shortness Of Breath Or Wheezing Glucosamine/Chondr Burton A Sod [Osteo Bi-Flex Caplet] 1 tab PO DAILY Cyanocobalamin (Vitamin B-12) [Vitamin B-12] 5,000 mcg PO DAILY Ipratropium-Albuterol Nebulize [Duoneb 0.5 mg-3 mg/3 ml Soln] 3 ml INHALATION RT-QID Budesonide/Formoterol Fumarate [Breyna 160-4.5 Mcg Inhaler] 2 puff INHALATION RT-BID Discontinued Budesonide [Pulmicort] 0.5 mg INHALATION RT-BID Discharge Medication List Aspirin EC [Ecotrin Low Dose] 81 mg PO DAILY 05/04/18 [History] Atorvastatin [Lipitor] 40 mg PO DAILY 09/07/18 [History] Furosemide [Lasix] 20 mg PO BID 09/07/18 [History] Montelukast [Singulair] 10 mg PO HS #30 tab 10/07/18 [Rx] Cetirizine HCl [Zyrtec] 10 mg PO DAILY 10/24/18 [History] Magnesium 400 mg PO DAILY 04/17/21 [History] Prevagen 1 tab PO DAILY 04/17/21 [History] Ubiquinol [Co-Veratrol] 100 mg PO DAILY 04/17/21 [History] Albuterol Sulfate [Ventolin HFA] 1 puff INHALATION RT-Q6H PRN 05/13/21 [History] Krill Oil 500 mg PO DAILY 05/13/21 [History] Brimonidine Tartrate [Alphagan P 0.2% Ophth Soln] 1 drop LEFT EYE BID 10/11/23 [History] Budesonide/Formoterol Fumarate [Breyna 160-4.5 Mcg Inhaler] 2 puff INHALATION RT-BID 10/11/23 [History] Cholecalciferol (Vitamin D3) [Vitamin D3 (125 MCG = 5,000 IU)] 125 mcg PO DAILY 10/11/23 [History] Cyanocobalamin (Vitamin B-12) [Vitamin B-12] 5,000 mcg PO DAILY 10/11/23 [History] Empagliflozin [Jardiance] 25 mg PO DAILY 10/11/23 [History] Ferrous Sulfate [Iron (65 MG Elemental)] 325 mg PO DAILY 10/11/23 [History] Glucosamine/Chondr Burton A Sod [Osteo Bi-Flex Caplet] 1 tab PO DAILY 10/11/23 [History] Ipratropium-Albuterol Nebulize [Duoneb 0.5 mg-3 mg/3 ml Soln] 3 ml INHALATION RT-QID 10/11/23 [History] Metoprolol Tartrate [Lopressor] 50 mg PO BID 10/11/23 [History] Multivit-Min/Iron/Folic/Lutein [Centrum Silver Women Tablet] 1 tab PO DAILY 10/11/23 [History] Ticagrelor [Brilinta] 90 mg PO BID 10/11/23 [History] Follow up Appointment(s)/Referral(s): John Moss MD [Primary Care Provider] - 1 Week None,Stated [REFERRING] - 1-2 days Discharge Disposition: TRANSFER TO SNF/ECF
[2023-10-21 09:13] VITALS: BP 89/54
[2023-10-21 11:04] LABS: Anisocytosis Slight; HCT 33.9 % (34.0-46.0); HGB 10.4 gm/dL (11.4-16.0); Hypochromasia Moderate; MCH 32.1 pg (25.0-35.0); MCHC 30.6 g/dL (31.0-37.0); Macrocytosis Moderate; Mean Platelet Volume 9.5; Poikilocytosis Slight; RBC 3.24 m/uL (3.80-5.40); RDW 16.6 % (11.5-15.5); WBC 12.4 k/uL (3.8-10.6)
[2023-10-21 11:15] LABS: MCV 104.8 fL (80.0-100.0); Platelet Count 77 k/uL (150-450)
[2023-10-21 11:36] LABS: ALT 38 U/L (4-34); AST 118 U/L (14-36); African American GFR (CKD) 38 (>60 ml/min/1.73 sqM); Albumin 2.3 g/dL (3.5-5.0); Alkaline Phosphatase 237 U/L (38-126); Anion Gap 9 mmol/L; Blood Urea Nitrogen 45 mg/dL (7-17); Calcium 8.9 mg/dL (8.4-10.2); Carbon Dioxide 15 mmol/L (22-30); Chloride 110 mmol/L (98-107); Glucose 115 mg/dL (74-99); Non-African American GFR(CKD) 33 (>60 ml/min/1.73 sqM); Potassium 3.5 mmol/L (3.5-5.1); Sodium 134 mmol/L (137-145); Total Bilirubin 1.4 mg/dL (0.2-1.3)
[2023-10-21 11:39] LABS: Glucose,Whole Blood 108 mg/dL (70-110)
--- NOTE | 2023-10-21 13:31 | P.PN ---
Subjective patient is seen for follow-up for acute kidney injury and hypercalcemia. Renal function had improved with serum creatinine at 1.2, increased to 1.5 today. BP noted to be low. Calcium has improved to 8.9 No significant complaints. there are plans for discharge. Objective - Vital Signs Vital signs: Vital Signs Temp 97.7 F 10/21/23 08:00 Pulse 78 10/21/23 08:00 Resp 18 10/21/23 08:00 BP 89/54 10/21/23 08:00 Pulse Ox 97 10/21/23 08:00 FiO2 Intake & Output 10/20/23 10/21/23 10/21/23 18:59 06:59 18:59 Intake Total 540 118 Balance 540 118 Weight 58.967 kg Intake: Oral 540 118 Other: Voiding Method Toilet Toilet Toilet Bedside Commode Bedside Commode Bedside Commode # Voids 1 1 1 # Bowel Movements 1 - Exam patient is awake, comfortable, no acute distress. Examination of the heart S1 and S2 Examination of the lungs bilateral breath sounds are heard Abdomen is soft nontender Examination of lower extremities shows no significant edema [employer] exam grossly intact - Labs CBC & Chem 7: 10/21/23 10:01 10/21/23 10:01 Labs: Abnormal Lab Results - Last 24 Hours (Table) 10/20/23 10/21/23 10/21/23 Range/Units 16:10 10:01 10:01 WBC 12.4 H (3.8-10.6) k/uL RBC 3.24 L (3.80-5.40) m/uL Hgb 10.4 L (11.4-16.0) gm/dL Hct 33.9 L (34.0-46.0) % MCV 104.8 H D (80.0-100.0) fL MCHC 30.6 L (31.0-37.0) g/dL RDW 16.6 H (11.5-15.5) % Plt Count 77 L (150-450) k/uL Sodium 134 L (137-145) mmol/L Chloride 110 H (98-107) mmol/L Carbon Dioxide 15 L (22-30) mmol/L BUN 45 H (7-17) mg/dL Creatinine 1.56 H (0.52-1.04) mg/dL Glucose 115 H (74-99) mg/dL POC Glucose (mg/dL) 172 H (70-110) mg/dL Total Bilirubin 1.4 H (0.2-1.3) mg/dL AST 118 H (14-36) U/L ALT 38 H (4-34) U/L Alkaline Phosphatase 237 H (38-126) U/L Total Protein 5.0 L (6.3-8.2) g/dL Albumin 2.3 L (3.5-5.0) g/dL Assessment and Plan Assessment: 1. Acute kidney injury secondary to hypercalcemia induced ATN. Renal function improving. Creatinine 1.5 today. creatinine in December 2022 was near 0.9. UA benign. No hydronephrosis noted on kidney ultrasound. 2. Hypercalcemia secondary to volume contraction, calcium and vitamin D supplementation. Calcium level trending down. PTH appropriately suppressed at 11.4. Vitamin D level elevated at 126. Calcitriol level 34. SUZI level 78. No monoclonality noted on serum immunofixation. 3. Hypokalemia from poor intake and diuretic use. Improved. 4. Pneumonia on antibiotics. 5. Status post fall. CK level 127. 6. Hypernatremia from lack of oral water intake. Improved. 7. Metabolic acidosis secondary to acute kidney injury and IV fluids. On oral bicarb. Better. Plan: Continue with sodium bicarb for now. Repeat labs in 2-3 days if patient is discharged today. Metoprolol dose to be decreased if blood pressure remains low.
[2023-10-21 14:29] VITALS: PULSE 78
--- NOTE | 2023-10-22 00:11 | P.PN ---
Subjective Progress Note Date: 10/21/23 Patient is a 73-year-old white female with past medical history significant for asthma, diabetes mellitus, hyperlipidemia, coronary artery disease with previous PCI/stent, obstructive sleep apnea, among other reported comorbidities. Patient is currently altered, and unable to verbally provide any information for HPI. No obvious focal deficits. She does follow simple commands. I am unsure of the patient's baseline mentation. Unable to contact family listed in demographics. Voicemail was left. On review of the ER documentation, patient reportedly sustained a fall earlier or at least found down on the ground. She was noted to be severely dyspneic when evaluated by ER room physician. Patient is currently on a 2 L nasal cannula. Follow-up ABG as a PaO2 of 68, pCO2 of 44, pH of 7.39. Chest x-ray taken on admission shows increasing interstitial opacities in the mid to lower lung trivedi, possible atypical pneumonia or interstitial pneumonitis. Patient has been started on azithromycin and Rocephin in the emergency room. CBC on arrival: WBC count 10, hemoglobin 12.3, hematocrit 37.9, platelets 80,000. BMP on arrival: Sodium 138, potassium 3.2, chloride 104, serum bicarb 26, BUN 55, creatinine 2.56, glucose 107. Patient's calcium was severely elevated at 17. Likely explaining patient's AMS. Parathyroid hormone pending. No documented malignancies. No documented lithium, thiazides, etc. Does take vitamin D. Patient was given a dose of Zometa. LFTs mildly elevated. Troponins elevated at 0.289 and 0.257 respectively. NT proBNP 1020. EKG on arrival shows sinus tachycardia, Q waves noted in leads I and aVL, and ST depressions in V1 and V2. Afebrile. Hemodynamics are currently stable. Progress note dated October 13, 2023. This is a 73-year-old female seen again in room 367. She has a history of chronic bronchial asthma, diabetes, hyperlipidemia, CAD, with previous PCI and stent placement, sleep apnea, among other things. The patient was seen in the emergency department, and could provide no additional history. She had a very altered mental status. She was discovered on laboratory evaluation to have a calcium that was 17. She was seen by nephrology. She was given calcitonin, Zometa, Lasix, and IV saline administration. Currently, she is on 2 L of oxygen. Her most recent calcium is 15. She is getting saline at 150 cc an hour. Current labs include a white count 15.3, hemoglobin 11.7, hematocrit 36, and a platelet count of 81,000. Sodium 144, potassium 4, chlorides 113, CO2 22, anion gap 9, BUN 61, creatinine 2.07. Glucose is 123. Calcium is down to 12.6. AST is 80. Albumin is 2.9. Blood cultures are currently negative or pending. Brain CT is negative for anything acute. Ultrasound of the abdomen, shows no evidence of hydronephrosis. Progress note dated October 14, 2023. This is a 73-year-old female who is seen today in room 367. The patient was admitted with a diagnosis of asthma, diabetes, hyperlipidemia, CAD, previous PCI and stent placement, sleep apnea. The patient was admitted with mental status changes, was found to have quite an elevated calcium. Today's calcium is down to 11. She is on 2 L of oxygen. She continues on saline, at 150 cc an hour. She previously received Zometa, calcitonin, and Lasix. Sodium 149, potassium 4.2, chlorides 123, CO2 18, BUN 55, creatinine 1.66, glucose 104, calcium 11, magnesium 1.7. Blood cultures are currently negative. Progress note dated October 15, 2023. 73-year-old female seen today in room 367. The patient was admitted with a diagnosis of asthma, diabetes, hyperlipidemia, CAD, previous PCI, and stent placement, as well as sleep apnea syndrome. The patient was noted to have an altered mental status, and had a very elevated calcium on admission. The patient is still very confused. She is receiving half-normal saline at 150 cc an hour. She is on room air. Yesterday's calcium was 11. Today's calcium is 10. White count 14.6, hemoglobin 9.7, macro 36.1, and platelet count 63,000. Sodium 145, potassium 4.1, chlorides 123, CO2 17, anion gap 5, BUN 54, and creatinine 1.50. Blood cultures are negative. Progress note dated October 16, 2023. 73-year-old female seen today in room 367. The patient is on room air. Blood cultures are negative. She is on half-normal saline at 150 cc an hour. The patient's budesonide and formoterol, are switched to Symbicort, and are up drafts, given on a scheduled basis, can be given as needed. Her respiratory status is very stable. Current labs include a white count 12.3, hemoglobin 11.9, hematocrit 35.9, and a platelet count of 40,000. Sodium 143, potassium 3.9, chlorides 120, CO2 17, BUN 48, creatinine 1.35. The patient's calcium is 9.7, down from 10. Her overall mental status is improved. Progress note dated October 17, 2023. 73-year-old female who was seen in room 367. The patient is currently on room air. She continues with half-normal saline at 100 cc an hour. Her calcium today was 9.1. The rest of her labs include a white count 11.7, hemoglobin 11.5, hematocrit 35.6, and a platelet count of 46,000. Sodium 144, potassium 3.9, chlorides 118, CO2 21, BUN 46, and creatinine 1.26. Glucose is 87. Calcium 9.1. Albumin was 2.6. The patient is cheerfully demented. She is quite confused, although, her mental status has improved somewhat since her calcium has come down. 10/18/2023, patient is being seen for a follow-up. Patient is a poor historian. Probably slightly confused. I am seeing her for hypoxic respiratory failure and patient is currently on 2 L of oxygen with a pulse ox of 96 to 100%. Denies having any respiratory difficulties for now. No reported cough or sputum production. Denies having any chest pain. Blood cultures have been negative thus far. Blood work from today shows a sodium level of 142, BUN is 41 with a creatinine 1.23 and a WBC count is 11.7 with a hemoglobin 11.5 and a platelet count of 46. The patient remains on Bentyl nebulized treatments as needed, Symbicort as maintenance 2 puffs twice a day. Rest of the medications remain unchanged. She is known to have coronary disease with previous PCI, she is obese and she has hypertension hyperlipidemia who presented to us initially with some altered mentation. The patient's mental status has been gradually impr oving. Acute kidney injury is also improving. Cultures have been negative. Procalcitonin level at time of admission was 0.74. CAT scan of the brain done at time of admission showed nonspecific white matter changes without any acute intracranial abnormalities of the echocardiogram that was done on 10/13/2023 showed a preserved LV function with an ejection fraction of 55%, there was a questionable echodensity over the aortic valve leaflets and a YUE was recommended by cardiology. Chest x-ray done at the time of admission on 10/14/2023 showed increased interstitial opacities in the mid lower lung trivedi bilaterally otherwise, no other acute abnormalities noted. On 10/19/2023, the patient is being seen for a follow-up. The patient is resting comfortably in bed. No major respiratory difficulties. She is currently on 2 L of oxygen by nasal cannula with a pulse ox of 98%. Blood work is all stable with a white cell count of 16 and hemoglobin of 10 and a platelet count of 61. Noted the platelet count has improved slightly compared to yesterday. BUN is 38 with a creatinine 1.25 and a sodium levels at 140. She remains on Bentyl nebulized treatments 4 times daily and as needed. She is on Symbicort as maintenance. Medications remain unchanged. Nephrology on the case. Calcium level was at 8.9. Chest x-ray was also repeated from today and this was reviewed and it showed some patchy density in the right lower lobe which reflect atelectasis. No other significant abnormalities noted on today's chest x-ray. On 10/20/2023, I am seeing the patient for a follow-up. The patient is currently on room air oxygen., Comfortable. No altered mentation. No other significant events overnight. White cell count 14.7 with a hemoglobin 10.4 and the platelet count of 66. BUN 42 with a creatinine of 1.42 and a sodium levels at 134 and a potassium level is at 3.5. Moving all 4 extremities other than the patient. No cough or sputum production or chest tightness or wheezing. 10/21/2023, patient is stable doing well without any major respiratory difficulties. Completed course of Zithromax and Rocephin. Oxygenation is stable. Hypercalcemia is recovered. The patient will be discharged to subacute rehabilitation. No respiratory difficulties. Labs from today shows a white cell count of 12 hemoglobin of 10 and a platelet count of 77. BUN is 45 with a creatinine of 1.5 and a calcium level of 8.9. Sodium is at 134. No other significant events overnight. Calm and comfortable and communicating. Objective - Vital Signs Vital signs: Vital Signs Temp 97.7 F 10/21/23 08:00 Pulse 78 10/21/23 08:00 Resp 18 10/21/23 08:00 BP 89/54 10/21/23 08:00 Pulse Ox 97 10/21/23 08:00 FiO2 Intake & Output 10/20/23 10/21/23 10/21/23 18:59 06:59 18:59 Intake Total 540 118 Balance 540 118 Weight 58.967 kg Intake: Oral 540 118 Other: Voiding Method Toilet Toilet Toilet Bedside Commode Bedside Commode Bedside Commode # Voids 1 1 1 # Bowel Movements 1 - Exam No acute distress, confused, not able to give much of the history. Patient is on room air oxygen HEENT examination is grossly unremarkable. Mucous membranes are moist. No oral lesions. Neck supple. Full range of motion. No adenopathy thyromegaly or neck vein distention. Cardiovascular examination reveals regular rhythm rate. S1-S2 normal. No S3 or S4. No discernible murmur noted. Lungs reveal clear breath sounds. Breath sounds are equal bilaterally. No adventitious lung sounds including wheezes rhonchi or crackles. . Abdomen soft bowel sounds are heard. No masses or tenderness. Extremities are intact. No cyanosis clubbing or edema. Skin is without rash or lesion. Neurologic examination is brief but nonfocal. - Labs CBC & Chem 7: 10/21/23 10:01 10/21/23 10:01 Labs: Abnormal Lab Results - Last 24 Hours (Table) 10/20/23 Range/Units 16:10 POC Glucose (mg/dL) 172 H (70-110) mg/dL Assessment and Plan Plan: Acute hypoxemic respiratory failure, with possible mild asthma exacerbation, imp roved. Patient is currently on room air oxygen. Using incentive spirometry. No respiratory difficulties. Severe hypercalcemia, likely causing patient's mental status changes, improved, This is related to be an volume contraction hypercalcemia and the PTH level is suppressed at 11.4 and a vitamin D level was elevated 126. SUZI level is at 78. No evidence of any monoclonal abnormalities on the serum protein electrophoresis. Calcium level is currently normal. Altered mental status, improving, rule out metabolic encephalopathy Hypernatremia and hyperchloremia, improved History of recent fall. Elevated troponins. Acute kidney injury, improved creatinine Thrombocytopenia, likely chronic Type 2 diabetes mellitus. Essential hypertension. Hyperlipidemia. CAD with previous stent placement. History of obstructive sleep apnea syndrome, not on CPAP. History of previous tobacco use. Abnormal echocardiogram with a questionable density about the aortic valve Plan: Clinically stable and respiratory status is stable and the patient is currently on room air oxygen. Incentive spirometer with aggressive pulmonary toileting Monitor electrolytes, more stable and the calcium level has normalized Monitor mental status Echocardiogram was reviewed by cardiology and it was decided that there is no need for YUE as the patient's cultures are negative and the patient is afebrile and hemodynamically stable Cultures are negative for now Discharged to [facility]
== END 2023-10-21 15:58 | DRG 190 ==
LOC: EC 13:13 → 3SCARD 15:17
PROVIDERS: ADMIT Family Medicine; ATTEND Family Medicine
DX: J44.0 Chronic obstructive pulmonary disease with (acute) lower respiratory infection (principal); G93.41 Metabolic encephalopathy; N17.0 Acute kidney failure with tubular necrosis; J96.01 Acute respiratory failure with hypoxia; J18.9 Pneumonia, unspecified organism; J81.0 Acute pulmonary edema; E87.0 Hyperosmolality and hypernatremia; E87.20 Acidosis, unspecified; I5A Non-ischemic myocardial injury (non-traumatic); J45.901 Unspecified asthma with (acute) exacerbation; F03.94 Unspecified dementia, unspecified severity, with anxiety; J98.11 Atelectasis; R17 Unspecified jaundice; E11.9 Type 2 diabetes mellitus without complications; G47.33 Obstructive sleep apnea (adult) (pediatric); D69.6 Thrombocytopenia, unspecified; J44.1 Chronic obstructive pulmonary disease with (acute) exacerbation; E83.52 Hypercalcemia; E87.6 Hypokalemia; F41.9 Anxiety disorder, unspecified; I10 Essential (primary) hypertension; I65.29 Occlusion and stenosis of unspecified carotid artery; W19.XXXA Unspecified fall, initial encounter; E87.5 Hyperkalemia; E78.5 Hyperlipidemia, unspecified; T50.2X5A Adverse effect of carbonic-anhydrase inhibitors, benzothiadiazides and other diuretics, initial encounter; E87.8 Other disorders of electrolyte and fluid balance, not elsewhere classified; I25.10 Atherosclerotic heart disease of native coronary artery without angina pectoris; Z86.79 Personal history of other diseases of the circulatory system; Z79.02 Long term (current) use of antithrombotics/antiplatelets; Z79.51 Long term (current) use of inhaled steroids; Z79.82 Long term (current) use of aspirin; Z79.84 Long term (current) use of oral hypoglycemic drugs; Z79.899 Other long term (current) drug therapy; Z87.828 Personal history of other (healed) physical injury and trauma; Z87.891 Personal history of nicotine dependence; I08.3 Combined rheumatic disorders of mitral, aortic and tricuspid valves; Z90.710 Acquired absence of both cervix and uterus; Z95.5 Presence of coronary angioplasty implant and graft; Z91.81 History of falling; Z88.2 Allergy status to sulfonamides; X58.XXXA Exposure to other specified factors, initial encounter; Z90.49 Acquired absence of other specified parts of digestive tract
CPT/HCPCS: 36600; 70450; 71045; 76770; 80048; 80053; 81003; 82164; 82306; 82330; 82550; 82652; 82805; 83690; 83735; 83880; 83883; 83970; 84100; 84145; 84165; 84166; 84484; 85025; 85027; 85379; 85610; 85730; 86334; 86335; 87040; 87636; 93005; 93308; 94640; 94760; 96361; 96365; 96366; 96367; 96368; 96372; 96375; 96376; 99291

== ENCOUNTER 2023-10-29 13:03 | Emergency (ER) | payer MEDICARE, BC ==
[2023-10-29 13:20] VITALS: TEMP 97.6
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
--- NOTE | 2023-10-29 13:57 | CT ---
EXAMINATION TYPE: CT brain cspine wo con DATE OF EXAM: 10/29/2023 COMPARISON: 10/12/2023 HISTORY: Fall on blood thinners. Bruising to Rt side of face CT DLP: 1553.[address] of the brain was performed. The ventricles, basal cisterns and sulci overlying the cerebral convexities demonstrate mild enlargem ent. There is no evidence for intracranial hemorrhage or sulcal effacement. There is decreased attenuatio n about the periventricular white matter and deep white matter of both cerebral hemispheres, compatib le with chronic small vessel ischemia. No mass effects are seen. If symptoms persist consider MRI. Osseous calvarium is intact. IMPRESSION: 1. Age related atrophic and chronic small vessel ischemic change without acute intracranial process seen at this time. CT Cervical Spine: Unenhanced CT of the cervical spine was performed with bone and soft tissue window settings submitted . Coronal and sagittal reconstruction is obtained. There is normal alignment and prevertebral soft tissues. No evidence for acute cervical fracture . Scattered degenerative disc disease and spondylosis. Biapical scarring. IMPRESSION: 1. No evidence for acute fracture or subluxation of the cervical spine.
--- NOTE | 2023-10-29 14:34 | XR ---
EXAMINATION TYPE: XR pelvis AP view DATE OF EXAM: 10/29/2023 COMPARISON: None HISTORY: Trauma TECHNIQUE: Pelvis FINDINGS: Femoral heads articulate with the acetabulum. Symphysis pubis and sacroiliac joints. No acu te fractures are evident. Nonspecific bowel gas is present. IMPRESSION: 1. No acute osseous abnormality AP Pelvis
[2023-10-29] MEDS: SODIUM CHLORIDE 0.9% 1,000 ML IV ONE ×2 (14:35→18:03)
--- NOTE | 2023-10-29 14:35 | XR ---
EXAMINATION TYPE: XR chest 1V portable DATE OF EXAM: 10/29/2023 COMPARISON: 10/19/2023 INDICATION: Trauma TECHNIQUE: Single frontal view of the chest is obtained. FINDINGS: The heart size is normal. The pulmonary vasculature is normal. Minimal bibasilar subsegmental atelectasis may be present. Some mild thickening along the left pleura l margin may be present. Minimal bilateral pleural effusions are present. IMPRESSION: 1. Minimal bibasilar infiltrates and small pleural effusions
[2023-10-29] MEDS: DESMOPRESSIN ACETATE 32 MCG in SODIUM CHLORIDE 0.9% 50 ML IVPB ONE (14:48)
[2023-10-29] MEDS: DIPH,PERTUS(ACELL)TETVAC-LF 0.5 ML VIAL IM ONE (14:52)
[2023-10-29 14:55] LABS: AST 313 U/L (14-36); African American GFR (CKD) 16 (>60 ml/min/1.73 sqM); Albumin 2.3 g/dL (3.5-5.0); Anion Gap 12 mmol/L; Blood Urea Nitrogen 81 mg/dL (7-17); Calcium 10.2 mg/dL (8.4-10.2); Carbon Dioxide 15 mmol/L (22-30); Chloride 109 mmol/L (98-107); Glucose 98 mg/dL (74-99); INR 1.7 (<1.2); Non-African American GFR(CKD) 14 (>60 ml/min/1.73 sqM); Partial Thromboplastin Time 27.5 sec (22.0-30.0); Prothrombin Time 16.9 sec (10.0-12.5); Sodium 136 mmol/L (137-145); Total Bilirubin 2.3 mg/dL (0.2-1.3); Total Protein 5.1 g/dL (6.3-8.2)
[2023-10-29 14:58] LABS: ALT 93 U/L (4-34); Alkaline Phosphatase 337 U/L (38-126); Potassium 4.8 mmol/L (3.5-5.1)
[2023-10-29 16:24] LABS: Anisocytosis Slight; HCT 28.7 % (34.0-46.0); HGB 9.2 gm/dL (11.4-16.0); Hypochromasia Moderate; MCH 33.9 pg (25.0-35.0); MCHC 32.2 g/dL (31.0-37.0); MCV 105.5 fL (80.0-100.0); Mean Platelet Volume 9.8; Poikilocytosis Slight; RBC 2.72 m/uL (3.80-5.40); RDW 18.4 % (11.5-15.5)
[2023-10-29] MEDS: NOREPINEPHRINE 4 MG in SODIUM CHLORIDE 0.9% 250 ML IV ONE (17:18)
[2023-10-29 17:19] VITALS: BP 71/44; PULSE 100; RESP 24
[2023-10-29 17:25] LABS: Eosinophils # (M) 0.09 k/uL (0-0.7); Lymphocytes # (M) 1.25 k/uL (1.0-4.8); Metamyelocytes # (M) 0.18 k/uL (0); Metamyelocytes % 2 %; Monocytes # (M) 0.27 k/uL (0-1.0); Myelocytes # (M) 0.09 k/uL (0); Myelocytes % 1 %; Neutrophils # (M) 7.21 k/uL (1.3-7.7); Neutrophils % (M) 81 %; Nucleated Red Blood Cells 4 /100 WBC (0-0); Total Cells Counted 200; WBC 8.9 k/uL (3.8-10.6)
[2023-10-29 17:28] LABS: Platelet Count 52 k/uL (150-450)
[2023-10-29 17:29] LABS: Macrocytosis Marked
[2023-10-29 17:31] LABS: Crenated RBC Present
--- NOTE | 2023-10-29 18:07 | ED ---
Medical Decision Making - Medical Decision Making Transfer delayed by hypotension. Patient received fluid and blood pressure appeared to normalize. Patient then became hypotensive and then lost her 2 peripheral IVs. Central line was placed. Patient will receive more fluid and low-dose Levophed. Patient being transferred at this time - Lab Data Result diagrams: 10/29/23 15:25 10/29/23 14:26 Lab Results 10/29/23 10/29/23 10/29/23 Range/Units 14:26 14:26 14:26 WBC (3.8-10.6) k/uL RBC (3.80-5.40) m/uL Hgb (11.4-16.0) gm/dL Hct (34.0-46.0) % MCV (80.0-100.0) fL MCH (25.0-35.0) pg MCHC (31.0-37.0) g/dL RDW (11.5-15.5) % Plt Count (150-450) k/uL MPV Neutrophils % (Manual) % Lymphocytes % (Manual) % Monocytes % (Manual) % Eosinophils % (Manual) % Metamyelocytes % % Myelocytes % % Neutrophils # (Manual) (1.3-7.7) k/uL Lymphocytes # (Manual) (1.0-4.8) k/uL Monocytes # (Manual) (0-1.0) k/uL Eosinophils # (Manual) (0-0.7) k/uL Metamyelocytes # (Man) (0) k/uL Myelocytes # (Manual) (0) k/uL Nucleated RBCs (0-0) /100 WBC Manual Slide Review Hypochromasia Poikilocytosis Anisocytosis Macrocytosis Crenated Cell PT 16.9 H (10.0-12.5) sec INR 1.7 H (<1.2) APTT 27.5 (22.0-30.0) sec Sodium 136 L (137-145) mmol/L Potassium 4.8 (3.5-5.1) mmol/L Chloride 109 H (98-107) mmol/L Carbon Dioxide 15 L (22-30) mmol/L Anion Gap 12 mmol/L BUN 81 H (7-17) mg/dL Creatinine 3.23 H (0.52-1.04) mg/dL Est GFR (CKD-EPI)AfAm 16 (>60 ml/min/1.73 sqM) Est GFR (CKD-EPI)NonAf 14 (>60 ml/min/1.73 sqM) Glucose 98 (74-99) mg/dL Calcium 10.2 (8.4-10.2) mg/dL Total Bilirubin 2.3 H (0.2-1.3) mg/dL AST 313 H (14-36) U/L ALT 93 H (4-34) U/L Alkaline Phosphatase 337 H (38-126) U/L Total Protein 5.1 L (6.3-8.2) g/dL Albumin 2.3 L (3.5-5.0) g/dL Blood Type O Positive Blood Type Recheck No Previous Record Bld Type Recheck Status CABO Indicated Antibody Screen NEGATIVE Spec Expiration Date 11/01/2023 - 232510/29/23 Range/Units 15:25 WBC 8.9 (3.8-10.6) k/uL RBC 2.72 L (3.80-5.40) m/uL Hgb 9.2 L (11.4-16.0) gm/dL Hct 28.7 L (34.0-46.0) % MCV 105.5 H (80.0-100.0) fL MCH 33.9 (25.0-35.0) pg MCHC 32.2 (31.0-37.0) g/dL RDW 18.4 H (11.5-15.5) % Plt Count 52 L (150-450) k/uL MPV 9.8 Neutrophils % (Manual) 81 % Lymphocytes % (Manual) 14 % Monocytes % (Manual) 3 % Eosinophils % (Manual) 1 % Metamyelocytes % 2 % Myelocytes % 1 % Neutrophils # (Manual) 7.21 (1.3-7.7) k/uL Lymphocytes # (Manual) 1.25 (1.0-4.8) k/uL Monocytes # (Manual) 0.27 (0-1.0) k/uL Eosinophils # (Manual) 0.09 (0-0.7) k/uL Metamyelocytes # (Man) 0.18 H (0) k/uL Myelocytes # (Manual) 0.09 H (0) k/uL Nucleated RBCs 4 H (0-0) /100 WBC Manual Slide Review Performed Hypochromasia Moderate Poikilocytosis Slight Anisocytosis Slight Macrocytosis Marked A Crenated Cell Present PT (10.0-12.5) sec INR (<1.2) APTT (22.0-30.0) sec Sodium (137-145) mmol/L Potassium (3.5-5.1) mmol/L Chloride (98-107) mmol/L Carbon Dioxide (22-30) mmol/L Anion Gap mmol/L BUN (7-17) mg/dL Creatinine (0.52-1.04) mg/dL Est GFR (CKD-EPI)AfAm (>60 ml/min/1.73 sqM) Est GFR (CKD-EPI)NonAf (>60 ml/min/1.73 sqM) Glucose (74-99) mg/dL Calcium (8.4-10.2) mg/dL Total Bilirubin (0.2-1.3) mg/dL AST (14-36) U/L ALT (4-34) U/L Alkaline Phosphatase (38-126) U/L Total Protein (6.3-8.2) g/dL Albumin (3.5-5.0) g/dL Blood Type Blood Type Recheck Bld Type Recheck Status Antibody Screen Spec Expiration Date Disposition Clinical Impression: Subdural hematoma Disposition: OTHER INSTITUTION NOT DEFINED Condition: Critical Is patient prescribed a controlled substance at d/c from ED?: No Referrals: Cori Mora MD [STAFF PHYSICIAN] - 1-2 days - Out of Hospital Transfer - Req. Specs Out of Hospital Transfer - Requested Specifics: Other Emergency Center Procedures - Central Line Placement Right Femoral Consent Obtained: verbal consent, emergent situation Patient Placed on Monitor/Pulse Ox: Yes Prep: mask, gown, gloves Central Line Prep: Chlorhexidine scrub Local Anesthesia Used: Lidocaine 1% Amount of Anesthesia Used (mls): 2 Ultrasound Used for Placement: No Central Line Lumen Inserted: triple Central Line Position: good blood return, all ports aspirated, flushed, capped, sutured in place with 3-0 nylon Dressing Applied: Tegaderm Patient Tolerated Procedure: well, no complications
[2023-10-29] MEDS: SODIUM CHLORIDE 0.9% 1,000 ML IV STA (18:10)
== END 2023-10-29 18:15 | disposition other institution (70) ==
LOC: EC 13:03
DX: S00.03XA Contusion of scalp, initial encounter (principal); Z88.2 Allergy status to sulfonamides; Z87.891 Personal history of nicotine dependence; Z90.49 Acquired absence of other specified parts of digestive tract; Z23 Encounter for immunization; W04.XXXA Fall while being carried or supported by other persons, initial encounter
CPT/HCPCS: 36415; 93005; 86900; 86901; 80053; 85025; 85610; 85730; 86850; 72170; 71045; 72125; 70450; 90715; 99291; 90471; 96365; 96367; 96361 ×2; J2597